=== PATIENT | male | born 1945 | race Caucasian/White ===

== ENCOUNTER → 2016-12-20 | Outpatient (CLI) | payer MEDICARE ==
--- NOTE | 2016-12-21 10:46 | MR ---
EXAMINATION TYPE: MR angio head wo con DATE OF EXAM: 12/20/2016 COMPARISON: Prior exam 07/03/2011 HISTORY: Cerebral aneurysm, nonrupture TECHNIQUE: Time of flight images focusing on the [place] were performed without contrast. FINDINGS: Anterior and posterior circulations are intact. Vertebral arteries are codominant. No evide nt vascular malformation or significant stenosis. At the origin of the ophthalmic artery on the left there is a focal area of dilation of the internal carotid artery as on prior exam and measures approx imately 4.4 mm. 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
== END | disposition home or self-care (01) ==
LOC: RADMRIMAIN 19:31
PROVIDERS: ATTEND Family Medicine
DX: I70.8 Atherosclerosis of other arteries (principal)
CPT/HCPCS: 70544

== ENCOUNTER 2017-09-02 09:36 | Day surgery (SDC) | payer MEDICARE ==
[2017-08-29 08:35] VITALS: BMI 26.7
[~2017-09-02 09:36] MED LIST: LACTATED RINGERS 1,000 ML IV SCH
[2017-09-02] MEDS: CYCLOPENTOLATE 1% OPHTH SOLN 2 ML BTL OP ONE ×3 (10:10→10:29)
[2017-09-02] MEDS: FLURBIPROFEN 0.03% OPHTH DROPS 2.5 ML BTL OP ONE ×3 (10:13→10:32)
[2017-09-02] MEDS: PHENYLEPHRINE 10% OPHTH DROPS 5 ML BTL OP ONE ×3 (10:17→10:36)
[2017-09-02 10:22] LABS: Glucose,Whole Blood 164 mg/dL (75-99)
[2017-09-02 10:26] VITALS: TEMP 97.9
[2017-09-02] MEDS ORDERED: PROPOFOL 10 MG/ML 20 ML VIAL IV ONE (10:47)
[2017-09-02] MEDS ORDERED: EPINEPHrine (PF) 0.5 ML in BALANCED SALT IRRIG SOLN COMB2 500 ML IRRIGATION ONE (10:54)
[2017-09-02] MEDS ORDERED: HYALURONATE SODIUM INTRAOCULAR 1 EACH SYRINGE (10MG/ML) INTRAOCULA ONE (10:56)
[2017-09-02] MEDS ORDERED: BALANCED SALT IRRIG SOLN COMB2 15 ML IRRIG.SOLN IRRIGATION ONE (10:56)
--- NOTE | 2017-09-02 11:11 | P.OP ---
Date of Procedure: 09/02/17 Procedure(s) Performed: ePREOPERATIVE DIAGNOSIS: Cataract, left eye. POSTOPERATIVE DIAGNOSIS: Cataract, left eye. OPERATION: Phacoemulsification cataract, left eye. DESCRIPTION OF PROCEDURE: The patient was taken to the preoperative holding area. Intravenous Propofol was given so as to bring about adequate sedation. The following mixture was given for local anesthesia: 5 mL of 2% lidocaine, 5 mL of 0.75% Marcaine, and 1 mL of Wydase. Approximately 4 mL was injected in the retrobulbar space of the surgical eye. Additional 1 mL was then directed to the temporal area of the surgical eye. This was performed to allow adequate neurological block of the facial muscles. The patient was revived and then taken into the operative room. The patient was prepped and draped in the usual sterile manner for the operative eye. A lid speculum was put into position. The conjunctiva was resected back from the limbus in the 12 o'clock position. Bleeding was controlled with electrocautery. A #69 blade was then used and a half-thickness scleral incision approximately 1-mm posterior to the limbus was made on bare sclera. This was shelved in the clear cornea using a crescent knife. Next a 15-degree blade was used to make a stab incision at the 3 o' clock position at the corneolimbal interface. Keratome blade was then used and the superior wound was extended into the anterior chamber. Viscoelastic was injected into the anterior chamber and to maintain its form. Next, a cystotome was used and a continuous anterior capsulotomy was made without difficulty. Hydrodissection using a blunt cannula and BSS was performed. Phaco probe was then employed and a groove extending from 12 to 6 o'clock in the lens was created. A Sander wand was used through the stab incision so as to perform a divide and conquer technique. Next an irrigation aspiration probe was utilized and any residual cortex was removed from the eye. Again, viscoelastic was injected into the anterior chamber. An Eric posterior chamber lens implant was placed in the cartridge and injected into the anterior chamber without difficulty. The [place] hook was utilized to spin the lens into position and this was again performed without any difficulty. The irrigation and aspiration probe was again employed and any residual viscoelastic was removed from the eye. Then BSS was injected into the limbal stab incision and the anterior chamber re-inflated. The conjunctiva was reapproximated using electrocautery. One drop of 0.25% Timoptic was placed over the corneal along with TobraDex ophthalmic ointment. Two sterile patches and a Ferguson eye shield were taped into position. The patient was transported to the recovery room in stable condition. l Pathology: none sent Condition: stable Disposition: same day
[2017-09-02 12:09] VITALS: BP 111/70; PULSE 65; RESP 18
[2017-09-02] MEDS ORDERED: GENTAMICIN/PREDNISOL AC OPHTH OINT 3.5GM OPHTHALMIC ONE (23:00)
[2017-09-02] MEDS ORDERED: BUPIVACAINE (PF) 0.75% 5 ML, HYALURONIDASE, HUMAN RECOMB 150 UNIT, LIDOCAINE 2% (PF) 10... MISCELLANE ONE ×3 (23:00)
[2017-09-02] MEDS ORDERED: TIMOLOL 0.5% OPHTH DROPS 5 ML BTL OP ONE (23:00)
== END 2017-09-02 12:18 | disposition home or self-care (01) ==
LOC: OR 09:36
PROVIDERS: ATTEND Ophthalmology
DX: E11.36 Type 2 diabetes mellitus with diabetic cataract (principal); E11.29 Type 2 diabetes mellitus with other diabetic kidney complication; Z79.4 Long term (current) use of insulin; H04.129 Dry eye syndrome of unspecified lacrimal gland; K21.9 Gastro-esophageal reflux disease without esophagitis; M19.90 Unspecified osteoarthritis, unspecified site; Z87.891 Personal history of nicotine dependence; E78.5 Hyperlipidemia, unspecified; I73.9 Peripheral vascular disease, unspecified; Z79.82 Long term (current) use of aspirin; Z79.899 Other long term (current) drug therapy
CPT/HCPCS: 66984; V2632; J3470; J2001; J0171; J2704

== ENCOUNTER 2017-10-14 10:27 | Day surgery (SDC) | payer MEDICARE ==
[2017-10-07 13:35] VITALS: BMI 28.6
[~2017-10-14 10:27] MED LIST changes: +LIDOCAINE 1% 20 ML VIAL (10MG/ML) FOR IV START INTRADERMA PRN; +MIDAZOLAM 2 MG/2 ML VIAL IV PRN
[2017-10-14 11:02] VITALS: TEMP 97.2
[2017-10-14] MEDS: PHENYLEPHRINE 10% OPHTH DROPS 5 ML BTL OP ONE ×3 (11:05→11:34)
[2017-10-14] MEDS: CYCLOPENTOLATE 1% OPHTH SOLN 2 ML BTL OP ONE ×3 (11:09→11:30)
[2017-10-14] MEDS: FLURBIPROFEN 0.03% OPHTH DROPS 2.5 ML BTL OP ONE ×3 (11:15→11:37)
[2017-10-14 11:17] LABS: Glucose,Whole Blood 273 mg/dL (75-99)
[2017-10-14] MEDS ORDERED: INSULIN ASPART 100 UNIT/ML 1 ML 10 ML VIAL SQ ONE (11:20)
[2017-10-14] MEDS ORDERED: PROPOFOL 10 MG/ML 20 ML VIAL IV ONE (11:48)
[2017-10-14] MEDS ORDERED: EPINEPHrine (PF) 0.5 ML in BALANCED SALT IRRIG SOLN COMB2 500 ML IRRIGATION ONE (11:53)
[2017-10-14] MEDS ORDERED: TIMOLOL 0.5% OPHTH SOLN (PF) 0.2 ML DROPERETTE RIGHT EYE ONE (11:56)
[2017-10-14] MEDS ORDERED: BALANCED SALT IRRIG SOLN COMB2 15 ML IRRIG.SOLN IRRIGATION ONE (11:56)
[2017-10-14] MEDS ORDERED: HYALURONATE SODIUM INTRAOCULAR 1 EACH SYRINGE (10MG/ML) INTRAOCULA ONE (11:56)
--- NOTE | 2017-10-14 12:09 | P.OP ---
Date of Procedure: 10/14/17 Procedure(s) Performed: PREOPERATIVE DIAGNOSIS: Cataract, right eye. POSTOPERATIVE DIAGNOSIS: Cataract, right eye. OPERATION: Phacoemulsification cataract, right eye. DESCRIPTION OF PROCEDURE: The patient was taken to the preoperative holding area. Intravenous Propofol was given so as to bring about adequate sedation. The following mixture was given for local anesthesia: 5 mL of 2% lidocaine, 5 mL of 0.75% Marcaine, and 1 mL of Wydase. Approximately 4 mL was injected in the retrobulbar space of the surgical eye. Additional 1 mL was then directed to the temporal area of the surgical eye. This was performed to allow adequate neurological block of the facial muscles. The patient was revived and then taken into the operative room. The patient was prepped and draped in the usual sterile manner for the operative eye. A lid speculum was put into position. The conjunctiva was resected back from the limbus in the 12 o'clock position. Bleeding was controlled with electrocautery. A #69 blade was then used and a half-thickness scleral incision approximately 1-mm posterior to the limbus was made on bare sclera. This was shelved in the clear cornea using a crescent knife. Next a 15-degree blade was used to make a stab incision at the 3 o' clock position at the corneolimbal interface. Keratome blade was then used and the superior wound was extended into the anterior chamber. Viscoelastic was injected into the anterior chamber and to maintain its form. Next, a cystotome was used and a continuous anterior capsulotomy was made without difficulty. Hydrodissection using a blunt cannula and BSS was performed. Phaco probe was then employed and a groove extending from 12 to 6 o'clock in the lens was created. A Sander wand was used through the stab incision so as to perform a divide and conquer technique. Next an irrigation aspiration probe was utilized and any residual cortex was removed from the eye. Again, viscoelastic was injected into the anterior chamber. An Eric posterior chamber lens implant was placed in the cartridge and injected into the anterior chamber without difficulty. The SinDragon [place]iley hook was utilized to spin the lens into position and this was again performed without any difficulty. The irrigation and aspiration probe was again employed and any residual viscoelastic was removed from the eye. Then BSS was injected into the limbal stab incision and the anterior chamber re-inflated. The conjunctiva was reapproximated using electrocautery. One drop of 0.25% Timoptic was placed over the corneal along with TobraDex ophthalmic ointment. Two sterile patches and a Ferguson eye shield were taped into position. The patient was transported to the recovery room in stable condition. Pathology: none sent Condition: stable Disposition: same day
[2017-10-14 12:17] VITALS: RESP 20
[2017-10-14 12:19] LABS: Glucose,Whole Blood 252 mg/dL (75-99)
[2017-10-14 12:34] VITALS: BP 115/76; PULSE 73
[2017-10-14] MEDS ORDERED: BUPIVACAINE (PF) 0.75% 5 ML, HYALURONIDASE, HUMAN RECOMB 150 UNIT, LIDOCAINE 2% (PF) 10... MISCELLANE ONE ×3 (23:00)
[2017-10-14] MEDS ORDERED: GENTAMICIN/PREDNISOL AC OPHTH OINT 3.5GM OPHTHALMIC ONE (23:00)
[2017-10-14] MEDS ORDERED: TIMOLOL 0.5% OPHTH DROPS 5 ML BTL OP ONE (23:00)
== END 2017-10-14 12:50 | disposition home or self-care (01) ==
LOC: OR 10:27
PROVIDERS: ATTEND Ophthalmology
DX: H25.11 Age-related nuclear cataract, right eye (principal); E11.9 Type 2 diabetes mellitus without complications; K21.9 Gastro-esophageal reflux disease without esophagitis; M19.90 Unspecified osteoarthritis, unspecified site; I10 Essential (primary) hypertension; E78.5 Hyperlipidemia, unspecified; H91.90 Unspecified hearing loss, unspecified ear; Z83.511 Family history of glaucoma; Z79.82 Long term (current) use of aspirin; Z79.4 Long term (current) use of insulin; Z79.899 Other long term (current) drug therapy; Z87.891 Personal history of nicotine dependence
CPT/HCPCS: 66984; V2632; J3470; J2001; J0171; J2704

== ENCOUNTER → 2018-01-27 | Outpatient (CLI) | payer MEDICARE ==
--- NOTE | 2018-01-27 14:36 | XR ---
EXAMINATION TYPE: XR foot complete RT DATE OF EXAM: 01/27/2018 COMPARISON: NONE HISTORY: 72-year-old male right foot pain, gout TECHNIQUE: 3 views FINDINGS: Prominent marginal spurring at both the talar head/neck and dorsal midfoot. Plantar calcaneal spurs i n posterior calcaneal spurs. Additional diffuse opacity change at the base of the fifth metatarsal. N o marginal erosions are seen. Mild degenerative change first MTP joint. Tiny loose bodies in the post erior tibiotalar joint. Mild degenerative spurring at the tibiotalar joint. No acute fracture, sublux ation, or dislocation seen. IMPRESSION: Prominent enthesopathic change and spurring at various insertional sites. Findings can be seen in the setting of DISH. No acute osseous abnormality seen.
== END | disposition home or self-care (01) ==
LOC: RADXRMAIN 10:18
PROVIDERS: ATTEND Physician Assistant
DX: M77.31 Calcaneal spur, right foot (principal)

== ENCOUNTER → 2020-02-23 | Outpatient (CLI) | payer MEDICARE ==
--- NOTE | 2020-02-23 23:10 | US ---
EXAMINATION TYPE: US kidneys/renal and bladder DATE OF EXAM: 02/23/2020 COMPARISON: NONE CLINICAL HISTORY: N18.3 chronic kidney disease. CKD EXAM MEASUREMENTS: Right Kidney: 11.5 x 5.5 x 6.1 cm Left Kidney: 11.4 x 5.0 x 5.7 cm Right Kidney: multiple cysts seen, largest = 3.3 x 3.6 x 3.0cm inferior pole Left Kidney: multiple cysts seen, largest = 2.6 x 2.9 x 2.6cm inferior pole Bladder: wall thickening = 0.7cm Bilateral Jets seen: no IMPRESSION: Multiple bilateral Renal cysts.
== END | disposition home or self-care (01) ==
LOC: RADUSWWP 13:22
PROVIDERS: ATTEND Internal Medicine Nephrology
DX: N28.1 Cyst of kidney, acquired (principal); N18.3 Chronic kidney disease, stage 3 (moderate)
CPT/HCPCS: 76770

== ENCOUNTER 2020-05-22 18:09 | Inpatient (IN) | payer MEDICARE ==
[2020-05-22] MEDS ORDERED: ALBUTEROL HFA INHALER INHALATION PRN (18:37)
[2020-05-22] MEDS ORDERED: ACETAMINOPHEN TAB 500 MG TAB PO STA (18:37)
[2020-05-22] MEDS ORDERED: ACETAMINOPHEN TAB 500 MG TAB PO PRN (18:37)
[2020-05-22] MEDS ORDERED: ALBUTEROL HFA INHALER INHALATION STA (18:37)
--- NOTE | 2020-05-22 18:39 | ED ---
General Adult HPI - General Chief complaint: Upper Respiratory Infection Stated complaint: cough/sinus problems Time Seen by Provider: 05/22/20 18:26 Source: patient, RN notes reviewed Mode of arrival: ambulatory Limitations: no limitations - History of Present Illness Initial comments: Patient is a pleasant 74-year-old male presenting to the emergency Department with complaints of sinus congestion. Onset of symptoms was over a week ago. Patient did see his doctor and was given medication. Patient states he usually has similar symptoms nearly. A benitez has some fever chills and myalgias. Patient does have a little bit of cough and little bit of difficulty in breathing. No history of chronic lung problems. Patient did have one episode of diarrhea. - Related Data Home Medications Medication Instructions Recorded Confirmed Aspirin 325 mg PO DAILY 05/13/15 05/22/20 Fish Oil/Dha/Epa [Fish Oil 1,200 1,000 mg PO BID 05/13/15 05/22/20 mg Fish Oil] Lisinopril-Hctz 20-12.5 mg 1 tab PO DAILY 05/13/15 05/22/20 [Zestoretic 20-12.5] Omeprazole [PriLOSEC] 20 mg PO AC-BID 05/13/15 05/22/20 Cholecalciferol [Vitamin D3] 1,000 unit PO DAILY 08/29/17 05/22/20 Insulin Lispro Protamin/Lispro 40 unit SQ BID 08/29/17 05/22/20 [humaLOG Mix 75-25 Kwikpen] Ubidecarenone [Co Q-10] 100 mg PO DAILY 08/29/17 05/22/20 Lifitegrast [Xiidra] 1 dropper BOTH EYES BID 05/22/20 05/22/20 Simvastatin [Zocor] 20 mg PO HS 05/22/20 05/22/20 Tamsulosin HCl [Flomax] 0.4 mg PO HS 05/22/20 05/22/20 Allergies Allergy/AdvReac Type Severity Reaction Status Date / Time clindamycin [From Cleocin] Allergy Rash/Hives Verified 05/22/20 19:29 Review of Systems ROS Statement: Those systems with pertinent positive or pertinent negative responses have been documented in the HPI. ROS Other: All systems not noted in ROS Statement are negative. Constitutional: Reports: as per HPI, fever, chills Eyes: Denies: eye pain ENT: Reports: congestion. Denies: ear pain, throat pain Respiratory: Reports: as per HPI, cough Cardiovascular: Denies: chest pain Endocrine: Reports: fatigue Gastrointestinal: Denies: abdominal pain Genitourinary: Denies: dysuria Musculoskeletal: Denies: back pain Skin: Denies: rash Neurological: Denies: weakness Past Medical History Past Medical History: Diabetes Mellitus, GERD/Reflux, Hyperlipidemia, Hypertension, Osteoarthritis (OA) Additional Past Medical History / Comment(s): 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" History of Any Multi-Drug Resistant Organisms: None Reported Past Surgical History: Cholecystectomy Additional Past Surgical History / Comment(s): spinal cord infection I&D, left cataract surgery, colonoscopy, left cataract Past Anesthesia/Blood Transfusion Reactions: Motion Sickness Past Psychological History: No Psychological Hx Reported Smoking Status: Never smoker Past Alcohol Use History: None Reported Past Drug Use History: None Reported - Past Family History Mother Family Medical History: No Reported History General Exam Limitations: no limitations General appearance: alert, in no apparent distress Head exam: Present: normocephalic Eye exam: Present: normal appearance ENT exam: Present: normal oropharynx Neck exam: Present: normal inspection Respiratory exam: Present: normal lung sounds bilaterally Cardiovascular Exam: Present: tachycardia GI/Abdominal exam: Present: soft. Absent: tenderness Extremities exam: Present: normal inspection. Absent: pedal edema, calf tenderness Neurological exam: Present: alert Psychiatric exam: Present: normal affect, normal mood Skin exam: Present: normal color Course Vital Signs 05/22/20 05/22/20 05/22/20 18:20 18:32 19:14 Temperature 99.3 F 98.1 F Pulse Rate 106 H 88 Respiratory 18 20 20 Rate Blood Pressure 121/67 106/63 O2 Sat by Pulse 90 L 93 L Oximetry EKG Findings - EKG Comments: EKG Findings:: Normal sinus rhythm 94. CA 166. QRS 74. QT 332. QTC 402. Normal axis. Normal QRS. No acute ST change. Medical Decision Making - Medical Decision Making Patient reevaluated and updated. Dr. Salmeron has been paged for admission, covering for Dr. Plascencia. - Lab Data Result diagrams: 05/22/20 18:53 05/22/20 18:53 Lab Results 05/22/20 05/22/20 05/22/20 Range/Units 18:53 18:53 18:53 WBC 6.3 (3.8-10.6) k/uL RBC 5.09 (4.30-5.90) m/uL Hgb 16.2 (13.0-17.5) gm/dL Hct 46.2 (39.0-53.0) % MCV 90.9 (80.0-100.0) fL MCH 31.8 (25.0-35.0) pg MCHC 35.0 (31.0-37.0) g/dL RDW 12.5 (11.5-15.5) % Plt Count 152 (150-450) k/uL MPV 7.8 Neutrophils % 84 % Lymphocytes % 11 % Monocytes % 4 % Eosinophils % 0 % Basophils % 1 % Neutrophils # 5.2 (1.3-7.7) k/uL Lymphocytes # 0.7 L (1.0-4.8) k/uL Monocytes # 0.2 (0-1.0) k/uL Eosinophils # 0.0 (0-0.7) k/uL Basophils # 0.0 (0-0.2) k/uL PT 10.0 (9.0-12.0) sec INR 1.0 (<1.2) APTT 26.1 (22.0-30.0) sec Sodium 131 L (137-145) mmol/L Potassium 4.7 (3.5-5.1) mmol/L Chloride 96 L (98-107) mmol/L Carbon Dioxide 25 (22-30) mmol/L Anion Gap 10 mmol/L BUN 49 H (9-20) mg/dL Creatinine 1.95 H (0.66-1.25) mg/dL Est GFR (CKD-EPI)AfAm 38 (>60 ml/min/1.73 sqM) Est GFR (CKD-EPI)NonAf 33 (>60 ml/min/1.73 sqM) Glucose 229 H (74-99) mg/dL Plasma Lactic Acid Stephen (0.7-2.0) mmol/L Calcium 8.7 (8.4-10.2) mg/dL Magnesium 2.1 (1.6-2.3) mg/dL Total Bilirubin 0.8 (0.2-1.3) mg/dL AST 43 (17-59) U/L ALT 21 (4-49) U/L Alkaline Phosphatase 68 (38-126) U/L Lactate Dehydrogenase 946 H (313-618) U/L C-Reactive Protein 53.1 H (<10.0) mg/L Total Protein 7.1 (6.3-8.2) g/dL Albumin 3.7 (3.5-5.0) g/dL Coronavirus (PCR) (Not Detectd) Influenza Type A RNA (Not Detectd) Influenza Type B (PCR) (Not Detectd) 05/22/20 05/22/20 05/22/20 Range/Units 18:53 18:58 18:58 WBC (3.8-10.6) k/uL RBC (4.30-5.90) m/uL Hgb (13.0-17.5) gm/dL Hct (39.0-53.0) % MCV (80.0-100.0) fL MCH (25.0-35.0) pg MCHC (31.0-37.0) g/dL RDW (11.5-15.5) % Plt Count (150-450) k/uL MPV Neutrophils % % Lymphocytes % % Monocytes % % Eosinophils % % Basophils % % Neutrophils # (1.3-7.7) k/uL Lymphocytes # (1.0-4.8) k/uL Monocytes # (0-1.0) k/uL Eosinophils # (0-0.7) k/uL Basophils # (0-0.2) k/uL PT (9.0-12.0) sec INR (<1.2) APTT (22.0-30.0) sec Sodium (137-145) mmol/L Potassium (3.5-5.1) mmol/L Chloride (98-107) mmol/L Carbon Dioxide (22-30) mmol/L Anion Gap mmol/L BUN (9-20) mg/dL Creatinine (0.66-1.25) mg/dL Est GFR (CKD-EPI)AfAm (>60 ml/min/1.73 sqM) Est GFR (CKD-EPI)NonAf (>60 ml/min/1.73 sqM) Glucose (74-99) mg/dL Plasma Lactic Acid Stephen 2.3 H* (0.7-2.0) mmol/L Calcium (8.4-10.2) mg/dL Magnesium (1.6-2.3) mg/dL Total Bilirubin (0.2-1.3) mg/dL AST (17-59) U/L ALT (4-49) U/L Alkaline Phosphatase (38-126) U/L Lactate Dehydrogenase (313-618) U/L C-Reactive Protein (<10.0) mg/L Total Protein (6.3-8.2) g/dL Albumin (3.5-5.0) g/dL Coronavirus (PCR) Detected A (Not Detectd) Influenza Type A RNA Not Detected (Not Detectd) Influenza Type B (PCR) Not Detected (Not Detectd) - Radiology Data Radiology results: image reviewed (Chest x-ray shows coarse interstitial density increased compared to prior consistent with pulmonary fibrosis. Interstitial pneumonia is possible.) Disposition Clinical Impression: COVID-19 Disposition: ADMITTED IP TO THIS HOSP Is patient prescribed a controlled substance at d/c from ED?: No Referrals: Anastacio Plascencia MD [Primary Care Provider] - 1-2 days Decision Time: 20:15
[2020-05-22 19:06] LABS: Basophils % (A) 1 %; Eosinophils % (A) 0 %; HCT 46.2 % (39.0-53.0); HGB 16.2 gm/dL (13.0-17.5); Lymphocytes # (A) 0.7 k/uL (1.0-4.8); Lymphocytes % (A) 11 %; MCH 31.8 pg (25.0-35.0); MCV 90.9 fL (80.0-100.0); Mean Platelet Volume 7.8; Monocytes # (A) 0.2 k/uL (0-1.0); Monocytes % (A) 4 %; Neutrophils # (A) 5.2 k/uL (1.3-7.7); Neutrophils % (A) 84 %; Platelet Count 152 k/uL (150-450); RBC 5.09 m/uL (4.30-5.90); RDW 12.5 % (11.5-15.5); WBC 6.3 k/uL (3.8-10.6)
[2020-05-22 19:21] LABS: Potassium 4.7 mmol/L (3.5-5.1)
[2020-05-22 19:23] LABS: Partial Thromboplastin Time 26.1 sec (22.0-30.0)
[2020-05-22 19:24] LABS: Albumin 3.7 g/dL (3.5-5.0); C Reactive Protein 53.1 mg/L (<10.0); Calcium 8.7 mg/dL (8.4-10.2); Magnesium 2.1 mg/dL (1.6-2.3); Total Bilirubin 0.8 mg/dL (0.2-1.3); Total Protein 7.1 g/dL (6.3-8.2)
[2020-05-22] MEDS ORDERED: SODIUM CHLORIDE 0.9% 1,000 ML IV STA (19:36)
--- NOTE | 2020-05-22 19:42 | XR ---
EXAMINATION TYPE: XR chest 1V portable DATE OF EXAM: 05/22/2020 COMPARISON: 10/14/2012 HISTORY: Bronchitis TECHNIQUE: FINDINGS: There is coarse interstitial density in both lungs. Heart size is normal. There is no heart failure. Costophrenic angles are clear. IMPRESSION: Coarse interstitial pulmonary density increased compared to old exam and consistent with pulmonary fibrosis. Acute interstitial pneumonia is possible. No heart failure seen.
[2020-05-22] MEDS ORDERED: NALOXONE 0.4 MG/ML 1 ML VIAL IV PRN (20:16)
[2020-05-22] MEDS: ALBUTEROL HFA INHALER INHALATION SCH (20:43)
[2020-05-22] MEDS: CHOLECALCIFEROL 1,000 UNIT TAB PO SCH (21:21)
[2020-05-22] MEDS: ZINC SULFATE 220 MG CAP PO SCH (21:21)
[2020-05-22] MEDS: dexAMETHasone 2 MG TAB PO SCH (21:21)
[2020-05-22] MEDS: SODIUM CHLORIDE 0.9% 1,000 ML IV SCH (21:22)
[2020-05-22] MEDS: ENOXAPARIN 40 MG/0.4 ML SYRINGE SQ SCH (21:22)
[2020-05-22] MEDS: ASCORBIC ACID 500 MG TAB PO SCH (21:22)
[2020-05-23] MEDS: ALBUTEROL HFA INHALER INHALATION SCH ×4 (00:29→21:15)
[2020-05-23 03:31] LABS: Ferritin 1841.4 ng/mL (22.0-322.0)
[2020-05-23 07:53] LABS: Glucose,Whole Blood 127 mg/dL (75-99)
[2020-05-23] MEDS: INSULIN ASPART (NovoLOG) 100 UNIT/ML VIAL SQ SCH ×4 (08:32→20:42)
[2020-05-23] MEDS: ASCORBIC ACID 500 MG TAB PO SCH ×2 (08:42→20:42)
[2020-05-23] MEDS: CHOLECALCIFEROL 1,000 UNIT TAB PO SCH (08:42)
[2020-05-23] MEDS: dexAMETHasone 2 MG TAB PO SCH (08:42)
[2020-05-23] MEDS: ZINC SULFATE 220 MG CAP PO SCH (08:42)
[2020-05-23] MEDS: PANTOPRAZOLE 40 MG TABLET PO SCH ×2 (08:42→17:55)
[2020-05-23] MEDS: ENOXAPARIN 40 MG/0.4 ML SYRINGE SQ SCH (08:42)
[2020-05-23] MEDS: NON FORMULARY DRUG (Lifitegrast [Xiidra] 1 EACH Droperette) BOTH EYES SCH ×2 (08:43→20:44)
[2020-05-23] MEDS: ASPIRIN 325 MG TAB PO SCH (08:43)
[2020-05-23] MEDS ORDERED: NON FORMULARY DRUG (Ubidecarenone [Co Q-10] 100 MG Capsule) PO SCH (09:00)
[2020-05-23] MEDS ORDERED: INSULN ASP PRT/INSULIN ASPART 100 UNIT/ML 10 ML VIAL SQ SCH (09:00)
[2020-05-23] MEDS ORDERED: NON FORMULARY DRUG (Fish Oil/Dha/Epa [Fish Oil 1,200 Mg Fish Oil] 1 EACH Capsule) PO SCH (09:00)
[2020-05-23] MEDS ORDERED: PANTOPRAZOLE 40 MG/10 ML VIAL IV SCH (09:00)
[2020-05-23] MEDS ORDERED: LISINOPRIL-HCTZ 20-12.5 MG 1 EACH TAB PO SCH (09:00)
[2020-05-23] MEDS: SODIUM CHLORIDE 0.9% 1,000 ML IV SCH ×2 (11:16→23:19)
[2020-05-23 11:24] LABS: Glucose,Whole Blood 147 mg/dL (75-99)
--- NOTE | 2020-05-23 13:02 | P.HPIM ---
History of Present Illness 74-year-old pleasant male came to the emergency department with complaints of for sinus congestion and body aches fevers chills. Found to have Covid 19. Patient the is still feeling weak and tired. Patient had 1 episode of diarrhea. She is mildly hyponatremic patient is found to have a Covid 19 infection. Patient baseline creatinine is around 1.8 appears to mild worsening of his creatinine to 1.95. Patient will be continued on IV fluids today patient is presently on 2 L of oxygen we'll try to wean it off if patient is doing well will be discharged tomorrow. She was on 4 L of oxygen yesterday patient believes he is exposed to coronavirus on ninth of this month his symptoms started about a week ago. Patient is presently on Decadron. Review of Systems REVIEW OF SYSTEMS: CONSTITUTIONAL: As mentioned in HPI HEENT: No recent visual problems or hearing problems. Denied any sore throat. CARDIOVASCULAR: No chest pain, orthopnea, PND, no palpitations, no syncope. PULMONARY: No shortness of breath, no cough, no hemoptysis. GASTROINTESTINAL: No diarrhea, no nausea, no vomiting, no abdominal pain. NEUROLOGICAL: No headaches, no weakness, no numbness. HEMATOLOGICAL: Denies any bleeding or petechiae. GENITOURINARY: Denies any burning micturition, frequency, or urgency. MUSCULOSKELETAL/RHEUMATOLOGICAL: Denies any joint pain, swelling, or any muscle pain. ENDOCRINE: Denies any polyuria or polydipsia. The rest of the 14-point review of systems is negative. Past Medical History Past Medical History: Diabetes Mellitus, GERD/Reflux, Hyperlipidemia, Hypertension, Osteoarthritis (OA) Additional Past Medical History / Comment(s): 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" History of Any Multi-Drug Resistant Organisms: None Reported Past Surgical History: Cholecystectomy Additional Past Surgical History / Comment(s): spinal cord infection I&D, left cataract surgery, colonoscopy, left cataract Past Anesthesia/Blood Transfusion Reactions: Motion Sickness Past Psychological History: No Psychological Hx Reported Smoking Status: Former smoker Past Alcohol Use History: None Reported Additional Past Alcohol Use History / Comment(s): STARTED SMOKING AT AGE 20 QUIT SMOKING 1973 SMOKED 1PPD Past Drug Use History: None Reported - Past Family History Mother Family Medical History: No Reported History Medications and Allergies Home Medications Medication Instructions Recorded Confirmed Type Aspirin 325 mg PO DAILY 05/13/15 05/22/20 History Fish Oil/Dha/Epa [Fish Oil 1,200 1,000 mg PO BID 05/13/15 05/22/20 History mg Fish Oil] Lisinopril-Hctz 20-12.5 mg 1 tab PO DAILY 05/13/15 05/22/20 History [Zestoretic 20-12.5] Omeprazole [PriLOSEC] 20 mg PO AC-BID 05/13/15 05/22/20 History Cholecalciferol [Vitamin D3] 1,000 unit PO DAILY 08/29/17 05/22/20 History Insulin Lispro Protamin/Lispro 40 unit SQ BID 08/29/17 05/22/20 History [humaLOG Mix 75-25 Kwikpen] Ubidecarenone [Co Q-10] 100 mg PO DAILY 08/29/17 05/22/20 History Lifitegrast [Xiidra] 1 dropper BOTH EYES BID 05/22/20 05/22/20 History Simvastatin [Zocor] 20 mg PO HS 05/22/20 05/22/20 History Tamsulosin HCl [Flomax] 0.4 mg PO HS 05/22/20 05/22/20 History Allergies Allergy/AdvReac Type Severity Reaction Status Date / Time clindamycin [From Cleocin] Allergy Rash/Hives Verified 05/22/20 19:29 Physical Exam Vitals: Vital Signs Temp Pulse Pulse Resp BP BP Pulse Ox 05/23/20 11:20 98.0 F 83 18 108/63 94 L 05/23/20 05:35 97.6 F 70 18 95/59 94 L 05/22/20 23:00 97.7 F 82 16 97/55 94 L 05/22/20 21:41 98.6 F 81 20 106/84 93 L 05/22/20 21:00 98.6 F 81 20 94/55 93 L 05/22/20 20:22 98.6 F 88 20 99/62 93 L 05/22/20 19:14 98.1 F 88 20 106/63 93 L 05/22/20 18:32 20 05/22/20 18:20 99.3 F 106 H 18 121/67 90 L Intake and Output 05/22/20 05/23/20 05/23/20 22:59 06:59 14:59 Intake Total 400 850 Balance 400 850 Intake: Intake, IV Titration 150 600 Amount Sodium Chloride 0.9% 1, 150 600 000 ml @ 75 mls/hr IV . [id number] [facility] Rx#:[id number] Oral 250 250 Other: Voiding Method Toilet Toilet # Voids 2 2 Weight 90.718 kg PHYSICAL EXAMINATION: GENERAL: The patient is alert and oriented x3, not in any acute distress. Well developed, well nourished. HEENT: Pupils are round and equally reacting to light. EOMI. No scleral icterus. No conjunctival pallor. Normocephalic, atraumatic. No pharyngeal erythema. No thyromegaly. CARDIOVASCULAR: S1 and S2 present. No murmurs, rubs, or gallops. PULMONARY: Chest is clear to auscultation, no wheezing or crackles. ABDOMEN: Soft, nontender, nondistended, normoactive bowel sounds. No palpable organomegaly. MUSCULOSKELETAL: No joint swelling or deformity. EXTREMITIES: No cyanosis, clubbing, or pedal edema. NEUROLOGICAL: Gross neurological examination did not reveal any focal deficits. SKIN: No rashes. Results CBC & Chem 7: 05/22/20 18:53 05/22/20 18:53 Labs: Abnormal Lab Results - Last 24 Hours (Table) 05/22/20 05/22/20 05/22/20 Range/Units 18:53 18:53 18:53 Lymphocytes # 0.7 L (1.0-4.8) k/uL Sodium 131 L (137-145) mmol/L Chloride 96 L (98-107) mmol/L BUN 49 H (9-20) mg/dL Creatinine 1.95 H (0.66-1.25) mg/dL Glucose 229 H (74-99) mg/dL POC Glucose (mg/dL) (75-99) mg/dL Plasma Lactic Acid Stephen 2.3 H* (0.7-2.0) mmol/L Ferritin 1841.4 H (22.0-322.0) ng/mL Lactate Dehydrogenase 946 H (313-618) U/L C-Reactive Protein 53.1 H (<10.0) mg/L Procalcitonin (0.02-0.09) ng/mL Coronavirus (PCR) (Not Detectd) 05/22/20 05/22/20 05/23/20 Range/Units 18:53 18:58 07:50 Lymphocytes # (1.0-4.8) k/uL Sodium (137-145) mmol/L Chloride (98-107) mmol/L BUN (9-20) mg/dL Creatinine (0.66-1.25) mg/dL Glucose (74-99) mg/dL POC Glucose (mg/dL) 127 H (75-99) mg/dL Plasma Lactic Acid Stephen (0.7-2.0) mmol/L Ferritin (22.0-322.0) ng/mL Lactate Dehydrogenase (313-618) U/L C-Reactive Protein (<10.0) mg/L Procalcitonin 0.13 H (0.02-0.09) ng/mL Coronavirus (PCR) Detected A (Not Detectd) 05/23/20 Range/Units 11:23 Lymphocytes # (1.0-4.8) k/uL Sodium (137-145) mmol/L Chloride (98-107) mmol/L BUN (9-20) mg/dL Creatinine (0.66-1.25) mg/dL Glucose (74-99) mg/dL POC Glucose (mg/dL) 147 H (75-99) mg/dL Plasma Lactic Acid Stephen (0.7-2.0) mmol/L Ferritin (22.0-322.0) ng/mL Lactate Dehydrogenase (313-618) U/L C-Reactive Protein (<10.0) mg/L Procalcitonin (0.02-0.09) ng/mL Coronavirus (PCR) (Not Detectd) Thrombosis Risk Factor Assmnt - Choose All That Apply Any of the Below Risk Factors Present?: Yes Each Factor Represents 1 point: Obesity (BMI >25) Each Risk Factor Represents 3 Points: Age 75 years or older Thrombosis Risk Factor Assessment Total Risk Factor Score: 4 Thrombosis Risk Factor Assessment Level: Moderate Risk Assessment and Plan Plan: -Covid 19 pneumonitis and acute hypoxic respiratory failure secondary to Covid 1 9. Patient will continue on Decadron, zinc, vitamin C and vitamin D supplementation. Patient is presently on 2 L of oxygen will be monitored. -Hypovolemic hyponatremia secondary to diarrhea as well as his antihypertensive medications medications that includes hydrochlorothiazide which will be held and patient is hypotensive at this time and patient will continue on IV fluids repeat basic metabolic profile tomorrow -Acute renal failure.: Prerenal azotemia secondary to assessment #2, patient do es have chronic kidney disease stage III from a possible diabetic nephropathy -Type 2 diabetes mellitus: His blood sugars are fine now expected to go because of Decadron -Hyperlipidemia -Hypertension -DVT prophylaxis with the heparin Lovenox will be discontinued
[2020-05-23 17:00] LABS: Glucose,Whole Blood 252 mg/dL (75-99)
[2020-05-23] MEDS: INSULN ASP PRT/INSULIN ASPART 100 UNIT/ML 10 ML VIAL SQ SCH (18:07)
[2020-05-23 19:48] LABS: Glucose,Whole Blood 207 mg/dL (75-99)
[2020-05-23] MEDS: ATORVASTATIN 20 MG TAB PO SCH (20:42)
[2020-05-23] MEDS: TAMSULOSIN 0.4 MG CAP.ER.24H PO SCH (20:42)
[2020-05-23] MEDS: HEPARIN SODIUM,PORCINE 5,000 UNIT/ML 1 ML VIAL SQ SCH (20:42)
[2020-05-24] MEDS: ALBUTEROL HFA INHALER INHALATION SCH ×5 (02:44→21:34)
[2020-05-24 06:45] LABS: HCT 40.8 % (39.0-53.0); MCH 31.4 pg (25.0-35.0); MCHC 34.3 g/dL (31.0-37.0); MCV 91.5 fL (80.0-100.0); Mean Platelet Volume 7.6; Platelet Count 164 k/uL (150-450); RBC 4.46 m/uL (4.30-5.90); RDW 12.8 % (11.5-15.5); WBC 12.4 k/uL (3.8-10.6)
[2020-05-24 07:07] LABS: Glucose,Whole Blood 96 mg/dL (75-99)
[2020-05-24] MEDS: INSULIN ASPART (NovoLOG) 100 UNIT/ML VIAL SQ SCH ×4 (07:38→21:58)
[2020-05-24 09:54] LABS: Albumin 3.1 g/dL (3.80-4.90); Albumin/Globulin Ratio 1.35 (1.60-3.17); Anion Gap 8.4 mmol/L (4.00-12.00); BUN/Creat Ratio 26.67 Ratio (12.00-20.00); Calcium 8.4 mg/dL (8.7-10.3); Carbon Dioxide 24.6 mmol/L (21.6-31.8); Globulin 2.3 g/dL (1.6-3.3); Non-African American GFR(CKD) 36.3 (60.0-200.0); Potassium 4.6 mmol/L (3.5-5.5); Total Bilirubin 0.6 mg/dL (0.2-1.2); Total Protein 5.4 g/dL (6.2-8.2)
[2020-05-24] MEDS: ZINC SULFATE 220 MG CAP PO SCH (10:31)
[2020-05-24] MEDS: INSULN ASP PRT/INSULIN ASPART 100 UNIT/ML 10 ML VIAL SQ SCH ×2 (10:31→18:24)
[2020-05-24] MEDS: CHOLECALCIFEROL 1,000 UNIT TAB PO SCH (10:31)
[2020-05-24] MEDS: HEPARIN SODIUM,PORCINE 5,000 UNIT/ML 1 ML VIAL SQ SCH ×2 (10:31→21:59)
[2020-05-24] MEDS: PANTOPRAZOLE 40 MG TABLET PO SCH ×2 (10:31→18:24)
[2020-05-24] MEDS: dexAMETHasone 2 MG TAB PO SCH (10:31)
[2020-05-24] MEDS: ASCORBIC ACID 500 MG TAB PO SCH ×2 (10:31→21:58)
[2020-05-24] MEDS: ASPIRIN 325 MG TAB PO SCH (10:32)
[2020-05-24] MEDS: NON FORMULARY DRUG (Lifitegrast [Xiidra] 1 EACH Droperette) BOTH EYES SCH (10:32)
[2020-05-24 11:42] LABS: Glucose,Whole Blood 124 mg/dL (75-99)
[2020-05-24 12:01] LABS: Hemoglobin A1C 8.5 % (4.0-6.0)
[2020-05-24 17:10] LABS: Glucose,Whole Blood 180 mg/dL (75-99)
[2020-05-24 20:09] LABS: Glucose,Whole Blood 166 mg/dL (75-99)
[2020-05-24] MEDS: ATORVASTATIN 20 MG TAB PO SCH (21:58)
[2020-05-24] MEDS: TAMSULOSIN 0.4 MG CAP.ER.24H PO SCH (21:58)
[2020-05-24] MEDS ORDERED: REMDESIVIR 200 MG in SODIUM CHLORIDE 0.9% 250 ML IVPB ONE (22:00)
--- NOTE | 2020-05-25 01:52 | P.PN ---
Subjective Progress Note Date: 05/24/20 74-year-old pleasant male came to the emergency department with complaints of for sinus congestion and body aches fevers chills. Found to have Covid 19. Patient the is still feeling weak and tired. Patient had 1 episode of diarrhea. She is mildly hyponatremic patient is found to have a Covid 19 infection. Patient baseline creatinine is around 1.8 appears to mild worsening of his creatinine to 1.95. Patient will be continued on IV fluids today patient is presently on 2 L of oxygen we'll try to wean it off if patient is doing well will be discharged tomorrow. She was on 4 L of oxygen yesterday patient believes he is exposed to coronavirus on ninth of this month his symptoms started about a week ago. Patient is presently on Decadron. 05/25/20 Patient seen in follow up with no acute issues. Patient remains on 8 L via NC high flow and is currently weaning per nursing staff. Patient states he has increased shortness of breath with exertion when attempting to wean. Infectious disease consulted and currently on dexamethasone. Remdesivir being initiated. creatinine 1.8 today and will continue with gentle IV hydration. Will repeat am labs. Review of systems: Constitutional: Reports weakness and fatigue Cardio: No reports of chest pain or palpitations Respiratory: Reports shortness of breath and persistent cough GI: no reports of nausea, vomiting, or diarrhea : no reports of dysuria or retention Neurovascular: No reports of numbness All medications have been reviewed. Objective - Vital Signs Vital signs: Vital Signs Temp 98.3 F 05/24/20 12:26 Pulse 87 05/24/20 12:26 Resp 17 05/24/20 12:26 BP 104/59 05/24/20 12:26 Pulse Ox 90 L 05/24/20 12:26 Intake & Output 05/23/20 05/24/20 05/24/20 18:59 06:59 18:59 Intake Total 1130 Output Total 800 Balance 1130 -800 Intake: Intake, IV Titration 300 Amount Sodium Chloride 0.9% 1, 300 000 ml @ 75 mls/hr IV . [id number] [facility] Rx#:[id number] Oral 830 Output: Urine 800 Other: Voiding Method Toilet Toilet Toilet # Voids 4 1 3 # Bowel Movements 1 1 - Exam GENERAL: The patient is alert and oriented x3, not in any acute distress. Well developed, well nourished. HEENT: Pupils are round and equally reacting to light. EOMI. No scleral icterus. No conjunctival pallor. Normocephalic, atraumatic. No pharyngeal erythema. No thyromegaly. CARDIOVASCULAR: S1 and S2 present. No murmurs, rubs, or gallops. PULMONARY: Chest is clear to auscultation, no wheezing or crackles. ABDOMEN: Soft, nontender, nondistended, normoactive bowel sounds. No palpable organomegaly. MUSCULOSKELETAL: No joint swelling or deformity. EXTREMITIES: No cyanosis, clubbing, or pedal edema. NEUROLOGICAL: Gross neurological examination did not reveal any focal deficits. SKIN: No rashes. - Labs CBC & Chem 7: 05/24/20 06:24 05/24/20 06:24 Labs: Abnormal Lab Results - Last 24 Hours (Table) 05/23/20 05/23/20 05/24/20 Range/Units 16:58 19:47 06:24 WBC (3.8-10.6) k/uL BUN (9.0-27.0) mg/dL Creatinine (0.6-1.5) mg/dL Est GFR (CKD-EPI)AfAm (60.0-200.0) Est GFR (CKD-EPI)NonAf (60.0-200.0) BUN/Creatinine Ratio (12.00-20.00) Ratio POC Glucose (mg/dL) 252 H 207 H (75-99) mg/dL Hemoglobin A1c 8.5 H (4.0-6.0) % Calcium (8.7-10.3) mg/dL AST (14-35) U/L Total Protein (6.2-8.2) g/dL Albumin (3.80-4.90) g/dL Albumin/Globulin Ratio (1.60-3.17) g/dL 05/24/20 05/24/20 05/24/20 Range/Units 06:24 06:24 11:41 WBC 12.4 H (3.8-10.6) k/uL BUN 48.0 H (9.0-27.0) mg/dL Creatinine 1.8 H (0.6-1.5) mg/dL Est GFR (CKD-EPI)AfAm 42.0 L (60.0-200.0) Est GFR (CKD-EPI)NonAf 36.3 L (60.0-200.0) BUN/Creatinine Ratio 26.67 H (12.00-20.00) Ratio POC Glucose (mg/dL) 124 H (75-99) mg/dL Hemoglobin A1c (4.0-6.0) % Calcium 8.4 L (8.7-10.3) mg/dL AST 41 H (14-35) U/L Total Protein 5.4 L (6.2-8.2) g/dL Albumin 3.10 L (3.80-4.90) g/dL Albumin/Globulin Ratio 1.35 L (1.60-3.17) g/dL Microbiology - Last 24 Hours (Table) 05/22/20 18:53 Blood Culture - Preliminary Blood No Growth after 24 hours Assessment and Plan Assessment: -Covid 19 pneumonitis and acute hypoxic respiratory failure secondary to Covid 19. Patient will continue on Decadron, zinc, vitamin C and vitamin D supplementation. Patient having worsening shortness of breath and now on 8L high flow. Infectious disease consulted. Remdesivir initiated. -Hypovolemic hyponatremia secondary to diarrhea as well as his antihypertensive medications medications that includes hydrochlorothiazide which will be held and patient is hypotensive at this time and patient will continue on IV fluids repeat basic metabolic profile tomorrow, creatinine slowly trending down. -Acute renal failure.: Prerenal azotemia secondary to assessment #2, patient does have chronic kidney disease stage III from a possible diabetic nephropathy -Type 2 diabetes mellitus: possibly elevated due to decadron. Continue with sliding scale and long acting at this time. -Hyperlipidemia -Hypertension -DVT prophylaxis with the heparin @75ml/hour. Will repeat am labs. Infectious disease consulted. Remdesivir initiated. Plan: Continue with current medications. gentle IV hydration @75ml/hour. Will repeat am labs. Infectious disease consulted. Remdesivir initiated. Instructed patient to increase activity as tolerated. Discussed with RN about weaning FI02 as tolerated as patient is currently now on 8L HF via NC. Monitor blood sugars closely and continue current regimen. Further recommendations to follow.
[2020-05-25 03:42] LABS: Glucose,Whole Blood 72 mg/dL (75-99)
[2020-05-25 04:07] LABS: Glucose,Whole Blood 89 mg/dL (75-99)
[2020-05-25] MEDS: ALBUTEROL HFA INHALER INHALATION SCH ×4 (04:14→19:49)
[2020-05-25] MEDS: SODIUM CHLORIDE 0.9% 1,000 ML IV SCH ×3 (04:22→16:28)
[2020-05-25] MEDS: NON FORMULARY DRUG (Lifitegrast [Xiidra] 1 EACH Droperette) BOTH EYES SCH ×3 (04:22→22:01)
--- NOTE | 2020-05-25 06:13 | CONS ---
CONSULTATION DATE OF SERVICE: 05/24/2020 REASON FOR CONSULTATION: COVID-19 pneumonia. HISTORY OF PRESENT ILLNESS: The patient is a 74-year-old male who presented to the ER at [facility] predominantly with sinus congestion to be his predominant symptom with some postnasal drip. The patient did mention afterwards he started having shortness of breath on minimal exertion and even at times he also had a cough which is moderate in intensity but not bringing up any sputum. Denies any pleuritic chest pain. The patient has been treated with some sinus congestion medication without any improvement and his symptoms have been going on for about a week with persistent symptoms. The patient did present to the hospital. On arrival to the ER 2 days ago, the patient did have a low-grade fever of 99.3. The patient was hypoxic on admission with O2 sat of 90% on 2 L nasal cannula. The patient did have a normal white count with lymphopenia. D-dimer was not checked. BUN of 48, creatinine 1.8, and a CRP of 53.1. Patient's COVID test came back positive. Influenza PCR was negative. The patient did have a chest x-ray which shows coarsened interstitial pulmonary density increased compared to old exam. The patient was admitted to the hospital. Infectious Disease was consulted for further management of his COVID-19. REVIEW OF SYSTEMS: Positive points have been mentioned in HPI. Rest of systems are negative. PAST MEDICAL HISTORY: Diabetes mellitus, hypertension, hyperlipidemia, osteoarthritis, gastroesophageal reflux disease. PAST SURGICAL HISTORY: Cholecystectomy, spinal cord infection I and D, left cataract surgery, colonoscopy. SOCIAL HISTORY: No history of smoking, drinking or drug use. FAMILY HISTORY: No pertinent findings noticed. ALLERGIES: CLINDAMYCIN. MEDICATIONS: Include the patient is currently on Tylenol, Ventolin, aspirin, Lipitor,dexamethasone, Heparin, NovoLog, Narcan, Protonix and zinc. PHYSICAL EXAMINATION: Blood pressure 120/60 with a pulse of 77, temperature of 97.5. He is 95% on 2 liters nasal cannula. General description is an elderly male up in the chair in no distress. No tachypnea or accessory muscles of respiration use. HEENT: Examination shows no pallor or scleral icterus. Oral mucous membranes are dry. Neck, trachea central, no thyromegaly. Lungs unlabored breathing, coarse breath sounds bilaterally, no wheeze. Heart S1, S2, regular rate and rhythm. Abdomen is soft. No tenderness. Extremities no edema of the feet. LABS: Hemoglobin is 16.8, white count 6.3, BUN of 48, creatinine 1.8, AST 41. CRP was 53.1. IMAGING: Chest x-ray report mentioned above. DIAGNOSTIC IMPRESSION: Patient admitted to the hospital with increased shortness of breath, cough and congestion. This patient has been diagnosed with acute COVID-19 pneumonia with evidence of lymphopenia, elevated liver enzymes, and CRP and bilateral chest x- ray. The patient seemed to have not responded with additional symptomatic treatment of Lovenox, dexamethasone and zinc. Has had worsening hypoxemia. With history of symptoms, he will quality for the Remdesivir. PLAN: 1. Had a detailed discussion with the pharmacist over the phone and the patient was started on Remdesivir per protocol. 2. We will keep the patient on dexamethasone, zinc, Lovenox, respiratory support. 3. . 4. We will follow on his clinical condition and further adjust medication if needed. Thank you for this consultation. Will follow this patient along with you. MMODL / IJN: [id number] /
[2020-05-25 06:46] LABS: Basophils % (A) 0 %; Eosinophils % (A) 0 %; HCT 40.9 % (39.0-53.0); HGB 13.8 gm/dL (13.0-17.5); Lymphocytes # (A) 0.4 k/uL (1.0-4.8); Lymphocytes % (A) 4 %; MCHC 33.7 g/dL (31.0-37.0); MCV 91.9 fL (80.0-100.0); Mean Platelet Volume 7.6; Monocytes # (A) 0.4 k/uL (0-1.0); Monocytes % (A) 4 %; Neutrophils # (A) 9.2 k/uL (1.3-7.7); Neutrophils % (A) 91 %; Platelet Count 198 k/uL (150-450); RBC 4.45 m/uL (4.30-5.90); RDW 12.8 % (11.5-15.5); WBC 10.1 k/uL (3.8-10.6)
[2020-05-25 07:53] LABS: Glucose,Whole Blood 166 mg/dL (75-99)
[2020-05-25 09:40] LABS: African American GFR (CKD) 52.4 (60.0-200.0); Anion Gap 7.6 mmol/L (4.00-12.00); BUN/Creat Ratio 30.67 Ratio (12.00-20.00); Calcium 8.6 mg/dL (8.7-10.3); Carbon Dioxide 24.4 mmol/L (21.6-31.8); Non-African American GFR(CKD) 45.2 (60.0-200.0)
[2020-05-25] MEDS: INSULN ASP PRT/INSULIN ASPART 100 UNIT/ML 10 ML VIAL SQ SCH ×2 (10:43→17:30)
[2020-05-25] MEDS: INSULIN ASPART (NovoLOG) 100 UNIT/ML VIAL SQ SCH ×4 (10:43→22:37)
[2020-05-25] MEDS: ASPIRIN 325 MG TAB PO SCH (10:43)
[2020-05-25] MEDS: HEPARIN SODIUM,PORCINE 5,000 UNIT/ML 1 ML VIAL SQ SCH ×2 (10:44→22:15)
[2020-05-25] MEDS: PANTOPRAZOLE 40 MG TABLET PO SCH ×2 (10:44→17:30)
[2020-05-25] MEDS: ASCORBIC ACID 500 MG TAB PO SCH ×2 (10:44→22:15)
[2020-05-25] MEDS: ZINC SULFATE 220 MG CAP PO SCH (10:44)
[2020-05-25] MEDS: dexAMETHasone 2 MG TAB PO SCH (10:44)
[2020-05-25] MEDS: CHOLECALCIFEROL 1,000 UNIT TAB PO SCH (10:44)
[2020-05-25 12:19] LABS: Glucose,Whole Blood 164 mg/dL (75-99)
[2020-05-25 17:21] LABS: Glucose,Whole Blood 286 mg/dL (75-99)
[2020-05-25] MEDS: ATORVASTATIN 20 MG TAB PO SCH (22:15)
[2020-05-25] MEDS: REMDESIVIR 100 MG in SODIUM CHLORIDE 0.9% 250 ML IVPB SCH (22:15)
[2020-05-25] MEDS: TAMSULOSIN 0.4 MG CAP.ER.24H PO SCH (22:16)
[2020-05-25 22:24] LABS: Glucose,Whole Blood 210 mg/dL (75-99)
--- NOTE | 2020-05-25 23:57 | P.PN ---
Subjective Progress Note Date: 05/25/20 Principal diagnosis: acute hypoxic respiratory failure secondary to Covid 19 74-year-old pleasant male came to the emergency department with complaints of for sinus congestion and body aches fevers chills. Found to have Covid 19. Patient the is still feeling weak and tired. Patient had 1 episode of diarrhea. She is mildly hyponatremic patient is found to have a Covid 19 infection. Patient baseline creatinine is around 1.8 appears to mild worsening of his creatinine to 1.95. Patient will be continued on IV fluids today patient is presently on 2 L of oxygen we'll try to wean it off if patient is doing well will be discharged tomorrow. She was on 4 L of oxygen yesterday patient believes he is exposed to coronavirus on ninth of this month his symptoms started about a week ago. Patient is presently on Decadron. 05/24/20 Patient seen in follow up with no acute issues. Patient remains on 8 L via NC high flow and is currently weaning per nursing staff. Patient states he has increased shortness of breath with exertion when attempting to wean. Infectious disease consulted and currently on dexamethasone. Remdesivir being initiated. creatinine 1.8 today and will continue with gentle IV hydration. Will repeat am labs. 05/25/2019 Patient is currently lying in the bed and complains of shortness of breath and exertional dyspnea. Currently on high flow oxygen at 15 L. Patient is afebrile now. Laboratory data showed WBC 10.1, hemoglobin 13.8 and platelets 198 Lymphocytes 0.4 BUN 46 and creatinine 1.5 Patient is being continued on remdesivir and anticoagulation will be changed to Lovenox subcu. ID is on board. Patient denied any chest pain. No nausea vomiting abdominal pain or diarrhea. Tolerating oral diet slowly. Current medications reviewed. Review of systems: Constitutional: Reports weakness and fatigue Cardio: No reports of chest pain or palpitations Respiratory: Reports shortness of breath and persistent cough GI: no reports of nausea, vomiting, or diarrhea : no reports of dysuria or retention Neurovascular: No reports of numbness All medications have been reviewed. Objective - Vital Signs Vital signs: Vital Signs Temp 98.0 F 05/25/20 04:00 Pulse 86 05/25/20 08:00 Resp 20 05/25/20 08:00 BP 107/64 05/25/20 04:00 Pulse Ox 93 L 05/25/20 04:00 Intake & Output 05/24/20 05/25/20 05/25/20 18:59 06:59 18:59 Intake Total 600 Output Total 1300 1300 500 Balance -1300 -700 -500 Intake: Oral 600 Output: Urine 1300 1300 500 Other: Voiding Method Toilet Toilet Toilet # Voids 2 2 - Exam GENERAL: The patient is alert and oriented x3, not in any acute distress. Well developed, well nourished. HEENT: Pupils are round and equally reacting to light. EOMI. No scleral icterus. No conjunctival pallor. Normocephalic, atraumatic. No pharyngeal erythema. No thyromegaly. CARDIOVASCULAR: S1 and S2 present. No murmurs, rubs, or gallops. PULMONARY: Chest is clear to auscultation, no wheezing or crackles. ABDOMEN: Soft, nontender, nondistended, normoactive bowel sounds. No palpable organomegaly. MUSCULOSKELETAL: No joint swelling or deformity. EXTREMITIES: No cyanosis, clubbing, or pedal edema. NEUROLOGICAL: Gross neurological examination did not reveal any focal deficits. SKIN: No rashes. - Labs CBC & Chem 7: 05/25/20 06:14 05/25/20 06:14 Labs: Abnormal Lab Results - Last 24 Hours (Table) 05/24/20 05/24/20 05/25/20 Range/Units 17:09 20:06 03:39 Neutrophils # (1.3-7.7) k/uL Lymphocytes # (1.0-4.8) k/uL BUN (9.0-27.0) mg/dL Est GFR (CKD-EPI)AfAm (60.0-200.0) Est GFR (CKD-EPI)NonAf (60.0-200.0) BUN/Creatinine Ratio (12.00-20.00) Ratio Glucose (70-110) mg/dL POC Glucose (mg/dL) 180 H 166 H 72 L (75-99) mg/dL Calcium (8.7-10.3) mg/dL 05/25/20 05/25/20 05/25/20 Range/Units 06:14 06:14 07:49 Neutrophils # 9.2 H (1.3-7.7) k/uL Lymphocytes # 0.4 L (1.0-4.8) k/uL BUN 46.0 H (9.0-27.0) mg/dL Est GFR (CKD-EPI)AfAm 52.4 L (60.0-200.0) Est GFR (CKD-EPI)NonAf 45.2 L (60.0-200.0) BUN/Creatinine Ratio 30.67 H (12.00-20.00) Ratio Glucose 198 H (70-110) mg/dL POC Glucose (mg/dL) 166 H (75-99) mg/dL Calcium 8.6 L (8.7-10.3) mg/dL 05/25/20 Range/Units 12:17 Neutrophils # (1.3-7.7) k/uL Lymphocytes # (1.0-4.8) k/uL BUN (9.0-27.0) mg/dL Est GFR (CKD-EPI)AfAm (60.0-200.0) Est GFR (CKD-EPI)NonAf (60.0-200.0) BUN/Creatinine Ratio (12.00-20.00) Ratio Glucose (70-110) mg/dL POC Glucose (mg/dL) 164 H (75-99) mg/dL Calcium (8.7-10.3) mg/dL Microbiology - Last 24 Hours (Table) 05/22/20 18:53 Blood Culture - Preliminary Blood No Growth after 48 hours Assessment and Plan Assessment: -Covid 19 pneumonitis and acute hypoxic respiratory failure secondary to Covid 19. Patient will continue on Decadron, zinc, vitamin C and vitamin D supplementation. Patient having worsening shortness of breath and now on 8L--15L high flow. Infectious disease consulted. Remdesivir initiated. -Hypovolemic hyponatremia secondary to diarrhea as well as his antihypertensive medications medications that includes hydrochlorothiazide which will be held and patient is hypotensive at this time and patient will continue on IV fluids repeat basic metabolic profile tomorrow, creatinine slowly trending down. -Acute renal failure.: Prerenal azotemia secondary to assessment #2, patient does have chronic kidney disease stage III from a possible diabetic nephropathy -Type 2 diabetes mellitus: possibly elevated due to decadron. Continue with sliding scale and long acting at this time. -Hyperlipidemia -Hypertension -DVT prophylaxis with Lovenox SC . Will repeat am labs. Infectious disease consulted. Remdesivir initiated. Plan: Continue with current medications. gentle IV hydration @75ml/hour. Will repeat am labs. Infectious disease consulted. Remdesivir initiated. Instructed patient to increase activity as tolerated. Discussed with RN about weaning FI02 as tolerated as patient is currently now on 8L HF via NC. Monitor blood sugars closely and continue current regimen. Further recommendations to follow. Time with Patient: Greater than 30
[2020-05-26 01:57] LABS: Glucose,Whole Blood 155 mg/dL (75-99)
[2020-05-26] MEDS: ALBUTEROL HFA INHALER INHALATION SCH ×4 (03:34→20:03)
[2020-05-26] MEDS: methylPREDNISolone SOD SUCCI 125 MG/2 ML VIAL IV SCH ×3 (05:29→18:04)
--- NOTE | 2020-05-26 07:25 | PN ---
PROGRESS NOTE DATE OF SERVICE: 05/26/2020 REASON FOR FOLLOWUP: Acute COVID-19 pneumonia. INTERVAL HISTORY: The patient is currently afebrile. The patient is breathing slightly comfortably. The patient denies having any chest pain. Minimal cough. No nausea, no vomiting. No abdominal pain or diarrhea. PHYSICAL EXAMINATION: Blood pressure 121/73 with a pulse of 91, temperature 98.2. He is 94% on 10 L high- flow oxygen. General description is an elderly male up in the chair in no distress. RESPIRATORY SYSTEM: Unlabored breathing, decreased intensity of breath sounds. No wheeze. HEART: S1, S2. Regular rate and rhythm. ABDOMEN: Soft, no tenderness. EXTREMITIES: No edema of the feet. LABS: Hemoglobin 13.8, white count 10.1. DIAGNOSTIC IMPRESSION AND PLAN: Patient with acute COVID-19 pneumonia in this patient still requiring high-flow nasal cannula oxygen, is currently on Lovenox, dexamethasone, remdesivir. May switch over his dexamethasone to Solu-Medrol secondary to response and monitor his clinical course closely. MMODL / IJN: [id number] /
--- NOTE | 2020-05-26 07:47 | XR ---
EXAMINATION TYPE: XR chest 1V DATE OF EXAM: 05/26/2020 COMPARISON: 05/22/2020 INDICATION: Pneumonia short of breath TECHNIQUE: Single frontal view of the chest is obtained. FINDINGS: The heart size is normal. The pulmonary vasculature is normal. There are scattered increased infiltrate within the left lung. This is worsening over the interval. T he right lung infiltrate may have. IMPRESSION: 1. Worsening left lung infiltrate. Continued follow-up is recommended.
[2020-05-26 08:13] LABS: Glucose,Whole Blood 155 mg/dL (75-99)
[2020-05-26] MEDS ORDERED: ENOXAPARIN 40 MG/0.4 ML SYRINGE SQ SCH (09:00)
[2020-05-26] MEDS: INSULIN ASPART (NovoLOG) 100 UNIT/ML VIAL SQ SCH ×4 (09:20→21:27)
[2020-05-26] MEDS: INSULN ASP PRT/INSULIN ASPART 100 UNIT/ML 10 ML VIAL SQ SCH ×2 (09:21→18:04)
[2020-05-26] MEDS: PANTOPRAZOLE 40 MG TABLET PO SCH ×2 (09:22→18:04)
[2020-05-26] MEDS: ASPIRIN 325 MG TAB PO SCH (09:22)
[2020-05-26] MEDS: ZINC SULFATE 220 MG CAP PO SCH (09:22)
[2020-05-26] MEDS: CHOLECALCIFEROL 1,000 UNIT TAB PO SCH (09:22)
[2020-05-26] MEDS: ASCORBIC ACID 500 MG TAB PO SCH ×2 (09:23→21:27)
[2020-05-26] MEDS: NON FORMULARY DRUG (Lifitegrast [Xiidra] 1 EACH Droperette) BOTH EYES SCH ×2 (09:46→21:16)
[2020-05-26] MEDS: SODIUM CHLORIDE 0.9% 1,000 ML IV SCH ×2 (11:22→18:02)
[2020-05-26 12:21] LABS: Glucose,Whole Blood 237 mg/dL (75-99)
[2020-05-26 17:17] LABS: Glucose,Whole Blood 231 mg/dL (75-99)
[2020-05-26 19:13] LABS: BUN/Creat Ratio 30.71 Ratio (12.00-20.00); C Reactive Protein 6.5 mg/dL (0.0-0.8); Calcium 8.8 mg/dL (8.7-10.3); Non-African American GFR(CKD) 49.1 (60.0-200.0); Potassium 4.5 mmol/L (3.5-5.5)
[2020-05-26 21:07] LABS: Glucose,Whole Blood 194 mg/dL (75-99)
[2020-05-26] MEDS: ATORVASTATIN 20 MG TAB PO SCH (21:26)
[2020-05-26] MEDS: TAMSULOSIN 0.4 MG CAP.ER.24H PO SCH (21:27)
[2020-05-26] MEDS: REMDESIVIR 100 MG in SODIUM CHLORIDE 0.9% 250 ML IVPB SCH (21:42)
--- NOTE | 2020-05-26 23:25 | PN ---
PROGRESS NOTE DATE OF SERVICE: 05/26/2020 REASON FOR FOLLOWUP: COVID-19 pneumonia. INTERVAL HISTORY: The patient is currently afebrile. He is mentioning he is feeling slightly better. Breathing has improved; however, he is still requiring high-flow nasal cannula oxygen. Denies having any chest pain. Minimal cough. No abdominal pain or diarrhea. PHYSICAL EXAMINATION: Blood pressure 114/62 with a pulse of 90, temperature is 97.9. He is 97% on 15 L high- flow oxygen. General description is an elderly male up in the bed in no distress. RESPIRATORY SYSTEM: Unlabored breathing with decreased breath sounds at the base. No wheeze. HEART: S1, S2. Regular rate and rhythm. ABDOMEN: Soft. No tenderness. LABS: CRP is down to 6.5. Creatinine is 1.4. D-dimer is 11.2. DIAGNOSTIC IMPRESSION AND PLAN: Patient with acute COVID-19 pneumonia in this patient currently covered with Solu- Medrol, remdesivir, zinc sulfate and Lovenox. In view of the significantly elevated D- dimer, Lovenox will be switched to q.12, and we will monitor clinical course closely. MMODL / IJN: [id number] /
[2020-05-26] MEDS: ENOXAPARIN 40 MG/0.4 ML SYRINGE SQ SCH (23:58)
[2020-05-27 00:06] LABS: Glucose,Whole Blood 141 mg/dL (75-99)
[2020-05-27] MEDS: methylPREDNISolone SOD SUCCI 125 MG/2 ML VIAL IV SCH ×4 (00:36→18:05)
[2020-05-27] MEDS: SODIUM CHLORIDE 0.9% 1,000 ML IV SCH ×2 (04:12→20:51)
[2020-05-27 08:22] LABS: Glucose,Whole Blood 167 mg/dL (75-99)
[2020-05-27] MEDS: ALBUTEROL HFA INHALER INHALATION SCH ×4 (08:57→20:41)
[2020-05-27] MEDS: INSULIN ASPART (NovoLOG) 100 UNIT/ML VIAL SQ SCH ×4 (09:33→20:50)
[2020-05-27] MEDS: INSULN ASP PRT/INSULIN ASPART 100 UNIT/ML 10 ML VIAL SQ SCH ×2 (09:34→18:05)
[2020-05-27] MEDS: ASCORBIC ACID 500 MG TAB PO SCH ×2 (09:34→20:50)
[2020-05-27] MEDS: PANTOPRAZOLE 40 MG TABLET PO SCH ×2 (09:34→18:04)
[2020-05-27] MEDS: ASPIRIN 325 MG TAB PO SCH (09:34)
[2020-05-27] MEDS: ENOXAPARIN 40 MG/0.4 ML SYRINGE SQ SCH ×2 (09:35→20:50)
[2020-05-27] MEDS: ZINC SULFATE 220 MG CAP PO SCH (09:35)
[2020-05-27] MEDS: CHOLECALCIFEROL 1,000 UNIT TAB PO SCH (09:38)
[2020-05-27] MEDS: NON FORMULARY DRUG (Lifitegrast [Xiidra] 1 EACH Droperette) BOTH EYES SCH ×2 (09:44→20:49)
[2020-05-27 11:57] LABS: Glucose,Whole Blood 269 mg/dL (75-99)
[2020-05-27 17:52] LABS: Glucose,Whole Blood 236 mg/dL (75-99)
[2020-05-27 20:12] LABS: Glucose,Whole Blood 184 mg/dL (75-99)
[2020-05-27] MEDS: ATORVASTATIN 20 MG TAB PO SCH (20:50)
[2020-05-27] MEDS: TAMSULOSIN 0.4 MG CAP.ER.24H PO SCH (20:50)
--- NOTE | 2020-05-27 20:51 | P.PN ---
Subjective Progress Note Date: 05/26/20 Principal diagnosis: acute hypoxic respiratory failure secondary to Covid 19 74-year-old pleasant male came to the emergency department with complaints of for sinus congestion and body aches fevers chills. Found to have Covid 19. Patient the is still feeling weak and tired. Patient had 1 episode of diarrhea. She is mildly hyponatremic patient is found to have a Covid 19 infection. Patient baseline creatinine is around 1.8 appears to mild worsening of his creatinine to 1.95. Patient will be continued on IV fluids today patient is presently on 2 L of oxygen we'll try to wean it off if patient is doing well will be discharged tomorrow. She was on 4 L of oxygen yesterday patient believes he is exposed to coronavirus on of this month his symptoms started about a week ago. Patient is presently on Decadron. 05/26/2020 Patient is seen and evaluated in follow-up; remains afebrile; patient reports slight improvement in breathing and overall; remains on high flow nasal cannula oxygen; no complaint of chest pain, abdominal pain or diarrhea Lab review shows CRP of 6.5, creatinine of 1.4 and d-dimer of 11.2 Patient remains on treatment with Solu-Medrol, REM does severe, zinc sulfate and Lovenox; Lovenox has been/to twice a day dosing due to elevated d-dimer Objective - Vital Signs Vital signs: Vital Signs Temp 98.2 F 05/25/20 20:15 Pulse 91 05/25/20 20:15 Resp 16 05/25/20 20:15 BP 121/73 05/25/20 20:15 Pulse Ox 94 L 05/25/20 20:15 Intake & Output 05/25/20 05/25/20 05/26/20 06:59 18:59 06:59 Intake Total 600 360 Output Total 1300 1500 Balance -700 -1140 Intake: Oral 600 360 Output: Urine 1300 1500 Other: Voiding Method Toilet Toilet Toilet # Voids 2 2 # Bowel Movements 1 - Exam GENERAL: The patient is alert and oriented x3, not in any acute distress. Well developed, well nourished. HEENT: Pupils are round and equally reacting to light. EOMI. No scleral icterus. No conjunctival pallor. Normocephalic, atraumatic. No pharyngeal erythema. No thyromegaly. CARDIOVASCULAR: S1 and S2 present. No murmurs, rubs, or gallops. PULMONARY: Chest is clear to auscultation, no wheezing or crackles. ABDOMEN: Soft, nontender, nondistended, normoactive bowel sounds. No palpable organomegaly. MUSCULOSKELETAL: No joint swelling or deformity. EXTREMITIES: No cyanosis, clubbing, or pedal edema. NEUROLOGICAL: Gross neurological examination did not reveal any focal deficits. SKIN: No rashes. - Labs CBC & Chem 7: 05/25/20 06:14 05/26/20 11:18 Labs: Abnormal Lab Results - Last 24 Hours (Table) 05/25/20 05/25/20 05/25/20 Range/Units 03:39 06:14 06:14 Neutrophils # 9.2 H (1.3-7.7) k/uL Lymphocytes # 0.4 L (1.0-4.8) k/uL BUN 46.0 H (9.0-27.0) mg/dL Est GFR (CKD-EPI)AfAm 52.4 L (60.0-200.0) Est GFR (CKD-EPI)NonAf 45.2 L (60.0-200.0) BUN/Creatinine Ratio 30.67 H (12.00-20.00) Ratio Glucose 198 H (70-110) mg/dL POC Glucose (mg/dL) 72 L (75-99) mg/dL Calcium 8.6 L (8.7-10.3) mg/dL 05/25/20 05/25/20 05/25/20 Range/Units 07:49 12:17 17:18 Neutrophils # (1.3-7.7) k/uL Lymphocytes # (1.0-4.8) k/uL BUN (9.0-27.0) mg/dL Est GFR (CKD-EPI)AfAm (60.0-200.0) Est GFR (CKD-EPI)NonAf (60.0-200.0) BUN/Creatinine Ratio (12.00-20.00) Ratio Glucose (70-110) mg/dL POC Glucose (mg/dL) 166 H 164 H 286 H (75-99) mg/dL Calcium (8.7-10.3) mg/dL 05/25/20 05/26/20 Range/Units 22:23 01:55 Neutrophils # (1.3-7.7) k/uL Lymphocytes # (1.0-4.8) k/uL BUN (9.0-27.0) mg/dL Est GFR (CKD-EPI)AfAm (60.0-200.0) Est GFR (CKD-EPI)NonAf (60.0-200.0) BUN/Creatinine Ratio (12.00-20.00) Ratio Glucose (70-110) mg/dL POC Glucose (mg/dL) 210 H 155 H (75-99) mg/dL Calcium (8.7-10.3) mg/dL Microbiology - Last 24 Hours (Table) 05/22/20 18:53 Blood Culture - Preliminary Blood No Growth after 72 hours Assessment and Plan Assessment: -Covid 19 pneumonitis and acute hypoxic respiratory failure secondary to Covid 19. Patient will continue on Decadron, zinc, vitamin C and vitamin D supplementation. Patient having worsening shortness of breath and now on 8L--15L high flow. Infectious disease consulted. Remdesivir initiated. -Hypovolemic hyponatremia secondary to diarrhea as well as his antihypertensive medications medications that includes hydrochlorothiazide which will be held and patient is hypotensive at this time and patient will continue on IV fluids repeat basic metabolic profile tomorrow, creatinine slowly trending down. -Acute renal failure.: Prerenal azotemia secondary to assessment #2, patient does have chronic kidney disease stage III from a possible diabetic nephropathy -Type 2 diabetes mellitus: possibly elevated due to decadron. Continue with sliding scale and long acting at this time. -Hyperlipidemia -Hypertension -DVT prophylaxis with Lovenox SC . Will repeat am labs. Infectious disease consulted. Remdesivir initiated. Plan: Continue with current medications. gentle IV hydration @75ml/hour. Will repeat am labs. Infectious disease consulted. Remdesivir initiated. Instructed patient to increase activity as tolerated. Discussed with RN about weaning FI02 as tolerated as patient is currently now on 8L HF via NC. Monitor blood sugars closely and continue current regimen. Further recommendations to follow.
[2020-05-27] MEDS: REMDESIVIR 100 MG in SODIUM CHLORIDE 0.9% 250 ML IVPB SCH (22:04)
[2020-05-28] MEDS: methylPREDNISolone SOD SUCCI 125 MG/2 ML VIAL IV SCH ×5 (00:31→23:49)
--- NOTE | 2020-05-28 01:22 | PN ---
PROGRESS NOTE DATE OF SERVICE: 05/27/2020 REASON FOR FOLLOWUP: COVID-19 pneumonia. INTERVAL HISTORY: Patient is currently afebrile, has been breathing slightly comfortably continued-on oxygen. Denies any chest pain. Minimal cough. No nausea, vomiting, abdominal pain or diarrhea. EXAMINATION: Blood pressure 126/72 with a pulse of 86. Temp is 98% on 15 L high-flow oxygen. General description is elderly male lying in bed in no distress. Respiratory system: Unlabored breathing with decreased breath sounds, no wheeze. Heart S1, S2. Regular rate and rhythm. ABDOMEN: Soft no tenderness. LABS: No new labs have been obtained today. DIAGNOSTIC IMPRESSION AND PLAN: Patient has acute COVID-19 pneumonia and this patient currently on a dose of Solu- Medrol, Lovenox, and zinc, to continue. We will recheck his inflammatory markers and wound tomorrow. Continue current treatment now with this medications: Continue supportive care. MMODL / IJN: [id number] /
[2020-05-28] MEDS: ALBUTEROL HFA INHALER INHALATION SCH ×4 (01:25→19:34)
[2020-05-28 05:14] LABS: Basophils # (A) 0.1 k/uL (0-0.2); Basophils % (A) 1 %; Eosinophils % (A) 0 %; HCT 41.4 % (39.0-53.0); HGB 14.2 gm/dL (13.0-17.5); Lymphocytes # (A) 0.2 k/uL (1.0-4.8); Lymphocytes % (A) 2 %; MCH 31.5 pg (25.0-35.0); MCHC 34.3 g/dL (31.0-37.0); MCV 92.1 fL (80.0-100.0); Mean Platelet Volume 7.8; Monocytes # (A) 0.7 k/uL (0-1.0); Monocytes % (A) 7 %; Neutrophils # (A) 9.4 k/uL (1.3-7.7); Neutrophils % (A) 89 %; Platelet Count 192 k/uL (150-450); RDW 12.7 % (11.5-15.5); WBC 10.7 k/uL (3.8-10.6)
--- NOTE | 2020-05-28 06:43 | XR ---
EXAMINATION TYPE: XR chest 1V portable DATE OF EXAM: 05/28/2020 CLINICAL HISTORY: Difficulty breathing and pneumonia progress study. TECHNIQUE: 2 AP portable upright views of the chest are obtained. COMPARISON: Chest x-ray from 2 days earlier and older studies. FINDINGS: Persistent low lung volumes with worsening bilateral opacities. Cardiac silhouette size st able and within normal limits. Osseous structures are intact. IMPRESSION: Low lung volumes with worsening bilateral edema and/or infiltrates now fairly diffuse in appearance, possible developing ARDS. Correlate clinically. A Yellow level critical message alert has been initiated for Shantel Wiggins MD via the [employer] System on 05/28/2020 6:41 AM. This message alert has been sent to Shantel Wiggins MD via the preferences provided by the clinician for the receipt of Radiology Critical Findings. Mess age ID [id number].
[2020-05-28 07:19] LABS: Glucose,Whole Blood 75 mg/dL (75-99)
[2020-05-28] MEDS: INSULIN ASPART (NovoLOG) 100 UNIT/ML VIAL SQ SCH ×4 (07:43→20:03)
[2020-05-28] MEDS: ENOXAPARIN 40 MG/0.4 ML SYRINGE SQ SCH ×2 (08:49→20:03)
[2020-05-28] MEDS: ASPIRIN 325 MG TAB PO SCH (08:49)
[2020-05-28] MEDS: ASCORBIC ACID 500 MG TAB PO SCH ×2 (08:49→20:03)
[2020-05-28] MEDS: CHOLECALCIFEROL 1,000 UNIT TAB PO SCH (08:49)
[2020-05-28] MEDS: PANTOPRAZOLE 40 MG TABLET PO SCH ×2 (08:49→18:12)
[2020-05-28] MEDS: ZINC SULFATE 220 MG CAP PO SCH (08:49)
[2020-05-28] MEDS: NON FORMULARY DRUG (Lifitegrast [Xiidra] 1 EACH Droperette) BOTH EYES SCH ×2 (08:50→20:04)
[2020-05-28 09:55] LABS: African American GFR (CKD) 68.6 (60.0-200.0); Albumin/Globulin Ratio 1.25 (1.60-3.17); BUN/Creat Ratio 34.17 Ratio (12.00-20.00); Calcium 8.6 mg/dL (8.7-10.3); Globulin 2.4 g/dL (1.6-3.3); Non-African American GFR(CKD) 59.2 (60.0-200.0); Potassium 4.3 mmol/L (3.5-5.5); Total Bilirubin 0.7 mg/dL (0.3-1.2); Total Protein 5.4 g/dL (6.2-8.2)
--- NOTE | 2020-05-28 11:05 | P.CNPUL ---
History of Present Illness Consult date: 05/28/20 Reason for consult: dyspnea, cough, hypoxemia, pneumonia Chief complaint: Covid 19 pneumonia History of present illness: Patient came into the hospital with about one week history of increased symptoms of sinus congestion cough, also has a chills fever and mild PI aches and fatigue and pain, history of prior lung problems does have a history hypertension hypertensive cardiovascular disease dyslipidemia and diabetes mellitus, on arrival his oxygen saturation is 90%, low-grade temperature 99.3 was present his steiner virus PCR came back positive, his oxygen requirement continued to go up currently he is on 100% nonrebreather mask with 15 L high flow oxygen, chest x- ray admitted show coarse interstitial changes consistent with interstitial pneumonia repeat chest x-ray did now show worsening ARDS-like Petrin, saturation is 98%, he is afebrile hemodynamic status, he is on Lovenox 40 every 12, on Medrol 60 every 6, Remdesivir IV, inflammatory parameters are consistent with severe inflammatory response d-dimer is 16.4, pH is 574, a reactive protein is 3 Review of Systems All systems: negative Past Medical History Past Medical History: Diabetes Mellitus, GERD/Reflux, Hyperlipidemia, Hypertension, Osteoarthritis (OA) Additional Past Medical History / Comment(s): 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" History of Any Multi-Drug Resistant Organisms: None Reported Past Surgical History: Cholecystectomy Additional Past Surgical History / Comment(s): spinal cord infection I&D, left cataract surgery, colonoscopy, left cataract Past Anesthesia/Blood Transfusion Reactions: Motion Sickness Past Psychological History: No Psychological Hx Reported Smoking Status: Former smoker Past Alcohol Use History: None Reported Additional Past Alcohol Use History / Comment(s): STARTED SMOKING AT AGE 20 QUIT SMOKING 1973 SMOKED 1PPD Past Drug Use History: None Reported - Past Family History Mother Family Medical History: No Reported History Medications and Allergies Home Medications Medication Instructions Recorded Confirmed Type Aspirin 325 mg PO DAILY 05/13/15 05/22/20 History Fish Oil/Dha/Epa [Fish Oil 1,200 1,000 mg PO BID 05/13/15 05/22/20 History mg Fish Oil] Lisinopril-Hctz 20-12.5 mg 1 tab PO DAILY 05/13/15 05/22/20 History [Zestoretic 20-12.5] Omeprazole [PriLOSEC] 20 mg PO AC-BID 05/13/15 05/22/20 History Cholecalciferol [Vitamin D3] 1,000 unit PO DAILY 08/29/17 05/22/20 History Insulin Lispro Protamin/Lispro 40 unit SQ BID 08/29/17 05/22/20 History [humaLOG Mix 75-25 Kwikpen] Ubidecarenone [Co Q-10] 100 mg PO DAILY 08/29/17 05/22/20 History Lifitegrast [Xiidra] 1 dropper BOTH EYES BID 05/22/20 05/22/20 History Simvastatin [Zocor] 20 mg PO HS 05/22/20 05/22/20 History Tamsulosin HCl [Flomax] 0.4 mg PO HS 05/22/20 05/22/20 History Allergies Allergy/AdvReac Type Severity Reaction Status Date / Time clindamycin [From Cleocin] Allergy Rash/Hives Verified 05/22/20 19:29 Physical Exam Vitals: Vital Signs Temp Pulse Resp BP Pulse Ox 05/28/20 08:00 98.1 F 68 19 150/81 98 05/28/20 02:00 97.6 F 73 18 130/78 99 05/27/20 19:54 97.9 F 86 20 126/72 98 05/27/20 14:36 97.8 F 85 28 H 109/65 98 Intake and Output 05/27/20 05/28/20 05/28/20 22:59 06:59 14:59 Intake Total 1140 725 Balance 1140 725 Intake: Intake, IV Titration 850 725 Amount Remdesivir (Eua) 100 mg 250 In Sodium Chloride 0.9% 250 ml @ 250 mls/hr IVPB Q24H [facility] Rx#:[id number] Sodium Chloride 0.9% 1, 600 725 000 ml @ 75 mls/hr IV . [id number] [facility] Rx#:[id number] Oral 290 Other: Voiding Method Urinal # Voids 1 1 # Bowel Movements 1 - Constitutional General appearance: average body habitus, disheveled, mild distress - EENT Eyes: EOMI, PERRLA Ears: bilateral: normal - Neck Neck: normal ROM Carotids: bilateral: upstroke normal Thyroid: bilateral: normal size - Respiratory Respiratory: bilateral: diminished - Cardiovascular Rhythm: regular Heart sounds: normal: S1, S2 - Gastrointestinal General gastrointestinal: soft - Integumentary Integumentary: decreased turgor - Neurologic Neurologic: CNII-XII intact - Musculoskeletal Musculoskeletal: gait normal, generalized weakness, strength equal bilaterally - Psychiatric Psychiatric: A&O x's 3, appropriate affect, intact judgment & insight Results - Laboratory Findings CBC and BMP: 05/28/20 04:24 05/28/20 04:20 PT/INR, D-dimer PT 10.0 sec (9.0-12.0) 05/22/20 18:53 INR 1.0 (<1.2) 05/22/20 18:53 D-Dimer 16.49 mg/L FEU (<0.60) H 05/28/20 04:20 Abnormal lab findings: Abnormal Labs 05/22/20 05/22/20 05/22/20 18:53 18:53 18:53 WBC Neutrophils # Lymphocytes # 0.7 L D-Dimer Sodium 131 L Chloride 96 L BUN 49 H Creatinine 1.95 H Est GFR (CKD-EPI)AfAm Est GFR (CKD-EPI)NonAf BUN/Creatinine Ratio Glucose 229 H POC Glucose (mg/dL) Hemoglobin A1c Plasma Lactic Acid Stephen 2.3 H* Calcium Ferritin 1841.4 H AST Lactate Dehydrogenase 946 H C-Reactive Protein 53.1 H Total Protein Albumin Albumin/Globulin Ratio Procalcitonin Coronavirus (PCR) 05/22/20 05/22/20 05/23/20 18:53 18:58 07:50 WBC Neutrophils # Lymphocytes # D-Dimer Sodium Chloride BUN Creatinine Est GFR (CKD-EPI)AfAm Est GFR (CKD-EPI)NonAf BUN/Creatinine Ratio Glucose POC Glucose (mg/dL) 127 H Hemoglobin A1c Plasma Lactic Acid Stephen Calcium Ferritin AST Lactate Dehydrogenase C-Reactive Protein Total Protein Albumin Albumin/Globulin Ratio Procalcitonin 0.13 H Coronavirus (PCR) Detected A 05/23/20 05/23/20 05/23/20 11:23 16:58 19:47 WBC Neutrophils # Lymphocytes # D-Dimer Sodium Chloride BUN Creatinine Est GFR (CKD-EPI)AfAm Est GFR (CKD-EPI)NonAf BUN/Creatinine Ratio Glucose POC Glucose (mg/dL) 147 H 252 H 207 H Hemoglobin A1c Plasma Lactic Acid Stephen Calcium Ferritin AST Lactate Dehydrogenase C-Reactive Protein Total Protein Albumin Albumin/Globulin Ratio Procalcitonin Coronavirus (PCR) 05/24/20 05/24/20 05/24/20 06:24 06:24 06:24 WBC 12.4 H Neutrophils # Lymphocytes # D-Dimer Sodium Chloride BUN 48.0 H Creatinine 1.8 H Est GFR (CKD-EPI)AfAm 42.0 L Est GFR (CKD-EPI)NonAf 36.3 L BUN/Creatinine Ratio 26.67 H Glucose POC Glucose (mg/dL) Hemoglobin A1c 8.5 H Plasma Lactic Acid Stephen Calcium 8.4 L Ferritin AST 41 H Lactate Dehydrogenase C-Reactive Protein Total Protein 5.4 L Albumin 3.10 L Albumin/Globulin Ratio 1.35 L Procalcitonin Coronavirus (PCR) 05/24/20 05/24/20 05/24/20 11:41 17:09 20:06 WBC Neutrophils # Lymphocytes # D-Dimer Sodium Chloride BUN Creatinine Est GFR (CKD-EPI)AfAm Est GFR (CKD-EPI)NonAf BUN/Creatinine Ratio Glucose POC Glucose (mg/dL) 124 H 180 H 166 H Hemoglobin A1c Plasma Lactic Acid Stephen Calcium Ferritin AST Lactate Dehydrogenase C-Reactive Protein Total Protein Albumin Albumin/Globulin Ratio Procalcitonin Coronavirus (PCR) 05/25/20 05/25/20 05/25/20 03:39 06:14 06:14 WBC Neutrophils # 9.2 H Lymphocytes # 0.4 L D-Dimer Sodium Chloride BUN 46.0 H Creatinine Est GFR (CKD-EPI)AfAm 52.4 L Est GFR (CKD-EPI)NonAf 45.2 L BUN/Creatinine Ratio 30.67 H Glucose 198 H POC Glucose (mg/dL) 72 L Hemoglobin A1c Plasma Lactic Acid Stephen Calcium 8.6 L Ferritin AST Lactate Dehydrogenase C-Reactive Protein Total Protein Albumin Albumin/Globulin Ratio Procalcitonin Coronavirus (PCR) 05/25/20 05/25/20 05/25/20 07:49 12:17 17:18 WBC Neutrophils # Lymphocytes # D-Dimer Sodium Chloride BUN Creatinine Est GFR (CKD-EPI)AfAm Est GFR (CKD-EPI)NonAf BUN/Creatinine Ratio Glucose POC Glucose (mg/dL) 166 H 164 H 286 H Hemoglobin A1c Plasma Lactic Acid Stephen Calcium Ferritin AST Lactate Dehydrogenase C-Reactive Protein Total Protein Albumin Albumin/Globulin Ratio Procalcitonin Coronavirus (PCR) 05/25/20 05/26/20 05/26/20 22:23 01:55 08:02 WBC Neutrophils # Lymphocytes # D-Dimer Sodium Chloride BUN Creatinine Est GFR (CKD-EPI)AfAm Est GFR (CKD-EPI)NonAf BUN/Creatinine Ratio Glucose POC Glucose (mg/dL) 210 H 155 H 155 H Hemoglobin A1c Plasma Lactic Acid Stephen Calcium Ferritin AST Lactate Dehydrogenase C-Reactive Protein Total Protein Albumin Albumin/Globulin Ratio Procalcitonin Coronavirus (PCR) 05/26/20 05/26/20 05/26/20 11:18 11:18 12:11 WBC Neutrophils # Lymphocytes # D-Dimer 11.20 H Sodium Chloride BUN 43.0 H Creatinine Est GFR (CKD-EPI)AfAm 57.0 L Est GFR (CKD-EPI)NonAf 49.1 L BUN/Creatinine Ratio 30.71 H Glucose 227 H POC Glucose (mg/dL) 237 H Hemoglobin A1c Plasma Lactic Acid Stephen Calcium Ferritin AST Lactate Dehydrogenase 608 H C-Reactive Protein 6.5 H Total Protein Albumin Albumin/Globulin Ratio Procalcitonin Coronavirus (PCR) 05/26/20 05/26/20 05/27/20 17:14 21:05 00:05 WBC Neutrophils # Lymphocytes # D-Dimer Sodium Chloride BUN Creatinine Est GFR (CKD-EPI)AfAm Est GFR (CKD-EPI)NonAf BUN/Creatinine Ratio Glucose POC Glucose (mg/dL) 231 H 194 H 141 H Hemoglobin A1c Plasma Lactic Acid Stephen Calcium Ferritin AST Lactate Dehydrogenase C-Reactive Protein Total Protein Albumin Albumin/Globulin Ratio Procalcitonin Coronavirus (PCR) 05/27/20 05/27/20 05/27/20 08:20 11:56 17:50 WBC Neutrophils # Lymphocytes # D-Dimer Sodium Chloride BUN Creatinine Est GFR (CKD-EPI)AfAm Est GFR (CKD-EPI)NonAf BUN/Creatinine Ratio Glucose POC Glucose (mg/dL) 167 H 269 H 236 H Hemoglobin A1c Plasma Lactic Acid Stephen Calcium Ferritin AST Lactate Dehydrogenase C-Reactive Protein Total Protein Albumin Albumin/Globulin Ratio Procalcitonin Coronavirus (PCR) 05/27/20 05/28/20 05/28/20 20:10 04:20 04:20 WBC Neutrophils # Lymphocytes # D-Dimer 16.49 H Sodium Chloride BUN 41.0 H Creatinine Est GFR (CKD-EPI)AfAm Est GFR (CKD-EPI)NonAf 59.2 L BUN/Creatinine Ratio 34.17 H Glucose POC Glucose (mg/dL) 184 H Hemoglobin A1c Plasma Lactic Acid Stephen Calcium 8.6 L Ferritin AST 40 H Lactate Dehydrogenase 574 H C-Reactive Protein 3.0 H Total Protein 5.4 L Albumin 3.00 L Albumin/Globulin Ratio 1.25 L Procalcitonin Coronavirus (PCR) 05/28/20 04:24 WBC 10.7 H Neutrophils # 9.4 H Lymphocytes # 0.2 L D-Dimer Sodium Chloride BUN Creatinine Est GFR (CKD-EPI)AfAm Est GFR (CKD-EPI)NonAf BUN/Creatinine Ratio Glucose POC Glucose (mg/dL) Hemoglobin A1c Plasma Lactic Acid Stephen Calcium Ferritin AST Lactate Dehydrogenase C-Reactive Protein Total Protein Albumin Albumin/Globulin Ratio Procalcitonin Coronavirus (PCR) - Diagnostic Findings Chest x-ray: report reviewed, image reviewed (Finding as noted above) Assessment and Plan Assessment: Acute hypoxic respiratory failure Acute covid 19 pneumonia ARDS likely related covid 19 pneumonia Dyslipidemia Hypertension hypertensive cardiovascular disease Diabetes mellitus Plan: Deep breathing exercise incentive spirometry Prone positioning IV steroids however can be reduced IV Remdesivir for 5 days Anticoagulation with Lovenox Sliding scale insulin, with maintenance insulin Time with Patient: Greater than 30
[2020-05-28 11:29] LABS: Glucose,Whole Blood 177 mg/dL (75-99)
[2020-05-28] MEDS: INSULN ASP PRT/INSULIN ASPART 100 UNIT/ML 10 ML VIAL SQ SCH ×2 (11:47→18:07)
[2020-05-28 17:30] LABS: Glucose,Whole Blood 251 mg/dL (75-99)
--- NOTE | 2020-05-28 18:22 | P.PN ---
Subjective Progress Note Date: 05/27/20 Principal diagnosis: acute hypoxic respiratory failure secondary to Covid 19 74-year-old pleasant male came to the emergency department with complaints of for sinus congestion and body aches fevers chills. Found to have Covid 19. Patient the is still feeling weak and tired. Patient had 1 episode of diarrhea. She is mildly hyponatremic patient is found to have a Covid 19 infection. Patient baseline creatinine is around 1.8 appears to mild worsening of his creatinine to 1.95. Patient will be continued on IV fluids today patient is presently on 2 L of oxygen we'll try to wean it off if patient is doing well will be discharged tomorrow. She was on 4 L of oxygen yesterday patient believes he is exposed to coronavirus on of this month his symptoms started about a week ago. Patient is presently on Decadron. 05/26/2020 Patient is seen and evaluated in follow-up; remains afebrile; patient reports slight improvement in breathing and overall; remains on high flow nasal cannula oxygen; no complaint of chest pain, abdominal pain or diarrhea Lab review shows CRP of 6.5, creatinine of 1.4 and d-dimer of 11.2 Patient remains on treatment with Solu-Medrol, REM does severe, zinc sulfate and Lovenox; Lovenox has been/to twice a day dosing due to elevated d-dimer 05/27/2020 Patient is seen and evaluated in follow-up; patient remains afebrile; continue to require oxygen Remains on 15 L nonrebreather mask saturating 95%; inflammatory markers are being monitored and continued to show improvement; patient remains on steroids, bronchodilators and anticoagulation with Lovenox; pulmonary service is following and recommending to continue current management Objective - Vital Signs Vital signs: Vital Signs Temp 97.9 F 05/27/20 19:54 Pulse 86 05/27/20 19:54 Resp 20 05/27/20 19:54 BP 126/72 05/27/20 19:54 Pulse Ox 98 05/27/20 19:54 Intake & Output 05/27/20 05/27/20 05/28/20 06:59 18:59 06:59 Intake Total 1265 600 Output Total 1300 Balance -35 600 Intake: Intake, IV Titration 975 600 Amount Remdesivir (Eua) 100 mg 250 In Sodium Chloride 0.9% 250 ml @ 250 mls/hr IVPB Q24H [facility] Rx#:[id number] Sodium Chloride 0.9% 1, 725 600 000 ml @ 75 mls/hr IV . [id number] [facility] Rx#:[id number] Oral 290 Output: Urine 1300 Other: Voiding Method Urinal Urinal - Exam GENERAL: The patient is alert and oriented x3, not in any acute distress. Well developed, well nourished. HEENT: Pupils are round and equally reacting to light. EOMI. No scleral icterus. No conjunctival pallor. Normocephalic, atraumatic. No pharyngeal erythema. No thyromegaly. CARDIOVASCULAR: S1 and S2 present. No murmurs, rubs, or gallops. PULMONARY: Chest is clear to auscultation, no wheezing or crackles. ABDOMEN: Soft, nontender, nondistended, normoactive bowel sounds. No palpable organomegaly. MUSCULOSKELETAL: No joint swelling or deformity. EXTREMITIES: No cyanosis, clubbing, or pedal edema. NEUROLOGICAL: Gross neurological examination did not reveal any focal deficits. SKIN: No rashes. - Labs CBC & Chem 7: 05/28/20 04:24 05/28/20 04:20 Labs: Abnormal Lab Results - Last 24 Hours (Table) 05/26/20 05/27/20 05/27/20 Range/Units 21:05 00:05 08:20 POC Glucose (mg/dL) 194 H 141 H 167 H (75-99) mg/dL 05/27/20 05/27/20 05/27/20 Range/Units 11:56 17:50 20:10 POC Glucose (mg/dL) 269 H 236 H 184 H (75-99) mg/dL Microbiology - Last 24 Hours (Table) 05/22/20 18:53 Blood Culture - Preliminary Blood No Growth after 96 hours Assessment and Plan Assessment: -Covid 19 pneumonitis and acute hypoxic respiratory failure secondary to Covid 19. Patient will continue on Decadron, zinc, vitamin C and vitamin D supplementation. Patient having worsening shortness of breath and now on 8L--15L high flow. Infectious disease consulted. Remdesivir initiated. -Hypovolemic hyponatremia secondary to diarrhea as well as his antihypertensive medications medications that includes hydrochlorothiazide which will be held and patient is hypotensive at this time and patient will continue on IV fluids repeat basic metabolic profile tomorrow, creatinine slowly trending down. -Acute renal failure.: Prerenal azotemia secondary to assessment #2, patient does have chronic kidney disease stage III from a possible diabetic nephropathy -Type 2 diabetes mellitus: possibly elevated due to decadron. Continue with sliding scale and long acting at this time. -Hyperlipidemia -Hypertension -DVT prophylaxis with Lovenox SC . Will repeat am labs. Infectious disease consulted. Remdesivir initiated. Plan: Continue with current medications. gentle IV hydration @75ml/hour. Will repeat am labs. Infectious disease consulted. Remdesivir initiated. Instructed patient to increase activity as tolerated. Discussed with RN about weaning FI02 as to lerated as patient is currently now on 8L HF via NC. Monitor blood sugars closely and continue current regimen. Further recommendations to follow.
[2020-05-28 19:41] LABS: Glucose,Whole Blood 248 mg/dL (75-99)
[2020-05-28] MEDS: SODIUM CHLORIDE 0.9% 1,000 ML IV SCH ×2 (20:03→22:13)
[2020-05-28] MEDS: TAMSULOSIN 0.4 MG CAP.ER.24H PO SCH (20:03)
[2020-05-28] MEDS: ATORVASTATIN 20 MG TAB PO SCH (20:03)
[2020-05-28] MEDS: REMDESIVIR 100 MG in SODIUM CHLORIDE 0.9% 250 ML IVPB SCH (22:14)
[2020-05-29] MEDS: ALBUTEROL HFA INHALER INHALATION SCH ×5 (01:11→20:59)
[2020-05-29] MEDS: methylPREDNISolone SOD SUCCI 125 MG/2 ML VIAL IV SCH ×4 (05:41→23:25)
--- NOTE | 2020-05-29 06:12 | PN ---
PROGRESS NOTE DATE OF SERVICE: 05/28/2020 REASON FOR FOLLOWUP: COVID-19 pneumonia. INTERVAL HISTORY: The patient is currently afebrile. He is breathing slightly comfortably, however, still requiring high-flow nasal cannula oxygen. The patient denies having any chest pain. Minimal cough. No nausea, no vomiting. No abdominal pain or diarrhea. PHYSICAL EXAMINATION: Blood pressure 115/68 with pulse of 98, temperature 97.5. He is 95% on 40% FiO2. General description is an elderly male lying in bed in no distress. RESPIRATORY SYSTEM: Unlabored breathing with decreased intensity breath sounds. No wheeze. HEART: S1, S2. Regular rate and rhythm. ABDOMEN: Soft, no tenderness. LABS: Hemoglobin 14.2. D-dimer is up to 16.49. LDH down to 574. CRP is down to 3. DIAGNOSTIC IMPRESSION AND PLAN: Patient with acute COVID-19 infection in this patient who did have worsening of the x- ray finding with concern for possible ARDS. Pulmonary has been consulted. The patient is currently on remdesivir, Lovenox, and Solu-Medrol to continue and monitor clinical course closely. Continue supportive care. MMODL / IJN: [id number] /
[2020-05-29 06:23] LABS: Basophils % (A) 0 %; Eosinophils % (A) 0 %; HCT 39.5 % (39.0-53.0); HGB 13.5 gm/dL (13.0-17.5); Lymphocytes # (A) 0.2 k/uL (1.0-4.8); Lymphocytes % (A) 2 %; MCH 31.3 pg (25.0-35.0); MCHC 34.3 g/dL (31.0-37.0); MCV 91.3 fL (80.0-100.0); Monocytes # (A) 0.6 k/uL (0-1.0); Monocytes % (A) 6 %; Neutrophils # (A) 8.4 k/uL (1.3-7.7); Neutrophils % (A) 91 %; Platelet Count 158 k/uL (150-450); RBC 4.32 m/uL (4.30-5.90); RDW 12.7 % (11.5-15.5); WBC 9.2 k/uL (3.8-10.6)
[2020-05-29 07:18] LABS: Glucose,Whole Blood 99 mg/dL (75-99)
[2020-05-29] MEDS: INSULN ASP PRT/INSULIN ASPART 100 UNIT/ML 10 ML VIAL SQ SCH ×2 (07:38→17:58)
[2020-05-29] MEDS: INSULIN ASPART (NovoLOG) 100 UNIT/ML VIAL SQ SCH ×4 (07:38→20:13)
[2020-05-29] MEDS: PANTOPRAZOLE 40 MG TABLET PO SCH ×2 (08:31→17:48)
[2020-05-29] MEDS: CHOLECALCIFEROL 1,000 UNIT TAB PO SCH (08:31)
[2020-05-29] MEDS: ZINC SULFATE 220 MG CAP PO SCH (08:31)
[2020-05-29] MEDS: ASPIRIN 325 MG TAB PO SCH (08:31)
[2020-05-29] MEDS: ENOXAPARIN 40 MG/0.4 ML SYRINGE SQ SCH ×2 (08:31→20:12)
[2020-05-29] MEDS: NON FORMULARY DRUG (Lifitegrast [Xiidra] 1 EACH Droperette) BOTH EYES SCH ×2 (08:31→20:13)
[2020-05-29] MEDS: ASCORBIC ACID 500 MG TAB PO SCH ×2 (08:31→20:35)
[2020-05-29 09:47] LABS: African American GFR (CKD) 85.6 (60.0-200.0); Anion Gap 5.3 mmol/L (4.00-12.00); Calcium 8.5 mg/dL (8.7-10.3); Carbon Dioxide 26.7 mmol/L (21.6-31.8); Non-African American GFR(CKD) 73.8 (60.0-200.0); Potassium 4.3 mmol/L (3.5-5.5)
--- NOTE | 2020-05-29 11:39 | P.PN ---
Subjective Progress Note Date: 05/29/20 Principal diagnosis: Acute hypoxic respiratory failure Acute covid 19 pneumonia ARDS likely related covid 19 pneumonia Dyslipidemia Hypertension hypertensive cardiovascular disease Diabetes mellitus 05/29/2020, patient seen eval examined during the rounds labs reviewed medic ations reviewed care plan discussed, patient remained short of breath currently now is on airvo high flow oxygen, 90% to 91%, Patient came into the hospital with about one week history of increased symptoms of sinus congestion cough, also has a chills fever and mild PI aches and fatigue and pain, history of prior lung problems does have a history hypertension hypertensive cardiovascular disease dyslipidemia and diabetes mellitus, on arrival his oxygen saturation is 90%, low-grade temperature 99.3 was present his steiner virus PCR came back positive, his oxygen requirement continued to go up currently he is on 100% nonrebreather mask with 15 L high flow oxygen, chest x- ray admitted show coarse interstitial changes consistent with interstitial pneumonia repeat chest x-ray did now show worsening ARDS-like Petrin, saturation is 98%, he is afebrile hemodynamic status, he is on Lovenox 40 every 12, on Medrol 60 every 6, Remdesivir IV, inflammatory parameters are consistent with severe inflammatory response d-dimer is 16.4, pH is 574, a reactive protein is 3 Objective - Vital Signs Vital signs: Vital Signs Temp 98 F 05/29/20 08:00 Pulse 77 05/29/20 08:00 Resp 20 05/29/20 08:00 BP 149/79 05/29/20 08:00 Pulse Ox 90 L 05/29/20 08:50 Intake & Output 05/28/20 05/29/20 05/29/20 18:59 06:59 18:59 Intake Total 1989 Output Total 800 Balance 1190 Intake: Intake, IV Titration 1150 Amount Remdesivir (Eua) 100 mg 250 In Sodium Chloride 0.9% 250 ml @ 250 mls/hr IVPB Q24H [facility] Rx#:[id number] Sodium Chloride 0.9% 1, 900 000 ml @ 75 mls/hr IV . [id number] [facility] Rx#:[id number] Oral 840 Output: Urine 800 Other: Voiding Method Urinal Urinal # Voids 2 - Exam - Constitutional General appearance: average body habitus, disheveled, mild distress - EENT Eyes: EOMI, PERRLA Ears: bilateral: normal - Neck Neck: normal ROM Carotids: bilateral: upstroke normal Thyroid: bilateral: normal size - Respiratory Respiratory: bilateral: diminished - Cardiovascular Rhythm: regular Heart sounds: normal: S1, S2 - Gastrointestinal General gastrointestinal: soft - Integumentary Integumentary: decreased turgor - Neurologic Neurologic: CNII-XII intact - Musculoskeletal Musculoskeletal: gait normal, generalized weakness, strength equal bilaterally - Psychiatric Psychiatric: A&O x's 3, appropriate affect, intact judgment & insight - Labs CBC & Chem 7: 05/29/20 05:27 05/29/20 05:27 Labs: Abnormal Lab Results - Last 24 Hours (Table) 05/28/20 05/28/20 05/29/20 Range/Units 17:30 19:40 05:27 Neutrophils # 8.4 H (1.3-7.7) k/uL Lymphocytes # 0.2 L (1.0-4.8) k/uL BUN (9.0-27.0) mg/dL BUN/Creatinine Ratio (12.00-20.00) Ratio POC Glucose (mg/dL) 251 H 248 H (75-99) mg/dL Calcium (8.7-10.3) mg/dL 05/29/20 Range/Units 05:27 Neutrophils # (1.3-7.7) k/uL Lymphocytes # (1.0-4.8) k/uL BUN 38.0 H (9.0-27.0) mg/dL BUN/Creatinine Ratio 38.00 H (12.00-20.00) Ratio POC Glucose (mg/dL) (75-99) mg/dL Calcium 8.5 L (8.7-10.3) mg/dL Microbiology - Last 24 Hours (Table) 05/22/20 18:53 Blood Culture - Final Blood No Growth after 144 hours Assessment and Plan Assessment: Acute hypoxic respiratory failure Acute covid 19 pneumonia ARDS likely related covid 19 pneumonia Dyslipidemia Hypertension hypertensive cardiovascular disease Diabetes mellitus Plan: Deep breathing exercise incentive spirometry Prone positioning IV steroids however can be reduced IV Remdesivir for 5 days Anticoagulation with Lovenox Sliding scale insulin, with maintenance insulin Time with Patient: Greater than 30
[2020-05-29 11:42] LABS: Glucose,Whole Blood 276 mg/dL (75-99)
[2020-05-29] MEDS: SODIUM CHLORIDE 0.9% 1,000 ML IV SCH ×2 (15:42→19:14)
[2020-05-29 17:16] LABS: Glucose,Whole Blood 257 mg/dL (75-99)
[2020-05-29 19:33] LABS: Glucose,Whole Blood 328 mg/dL (75-99)
[2020-05-29] MEDS: ATORVASTATIN 20 MG TAB PO SCH (20:12)
[2020-05-29] MEDS: TAMSULOSIN 0.4 MG CAP.ER.24H PO SCH (20:12)
--- NOTE | 2020-05-30 00:40 | P.PN ---
Subjective Progress Note Date: 05/29/20 This is a 74 year old male who was recently admitted with generalized body aches, sinus congestion, and fevers and is being closely monitored. Patient was found to have Covid 19 and initially started on 2 liters of oxygen and respiratory status continued to decline. Patient currently remains on Airvo high flow oxygen at a flow rate of 50 with an FI02 of 88%. Patient continues to have shortness of breath. Patient currently denies chest pain or palpitations. Patient is afebrile. Instructed the patient to increase activity as tolerated. Discussed with nursing staff about weaning FI02. Review of systems: Constitutional: No reports of fatigue, fever, or chills Cardiovascular: No reports of chest pain or palpitations Respiratory: reports shortness of breath GI: No reports of nausea, vomiting, or diarrhea : No reports of dysuria or retention Neurovascular: No reports of weakness or numbness All medications have been reviewed Active Medications Acetaminophen (Acetaminophen Tab 500 Mg Tab) 1,000 mg PO Q6HR PRN PRN Reason: Fever>101 Albuterol Sulfate (Albuterol Hfa Inhaler) 2 puff INHALATION RT-Q6H [facility] Last Admin: 05/29/20 12:06 Dose: 2 puff Documented by: Albuterol Sulfate (Albuterol Hfa Inhaler) 2 puff INHALATION RT-Q6H PRN PRN Reason: Shortness Of Breath Or Wheezing Ascorbic Acid (Ascorbic Acid 500 Mg Tab) 500 mg PO BID [facility] Last Admin: 05/29/20 08:31 Dose: 500 mg Documented by: Aspirin (Aspirin 325 Mg Tab) 325 mg PO DAILY [facility] Last Admin: 05/29/20 08:31 Dose: 325 mg Documented by: Atorvastatin Calcium (Atorvastatin 20 Mg Tab) 20 mg PO HS [facility] Last Admin: 05/28/20 20:03 Dose: 20 mg Documented by: Cholecalciferol (Cholecalciferol 1,000 Unit Tab) 5,000 unit PO DAILY [facility] Last Admin: 05/29/20 08:31 Dose: 5,000 unit Documented by: Enoxaparin Sodium (Enoxaparin 40 Mg/0.4 Ml Syringe) 40 mg SQ Q12HR [facility] Last Admin: 05/29/20 08:31 Dose: 40 mg Documented by: Sodium Chloride (Saline 0.9%) 1,000 mls @ 75 mls/hr IV .[id number] [facility] Last Admin: 05/29/20 15:42 Dose: Not Given Documented by: Insulin Aspart (Insulin Aspart (Novolog) 100 Unit/Ml Vial) 0 unit SQ ACHS [facility]; Protocol Last Admin: 05/29/20 12:48 Dose: 4 unit Documented by: Insulin Aspart (Insuln Asp Prt/Insulin Aspart 100 Unit/Ml 10 Ml Vial) 40 unit SQ AC-BID [facility] Last Admin: 05/29/20 07:38 Dose: Not Given Documented by: Methylprednisolone Sodium Succinate (Methylprednisolone Sod Succi 125 Mg/2 Ml Vial) 60 mg IV Q6HR [facility] Last Admin: 05/29/20 12:48 Dose: 60 mg Documented by: Naloxone HCl (Naloxone 0.4 Mg/Ml 1 Ml Vial) 0.2 mg IV Q2M PRN PRN Reason: Opioid Reversal Non-Formulary Medication (Lifitegrast [Xiidra]) 1 dropper BOTH EYES BID [facility] Last Admin: 05/29/20 08:31 Dose: Not Given Documented by: Pantoprazole Sodium (Pantoprazole 40 Mg Tablet) 40 mg PO AC-BID [facility] Last Admin: 05/29/20 08:31 Dose: 40 mg Documented by: Tamsulosin HCl (Tamsulosin 0.4 Mg Cap.Er.24h) 0.4 mg PO HS [facility] Last Admin: 05/28/20 20:03 Dose: 0.4 mg Documented by: Zinc Sulfate (Zinc Sulfate 220 Mg Cap) 220 mg PO DAILY [facility] Last Admin: 05/29/20 08:31 Dose: 220 mg Documented by: Objective - Vital Signs Vital signs: Vital Signs Temp 97.9 F 05/29/20 11:57 Pulse 78 05/29/20 11:57 Resp 20 05/29/20 11:57 BP 152/83 05/29/20 11:57 Pulse Ox 87 L 05/29/20 12:07 Intake & Output 05/28/20 05/29/20 05/29/20 18:59 06:59 18:59 Intake Total 1989 Output Total 800 Balance 1190 Weight 90.718 kg Intake: Intake, IV Titration 1150 Amount Remdesivir (Eua) 100 mg 250 In Sodium Chloride 0.9% 250 ml @ 250 mls/hr IVPB Q24H [facility] Rx#:[id number] Sodium Chloride 0.9% 1, 900 000 ml @ 75 mls/hr IV . [id number] [facility] Rx#:[id number] Oral 840 Output: Urine 800 Other: Voiding Method Urinal Urinal # Voids 2 - Exam GENERAL: The patient is alert and oriented x3, not in any acute distress. Well developed, well nourished. Temp is 97.9F, pulse is 78, respirations are 20, blood pressure is 152/83, oxygen saturation is 94% on high flow airvo at 50 with an FiO2 of 88. HEENT: Pupils are round and equally reacting to light. EOMI. No scleral icterus. No conjunctival pallor. Normocephalic, atraumatic. No pharyngeal erythema. No thyromegaly. CARDIOVASCULAR: S1 and S2 present. No murmurs, rubs, or gallops. PULMONARY: Diminished breath sounds bilaterally with some scattered rhonchi noted ABDOMEN: Soft, nontender, nondistended, normoactive bowel sounds. No palpable organomegaly. MUSCULOSKELETAL: No joint swelling or deformity. EXTREMITIES: No cyanosis, clubbing, or pedal edema. NEUROLOGICAL: Gross neurological examination did not reveal any focal deficits. SKIN: No rashes. - Labs CBC & Chem 7: 05/29/20 05:27 05/29/20 05:27 Labs: Abnormal Lab Results - Last 24 Hours (Table) 05/28/20 05/28/20 05/29/20 Range/Units 17:30 19:40 05:27 Neutrophils # 8.4 H (1.3-7.7) k/uL Lymphocytes # 0.2 L (1.0-4.8) k/uL BUN (9.0-27.0) mg/dL BUN/Creatinine Ratio (12.00-20.00) Ratio POC Glucose (mg/dL) 251 H 248 H (75-99) mg/dL Calcium (8.7-10.3) mg/dL 05/29/20 05/29/20 Range/Units 05:27 11:38 Neutrophils # (1.3-7.7) k/uL Lymphocytes # (1.0-4.8) k/uL BUN 38.0 H (9.0-27.0) mg/dL BUN/Creatinine Ratio 38.00 H (12.00-20.00) Ratio POC Glucose (mg/dL) 276 H (75-99) mg/dL Calcium 8.5 L (8.7-10.3) mg/dL Microbiology - Last 24 Hours (Table) 05/22/20 18:53 Blood Culture - Final Blood No Growth after 144 hours Assessment and Plan Assessment: -Covid 19 pneumonitis and acute hypoxic respiratory failure secondary to Covid 19. -Hypovolemic hyponatremia secondary to diarrhea as well as his antihypertensive medications -Acute renal failure, Prerenal azotemia secondary to assessment #2, patient does have chronic kidney disease stage III from a possible diabetic nephropathy -Type 2 diabetes mellitus with hyperglycemia -Hyperlipidemia -Hypertension -DVT prophylaxis with the heparin Plan: Continue with current medications. Will repeat am labs. Infectious disease and pulmonary following. Instructed patient to increase activity as tolerated. Discussed with RN about weaning FI02 as tolerated as patient is currently now on airvo HF via NC. Monitor blood sugars closely and continue current regimen. Further recommendations to follow. Due to multiple complex medical issues, prognosis is guarded.
--- NOTE | 2020-05-30 01:42 | PN ---
PROGRESS NOTE DATE OF SERVICE: 05/29/2020 REASON FOR FOLLOWUP: COVID-19 infection. INTERVAL HISTORY: The patient is currently afebrile. He is breathing slightly comfortably compared to yesterday. Patient denies having any chest pain. Minimal cough. No nausea, no vomiting. No Abdominal pain or diarrhea. PHYSICAL EXAMINATION: Blood pressure 138/83 with a pulse of 103, temperature 98. He is 94% on high-flow oxygen. General description is a middle-aged male up in the bed in no distress. RESPIRATORY SYSTEM: Unlabored breathing, decreased intensity of breath sounds. No wheeze. HEART: S1, S2. Regular rate and rhythm. ABDOMEN: Soft, no tenderness. LABS: Hemoglobin 13.5, white count 9.2, BUN of 38, creatinine 1.0. DIAGNOSTIC IMPRESSION AND PLAN: Patient with acute COVID-19 infection in this patient currently being treated with remdesivir, Solu-Medrol, Lovenox and zinc sulfate to continue along with respiratory support and monitor his clinical course closely. MMODL / IJN: [id number] /
[2020-05-30] MEDS: ALBUTEROL HFA INHALER INHALATION SCH ×4 (02:06→19:26)
[2020-05-30] MEDS: methylPREDNISolone SOD SUCCI 125 MG/2 ML VIAL IV SCH ×3 (05:35→18:14)
[2020-05-30 07:06] LABS: Basophils % (A) 0 %; Eosinophils % (A) 0 %; HCT 41.2 % (39.0-53.0); HGB 14.1 gm/dL (13.0-17.5); Lymphocytes # (A) 0.1 k/uL (1.0-4.8); Lymphocytes % (A) 1 %; MCH 31.3 pg (25.0-35.0); MCHC 34.2 g/dL (31.0-37.0); MCV 91.5 fL (80.0-100.0); Mean Platelet Volume 7.2; Monocytes # (A) 0.7 k/uL (0-1.0); Monocytes % (A) 7 %; Neutrophils # (A) 8.9 k/uL (1.3-7.7); Neutrophils % (A) 91 %; Platelet Count 126 k/uL (150-450); RDW 12.8 % (11.5-15.5); WBC 9.8 k/uL (3.8-10.6)
[2020-05-30 07:24] LABS: Glucose,Whole Blood 145 mg/dL (75-99)
[2020-05-30] MEDS: ENOXAPARIN 40 MG/0.4 ML SYRINGE SQ SCH ×2 (08:21→20:43)
[2020-05-30] MEDS: INSULN ASP PRT/INSULIN ASPART 100 UNIT/ML 10 ML VIAL SQ SCH ×2 (08:21→18:01)
[2020-05-30] MEDS: CHOLECALCIFEROL 1,000 UNIT TAB PO SCH (08:22)
[2020-05-30] MEDS: ASCORBIC ACID 500 MG TAB PO SCH ×2 (08:22→20:42)
[2020-05-30] MEDS: INSULIN ASPART (NovoLOG) 100 UNIT/ML VIAL SQ SCH ×4 (08:22→20:46)
[2020-05-30] MEDS: PANTOPRAZOLE 40 MG TABLET PO SCH ×2 (08:22→18:15)
[2020-05-30] MEDS: ZINC SULFATE 220 MG CAP PO SCH (08:22)
[2020-05-30] MEDS: ASPIRIN 325 MG TAB PO SCH (08:23)
[2020-05-30] MEDS: NON FORMULARY DRUG (Lifitegrast [Xiidra] 1 EACH Droperette) BOTH EYES SCH ×2 (08:23→21:02)
[2020-05-30 10:15] LABS: African American GFR (CKD) 76.2 (60.0-200.0); Albumin 2.8 g/dL (3.80-4.90); Albumin/Globulin Ratio 1.08 (1.60-3.17); Anion Gap 8.4 mmol/L (4.00-12.00); BUN/Creat Ratio 35.45 Ratio (12.00-20.00); Calcium 8.4 mg/dL (8.7-10.3); Carbon Dioxide 27.6 mmol/L (21.6-31.8); Globulin 2.6 g/dL (1.6-3.3); Non-African American GFR(CKD) 65.8 (60.0-200.0); Potassium 4.3 mmol/L (3.5-5.5); Total Bilirubin 1.3 mg/dL (0.3-1.2); Total Protein 5.4 g/dL (6.2-8.2)
--- NOTE | 2020-05-30 10:18 | XR ---
EXAMINATION TYPE: XR chest 1V portable DATE OF EXAM: 05/30/2020 COMPARISON: 05/28/2020 HISTORY: 05/28/2020 TECHNIQUE: Single frontal view of the chest is obtained. FINDINGS: Bilateral perihilar consolidation. No pneumothorax. Heart size normal. Diffuse osteopenia and arthropathy of the shoulders. Underlying COPD suspected. IMPRESSION: Diffuse bilateral infiltrates could be associated with the pneumonia including viral or atypical pneumonia. Pulmonary edema not excluded correlate clinically.
[2020-05-30 11:36] LABS: ABG Base Excess 4.5 mmol/L; ABG HCO3 28 mmol/L (21-25); ABG PCO2 36 mmHg (35-45); ABG PO2 149 mmHg (83-108); ABG TCO2 29 mmol/L (19-24); Allen Test Performed? Yes
[2020-05-30 11:53] LABS: Glucose,Whole Blood 179 mg/dL (75-99)
--- NOTE | 2020-05-30 12:31 | ECHOF ---
Referral Reason:elevated BNP MEASUREMENTS -------- HEIGHT: 0.0 cm WEIGHT: 0.0 kg BP: IVSd: 1.5 cm (0.6 - 1.1) LVIDd: 3.3 cm (3.9 - 5.3) LVPWd: 1.3 cm (0.6 - 1.1) IVSs: 1.8 cm LVIDs: 2.4 cm LVPWs: 1.6 cm Ao Diam: 2.9 cm (2.0 - 3.7) AV Cusp: 1.6 cm (1.5 - 2.6) LA Diam: 3.5 cm (2.7 - 3.8) MV E Kenneth: 0.71 m/s MV DecT: 292 ms MV A Kenneth: 0.84 m/s MV E/A Ratio: 0.84 AV maxP.98 mmHg AV meanP.97 mmHg RAP: 5.00 mmHg RVSP: 12.46 mmHg FINDINGS -------- Sinus rhythm. This was a technically difficult study with suboptimal views. The left ventricular size is normal. There is mild concentric left ventricular hypertrophy. Overa ll left ventricular systolic function is normal with, an EF between 55 - 60 %. The RV was not well visualized. The left atrial size is normal. The right atrium was not well visualized. 5.0mg of Lumason was utilized for enhancement of images There is mild aortic valve sclerosis. There is mild aortic stenosis present. Peak/mean gradient a cross the Aortic Valve is 39.98mmHg / 21.97mmHg. The mitral valve was not well visualized. There is trace mitral regurgitation. The tricuspid valve was not well visualized. Trace tricuspid regurgitation present. Right ventric ular systolic pressure is normal at < 35 mmHg. The pulmonic valve was not well visualized. There is no pulmonic regurgitation present. The aortic root size is normal. IVC Not well visulized. There is no pericardial effusion. CONCLUSIONS -------- 1. This was a technically difficult study with suboptimal views. 2. There is mild concentric left ventricular hypertrophy. 3. Overall left ventricular systolic function is normal with, an EF between 55 - 60 %. 4. The left atrial size is normal. 5. There is mild aortic valve sclerosis. 6. There is mild aortic stenosis present. 7. Peak/mean gradient across the Aortic Valve is 39.98mmHg / 21.97mmHg. 8. There is trace mitral regurgitation. 9. Trace tricuspid regurgitation present. 10. There is no pericardial effusion. MATERIAL MIXER: Elayne Pa RDCS
--- NOTE | 2020-05-30 12:39 | P.PN ---
Subjective Progress Note Date: 05/30/20 Principal diagnosis: Covid-19 infection hypoxia 74-year-old male who is recently admitted with generalized body aches, sinus congestion, fevers, and mild shortness of breath with exertion.patient was found to have coven 19 infection started on 2 L of oxygen for respiratory status.respiratory status declined during hospital admission, patient was placed on high flow oxygen.patient has mild to moderate respiratory distress pulmonary critical care notified and placed on BiPAP and tolerating BiPAP decreased respiratory effort oxygen saturation saturations 99% Objective - Vital Signs Vital signs: Vital Signs Temp 98.0 F 05/30/20 11:35 Pulse 72 05/30/20 11:35 Resp 29 H 05/30/20 11:35 BP 132/77 05/30/20 11:35 Pulse Ox 95 05/30/20 11:35 Intake & Output 05/29/20 05/30/20 05/30/20 18:59 06:59 18:59 Intake Total 1140 Output Total 1300 400 Balance -1300 740 Weight 90.718 kg Intake: Intake, IV Titration 900 Amount Sodium Chloride 0.9% 1, 900 000 ml @ 75 mls/hr IV . [id number] [facility] Rx#:[id number] Oral 240 Output: Urine 1300 400 Other: Voiding Method Urinal Urinal # Voids 3 # Bowel Movements 0 - Constitutional Constitutional Comment(s): moderate distress - EENT Eyes: Present: EOMI, PERRLA ENT: Present: hard of hearing Ears: bilateral: normal - Neck Carotids: bilateral: upstroke normal Thyroid: bilateral: normal size - Respiratory Respiratory: bilateral: rhonchi (coarse rhonchi throughout lung dowd) - Cardiovascular Details: normal sinus Heart rate: 77 Rhythm: regular Heart sounds: normal: S1, S2 - Gastrointestinal General gastrointestinal: Present: normal bowel sounds - Integumentary Integumentary: Present: decreased turgor, pale - Neurologic Neurologic: Present: CNII-XII intact - Musculoskeletal Musculoskeletal: Present: generalized weakness - Psychiatric Psychiatric: Present: A&O x's 3, appropriate affect - Allied health notes Allied health notes reviewed: nursing - Labs CBC & Chem 7: 05/30/20 06:54 05/30/20 06:54 Labs: Abnormal Lab Results - Last 24 Hours (Table) 05/29/20 05/29/20 05/30/20 Range/Units 17:14 19:31 06:54 Plt Count 126 L (150-450) k/uL Neutrophils # 8.9 H (1.3-7.7) k/uL Lymphocytes # 0.1 L (1.0-4.8) k/uL ABG pH (7.35-7.45) ABG pO2 (83-108) mmHg ABG HCO3 (21-25) mmol/L ABG Total CO2 (19-24) mmol/L BUN (9.0-27.0) mg/dL BUN/Creatinine Ratio (12.00-20.00) Ratio Glucose (70-110) mg/dL POC Glucose (mg/dL) 257 H 328 H (75-99) mg/dL Calcium (8.7-10.3) mg/dL Total Bilirubin (0.3-1.2) mg/dL AST (14-35) U/L Total Protein (6.2-8.2) g/dL Albumin (3.80-4.90) g/dL Albumin/Globulin Ratio (1.60-3.17) g/dL 05/30/20 05/30/20 05/30/20 Range/Units 06:54 07:14 11:20 Plt Count (150-450) k/uL Neutrophils # (1.3-7.7) k/uL Lymphocytes # (1.0-4.8) k/uL ABG pH 7.50 H (7.35-7.45) ABG pO2 149 H (83-108) mmHg ABG HCO3 28 H (21-25) mmol/L ABG Total CO2 29 H (19-24) mmol/L BUN 39.0 H (9.0-27.0) mg/dL BUN/Creatinine Ratio 35.45 H (12.00-20.00) Ratio Glucose 151 H (70-110) mg/dL POC Glucose (mg/dL) 145 H (75-99) mg/dL Calcium 8.4 L (8.7-10.3) mg/dL Total Bilirubin 1.3 H (0.3-1.2) mg/dL AST 41 H (14-35) U/L Total Protein 5.4 L (6.2-8.2) g/dL Albumin 2.80 L (3.80-4.90) g/dL Albumin/Globulin Ratio 1.08 L (1.60-3.17) g/dL 05/30/20 Range/Units 11:42 Plt Count (150-450) k/uL Neutrophils # (1.3-7.7) k/uL Lymphocytes # (1.0-4.8) k/uL ABG pH (7.35-7.45) ABG pO2 (83-108) mmHg ABG HCO3 (21-25) mmol/L ABG Total CO2 (19-24) mmol/L BUN (9.0-27.0) mg/dL BUN/Creatinine Ratio (12.00-20.00) Ratio Glucose (70-110) mg/dL POC Glucose (mg/dL) 179 H (75-99) mg/dL Calcium (8.7-10.3) mg/dL Total Bilirubin (0.3-1.2) mg/dL AST (14-35) U/L Total Protein (6.2-8.2) g/dL Albumin (3.80-4.90) g/dL Albumin/Globulin Ratio (1.60-3.17) g/dL - Imaging and Cardiology Chest x-ray: report reviewed Assessment and Plan Assessment: covid- 19 pneumonitis acute hypoxic respiratory failure- type 2 diabetes with hyperglycemia hyperlipiedema Hypertension (1) COVID-19 Narrative/Plan: continue consultation with pulmonary critical care for recommendations and treatment plan BiPAP Current Visit: Yes Status: Acute Code(s): U07.1 - COVID-19 SNOMED Code(s): 765843122 Plan: continue consultation with pulmonary critical care for recommendations and treatment plan continue consultation with infectious disease for recommendations and treatment plan continue current medication therapy echocardiogram bIPAP with settings / with FiO2 of 100% continue medical management Time with Patient: Greater than 30
[2020-05-30 16:55] LABS: Glucose,Whole Blood 88 mg/dL (75-99)
[2020-05-30 19:58] LABS: Glucose,Whole Blood 206 mg/dL (75-99)
--- NOTE | 2020-05-30 20:07 | P.PN ---
Subjective Progress Note Date: 05/30/20 Principal diagnosis: Acute hypoxic respiratory failure Acute covid 19 pneumonia ARDS likely related covid 19 pneumonia Dyslipidemia Hypertension hypertensive cardiovascular disease Diabetes mellitus 05/30/2020, patient seen eval examined during the rounds labs reviewed irrig ations reviewed, patient is overall in good spirits, however continued to require high flow oxygen with aerosolized oxygen and nonrebreather mask during eating otherwise patient has been on BiPAP, currently saturation is about 88-90% on 06/06 on 80% oxygen, sats on BiPAP however improved to 95%, chest x-ray performed earlier today revealed bilateral infiltrates consistent with covid 19 pneumonia 05/29/2020, patient seen eval examined during the rounds labs reviewed medications reviewed care plan discussed, patient remained short of breath currently now is on airvo high flow oxygen, 90% to 91%, Patient came into the hospital with about one week history of increased symptoms of sinus congestion cough, also has a chills fever and mild PI aches and fatigue and pain, history of prior lung problems does have a history hypertension hypertensive cardiovascular disease dyslipidemia and diabetes mellitus, on arrival his oxygen saturation is 90%, low-grade temperature 99.3 was present his steiner virus PCR came back positive, his oxygen requirement continued to go up currently he is on 100% nonrebreather mask with 15 L high flow oxygen, chest x- ray admitted show coarse interstitial changes consistent with interstitial pneumonia repeat chest x-ray did now show worsening ARDS-like Petrin, saturation is 98%, he is afebrile hemodynamic status, he is on Lovenox 40 every 12, on Medrol 60 every 6, Remdesivir IV, inflammatory parameters are consistent with severe inflammatory response d-dimer is 16.4, pH is 574, a reactive protein is 3 Objective - Vital Signs Vital signs: Vital Signs Temp 98.0 F 05/30/20 11:35 Pulse 72 05/30/20 11:35 Resp 29 H 05/30/20 11:35 BP 132/77 05/30/20 11:35 Pulse Ox 95 05/30/20 11:35 Intake & Output 05/30/20 05/30/20 05/31/20 06:59 18:59 06:59 Intake Total 1140 300 Output Total 400 850 Balance 740 -550 Intake: Intake, IV Titration 900 Amount Sodium Chloride 0.9% 1, 900 000 ml @ 75 mls/hr IV . [id number] [facility] Rx#:[id number] Oral 240 300 Output: Urine 400 850 Other: Voiding Method Urinal Urinal # Voids 3 # Bowel Movements 0 - Exam - Constitutional General appearance: average body habitus, disheveled, mild distress - EENT Eyes: EOMI, PERRLA Ears: bilateral: normal - Neck Neck: normal ROM Carotids: bilateral: upstroke normal Thyroid: bilateral: normal size - Respiratory Respiratory: bilateral: diminished - Cardiovascular Rhythm: regular Heart sounds: normal: S1, S2 - Gastrointestinal General gastrointestinal: soft - Integumentary Integumentary: decreased turgor - Neurologic Neurologic: CNII-XII intact - Musculoskeletal Musculoskeletal: gait normal, generalized weakness, strength equal bilaterally - Psychiatric Psychiatric: A&O x's 3, appropriate affect, intact judgment & insight - Labs CBC & Chem 7: 05/30/20 06:54 05/30/20 06:54 Labs: Abnormal Lab Results - Last 24 Hours (Table) 05/30/20 05/30/20 05/30/20 Range/Units 06:54 06:54 07:14 Plt Count 126 L (150-450) k/uL Neutrophils # 8.9 H (1.3-7.7) k/uL Lymphocytes # 0.1 L (1.0-4.8) k/uL ABG pH (7.35-7.45) ABG pO2 (83-108) mmHg ABG HCO3 (21-25) mmol/L ABG Total CO2 (19-24) mmol/L BUN 39.0 H (9.0-27.0) mg/dL BUN/Creatinine Ratio 35.45 H (12.00-20.00) Ratio Glucose 151 H (70-110) mg/dL POC Glucose (mg/dL) 145 H (75-99) mg/dL Calcium 8.4 L (8.7-10.3) mg/dL Total Bilirubin 1.3 H (0.3-1.2) mg/dL AST 41 H (14-35) U/L Total Protein 5.4 L (6.2-8.2) g/dL Albumin 2.80 L (3.80-4.90) g/dL Albumin/Globulin Ratio 1.08 L (1.60-3.17) g/dL 05/30/20 05/30/20 05/30/20 Range/Units 11:20 11:42 19:54 Plt Count (150-450) k/uL Neutrophils # (1.3-7.7) k/uL Lymphocytes # (1.0-4.8) k/uL ABG pH 7.50 H (7.35-7.45) ABG pO2 149 H (83-108) mmHg ABG HCO3 28 H (21-25) mmol/L ABG Total CO2 29 H (19-24) mmol/L BUN (9.0-27.0) mg/dL BUN/Creatinine Ratio (12.00-20.00) Ratio Glucose (70-110) mg/dL POC Glucose (mg/dL) 179 H 206 H (75-99) mg/dL Calcium (8.7-10.3) mg/dL Total Bilirubin (0.3-1.2) mg/dL AST (14-35) U/L Total Protein (6.2-8.2) g/dL Albumin (3.80-4.90) g/dL Albumin/Globulin Ratio (1.60-3.17) g/dL Assessment and Plan Assessment: Acute hypoxic respiratory failure Acute covid 19 pneumonia ARDS likely related covid 19 pneumonia Dyslipidemia Hypertension hypertensive cardiovascular disease Diabetes mellitus Plan: Continue BiPAP 06/06 with oxygen to keep saturation of 90% or above, in between patient can be rested with aerosolized oxygen and facemask Deep breathing exercise incentive spirometry Prone positioning if not possible patient agree able for sleeping on the sides IV steroids however can be reduced IV Remdesivir for 5 days Anticoagulation with Lovenox Sliding scale insulin, with maintenance insulin Time with Patient: Greater than 30
[2020-05-30] MEDS: TAMSULOSIN 0.4 MG CAP.ER.24H PO SCH (20:43)
[2020-05-30] MEDS: ATORVASTATIN 20 MG TAB PO SCH (20:43)
[2020-05-31] MEDS: methylPREDNISolone SOD SUCCI 125 MG/2 ML VIAL IV SCH ×4 (00:17→18:14)
[2020-05-31] MEDS: ALBUTEROL HFA INHALER INHALATION SCH ×4 (01:46→20:42)
--- NOTE | 2020-05-31 02:30 | PN ---
PROGRESS NOTE DATE OF SERVICE: 05/30/2020 REASON FOR FOLLOWUP: COVID-19 pneumonia. INTERVAL HISTORY: The patient is currently afebrile. The patient is breathing comfortably, however, requiring BiPAP. The patient denies having any chest pain. Minimal cough. No nausea, no vomiting. No abdominal pain or diarrhea. PHYSICAL EXAMINATION: Blood pressure 104/57 with pulse of 88, temperature 97.4. He is currently 91% on BiPAP. General description is an elderly male up in the bed in no distress. RESPIRATORY SYSTEM: Unlabored breathing, decreased intensity of breath sounds. No wheeze. HEART: S1, S2. Regular rate and rhythm. ABDOMEN: Soft, no tenderness. LABS: Hemoglobin 14.1, white count 9.8. BUN of 39, creatinine 1.1. DIAGNOSTIC IMPRESSION AND PLAN: Patient with acute COVID-19 pneumonia in this patient with minimal clinical improvement. He is feeling slightly better, however, is still requiring high-flow nasal cannula oxygen. Patient at this time has completed his 5-day course of remdesivir. He is on Lovenox, Solu-Medrol and zinc sulfate to continue along with respiratory support and continue supportive care. MMODL / IJN: [id number] /
[2020-05-31 06:43] LABS: Basophils % (A) 0 %; Eosinophils % (A) 0 %; HCT 42.7 % (39.0-53.0); HGB 14.2 gm/dL (13.0-17.5); Lymphocytes # (A) 0.1 k/uL (1.0-4.8); Lymphocytes % (A) 1 %; MCH 31.3 pg (25.0-35.0); MCHC 33.3 g/dL (31.0-37.0); MCV 93.8 fL (80.0-100.0); Mean Platelet Volume 8.6; Monocytes # (A) 0.5 k/uL (0-1.0); Monocytes % (A) 4 %; Neutrophils # (A) 9.6 k/uL (1.3-7.7); Neutrophils % (A) 94 %; Platelet Count 100 k/uL (150-450); RBC 4.55 m/uL (4.30-5.90); RDW 12.9 % (11.5-15.5); WBC 10.2 k/uL (3.8-10.6)
[2020-05-31 07:12] LABS: Glucose,Whole Blood 235 mg/dL (75-99)
[2020-05-31] MEDS: INSULIN ASPART (NovoLOG) 100 UNIT/ML VIAL SQ SCH ×4 (08:42→23:13)
[2020-05-31] MEDS: INSULN ASP PRT/INSULIN ASPART 100 UNIT/ML 10 ML VIAL SQ SCH ×2 (08:42→18:13)
[2020-05-31] MEDS: ASCORBIC ACID 500 MG TAB PO SCH ×2 (08:43→21:29)
[2020-05-31] MEDS: ENOXAPARIN 40 MG/0.4 ML SYRINGE SQ SCH ×2 (08:43→21:29)
[2020-05-31] MEDS: ZINC SULFATE 220 MG CAP PO SCH (08:43)
[2020-05-31] MEDS: PANTOPRAZOLE 40 MG TABLET PO SCH ×2 (08:43→18:19)
[2020-05-31] MEDS: ASPIRIN 325 MG TAB PO SCH (08:43)
[2020-05-31] MEDS: NON FORMULARY DRUG (Lifitegrast [Xiidra] 1 EACH Droperette) BOTH EYES SCH ×2 (08:43→21:58)
[2020-05-31] MEDS: CHOLECALCIFEROL 1,000 UNIT TAB PO SCH (08:43)
[2020-05-31 10:56] LABS: African American GFR (CKD) 62.3 (60.0-200.0); Albumin 2.6 g/dL (3.80-4.90); Anion Gap 9.4 mmol/L (4.00-12.00); BUN/Creat Ratio 38.46 Ratio (12.00-20.00); Calcium 8.4 mg/dL (8.7-10.3); Carbon Dioxide 28.6 mmol/L (21.6-31.8); Globulin 2.6 g/dL (1.6-3.3); Non-African American GFR(CKD) 53.8 (60.0-200.0); Potassium 4.8 mmol/L (3.5-5.5); Total Protein 5.2 g/dL (6.2-8.2)
[2020-05-31 11:27] LABS: Glucose,Whole Blood 331 mg/dL (75-99)
--- NOTE | 2020-05-31 11:40 | P.PN ---
Subjective Progress Note Date: 05/31/20 Principal diagnosis: Acute hypoxic respiratory failure Acute covid 19 pneumonia ARDS likely related covid 19 pneumonia Dyslipidemia Hypertension hypertensive cardiovascular disease Diabetes mellitus 05/31/2020, patient seen, currently resting, remains on BiPAP in between for maintenance on address lysed high flow oxygen, sats on BiPAP last check was 90%, hemodynamic status stable, continued to be short of breath using necessary muscles cough is present intermittently dry and nonproductive, patient remains on therapy 05/30/2020, patient seen eval examined during the rounds labs reviewed irrigations reviewed, patient is overall in good spirits, however continued to require high flow oxygen with aerosolized oxygen and nonrebreather mask during eating otherwise patient has been on BiPAP, currently saturation is about 88-90% on 06/06 on 80% oxygen, sats on BiPAP however improved to 95%, chest x-ray performed earlier today revealed bilateral infiltrates consistent with covid 19 pneumonia 05/29/2020, patient seen eval examined during the rounds labs reviewed medica tions reviewed care plan discussed, patient remained short of breath currently now is on airvo high flow oxygen, 90% to 91%, Patient came into the hospital with about one week history of increased symptoms of sinus congestion cough, also has a chills fever and mild PI aches and fatigue and pain, history of prior lung problems does have a history hypertension hypertensive cardiovascular disease dyslipidemia and diabetes mellitus, on arrival his oxygen saturation is 90%, low-grade temperature 99.3 was present his steiner virus PCR came back positive, his oxygen requirement continued to go up currently he is on 100% nonrebreather mask with 15 L high flow oxygen, chest x- ray admitted show coarse interstitial changes consistent with interstitial pneumonia repeat chest x-ray did now show worsening ARDS-like Petrin, saturation is 98%, he is afebrile hemodynamic status, he is on Lovenox 40 every 12, on Medrol 60 every 6, Remdesivir IV, inflammatory parameters are consistent with severe inflammatory response d-dimer is 16.4, pH is 574, a reactive protein is 3 Objective - Vital Signs Vital signs: Vital Signs Temp 98.7 F 05/31/20 08:00 Pulse 78 05/31/20 08:00 Resp 18 05/31/20 08:00 BP 108/61 05/31/20 08:00 Pulse Ox 90 L 05/31/20 08:00 Intake & Output 05/30/20 05/31/20 05/31/20 18:59 06:59 18:59 Intake Total 300 Output Total 850 Balance -550 Intake: Oral 300 Output: Urine 850 Other: Voiding Method Urinal Urinal Urinal # Voids 3 # Bowel Movements 0 - Exam - Constitutional General appearance: average body habitus, disheveled, mild distress - EENT Eyes: EOMI, PERRLA Ears: bilateral: normal - Neck Neck: normal ROM Carotids: bilateral: upstroke normal Thyroid: bilateral: normal size - Respiratory Respiratory: bilateral: diminished - Cardiovascular Rhythm: regular Heart sounds: normal: S1, S2 - Gastrointestinal General gastrointestinal: soft - Integumentary Integumentary: decreased turgor - Neurologic Neurologic: CNII-XII intact - Musculoskeletal Musculoskeletal: gait normal, generalized weakness, strength equal bilaterally - Psychiatric Psychiatric: A&O x's 3, appropriate affect, intact judgment & insight - Labs CBC & Chem 7: 05/31/20 05:43 05/31/20 05:43 Labs: Abnormal Lab Results - Last 24 Hours (Table) 05/30/20 05/30/20 05/30/20 Range/Units 11:20 11:42 19:54 Plt Count (150-450) k/uL Neutrophils # (1.3-7.7) k/uL Lymphocytes # (1.0-4.8) k/uL ABG pH 7.50 H (7.35-7.45) ABG pO2 149 H (83-108) mmHg ABG HCO3 28 H (21-25) mmol/L ABG Total CO2 29 H (19-24) mmol/L BUN (9.0-27.0) mg/dL Est GFR (CKD-EPI)NonAf (60.0-200.0) BUN/Creatinine Ratio (12.00-20.00) Ratio Glucose (70-110) mg/dL POC Glucose (mg/dL) 179 H 206 H (75-99) mg/dL Calcium (8.7-10.3) mg/dL AST (14-35) U/L Total Protein (6.2-8.2) g/dL Albumin (3.80-4.90) g/dL Albumin/Globulin Ratio (1.60-3.17) g/dL 1205/31/20 05/31/20 Range/Units 05:43 05:43 07:11 Plt Count 100 L (150-450) k/uL Neutrophils # 9.6 H (1.3-7.7) k/uL Lymphocytes # 0.1 L (1.0-4.8) k/uL ABG pH (7.35-7.45) ABG pO2 (83-108) mmHg ABG HCO3 (21-25) mmol/L ABG Total CO2 (19-24) mmol/L BUN 50.0 H (9.0-27.0) mg/dL Est GFR (CKD-EPI)NonAf 53.8 L (60.0-200.0) BUN/Creatinine Ratio 38.46 H (12.00-20.00) Ratio Glucose 249 H (70-110) mg/dL POC Glucose (mg/dL) 235 H (75-99) mg/dL Calcium 8.4 L (8.7-10.3) mg/dL AST 36 H (14-35) U/L Total Protein 5.2 L (6.2-8.2) g/dL Albumin 2.60 L (3.80-4.90) g/dL Albumin/Globulin Ratio 1.00 L (1.60-3.17) g/dL 05/31/20 Range/Units 11:26 Plt Count (150-450) k/uL Neutrophils # (1.3-7.7) k/uL Lymphocytes # (1.0-4.8) k/uL ABG pH (7.35-7.45) ABG pO2 (83-108) mmHg ABG HCO3 (21-25) mmol/L ABG Total CO2 (19-24) mmol/L BUN (9.0-27.0) mg/dL Est GFR (CKD-EPI)NonAf (60.0-200.0) BUN/Creatinine Ratio (12.00-20.00) Ratio Glucose (70-110) mg/dL POC Glucose (mg/dL) 331 H (75-99) mg/dL Calcium (8.7-10.3) mg/dL AST (14-35) U/L Total Protein (6.2-8.2) g/dL Albumin (3.80-4.90) g/dL Albumin/Globulin Ratio (1.60-3.17) g/dL Assessment and Plan Assessment: Acute hypoxic respiratory failure Acute covid 19 pneumonia ARDS likely related covid 19 pneumonia Dyslipidemia Hypertension hypertensive cardiovascular disease Diabetes mellitus Plan: Continue BiPAP 06/06 with oxygen to keep saturation of 90% or above, in between patient can be rested with aerosolized oxygen and facemask Deep breathing exercise incentive spirometry Prone positioning if not possible patient agree able for sleeping on the sides IV steroids however can be reduced IV Remdesivir for 5 days Anticoagulation with Lovenox Sliding scale insulin, with maintenance insulin Time with Patient: Greater than 30
[2020-05-31 17:16] LABS: Glucose,Whole Blood 155 mg/dL (75-99)
--- NOTE | 2020-05-31 19:58 | P.PN ---
Subjective Progress Note Date: 05/31/20 Principal diagnosis: COVID-19 Infection Hypoxia This 74 year old male is well known to the practice, he is alert and oriented x 3 and is resting in bed with Bi-Pap, respirations have improved with decreased respiratory effort, he continues to have shortness of breath and cough, he remains able to answer questions when asked and he continues to be followed by infectious disease and pulmonary consults. Objective - Vital Signs Vital signs: Vital Signs Temp 98.5 F 05/31/20 11:58 Pulse 86 05/31/20 11:58 Resp 17 05/31/20 11:58 BP 128/75 05/31/20 11:58 Pulse Ox 96 05/31/20 11:58 Intake & Output 05/31/20 05/31/20 06/01/20 06:59 18:59 06:59 Intake Total 300 Output Total 350 Balance -50 Intake: Oral 300 Output: Urine 350 Other: Voiding Method Urinal Urinal # Voids 3 # Bowel Movements 0 1 - Constitutional General appearance: Present: average body habitus, mild distress - EENT Ears: bilateral: normal - Respiratory Respiratory: bilateral: rhonchi (diffuse coarse ) - Cardiovascular Rhythm: regular Heart sounds: normal: S1, S2 - Gastrointestinal General gastrointestinal: Present: normal bowel sounds - Neurologic Neurologic: Present: CNII-XII intact - Psychiatric Psychiatric: Present: A&O x's 3, appropriate affect, intact judgment & insight - Labs CBC & Chem 7: 05/31/20 05:43 05/31/20 05:43 Labs: Abnormal Lab Results - Last 24 Hours (Table) 05/30/20 05/31/20 05/31/20 Range/Units 19:54 05:43 05:43 Plt Count 100 L (150-450) k/uL Neutrophils # 9.6 H (1.3-7.7) k/uL Lymphocytes # 0.1 L (1.0-4.8) k/uL BUN 50.0 H (9.0-27.0) mg/dL Est GFR (CKD-EPI)NonAf 53.8 L (60.0-200.0) BUN/Creatinine Ratio 38.46 H (12.00-20.00) Ratio Glucose 249 H (70-110) mg/dL POC Glucose (mg/dL) 206 H (75-99) mg/dL Calcium 8.4 L (8.7-10.3) mg/dL AST 36 H (14-35) U/L Total Protein 5.2 L (6.2-8.2) g/dL Albumin 2.60 L (3.80-4.90) g/dL Albumin/Globulin Ratio 1.00 L (1.60-3.17) g/dL 05/31/20 05/31/20 05/31/20 Range/Units 07:11 11:26 17:15 Plt Count (150-450) k/uL Neutrophils # (1.3-7.7) k/uL Lymphocytes # (1.0-4.8) k/uL BUN (9.0-27.0) mg/dL Est GFR (CKD-EPI)NonAf (60.0-200.0) BUN/Creatinine Ratio (12.00-20.00) Ratio Glucose (70-110) mg/dL POC Glucose (mg/dL) 235 H 331 H 155 H (75-99) mg/dL Calcium (8.7-10.3) mg/dL AST (14-35) U/L Total Protein (6.2-8.2) g/dL Albumin (3.80-4.90) g/dL Albumin/Globulin Ratio (1.60-3.17) g/dL - Imaging and Cardiology echocardiogram: normal left ventricular systolic function with ejection fraction measured between 55-60% Assessment and Plan Assessment: COVID-19 Pneumonia Acute hypoxic respiratory failure requiring Bi-Pap Diabetes Mellitus Type II with hyperglycemia Hyperlipidemia Hypertension (1) COVID-19 Current Visit: Yes Status: Acute Code(s): U07.1 - COVID-19 SNOMED Code(s): 782271923 Plan: Continue medications as prescribed Continue Bi-pap to maintain optimal oxygen saturation Continue respiratory consultation for recommendations and treatment plan Continue infectious Disease consultation for recommendations and treatment plan
[2020-05-31 20:00] LABS: Glucose,Whole Blood 140 mg/dL (75-99)
[2020-05-31] MEDS: TAMSULOSIN 0.4 MG CAP.ER.24H PO SCH (21:29)
[2020-05-31] MEDS: ATORVASTATIN 20 MG TAB PO SCH (21:29)
[2020-06-01] MEDS: methylPREDNISolone SOD SUCCI 125 MG/2 ML VIAL IV SCH ×4 (00:50→17:53)
--- NOTE | 2020-06-01 01:31 | PN ---
PROGRESS NOTE DATE OF SERVICE: 05/31/2020 REASON FOR FOLLOWUP: COVID-19 pneumonia. INTERVAL HISTORY: The patient is currently afebrile. The patient is breathing slightly comfortably; however, still requiring high-flow oxygen as well as BiPAP. The patient denies having any chest pain. No nausea, no vomiting. No abdominal pain, no diarrhea. PHYSICAL EXAMINATION: Blood pressure 109/65, pulse of 95, temperature 97.5. He is 96% on BiPAP. General description is an elderly male up in the bed in no distress. RESPIRATORY SYSTEM: Unlabored breathing, decreased intensity of breath sounds. No wheeze. HEART: S1, S2. Regular rate and rhythm. ABDOMEN: Soft, no tenderness. LABS: Hemoglobin is 14.2, white count 10.2, creatinine is 1.3. DIAGNOSTIC IMPRESSION AND PLAN: Patient with acute COVID-19 pneumonia in this patient has completed his 5-day course of remdesivir, currently on Lovenox, Solu-Medrol, zinc sulfate to continue along with respiratory support and monitor clinical course closely. MMODL / IJN: [id number] /
[2020-06-01] MEDS: ALBUTEROL HFA INHALER INHALATION SCH ×5 (01:43→22:10)
[2020-06-01 07:11] LABS: Glucose,Whole Blood 147 mg/dL (75-99)
--- NOTE | 2020-06-01 07:44 | P.PN ---
Subjective Progress Note Date: 06/01/20 Principal diagnosis: Covid-19 infection hypoxia 74-year-old male who is recently admitted with generalized body aches, sinus congestion, fevers, and mild shortness of breath with exertion. patient was found to have covid- 19 infection started on 2 L of oxygen for respiratory status.respiratory status declined during hospital admission, patient was placed on high flow oxygen, patient continued to have respiratory difficultyplaced on BiPAP tolerating BiPAP well.patient denies fever, chills, nausea, or abdominal pain. patient complaint of dyspnea on exertion, painful inspiration,and intercostal discomfort. Objective - Vital Signs Vital signs: Vital Signs Temp 97.8 F 06/01/20 05:00 Pulse 78 06/01/20 05:00 Resp 24 06/01/20 05:00 BP 109/65 05/31/20 22:10 Pulse Ox 97 06/01/20 05:00 Intake & Output 05/31/20 06/01/20 06/01/20 18:59 06:59 18:59 Intake Total 300 590 Output Total 350 300 Balance -50 290 Intake: Oral 300 590 Output: Urine 350 300 Other: Voiding Method Urinal Urinal # Voids 0 # Bowel Movements 1 0 - Constitutional Constitutional Comment(s): moderate distress - EENT Eyes: Present: EOMI, PERRLA ENT: Present: hard of hearing Ears: bilateral: normal - Neck Neck: Present: normal ROM Carotids: bilateral: upstroke normal Thyroid: bilateral: normal size - Respiratory Respiratory: bilateral: diminished (anterior lung dowd), rhonchi (posterior lung dowd coarse rhonchi) - Cardiovascular Details: normal sinus Heart rate: 78 Rhythm: regular Heart sounds: normal: S1, S2 - Peripheral pulses radial pulse Peripheral Pulses: bilateral: Normal dorsalis pedis Peripheral Pulses: bilateral: Normal - Gastrointestinal General gastrointestinal: Present: normal bowel sounds - Integumentary Integumentary: Present: decreased turgor, pale - Neurologic Neurologic: Present: CNII-XII intact - Musculoskeletal Musculoskeletal: Present: generalized weakness - Psychiatric Psychiatric: Present: A&O x's 3, appropriate affect, intact judgment & insight - Allied health notes Allied health notes reviewed: nursing - Labs CBC & Chem 7: 05/31/20 05:43 05/31/20 05:43 Labs: Abnormal Lab Results - Last 24 Hours (Table) 05/31/20 05/31/20 05/31/20 Range/Units 05:43 11:26 17:15 BUN 50.0 H (9.0-27.0) mg/dL Est GFR (CKD-EPI)NonAf 53.8 L (60.0-200.0) BUN/Creatinine Ratio 38.46 H (12.00-20.00) Ratio Glucose 249 H (70-110) mg/dL POC Glucose (mg/dL) 331 H 155 H (75-99) mg/dL Calcium 8.4 L (8.7-10.3) mg/dL AST 36 H (14-35) U/L Total Protein 5.2 L (6.2-8.2) g/dL Albumin 2.60 L (3.80-4.90) g/dL Albumin/Globulin Ratio 1.00 L (1.60-3.17) g/dL 05/31/20 06/01/20 Range/Units 19:58 07:08 BUN (9.0-27.0) mg/dL Est GFR (CKD-EPI)NonAf (60.0-200.0) BUN/Creatinine Ratio (12.00-20.00) Ratio Glucose (70-110) mg/dL POC Glucose (mg/dL) 140 H 147 H (75-99) mg/dL Calcium (8.7-10.3) mg/dL AST (14-35) U/L Total Protein (6.2-8.2) g/dL Albumin (3.80-4.90) g/dL Albumin/Globulin Ratio (1.60-3.17) g/dL - Imaging and Cardiology Chest x-ray: pending echocardiogram reviewed Assessment and Plan Assessment: covid- 19 pneumonitis acute hypoxic respiratory failure- type 2 diabetes with hyperglycemia hyperlipiedema Hypertension (1) COVID-19 Narrative/Plan: continue consultation with pulmonary critical care for recommendations and treatment plan BiPAP therapy Encourage patient to lay prone due to coven 19 pneumonitis, inform nursing staff to adjust patient to lay prone Current Visit: Yes Status: Acute Code(s): U07.1 - COVID-19 SNOMED Code(s): 373545939 Plan: continue consultation with pulmonary critical care for recommendations and treatment plan continue consultation with infectious disease for recommendations and treatment plan continue current medication therapy bIPAP with settings 06/03 with FiO2 of 80% continue medical management Time with Patient: Greater than 30
--- NOTE | 2020-06-01 08:08 | XR ---
EXAMINATION TYPE: XR chest 1V portable DATE OF EXAM: 06/01/2020 Comparison: 05/30/2020 Clinical History: 74-year-old male shortness of breath Findings: Heart normal size. Perihilar and diffuse interstitial and groundglass opacities persist bilaterally. There may be slight improvement in aeration at the left hilum. Impression: Perihilar and diffuse interstitial and groundglass infiltrates. Slight improvement in aeration at the left hilum.
[2020-06-01] MEDS: CHOLECALCIFEROL 1,000 UNIT TAB PO SCH (08:25)
[2020-06-01] MEDS: PANTOPRAZOLE 40 MG TABLET PO SCH ×2 (08:25→15:42)
[2020-06-01] MEDS: ASPIRIN 325 MG TAB PO SCH (08:25)
[2020-06-01] MEDS: ENOXAPARIN 40 MG/0.4 ML SYRINGE SQ SCH (08:25)
[2020-06-01] MEDS: ASCORBIC ACID 500 MG TAB PO SCH ×2 (08:25→20:49)
[2020-06-01] MEDS: ZINC SULFATE 220 MG CAP PO SCH (08:25)
[2020-06-01] MEDS: INSULIN ASPART (NovoLOG) 100 UNIT/ML VIAL SQ SCH ×4 (08:26→20:43)
[2020-06-01] MEDS: INSULN ASP PRT/INSULIN ASPART 100 UNIT/ML 10 ML VIAL SQ SCH ×2 (08:26→17:21)
[2020-06-01 10:17] LABS: D-Dimer >34.10 mg/L FEU (<0.60); Fibrinogen 290 mg/dL (200-500)
[2020-06-01 10:20] LABS: Basophils % (A) 0 %; Eosinophils % (A) 0 %; HCT 43.1 % (39.0-53.0); HGB 13.8 gm/dL (13.0-17.5); Lymphocytes # (A) 0.1 k/uL (1.0-4.8); Lymphocytes % (A) 1 %; MCH 29.9 pg (25.0-35.0); MCHC 32.1 g/dL (31.0-37.0); MCV 93.1 fL (80.0-100.0); Mean Platelet Volume 8.7; Monocytes # (A) 0.2 k/uL (0-1.0); Monocytes % (A) 2 %; Neutrophils # (A) 11.1 k/uL (1.3-7.7); Neutrophils % (A) 97 %; RBC 4.63 m/uL (4.30-5.90); RDW 13.3 % (11.5-15.5); WBC 11.5 k/uL (3.8-10.6)
--- NOTE | 2020-06-01 11:35 | P.PN ---
Subjective Progress Note Date: 06/01/20 Principal diagnosis: Acute hypoxic respiratory failure Acute covid 19 pneumonia ARDS likely related covid 19 pneumonia Dyslipidemia Hypertension hypertensive cardiovascular disease Diabetes mellitus 06/01/2020, patient seen eval examined during the rounds labs reviewed medic ations reviewed patient has been prone with BiPAP, oxygen saturation significantly improved to 96-98%, remains on 80% oxygen with BiPAP of 12 and 8, is still feel congested, short of breath, on supine posture however saturation to drop, remains on high flow oxygen with mask in between the BiPAP for meals and overall care, chest x-ray performed today shows diffuse bilateral interstitial and groundglass opacities predominantly in the perihilar area slightly improved on the left side though, noted mildly elevated troponin of 0.4 asymptomatic likely demand ischemia related 05/31/2020, patient seen, currently resting, remains on BiPAP in between for maintenance on address lysed high flow oxygen, sats on BiPAP last check was 90%, hemodynamic status stable, continued to be short of breath using necessary muscles cough is present intermittently dry and nonproductive, patient remains on therapy 05/30/2020, patient seen eval examined during the rounds labs reviewed irrigations reviewed, patient is overall in good spirits, however continued to require high flow oxygen with aerosolized oxygen and nonrebreather mask during eating otherwise patient has been on BiPAP, currently saturation is about 88-90% on 06/06 on 80% oxygen, sats on BiPAP however improved to 95%, chest x-ray performed earlier today revealed bilateral infiltrates consistent with covid 19 pneumonia 05/29/2020, patient seen eval examined during the rounds labs reviewed medications reviewed care plan discussed, patient remained short of breath currently now is on airvo high flow oxygen, 90% to 91%, Patient came into the hospital with about one week history of increased symptoms of sinus congestion cough, also has a chills fever and mild PI aches and fatigue and pain, history of prior lung problems does have a history hypertension hypertensive cardiovascular disease dyslipidemia and diabetes mellitus, on arrival his oxygen saturation is 90%, low-grade temperature 99.3 was present his steiner virus PCR came back positive, his oxygen requirement continued to go up currently he is on 100% nonrebreather mask with 15 L high flow oxygen, chest x- ray admitted show coarse interstitial changes consistent with interstitial pneumonia repeat chest x-ray did now show worsening ARDS-like Petrin, saturation is 98%, he is afebrile hemodynamic status, he is on Lovenox 40 every 12, on Medrol 60 every 6, Remdesivir IV, inflammatory parameters are consistent with severe inflammatory response d-dimer is 16.4, pH is 574, a reactive protein is 3 Objective - Vital Signs Vital signs: Vital Signs Temp 97.8 F 06/01/20 05:00 Pulse 78 06/01/20 05:00 Resp 24 06/01/20 05:00 BP 109/65 05/31/20 22:10 Pulse Ox 98 06/01/20 09:50 Intake & Output 05/31/20 06/01/20 06/01/20 18:59 06:59 18:59 Intake Total 300 590 Output Total 350 300 Balance -50 290 Intake: Oral 300 590 Output: Urine 350 300 Other: Voiding Method Urinal Urinal # Voids 0 # Bowel Movements 1 0 - Exam - Constitutional General appearance: average body habitus, disheveled, mild distress - EENT Eyes: EOMI, PERRLA Ears: bilateral: normal - Neck Neck: normal ROM Carotids: bilateral: upstroke normal Thyroid: bilateral: normal size - Respiratory Respiratory: bilateral: diminished - Cardiovascular Rhythm: regular Heart sounds: normal: S1, S2 - Gastrointestinal General gastrointestinal: soft - Integumentary Integumentary: decreased turgor - Neurologic Neurologic: CNII-XII intact - Musculoskeletal Musculoskeletal: gait normal, generalized weakness, strength equal bilaterally - Psychiatric Psychiatric: A&O x's 3, appropriate affect, intact judgment & insight - Labs CBC & Chem 7: 06/01/20 09:13 05/31/20 05:43 Labs: Abnormal Lab Results - Last 24 Hours (Table) 05/31/20 05/31/20 06/01/20 Range/Units 17:15 19:58 07:08 WBC (3.8-10.6) k/uL POC Glucose (mg/dL) 155 H 140 H 147 H (75-99) mg/dL Troponin I (0.000-0.034) ng/mL 06/01/20 06/01/20 Range/Units 09:13 09:13 WBC 11.5 H (3.8-10.6) k/uL POC Glucose (mg/dL) (75-99) mg/dL Troponin I 0.405 H* (0.000-0.034) ng/mL Assessment and Plan Assessment: Elevated troponin may be related to drawn and demand ischemia and perfusion mismatch will defer cardiovascular evaluation to the primary service Acute hypoxic respiratory failure Acute covid 19 pneumonia ARDS likely related covid 19 pneumonia Dyslipidemia Hypertension hypertensive cardiovascular disease Diabetes mellitus Plan: Continue BiPAP 06/06 with oxygen to keep saturation of 90% or above, in between patient can be rested with aerosolized oxygen and facemask Deep breathing exercise incentive spirometry Prone positioning as much as possible preferably 16 hours a day if not possible patient agree able for sleeping on the sides IV steroids IV Remdesivir for 5 days Anticoagulation with Lovenox Sliding scale insulin, with maintenance insulin Time with Patient: Greater than 30
[2020-06-01 12:07] LABS: Glucose,Whole Blood 96 mg/dL (75-99)
[2020-06-01 12:31] LABS: Platelet Count 94 k/uL (150-450)
[2020-06-01] MEDS: NON FORMULARY DRUG (Lifitegrast [Xiidra] 1 EACH Droperette) BOTH EYES SCH ×2 (12:32→20:42)
--- NOTE | 2020-06-01 13:03 | P.CRDCN ---
History of Present Illness Consult date: 06/01/20 History of present illness: CHIEF COMPLAINT: Abnormal troponin HISTORY OF PRESENT ILLNESS: This a 74-year-old male with a past medical history significant for diabetes mellitus, GERD, hyperlipidemia, and hypertension. It is unknown if the patient follows with a slot editor. We have asked to see the patient in consultation for abnormal troponin. The patient has been hospitalized since 05/22/2020. He was diagnosed with Coronavirus. The patient is currently on a bipap 80% Fio2. Apparently the patient has been complaining of chest discomfort with deep inspiration. A troponin level was ordered by internal medicine and found to be abnormal, hence cardiology consult was requested. Echocardiogram completed revealed ejection fraction 55-60%, mild aortic stenosis, trace mitral regurgitation, and trace tricuspid regurgitation. DIAGNOSTICS: EKG reveals sinus rhythm with no signs of acute ischemia Chest xray perihilar and diffuse interstitial and groundglass infiltrates. Laboratory data: WBC 11.5. Hemoglobin 13.8. Platelet count 94. Sodium 140. Potassium 4.8. BUN 50. Creatinine 1.3. Troponin 0.405. Current home cardiac medications include lisinopril/HCTZ 20-12.5 mg daily, aspirin 325 mg daily, and Zocor 20 mg daily REVIEW OF SYSTEMS: Thorough review of systems not completed secondary to limited evaluation/examination and due to Covid19 PHYSICAL EXAM: Thorough physical exam not completed secondary to limited evaluation/examination and due to Covid19 ASSESSMENT: Covid 19 Chest pain, atypical, secondary to Covid 19 Elevated troponin, secondary to Covid 19 Hyperlipidemia Hypertension Diabetes mellitus type 2 GERD PLAN: Abnormal troponin secondary to Covid 19 No need to obtain further troponin levels Echo obtained and reviewed with no evidence of cardiomyopathy No further intervention from a cardiac standpoint We will sign off. Please call with questions or concerns Nurse practitioner note has been reviewed by physician. Signing provider agrees with the documented findings, assessment, and plan of care. Past Medical History Past Medical History: Diabetes Mellitus, GERD/Reflux, Hyperlipidemia, Hypertension, Osteoarthritis (OA) Additional Past Medical History / Comment(s): 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" History of Any Multi-Drug Resistant Organisms: None Reported Past Surgical History: Cholecystectomy Additional Past Surgical History / Comment(s): spinal cord infection I&D, left cataract surgery, colonoscopy, left cataract Past Anesthesia/Blood Transfusion Reactions: Motion Sickness Past Psychological History: No Psychological Hx Reported Smoking Status: Former smoker Past Alcohol Use History: None Reported Additional Past Alcohol Use History / Comment(s): STARTED SMOKING AT AGE 20 QUIT SMOKING 1973 SMOKED 1PPD Past Drug Use History: None Reported - Past Family History Mother Family Medical History: No Reported History Medications and Allergies Home Medications Medication Instructions Recorded Confirmed Type Aspirin 325 mg PO DAILY 05/13/15 05/22/20 History Fish Oil/Dha/Epa [Fish Oil 1,200 1,000 mg PO BID 05/13/15 05/22/20 History mg Fish Oil] Lisinopril-Hctz 20-12.5 mg 1 tab PO DAILY 05/13/15 05/22/20 History [Zestoretic 20-12.5] Omeprazole [PriLOSEC] 20 mg PO AC-BID 05/13/15 05/22/20 History Cholecalciferol [Vitamin D3] 1,000 unit PO DAILY 08/29/17 05/22/20 History Insulin Lispro Protamin/Lispro 40 unit SQ BID 08/29/17 05/22/20 History [humaLOG Mix 75-25 Kwikpen] Ubidecarenone [Co Q-10] 100 mg PO DAILY 08/29/17 05/22/20 History Lifitegrast [Xiidra] 1 dropper BOTH EYES BID 05/22/20 05/22/20 History Simvastatin [Zocor] 20 mg PO HS 05/22/20 05/22/20 History Tamsulosin HCl [Flomax] 0.4 mg PO HS 05/22/20 05/22/20 History Allergies Allergy/AdvReac Type Severity Reaction Status Date / Time clindamycin [From Cleocin] Allergy Rash/Hives Verified 05/22/20 19:29 Physical Exam Vitals: Vital Signs Temp Pulse Resp BP Pulse Ox 06/01/20 09:50 98 06/01/20 08:00 78 24 06/01/20 05:00 97.8 F 78 24 97 05/31/20 22:10 97.5 F L 95 30 H 109/65 96 Intake and Output 05/31/20 06/01/20 06/01/20 22:59 06:59 14:59 Intake Total 300 590 Output Total 350 300 Balance -50 290 Intake: Oral 300 590 Output: Urine 350 300 Other: Voiding Method Urinal Urinal # Voids 0 # Bowel Movements 0 Results 06/01/20 09:13 05/31/20 05:43 Cardiac Enzymes 06/01/20 Range/Units 09:13 Troponin I 0.405 H* (0.000-0.034) ng/mL CBC 06/01/20 Range/Units 09:13 WBC 11.5 H (3.8-10.6) k/uL RBC 4.63 (4.30-5.90) m/uL Hgb 13.8 (13.0-17.5) gm/dL Hct 43.1 (39.0-53.0) % Plt Count 94 L (150-450) k/uL Current Medications Generic Name Dose Route Start Last Admin Trade Name Freq PRN Reason Stop Dose Admin Acetaminophen 1,000 mg 05/22/20 18:37 Acetaminophen Tab 500 Mg Tab PO Q6HR PRN Fever>101 Albuterol Sulfate 2 puff 05/22/20 20:00 06/01/20 09:05 Albuterol Hfa Inhaler INHALATION 2 puff RT-Q6H NOHEMI Administration Albuterol Sulfate 2 puff 05/22/20 18:37 Albuterol Hfa Inhaler INHALATION RT-Q6H PRN Shortness Of Breath Or Wheezing Ascorbic Acid 500 mg 05/22/20 21:00 06/01/20 08:25 Ascorbic Acid 500 Mg Tab PO 500 mg BID NOHEMI Administration Aspirin 325 mg 05/23/20 09:00 06/01/20 08:25 Aspirin 325 Mg Tab PO 325 mg DAILY NOHEMI Administration Atorvastatin Calcium 20 mg 05/23/20 21:00 05/31/20 21:29 Atorvastatin 20 Mg Tab PO 20 mg HS NOHEMI Administration Cholecalciferol 5,000 unit 05/22/20 20:30 06/01/20 08:25 Cholecalciferol 1,000 Unit Tab PO 5,000 unit DAILY NOHEMI Administration Enoxaparin Sodium 40 mg 05/26/20 22:45 06/01/20 08:25 Enoxaparin 40 Mg/0.4 Ml Syringe SQ 40 mg Q12HR NOHEMI Administration Insulin Aspart 0 unit 05/23/20 07:30 06/01/20 12:32 Insulin Aspart (Novolog) 100 Unit/Ml Vial SQ Not Given ACHS NOHEMI Protocol Insulin Aspart 40 unit 05/23/20 18:00 06/01/20 08:26 Insuln Asp Prt/Insulin Aspart 100 Unit/Ml 10 Ml Vial SQ 40 unit AC-BID NOHEMI Administration Methylprednisolone Sodium Succinate 60 mg 05/26/20 06:00 06/01/20 05:35 Methylprednisolone Sod Succi 125 Mg/2 Ml Vial IV 60 mg Q6HR NOHEMI Administration Morphine Sulfate 2 mg 06/01/20 07:02 Morphine Sulfate 2 Mg/Ml Syringe IVP Q4H PRN Pain/Discomfort Naloxone HCl 0.2 mg 05/22/20 20:16 Naloxone 0.4 Mg/Ml 1 Ml Vial IV Q2M PRN Opioid Reversal Non-Formulary Medication 1 dropper 05/23/20 09:00 06/01/20 12:32 Lifitegrast [Xiidra] BOTH EYES Not Given BID NOHEMI Pantoprazole Sodium 40 mg 05/23/20 07:30 06/01/20 08:25 Pantoprazole 40 Mg Tablet PO 40 mg AC-BID NOHEMI Administration Tamsulosin HCl 0.4 mg 05/23/20 21:00 05/31/20 21:29 Tamsulosin 0.4 Mg Cap.Er.24h PO 0.4 mg HS NOHEMI Administration Zinc Sulfate 220 mg 05/22/20 20:30 06/01/20 08:25 Zinc Sulfate 220 Mg Cap PO 220 mg DAILY NOHEMI Administration Intake and Output 05/31/20 06/01/20 06/01/20 22:59 06:59 14:59 Intake Total 300 590 Output Total 350 300 Balance -50 290 Intake: Oral 300 590 Output: Urine 350 300 Other: Voiding Method Urinal Urinal # Voids 0 # Bowel Movements 0 06/01/20 09:13 05/31/20 05:43
[2020-06-01 15:40] LABS: INR 1.2 (<1.2); Prothrombin Time 11.9 sec (9.0-12.0)
[2020-06-01 16:04] LABS: African American GFR (CKD) 68.6 (60.0-200.0); Albumin 2.9 g/dL (3.80-4.90); Albumin/Globulin Ratio 1.04 (1.60-3.17); Anion Gap 7.8 mmol/L (4.00-12.00); BUN/Creat Ratio 40.83 Ratio (12.00-20.00); C Reactive Protein 5.6 mg/dL (0.0-0.8); Calcium 8.5 mg/dL (8.7-10.3); Carbon Dioxide 32.2 mmol/L (21.6-31.8); Ferritin 3030.3 ng/mL (22.0-322.0); Globulin 2.8 g/dL (1.6-3.3); Magnesium 2.4 mg/dL (1.5-2.4); Non-African American GFR(CKD) 59.2 (60.0-200.0); Potassium 4.1 mmol/L (3.5-5.5); Total Bilirubin 1.1 mg/dL (0.2-1.2); Total Protein 5.7 g/dL (6.2-8.2)
--- NOTE | 2020-06-01 16:40 | P.PN ---
Subjective Progress Note Date: 06/01/20 HISTORY OF PRESENT ILLNESS This is a 74-year-old male patient, admitted to the hospital for coal 19 pneumonia, completed course of Remdesivir. Patient is currently maintained on Lovenox, Solu-Medrol, supplements. The patient continues to have hypoxia requiring BiPAP with pulse ox is 98% on 80% oxygen. Patient has been afebrile. PHYSICAL EXAMINATION Gen: This is a 74-year-old male. He is resting in bed and appears to be comfortable. He is currently on BiPAP VS: Afebrile, heart rate 71, respiratory rate 32, blood pressure 122/62, pulse ox 97% on BiPAP. HEENT: Head is atraumatic, normocephalic. Pupils equal, round. Sclerae is anicteric. LUNGS: Clear to auscultation. No wheezes or rhonchi. No intercostal retractions. HEART: Regular rate and rhythm. No murmur. ABDOMEN: Soft. Bowel sounds are present. No masses. No tenderness. EXTREMITIES: No pedal edema. No calf tenderness. NEUROLOGICAL: Patient is awake, alert and oriented x3. ASSESSMENT Acute COVID-19 pneumonia, completed course of Remdesivir Acute hypoxic respiratory failure PLAN Continue Lovenox, Solu-Medrol, zinc, vitamin C and vitamin D Continue oxygen therapy and attempt to wean as tolerated The above dictated assessment and findings were discussed with Dr. Wiggins. The impression and plan of care have been directed as dictated. Susan Gordon nurse practitioner acting as scribe for Dr. Wiggins. Objective - Vital Signs Vital signs: Vital Signs Temp 97.8 F 06/01/20 05:00 Pulse 78 06/01/20 05:00 Resp 24 06/01/20 05:00 BP 109/65 05/31/20 22:10 Pulse Ox 98 06/01/20 09:50 Intake & Output 05/31/20 06/01/20 06/01/20 18:59 06:59 18:59 Intake Total 300 590 Output Total 350 300 Balance -50 290 Intake: Oral 300 590 Output: Urine 350 300 Other: Voiding Method Urinal Urinal # Voids 0 # Bowel Movements 1 0 - Labs CBC & Chem 7: 06/01/20 09:13 06/01/20 09:13 Labs: Abnormal Lab Results - Last 24 Hours (Table) 05/31/20 05/31/20 05/31/20 Range/Units 05:43 11:26 17:15 WBC (3.8-10.6) k/uL BUN 50.0 H (9.0-27.0) mg/dL Est GFR (CKD-EPI)NonAf 53.8 L (60.0-200.0) BUN/Creatinine Ratio 38.46 H (12.00-20.00) Ratio Glucose 249 H (70-110) mg/dL POC Glucose (mg/dL) 331 H 155 H (75-99) mg/dL Calcium 8.4 L (8.7-10.3) mg/dL AST 36 H (14-35) U/L Total Protein 5.2 L (6.2-8.2) g/dL Albumin 2.60 L (3.80-4.90) g/dL Albumin/Globulin Ratio 1.00 L (1.60-3.17) g/dL 05/31/20 06/01/20 06/01/20 Range/Units 19:58 07:08 09:13 WBC 11.5 H (3.8-10.6) k/uL BUN (9.0-27.0) mg/dL Est GFR (CKD-EPI)NonAf (60.0-200.0) BUN/Creatinine Ratio (12.00-20.00) Ratio Glucose (70-110) mg/dL POC Glucose (mg/dL) 140 H 147 H (75-99) mg/dL Calcium (8.7-10.3) mg/dL AST (14-35) U/L Total Protein (6.2-8.2) g/dL Albumin (3.80-4.90) g/dL Albumin/Globulin Ratio (1.60-3.17) g/dL
[2020-06-01 17:12] LABS: Glucose,Whole Blood 62 mg/dL (75-99)
[2020-06-01 17:36] LABS: Glucose,Whole Blood 87 mg/dL (75-99)
[2020-06-01 20:01] LABS: Glucose,Whole Blood 287 mg/dL (75-99)
[2020-06-01] MEDS: TAMSULOSIN 0.4 MG CAP.ER.24H PO SCH (20:41)
[2020-06-01] MEDS: ATORVASTATIN 20 MG TAB PO SCH (20:41)
[2020-06-01] MEDS: ENOXAPARIN 60 MG/0.6 ML SYRINGE SQ SCH (20:41)
[2020-06-01 21:24] LABS: Glucose,Whole Blood 282 mg/dL (75-99)
--- NOTE | 2020-06-01 21:32 | P.EN ---
Code Blue Team Note Code blue activated at 2100. Arrived on the scene shortly after. Discussed the case with the RN. He noted that patient was doing fine on the AirVo when his SpO2 suddenly began to fall. The patient subsequently became unresponsive and rodriguez and CPR was initiated for rougly 30-60 seconds. It is unclear if the patient had lost his pulse prior to CPR initiation. The patient began moving and CPR was halted with a palpable pulse noted. The patient's SpO2 gradually improved with BiPAP and his mentation also improved. The patient was AAOx3 at the bedside at my evaluation and denied having pain. He noted feeling tired. No medications were given during the code activation. The RN contacted the primary team. The patient's vital signs were BP 137/77, pulse 80, and SpO2 97-99% on BiPAP 14/6/100% FiO2. Blood glucose was 288. Patient was placed on Tele-monitor and EKG was ordered.
[2020-06-02] MEDS: methylPREDNISolone SOD SUCCI 125 MG/2 ML VIAL IV SCH ×4 (00:11→18:19)
[2020-06-02] MEDS: ALBUTEROL HFA INHALER INHALATION SCH ×4 (01:49→19:51)
[2020-06-02 05:40] LABS: D-Dimer 25.13 mg/L FEU (<0.60); Partial Thromboplastin Time 24.9 sec (22.0-30.0)
[2020-06-02 06:01] LABS: Magnesium 2.6 mg/dL (1.6-2.3)
[2020-06-02 06:02] LABS: C Reactive Protein 73.3 mg/L (<10.0)
[2020-06-02 06:52] LABS: INR 1.2 (<1.2); Prothrombin Time 12.2 sec (9.0-12.0)
[2020-06-02 07:20] LABS: Glucose,Whole Blood 255 mg/dL (75-99)
--- NOTE | 2020-06-02 07:43 | P.PN ---
Subjective Progress Note Date: 06/02/20 Principal diagnosis: Covid-19 infection hypoxia 74-year-old male who is recently admitted with generalized body aches, sinus congestion, fevers, and mild shortness of breath with exertion. patient was found to have covid- 19 infection started on 2 L of oxygen for respiratory status.respiratory status declined during hospital admission, patient was placed on high flow oxygen, patient continued to have respiratory difficultyplaced on BiPAP tolerating BiPAP well.patient denies fever, chills, nausea, or abdominal pain. patient complaint of dyspnea on exertion, painful inspiration,and intercostal discomfort. An episode of respiratory distress occurred during the night, with unclear losses of pulsesCPR initiated for 20 second, patient was not given any medications for CODE BLUE. Patient was arousable, no evidence airway needed. Patient was transferred to ICUon BiPAP tolerating well. Patient currently tolerating BiPAP, answering questions appropriately Objective - Vital Signs Vital signs: Vital Signs Temp 97.8 F 06/02/20 04:00 Pulse 53 L 06/02/20 07:00 Resp 19 06/02/20 07:00 BP 130/77 06/02/20 07:00 Pulse Ox 96 06/02/20 07:00 Intake & Output 06/01/20 06/02/20 06/02/20 18:59 06:59 18:59 Intake Total 160 100 Output Total 600 1225 Balance -440 -1125 Weight 72.5 kg Intake: Oral 160 100 Output: Urine 600 1225 Other: Voiding Method Urinal Urinal # Voids 0 0 - Constitutional Constitutional Comment(s): Mild to moderate distress General appearance: Present: cooperative - EENT Eyes: Present: EOMI, PERRLA ENT: Present: hard of hearing Ears: bilateral: normal - Neck Neck: Present: normal ROM Carotids: bilateral: upstroke normal Thyroid: bilateral: normal size - Respiratory Respiratory: bilateral: diminished (Anterior lung dowd), rhonchi (Posterior bilateral bases) - Cardiovascular Details: Normal sinus rhythm Heart rate: 62 Rhythm: regular Heart sounds: normal: S1, S2 - Peripheral pulses dorsalis pedis Peripheral Pulses: bilateral: Normal radial pulse Peripheral Pulses: bilateral: Normal - Gastrointestinal General gastrointestinal: Present: normal bowel sounds - Integumentary Integumentary: Present: decreased turgor, pale - Neurologic Neurologic: Present: CNII-XII intact - Musculoskeletal Musculoskeletal: Present: generalized weakness - Psychiatric Psychiatric: Present: A&O x's 3, appropriate affect, intact judgment & insight - Allied health notes Allied health notes reviewed: nursing - Labs CBC & Chem 7: 06/01/20 09:13 06/01/20 09:13 Labs: Abnormal Lab Results - Last 24 Hours (Table) 06/01/20 06/01/20 06/01/20 Range/Units 09:13 09:13 09:13 WBC 11.5 H (3.8-10.6) k/uL Plt Count 94 L (150-450) k/uL Neutrophils # 11.1 H (1.3-7.7) k/uL Lymphocytes # 0.1 L (1.0-4.8) k/uL PT (9.0-12.0) sec INR 1.2 H (<1.2) D-Dimer >34.10 H (<0.60) mg/L FEU Carbon Dioxide 32.2 H (21.6-31.8) mmol/L BUN 49.0 H (9.0-27.0) mg/dL Est GFR (CKD-EPI)NonAf 59.2 L (60.0-200.0) BUN/Creatinine Ratio 40.83 H (12.00-20.00) Ratio Glucose 141 H (70-110) mg/dL POC Glucose (mg/dL) (75-99) mg/dL Calcium 8.5 L (8.7-10.3) mg/dL Magnesium (1.6-2.3) mg/dL Ferritin 3030.3 H (22.0-322.0) ng/mL Lactate Dehydrogenase 806 H (120-246) U/L Creatine Kinase (55-170) U/L Troponin I (0.000-0.034) ng/mL C-Reactive Protein 5.6 H (0.0-0.8) mg/dL Total Protein 5.7 L (6.2-8.2) g/dL Albumin 2.90 L (3.80-4.90) g/dL Albumin/Globulin Ratio 1.04 L (1.60-3.17) g/dL 06/01/20 06/01/20 06/01/20 Range/Units 09:13 17:10 19:59 WBC (3.8-10.6) k/uL Plt Count (150-450) k/uL Neutrophils # (1.3-7.7) k/uL Lymphocytes # (1.0-4.8) k/uL PT (9.0-12.0) sec INR (<1.2) D-Dimer (<0.60) mg/L FEU Carbon Dioxide (21.6-31.8) mmol/L BUN (9.0-27.0) mg/dL Est GFR (CKD-EPI)NonAf (60.0-200.0) BUN/Creatinine Ratio (12.00-20.00) Ratio Glucose (70-110) mg/dL POC Glucose (mg/dL) 62 L 287 H (75-99) mg/dL Calcium (8.7-10.3) mg/dL Magnesium (1.6-2.3) mg/dL Ferritin (22.0-322.0) ng/mL Lactate Dehydrogenase (120-246) U/L Creatine Kinase (55-170) U/L Troponin I 0.405 H* (0.000-0.034) ng/mL C-Reactive Protein (0.0-0.8) mg/dL Total Protein (6.2-8.2) g/dL Albumin (3.80-4.90) g/dL Albumin/Globulin Ratio (1.60-3.17) g/dL 06/01/20 06/02/20 06/02/20 Range/Units 21:13 04:54 04:54 WBC (3.8-10.6) k/uL Plt Count (150-450) k/uL Neutrophils # (1.3-7.7) k/uL Lymphocytes # (1.0-4.8) k/uL PT 12.2 H (9.0-12.0) sec INR 1.2 H (<1.2) D-Dimer 25.13 H (<0.60) mg/L FEU Carbon Dioxide (21.6-31.8) mmol/L BUN (9.0-27.0) mg/dL Est GFR (CKD-EPI)NonAf (60.0-200.0) BUN/Creatinine Ratio (12.00-20.00) Ratio Glucose (70-110) mg/dL POC Glucose (mg/dL) 282 H (75-99) mg/dL Calcium (8.7-10.3) mg/dL Magnesium 2.6 H (1.6-2.3) mg/dL Ferritin (22.0-322.0) ng/mL Lactate Dehydrogenase 1850 H (120-246) U/L Creatine Kinase (55-170) U/L Troponin I (0.000-0.034) ng/mL C-Reactive Protein 73.3 H (0.0-0.8) mg/dL Total Protein (6.2-8.2) g/dL Albumin (3.80-4.90) g/dL Albumin/Globulin Ratio (1.60-3.17) g/dL 06/02/20 06/02/20 Range/Units 04:54 07:18 WBC (3.8-10.6) k/uL Plt Count (150-450) k/uL Neutrophils # (1.3-7.7) k/uL Lymphocytes # (1.0-4.8) k/uL PT (9.0-12.0) sec INR (<1.2) D-Dimer (<0.60) mg/L FEU Carbon Dioxide (21.6-31.8) mmol/L BUN (9.0-27.0) mg/dL Est GFR (CKD-EPI)NonAf (60.0-200.0) BUN/Creatinine Ratio (12.00-20.00) Ratio Glucose (70-110) mg/dL POC Glucose (mg/dL) 255 H (75-99) mg/dL Calcium (8.7-10.3) mg/dL Magnesium (1.6-2.3) mg/dL Ferritin (22.0-322.0) ng/mL Lactate Dehydrogenase (120-246) U/L Creatine Kinase 49 L (55-170) U/L Troponin I (0.000-0.034) ng/mL C-Reactive Protein (0.0-0.8) mg/dL Total Protein (6.2-8.2) g/dL Albumin (3.80-4.90) g/dL Albumin/Globulin Ratio (1.60-3.17) g/dL - Imaging and Cardiology Chest x-ray: report reviewed Assessment and Plan Assessment: covid- 19 pneumonitis acute hypoxic respiratory failure- type 2 diabetes with hyperglycemia hyperlipiedema Hypertension (1) COVID-19 Narrative/Plan: continue consultation with pulmonary critical care for recommendations and treatment plan BiPAP therapy Encourage patient to lay prone due to coven 19 pneumonitis, inform nursing staff to adjust patient to lay prone Awaiting approval for second course of Remdesivir Awaiting approval for Tocilizumab-due to clinical and diagnostic impression of cytokine storm Current Visit: Yes Status: Acute Code(s): U07.1 - COVID-19 SNOMED Code(s): 631332343 Plan: continue consultation with pulmonary critical care for recommendations and treatment plan continue consultation with infectious disease for recommendations and treatment plan Awaiting approval for second course of Remdesivir Awaiting approval for Tocilizumab-due to clinical and diagnostic impression of cytokine storm continue current medication therapy bIPAP with settings 12/5 with FiO2 of 80% continue medical management Time with Patient: Greater than 30
[2020-06-02] MEDS: INSULN ASP PRT/INSULIN ASPART 100 UNIT/ML 10 ML VIAL SQ SCH ×2 (08:08→17:25)
[2020-06-02] MEDS: PANTOPRAZOLE 40 MG TABLET PO SCH ×2 (08:08→17:26)
[2020-06-02] MEDS: INSULIN ASPART (NovoLOG) 100 UNIT/ML VIAL SQ SCH ×4 (08:09→20:51)
[2020-06-02] MEDS: ASCORBIC ACID 500 MG TAB PO SCH ×2 (08:50→20:18)
[2020-06-02] MEDS: ZINC SULFATE 220 MG CAP PO SCH (08:50)
[2020-06-02] MEDS: ENOXAPARIN 60 MG/0.6 ML SYRINGE SQ SCH ×2 (08:50→20:19)
[2020-06-02] MEDS: ASPIRIN 325 MG TAB PO SCH (08:51)
[2020-06-02] MEDS: CHOLECALCIFEROL 1,000 UNIT TAB PO SCH (08:51)
[2020-06-02] MEDS: NON FORMULARY DRUG (Lifitegrast [Xiidra] 1 EACH Droperette) BOTH EYES SCH ×2 (08:51→20:51)
--- NOTE | 2020-06-02 08:56 | XR ---
EXAMINATION TYPE: XR chest 1V DATE OF EXAM: 06/02/2020 CLINICAL HISTORY: Difficulty breathing progress study. TECHNIQUE: Single AP portable upright view of the chest is obtained. COMPARISON: Chest x-ray from one day earlier and older studies. FINDINGS: Persistent low lung volumes with bilateral opacities. Cardiac silhouette size stable and w ithin normal limits. Osseous structures are intact. Overlying EKG leads currently. IMPRESSION: Low lung volumes with persistent bilateral edema and/or infiltrates. No significant hood e from most recent study.
[2020-06-02 10:39] LABS: Basophils % (A) 0 %; Eosinophils % (A) 0 %; HCT 43.7 % (39.0-53.0); HGB 14.3 gm/dL (13.0-17.5); Lymphocytes # (A) 0.1 k/uL (1.0-4.8); Lymphocytes % (A) 1 %; MCHC 32.6 g/dL (31.0-37.0); MCV 95.1 fL (80.0-100.0); Mean Platelet Volume 8.8; Monocytes # (A) 0.4 k/uL (0-1.0); Monocytes % (A) 3 %; Neutrophils # (A) 12.4 k/uL (1.3-7.7); Neutrophils % (A) 96 %; RDW 12.9 % (11.5-15.5)
[2020-06-02 10:42] LABS: Platelet Count 64 k/uL (150-450)
[2020-06-02 10:47] LABS: Ferritin 2922.7 ng/mL (22.0-322.0)
[2020-06-02 10:51] LABS: Albumin 2.5 g/dL (3.5-5.0); Calcium 8.4 mg/dL (8.4-10.2); Potassium 4.1 mmol/L (3.5-5.1); Total Bilirubin 1.4 mg/dL (0.2-1.3); Total Protein 5.8 g/dL (6.3-8.2)
[2020-06-02 12:20] LABS: Glucose,Whole Blood 196 mg/dL (75-99)
--- NOTE | 2020-06-02 15:51 | P.PN ---
Subjective Progress Note Date: 06/02/20 (Critical care time spent 35 minutes) Principal diagnosis: Acute hypoxic respiratory failure Acute covid 19 pneumonia ARDS likely related covid 19 pneumonia Dyslipidemia Hypertension hypertensive cardiovascular disease Diabetes mellitus 06/02/2020, patient seen eval examined during the rounds labs reviewed medications reviewed, due to severe hypoxia and respiratory distress patient transferred from the medical floor to ICU, patient was off of BiPAP for extended period time, on high flow search dropped down to 60s and 70s, after bringing patient up in the ICU was continued on BiPAP, prone positioning have been encouraged, patient will be given convalescent plasma as well, and is status post therapy with IV REM doesn't wear remains on Decadron and Lovenox, she sent patient remains afebrile, tachypneic, hemodynamic status stable, on BiPAP 06/06, 80% oxygen saturation is 95-96%, 's x-ray continue show bilateral diffuse interstitial infiltrates, overall not much change compared to prior x-ray 06/01/2020, patient seen eval examined during the rounds labs reviewed m edications reviewed patient has been prone with BiPAP, oxygen saturation significantly improved to 96-98%, remains on 80% oxygen with BiPAP of 12 and 8, is still feel congested, short of breath, on supine posture however saturation to drop, remains on high flow oxygen with mask in between the BiPAP for meals and overall care, chest x-ray performed today shows diffuse bilateral interstitial and groundglass opacities predominantly in the perihilar area slightly improved on the left side though, noted mildly elevated troponin of 0.4 asymptomatic likely demand ischemia related 05/31/2020, patient seen, currently resting, remains on BiPAP in between for maintenance on address lysed high flow oxygen, sats on BiPAP last check was 90%, hemodynamic status stable, continued to be short of breath using necessary muscles cough is present intermittently dry and nonproductive, patient remains on therapy 05/30/2020, patient seen eval examined during the rounds labs reviewed irrigations reviewed, patient is overall in good spirits, however continued to require high flow oxygen with aerosolized oxygen and nonrebreather mask during eating otherwise patient has been on BiPAP, currently saturation is about 88-90% on 06/06 on 80% oxygen, sats on BiPAP however improved to 95%, chest x-ray performed earlier today revealed bilateral infiltrates consistent with covid 19 pneumonia 05/29/2020, patient seen eval examined during the rounds labs reviewed medications reviewed care plan discussed, patient remained short of breath currently now is on airvo high flow oxygen, 90% to 91%, Patient came into the hospital with about one week history of increased symptoms of sinus congestion cough, also has a chills fever and mild PI aches and fatigue and pain, history of prior lung problems does have a history hypertension hypertensive cardiovascular disease dyslipidemia and diabetes mellitus, on arrival his oxygen saturation is 90%, low-grade temperature 99.3 was present his steiner virus PCR came back positive, his oxygen requirement continued to go up currently he is on 100% nonrebreather mask with 15 L high flow oxygen, chest x- ray admitted show coarse interstitial changes consistent with interstitial pneumonia repeat chest x-ray did now show worsening ARDS-like Petrin, saturation is 98%, he is afebrile hemodynamic status, he is on Lovenox 40 every 12, on Medrol 60 every 6, Remdesivir IV, inflammatory parameters are consistent with severe inflammatory response d-dimer is 16.4, pH is 574, a reactive protein is 3 Objective - Vital Signs Vital signs: Vital Signs Temp 98.4 F 06/02/20 12:00 Pulse 76 06/02/20 14:00 Resp 30 H 06/02/20 14:00 BP 127/82 06/02/20 14:00 Pulse Ox 95 06/02/20 14:00 Intake & Output 06/01/20 06/02/20 06/02/20 18:59 06:59 18:59 Intake Total 160 100 480 Output Total 600 1225 525 Balance -440 -1125 -45 Weight 72.5 kg Intake: Oral 160 100 480 Output: Urine 600 1225 525 Other: Voiding Method Urinal Urinal Urinal # Voids 0 1 - Exam - Constitutional General appearance: average body habitus, disheveled, mild distress - EENT Eyes: EOMI, PERRLA Ears: bilateral: normal - Neck Neck: normal ROM Carotids: bilateral: upstroke normal Thyroid: bilateral: normal size - Respiratory Respiratory: bilateral: diminished - Cardiovascular Rhythm: regular Heart sounds: normal: S1, S2 - Gastrointestinal General gastrointestinal: soft - Integumentary Integumentary: decreased turgor - Neurologic Neurologic: CNII-XII intact - Musculoskeletal Musculoskeletal: gait normal, generalized weakness, strength equal bilaterally - Psychiatric Psychiatric: A&O x's 3, appropriate affect, intact judgment & insight - Labs CBC & Chem 7: 06/02/20 09:43 06/02/20 09:43 Labs: Abnormal Lab Results - Last 24 Hours (Table) 06/01/20 06/01/20 06/01/20 Range/Units 09:13 17:10 19:59 WBC (3.8-10.6) k/uL Plt Count (150-450) k/uL Neutrophils # (1.3-7.7) k/uL Lymphocytes # (1.0-4.8) k/uL PT (9.0-12.0) sec INR (<1.2) D-Dimer (<0.60) mg/L FEU Carbon Dioxide 32.2 H (21.6-31.8) mmol/L BUN 49.0 H (9.0-27.0) mg/dL Est GFR (CKD-EPI)NonAf 59.2 L (60.0-200.0) BUN/Creatinine Ratio 40.83 H (12.00-20.00) Ratio Glucose 141 H (70-110) mg/dL POC Glucose (mg/dL) 62 L 287 H (75-99) mg/dL Calcium 8.5 L (8.7-10.3) mg/dL Magnesium (1.6-2.3) mg/dL Ferritin 3030.3 H (22.0-322.0) ng/mL Total Bilirubin (0.2-1.3) mg/dL Lactate Dehydrogenase 806 H (120-246) U/L Creatine Kinase (55-170) U/L C-Reactive Protein 5.6 H (0.0-0.8) mg/dL Total Protein 5.7 L (6.2-8.2) g/dL Albumin 2.90 L (3.80-4.90) g/dL Albumin/Globulin Ratio 1.04 L (1.60-3.17) g/dL 06/01/20 06/02/20 06/02/20 Range/Units 21:13 04:54 04:54 WBC (3.8-10.6) k/uL Plt Count (150-450) k/uL Neutrophils # (1.3-7.7) k/uL Lymphocytes # (1.0-4.8) k/uL PT 12.2 H (9.0-12.0) sec INR 1.2 H (<1.2) D-Dimer 25.13 H (<0.60) mg/L FEU Carbon Dioxide (21.6-31.8) mmol/L BUN (9.0-27.0) mg/dL Est GFR (CKD-EPI)NonAf (60.0-200.0) BUN/Creatinine Ratio (12.00-20.00) Ratio Glucose (70-110) mg/dL POC Glucose (mg/dL) 282 H (75-99) mg/dL Calcium (8.7-10.3) mg/dL Magnesium 2.6 H (1.6-2.3) mg/dL Ferritin 2922.7 H (22.0-322.0) ng/mL Total Bilirubin (0.2-1.3) mg/dL Lactate Dehydrogenase 1850 H (120-246) U/L Creatine Kinase (55-170) U/L C-Reactive Protein 73.3 H (0.0-0.8) mg/dL Total Protein (6.2-8.2) g/dL Albumin (3.80-4.90) g/dL Albumin/Globulin Ratio (1.60-3.17) g/dL 06/02/20 06/02/20 06/02/20 Range/Units 04:54 07:18 09:43 WBC 13.0 H (3.8-10.6) k/uL Plt Count 64 L (150-450) k/uL Neutrophils # 12.4 H (1.3-7.7) k/uL Lymphocytes # 0.1 L (1.0-4.8) k/uL PT (9.0-12.0) sec INR (<1.2) D-Dimer (<0.60) mg/L FEU Carbon Dioxide (21.6-31.8) mmol/L BUN (9.0-27.0) mg/dL Est GFR (CKD-EPI)NonAf (60.0-200.0) BUN/Creatinine Ratio (12.00-20.00) Ratio Glucose (70-110) mg/dL POC Glucose (mg/dL) 255 H (75-99) mg/dL Calcium (8.7-10.3) mg/dL Magnesium (1.6-2.3) mg/dL Ferritin (22.0-322.0) ng/mL Total Bilirubin (0.2-1.3) mg/dL Lactate Dehydrogenase (120-246) U/L Creatine Kinase 49 L (55-170) U/L C-Reactive Protein (0.0-0.8) mg/dL Total Protein (6.2-8.2) g/dL Albumin (3.80-4.90) g/dL Albumin/Globulin Ratio (1.60-3.17) g/dL 06/02/20 06/02/20 Range/Units 09:43 12:18 WBC (3.8-10.6) k/uL Plt Count (150-450) k/uL Neutrophils # (1.3-7.7) k/uL Lymphocytes # (1.0-4.8) k/uL PT (9.0-12.0) sec INR (<1.2) D-Dimer (<0.60) mg/L FEU Carbon Dioxide 37 H (21.6-31.8) mmol/L BUN 56 H (9.0-27.0) mg/dL Est GFR (CKD-EPI)NonAf (60.0-200.0) BUN/Creatinine Ratio (12.00-20.00) Ratio Glucose 279 H (70-110) mg/dL POC Glucose (mg/dL) 196 H (75-99) mg/dL Calcium (8.7-10.3) mg/dL Magnesium (1.6-2.3) mg/dL Ferritin (22.0-322.0) ng/mL Total Bilirubin 1.4 H (0.2-1.3) mg/dL Lactate Dehydrogenase (120-246) U/L Creatine Kinase (55-170) U/L C-Reactive Protein (0.0-0.8) mg/dL Total Protein 5.8 L (6.2-8.2) g/dL Albumin 2.5 L (3.80-4.90) g/dL Albumin/Globulin Ratio (1.60-3.17) g/dL Assessment and Plan Assessment: Acute hypoxic respiratory failure Acute covid 19 pneumonia cytokine is strong ARDS likely related covid 19 pneumonia Dyslipidemia Hypertension hypertensive cardiovascular disease Diabetes mellitus Plan: Continue BiPAP 06/06 with oxygen to keep saturation of 90% or above, in between patient can be rested with aerosolized oxygen and facemask Deep breathing exercise incentive spirometry Prone positioning as much as possible preferably 16 hours a day if not possible patient agree able for sleeping on the sides IV steroids IV Remdesivir for 5 days Anticoagulation with Lovenox Sliding scale insulin, with maintenance insulin Observe closely in ICU Convalescent plasma Time with Patient: Greater than 30
[2020-06-02 17:06] LABS: Glucose,Whole Blood 185 mg/dL (75-99)
[2020-06-02] MEDS: TAMSULOSIN 0.4 MG CAP.ER.24H PO SCH (20:18)
[2020-06-02] MEDS: ATORVASTATIN 20 MG TAB PO SCH (20:18)
[2020-06-02 20:44] LABS: Glucose,Whole Blood 207 mg/dL (75-99)
--- NOTE | 2020-06-02 23:03 | PN ---
PROGRESS NOTE DATE OF SERVICE: 06/02/2020 REASON FOR FOLLOWUP: COVID-19 pneumonia. INTERVAL HISTORY: The patient is currently afebrile. The patient has been transferred down to the ICU because of worsening respiratory status and need for BiPAP. The patient denies having any chest pain improved. Minimal cough. No nausea, no vomiting. No abdominal pain or diarrhea. PHYSICAL EXAMINATION: Blood pressure 142/80 with a pulse of 75, temperature 98.6. He is 95% on BiPAP. General description is an elderly male lying in bed in no distress. RESPIRATORY SYSTEM: Unlabored breathing with decreased intensity of breath sounds. No wheeze. HEART: S1, S2. Regular rate and rhythm. ABDOMEN: Soft. No tenderness. LABS: Hemoglobin is 14.3, white count 13,000. BUN of 56, creatinine 1.24. The patient did have elevated inflammatory markers with a ferritin of 2922 and LDH of 1850. DIAGNOSTIC IMPRESSION AND PLAN: Patient with acute COVID-19 pneumonia, now with significant worsening of his clinical condition and respiratory failure with elevated inflammatory markers; high clinical suspicion for a cytokine storm. The patient would benefit from will discuss again with the steaming machine operator as well as for approval. Continue Solu-Medrol and respiratory support and monitor his clinical course closely. MMJANETL / JULIN: [id number] /
[2020-06-03] MEDS: methylPREDNISolone SOD SUCCI 125 MG/2 ML VIAL IV SCH ×2 (00:13→07:03)
[2020-06-03 02:05] LABS: Glucose,Whole Blood 73 mg/dL (75-99)
[2020-06-03 02:33] LABS: Glucose,Whole Blood 75 mg/dL (75-99)
[2020-06-03 05:52] LABS: C Reactive Protein 52.9 mg/L (<10.0); Magnesium 2.5 mg/dL (1.6-2.3)
[2020-06-03 06:15] LABS: D-Dimer 9.2 mg/L FEU (<0.60); INR 1.1 (<1.2); Partial Thromboplastin Time 23.7 sec (22.0-30.0); Prothrombin Time 11.4 sec (9.0-12.0)
[2020-06-03 06:44] LABS: Glucose,Whole Blood 119 mg/dL (75-99)
[2020-06-03] MEDS: PANTOPRAZOLE 40 MG TABLET PO SCH ×2 (07:03→17:08)
[2020-06-03] MEDS: INSULIN ASPART (NovoLOG) 100 UNIT/ML VIAL SQ SCH ×4 (07:16→20:13)
[2020-06-03] MEDS: INSULN ASP PRT/INSULIN ASPART 100 UNIT/ML 10 ML VIAL SQ SCH ×2 (07:22→17:06)
--- NOTE | 2020-06-03 07:30 | XR ---
EXAMINATION TYPE: XR chest 1V portable DATE OF EXAM: 06/03/2020 Comparison: 06/02/2020 Clinical History: 74-year-old male assess lungs Findings: Heart normal size. Diffuse patchy and confluent airspace disease persists bilaterally. No significant change. No sizable effusion. Impression: Diffuse patchy and confluent airspace disease bilaterally without significant change.
[2020-06-03] MEDS: ALBUTEROL HFA INHALER INHALATION SCH ×4 (07:44→19:34)
[2020-06-03] MEDS: ENOXAPARIN 60 MG/0.6 ML SYRINGE SQ SCH ×2 (09:07→20:12)
[2020-06-03] MEDS: DEXAMETHASONE SOD PHOSPHATE 10 MG/ML 1 ML VIAL IV SCH ×2 (09:07→20:12)
[2020-06-03] MEDS: ASCORBIC ACID 500 MG TAB PO SCH ×2 (09:08→20:12)
[2020-06-03] MEDS: CHOLECALCIFEROL 1,000 UNIT TAB PO SCH (09:08)
[2020-06-03] MEDS: ZINC SULFATE 220 MG CAP PO SCH (09:08)
[2020-06-03] MEDS: ASPIRIN 325 MG TAB PO SCH (09:08)
--- NOTE | 2020-06-03 09:41 | P.PN ---
Subjective Progress Note Date: 06/03/20 Principal diagnosis: Acute hypoxic respiratory failure Acute covid 19 pneumonia ARDS likely related covid 19 pneumonia Dyslipidemia Hypertension hypertensive cardiovascular disease Diabetes mellitus 06/03/2020, patient seen eval reexamined during the rounds labs reviewed med ications reviewed, patient was desaturating or with aerosolized oxygen just has been placed on BiPAP 06/03 with 80% oxygen saturation improved to 100%, , patient is status post IV in remdesivir therapy, he has received convalescent plasma as well yesterday, chest x-ray reviewed diffuse patchy infiltrates bilaterally remains stable 06/02/2020, patient seen eval examined during the rounds labs reviewed medications reviewed, due to severe hypoxia and respiratory distress patient transferred from the medical floor to ICU, patient was off of BiPAP for extended period time, on high flow search dropped down to 60s and 70s, after bringing patient up in the ICU was continued on BiPAP, prone positioning have been encouraged, patient will be given convalescent plasma as well, and is status post therapy with IV REM doesn't wear remains on Decadron and Lovenox, she sent patient remains afebrile, tachypneic, hemodynamic status stable, on BiPAP /, 80% oxygen saturation is 95-96%, 's x-ray continue show bilateral diffuse interstitial infiltrates, overall not much change compared to prior x-ray 06/01/2020, patient seen eval examined during the rounds labs reviewed medications reviewed patient has been prone with BiPAP, oxygen saturation significantly improved to 96-98%, remains on 80% oxygen with BiPAP of 12 and 8, is still feel congested, short of breath, on supine posture however saturation to drop, remains on high flow oxygen with mask in between the BiPAP for meals and overall care, chest x-ray performed today shows diffuse bilateral interstitial and groundglass opacities predominantly in the perihilar area slightly improved on the left side though, noted mildly elevated troponin of 0.4 asymptomatic likely demand ischemia related 05/31/2020, patient seen, currently resting, remains on BiPAP in between for maintenance on address lysed high flow oxygen, sats on BiPAP last check was 90%, hemodynamic status stable, continued to be short of breath using necessary muscles cough is present intermittently dry and nonproductive, patient remains on therapy 05/30/2020, patient seen eval examined during the rounds labs reviewed irrigations reviewed, patient is overall in good spirits, however continued to require high flow oxygen with aerosolized oxygen and nonrebreather mask during eating otherwise patient has been on BiPAP, currently saturation is about 88-90% on 06/06 on 80% oxygen, sats on BiPAP however improved to 95%, chest x-ray performed earlier today revealed bilateral infiltrates consistent with covid 19 pneumonia 05/29/2020, patient seen eval examined during the rounds labs reviewed medications reviewed care plan discussed, patient remained short of breath cur rently now is on airvo high flow oxygen, 90% to 91%, Patient came into the hospital with about one week history of increased symptoms of sinus congestion cough, also has a chills fever and mild PI aches and fatigue and pain, history of prior lung problems does have a history hypertension hypertensive cardiovascular disease dyslipidemia and diabetes mellitus, on arrival his oxygen saturation is 90%, low-grade temperature 99.3 was present his steiner virus PCR came back positive, his oxygen requirement continued to go up currently he is on 100% nonrebreather mask with 15 L high flow oxygen, chest x- ray admitted show coarse interstitial changes consistent with interstitial pneumonia repeat chest x-ray did now show worsening ARDS-like Petrin, saturation is 98%, he is afebrile hemodynamic status, he is on Lovenox 40 every 12, on Medrol 60 every 6, Remdesivir IV, inflammatory parameters are consistent with severe inflammatory response d-dimer is 16.4, pH is 574, a reactive protein is 3 Objective - Vital Signs Vital signs: Vital Signs Temp 98.4 F 06/03/20 08:00 Pulse 93 06/03/20 09:00 Resp 23 06/03/20 09:00 BP 105/64 06/03/20 09:00 Pulse Ox 95 06/03/20 09:00 Intake & Output 06/02/20 06/03/20 06/03/20 18:59 06:59 18:59 Intake Total 967 480 240 Output Total 850 750 450 Balance 117 -270 -210 Weight 74 kg Intake: Oral 720 480 240 Blood Product 197 Ffp Pher Conval Covid19 197 Acda 2 Unit [id number] Other 50 Ffp Pher Conval Covid19 50 Acda 2 Unit [id number] Output: Urine 850 750 450 Other: Voiding Method Urinal Urinal # Voids 1 - Exam - Constitutional General appearance: average body habitus, disheveled, mild distress - EENT Eyes: EOMI, PERRLA Ears: bilateral: normal - Neck Neck: normal ROM Carotids: bilateral: upstroke normal Thyroid: bilateral: normal size - Respiratory Respiratory: bilateral: diminished - Cardiovascular Rhythm: regular Heart sounds: normal: S1, S2 - Gastrointestinal General gastrointestinal: soft - Integumentary Integumentary: decreased turgor - Neurologic Neurologic: CNII-XII intact - Musculoskeletal Musculoskeletal: gait normal, generalized weakness, strength equal bilaterally - Psychiatric Psychiatric: A&O x's 3, appropriate affect, intact judgment & insight - Labs CBC & Chem 7: 06/02/20 09:43 06/02/20 09:43 Labs: Abnormal Lab Results - Last 24 Hours (Table) 06/02/20 06/02/20 06/02/20 Range/Units 04:54 09:43 09:43 WBC 13.0 H (3.8-10.6) k/uL Plt Count 64 L (150-450) k/uL Neutrophils # 12.4 H (1.3-7.7) k/uL Lymphocytes # 0.1 L (1.0-4.8) k/uL D-Dimer (<0.60) mg/L FEU Carbon Dioxide 37 H (22-30) mmol/L BUN 56 H (9-20) mg/dL Glucose 279 H (74-99) mg/dL POC Glucose (mg/dL) (75-99) mg/dL Magnesium (1.6-2.3) mg/dL Ferritin 2922.7 H (22.0-322.0) ng/mL Total Bilirubin 1.4 H (0.2-1.3) mg/dL Lactate Dehydrogenase (313-618) U/L Creatine Kinase (55-170) U/L C-Reactive Protein (<10.0) mg/L Total Protein 5.8 L (6.3-8.2) g/dL Albumin 2.5 L (3.5-5.0) g/dL 06/02/20 06/02/20 06/02/20 Range/Units 12:18 17:04 20:42 WBC (3.8-10.6) k/uL Plt Count (150-450) k/uL Neutrophils # (1.3-7.7) k/uL Lymphocytes # (1.0-4.8) k/uL D-Dimer (<0.60) mg/L FEU Carbon Dioxide (22-30) mmol/L BUN (9-20) mg/dL Glucose (74-99) mg/dL POC Glucose (mg/dL) 196 H 185 H 207 H (75-99) mg/dL Magnesium (1.6-2.3) mg/dL Ferritin (22.0-322.0) ng/mL Total Bilirubin (0.2-1.3) mg/dL Lactate Dehydrogenase (313-618) U/L Creatine Kinase (55-170) U/L C-Reactive Protein (<10.0) mg/L Total Protein (6.3-8.2) g/dL Albumin (3.5-5.0) g/dL 06/03/20 06/03/20 06/03/20 Range/Units 02:04 05:22 05:22 WBC (3.8-10.6) k/uL Plt Count (150-450) k/uL Neutrophils # (1.3-7.7) k/uL Lymphocytes # (1.0-4.8) k/uL D-Dimer 9.20 H (<0.60) mg/L FEU Carbon Dioxide (22-30) mmol/L BUN (9-20) mg/dL Glucose (74-99) mg/dL POC Glucose (mg/dL) 73 L (75-99) mg/dL Magnesium 2.5 H (1.6-2.3) mg/dL Ferritin (22.0-322.0) ng/mL Total Bilirubin (0.2-1.3) mg/dL Lactate Dehydrogenase 1447 H (313-618) U/L Creatine Kinase 36 L (55-170) U/L C-Reactive Protein 52.9 H (<10.0) mg/L Total Protein (6.3-8.2) g/dL Albumin (3.5-5.0) g/dL 06/03/20 Range/Units 06:41 WBC (3.8-10.6) k/uL Plt Count (150-450) k/uL Neutrophils # (1.3-7.7) k/uL Lymphocytes # (1.0-4.8) k/uL D-Dimer (<0.60) mg/L FEU Carbon Dioxide (22-30) mmol/L BUN (9-20) mg/dL Glucose (74-99) mg/dL POC Glucose (mg/dL) 119 H (75-99) mg/dL Magnesium (1.6-2.3) mg/dL Ferritin (22.0-322.0) ng/mL Total Bilirubin (0.2-1.3) mg/dL Lactate Dehydrogenase (313-618) U/L Creatine Kinase (55-170) U/L C-Reactive Protein (<10.0) mg/L Total Protein (6.3-8.2) g/dL Albumin (3.5-5.0) g/dL Assessment and Plan Assessment: Acute hypoxic respiratory failure Acute covid 19 pneumonia cytokine is strong ARDS likely related covid 19 pneumonia Dyslipidemia Hypertension hypertensive cardiovascular disease Diabetes mellitus Plan: Continue BiPAP 12/8 with oxygen to keep saturation of 90% or above, in between patient can be rested with aerosolized oxygen and facemask Deep breathing exercise incentive spirometry Prone positioning as much as possible preferably 16 hours a day if not possible patient agree able for sleeping on the sides IV steroids IV Remdesivir for 5 days Anticoagulation with Lovenox Sliding scale insulin, with maintenance insulin Observe closely in ICU Convalescent plasma Time with Patient: Greater than 30
[2020-06-03] MEDS: NON FORMULARY DRUG (Lifitegrast [Xiidra] 1 EACH Droperette) BOTH EYES SCH ×2 (10:00→20:13)
[2020-06-03 10:11] LABS: Ferritin 2644.9 ng/mL (22.0-322.0)
[2020-06-03 12:48] LABS: Glucose,Whole Blood 194 mg/dL (75-99)
[2020-06-03 16:55] LABS: Glucose,Whole Blood 250 mg/dL (75-99)
[2020-06-03] MEDS ORDERED: DOCUSATE 100 MG CAP PO PRN (17:08)
[2020-06-03 20:04] LABS: Glucose,Whole Blood 205 mg/dL (75-99)
[2020-06-03] MEDS: ATORVASTATIN 20 MG TAB PO SCH (20:12)
[2020-06-03] MEDS: TAMSULOSIN 0.4 MG CAP.ER.24H PO SCH (20:12)
--- NOTE | 2020-06-03 20:53 | P.PN ---
Subjective Progress Note Date: 06/03/20 Principal diagnosis: COVID Pneumonia This patient was cared for during of federal and state declared state of emergency secondary to COVID 19 Mr. Blanc 74-year-old male with a past medical history of type 2 diabetes mellitus, hypertension, hyperlipidemia, GERD, arthritis coming to the hospital with a chief complaint of cough fever chills and fatigue. Patient has been tested positive for Covid. Patient is seen and examined in the ICU today. He is currently on BiPAP 06/03 saturating at 96% on 80%FiO2. Patient completed IV remdesivir therapy and he received convalescent plasma yesterday. Patient states that his breathing is difficult at times. He complains of dry cough. Denies having any fevers chills or rigors. No chest pain or palpitations. No abdo kinjal pain nausea vomiting or diarrhea. On reviewing his labs patient's D-dimer is slowly trending down. The rest of the inflammatory markers are still high. Active Medications Acetaminophen (Acetaminophen Tab 500 Mg Tab) 1,000 mg PO Q6HR PRN PRN Reason: Fever>101 Albuterol Sulfate (Albuterol Hfa Inhaler) 2 puff INHALATION RT-Q6H PRN PRN Reason: Shortness Of Breath Or Wheezing Albuterol Sulfate (Albuterol Hfa Inhaler) 2 puff INHALATION RT-QID [facility] Last Admin: 06/03/20 19:34 Dose: 2 puff Documented by: Ascorbic Acid (Ascorbic Acid 500 Mg Tab) 500 mg PO BID [facility] Last Admin: 06/03/20 20:12 Dose: 500 mg Documented by: Aspirin (Aspirin 325 Mg Tab) 325 mg PO DAILY [facility] Last Admin: 06/03/20 09:08 Dose: 325 mg Documented by: Atorvastatin Calcium (Atorvastatin 20 Mg Tab) 20 mg PO HS [facility] Last Admin: 06/03/20 20:12 Dose: 20 mg Documented by: Cholecalciferol (Cholecalciferol 1,000 Unit Tab) 5,000 unit PO DAILY [facility] Last Admin: 06/03/20 09:08 Dose: 5,000 unit Documented by: Dexamethasone Sodium Phosphate (Dexamethasone Sod Phosphate 10 Mg/Ml 1 Ml Vial) 6 mg IV Q12HR [facility] Last Admin: 06/03/20 20:12 Dose: 6 mg Documented by: Docusate Sodium (Docusate 100 Mg Cap) 100 mg PO DAILY PRN PRN Reason: Constipation Enoxaparin Sodium (Enoxaparin 60 Mg/0.6 Ml Syringe) 50 mg SQ Q12HR [facility] Last Admin: 06/03/20 20:12 Dose: 50 mg Documented by: Insulin Aspart (Insuln Asp Prt/Insulin Aspart 100 Unit/Ml 10 Ml Vial) 40 unit SQ AC-BID [facility] Last Admin: 06/03/20 17:06 Dose: 40 unit Documented by: Insulin Aspart (Insulin Aspart (Novolog) 100 Unit/Ml Vial) 0 unit SQ [facility]; Protocol Last Admin: 06/03/20 20:13 Dose: 6 unit Documented by: Morphine Sulfate (Morphine Sulfate 2 Mg/Ml Syringe) 2 mg IVP Q4H PRN PRN Reason: Pain/Discomfort Naloxone HCl (Naloxone 0.4 Mg/Ml 1 Ml Vial) 0.2 mg IV Q2M PRN PRN Reason: Opioid Reversal Non-Formulary Medication (Lifitegrast [Xiidra]) 1 dropper BOTH EYES BID [facility] Last Admin: 06/03/20 20:13 Dose: Not Given Documented by: Pantoprazole Sodium (Pantoprazole 40 Mg Tablet) 40 mg PO AC-BID [facility] Last Admin: 06/03/20 17:08 Dose: 40 mg Documented by: Tamsulosin HCl (Tamsulosin 0.4 Mg Cap.Er.24h) 0.4 mg PO [facility] Last Admin: 06/03/20 20:12 Dose: 0.4 mg Documented by: Zinc Sulfate (Zinc Sulfate 220 Mg Cap) 220 mg PO DAILY [facility] Last Admin: 06/03/20 09:08 Dose: 220 mg Documented by: Objective - Vital Signs Vital signs: Vital Signs Temp 98.2 F 06/03/20 16:00 Pulse 90 06/03/20 17:00 Resp 22 06/03/20 17:00 BP 129/72 06/03/20 17:00 Pulse Ox 99 06/03/20 17:00 Intake & Output 06/02/20 06/03/20 06/03/20 18:59 06:59 18:59 Intake Total 967 480 880 Output Total 958 750 975 Balance 117 -270 -95 Weight 74 kg Intake: Oral 720 480 880 Blood Product 197 Ffp Pher Conval Covid19 197 Acda 2 Unit [id number] Other 50 Ffp Pher Conval Covid19 50 Acda 2 Unit [id number] Output: Urine 850 750 975 Other: Voiding Method Urinal Urinal Urinal # Voids 1 - Exam Exam GENERAL: The patient is alert and oriented x3, currently on BiPAP HEENT: No pallor, No icterus CARDIOVASCULAR: S1 and S2 present. No murmurs, rubs, or gallops. PULMONARY: Coarse breath sounds in all lung dowd ABDOMEN: Soft, nontender, nondistended, normoactive bowel sounds. No palpable organomegaly. EXTREMITIES: No cyanosis, clubbing, or pedal edema. NEUROLOGICAL: Gross neurological examination did not reveal any focal deficits. SKIN: No rashes. - Labs CBC & Chem 7: 06/02/20 09:43 06/02/20 09:43 Labs: Abnormal Lab Results - Last 24 Hours (Table) 06/02/20 06/03/20 06/03/20 Range/Units 20:42 02:04 05:22 D-Dimer 9.20 H (<0.60) mg/L FEU POC Glucose (mg/dL) 207 H 73 L (75-99) mg/dL Magnesium (1.6-2.3) mg/dL Ferritin (22.0-322.0) ng/mL Lactate Dehydrogenase (313-618) U/L Creatine Kinase (55-170) U/L C-Reactive Protein (<10.0) mg/L 06/03/20 06/03/20 06/03/20 Range/Units 05:22 06:41 12:47 D-Dimer (<0.60) mg/L FEU POC Glucose (mg/dL) 119 H 194 H (75-99) mg/dL Magnesium 2.5 H (1.6-2.3) mg/dL Ferritin 2644.9 H (22.0-322.0) ng/mL Lactate Dehydrogenase 1447 H (313-618) U/L Creatine Kinase 36 L (55-170) U/L C-Reactive Protein 52.9 H (<10.0) mg/L 06/03/20 Range/Units 16:54 D-Dimer (<0.60) mg/L FEU POC Glucose (mg/dL) 250 H (75-99) mg/dL Magnesium (1.6-2.3) mg/dL Ferritin (22.0-322.0) ng/mL Lactate Dehydrogenase (313-618) U/L Creatine Kinase (55-170) U/L C-Reactive Protein (<10.0) mg/L Assessment and Plan Assessment: ASSESSMENT Acute hypoxic respiratory failure secondary to Covid pneumonia Increased inflammatory markers Dyslipidemia Hypertension Type 2 diabetes mellitus Multiple joint osteoarthritis PLAN: Patient completed her IV remdesivir. He received a dose of convalescent plasma yesterday. He continues to be on BiPAP. Continue with IV steroids and breathing treatments. Patient's inflammatory markers continue to be higher side. Will adjust the dose of insulin depending upon his blood sugars. Lovenox and Protonix for DVT and GI prophylaxis. Continue with the rest of his current medication regimen. Further recommendations to follow depending on the progress of the patient. Overall prognosis is guarded.
--- NOTE | 2020-06-03 22:05 | PN ---
PROGRESS NOTE DATE OF SERVICE: 06/03/2020 REASON FOR FOLLOWUP: COVID-19 pneumonia. INTERVAL HISTORY: The patient is currently afebrile. He is breathing slightly comfortably today. The patient denies having any chest pain. Minimal cough. No nausea, no vomiting. No abdominal pain. No diarrhea. PHYSICAL EXAMINATION: Blood pressure 120/60 with a pulse of 56. Temperature 98.7. He is 96% on 60% FiO2. General description is an elderly male lying in bed in no distress. Respiratory system: Unlabored breathing with decreased breath sounds in the base. Heart S1, S2. Regular rate and rhythm. LAB DATA: D. dimer is down to 9.20 and inflammatory markers slightly improved. DIAGNOSTIC IMPRESSION AND PLAN: Patient acute COVID-19 pneumonia with respiratory failure. Minimal improvement in overall clinical condition. To continue with current treatment protocol and monitor clinical course closely. Maybe a good candidate for . Will discuss with the Pulmonary. Continue supportive care. MMJANETL / IJN: [id number] /
[2020-06-03 23:33] LABS: Glucose,Whole Blood 64 mg/dL (75-99)
[2020-06-03 23:33] LABS: Glucose,Whole Blood 62 mg/dL (75-99)
[2020-06-03 23:49] LABS: Glucose,Whole Blood 72 mg/dL (75-99)
[2020-06-04 00:02] LABS: Glucose,Whole Blood 110 mg/dL (75-99)
[2020-06-04 04:04] LABS: Basophils % (A) 0 %; Eosinophils % (A) 0 %; HCT 40.3 % (39.0-53.0); HGB 13.5 gm/dL (13.0-17.5); Lymphocytes # (A) 0.1 k/uL (1.0-4.8); Lymphocytes % (A) 1 %; MCH 31.8 pg (25.0-35.0); MCHC 33.6 g/dL (31.0-37.0); MCV 94.6 fL (80.0-100.0); Mean Platelet Volume 9.2; Monocytes # (A) 0.3 k/uL (0-1.0); Monocytes % (A) 3 %; Neutrophils # (A) 10.2 k/uL (1.3-7.7); Neutrophils % (A) 96 %; RBC 4.26 m/uL (4.30-5.90); WBC 10.6 k/uL (3.8-10.6)
[2020-06-04 04:07] LABS: Platelet Count 58 k/uL (150-450)
[2020-06-04 04:19] LABS: ALT 32 U/L (4-49); AST 33 U/L (17-59); African American GFR (CKD) >90 (>60 ml/min/1.73 sqM); Albumin 2.3 g/dL (3.5-5.0); Alkaline Phosphatase 75 U/L (38-126); Anion Gap 2 mmol/L; Blood Urea Nitrogen 50 mg/dL (9-20); C Reactive Protein 34.3 mg/L (<10.0); Calcium 8.3 mg/dL (8.4-10.2); Carbon Dioxide 33 mmol/L (22-30); Chloride 101 mmol/L (98-107); Creatine Kinase 34 U/L (55-170); Glucose 288 mg/dL (74-99); LDH 1873 U/L (313-618); Non-African American GFR(CKD) 83 (>60 ml/min/1.73 sqM); Potassium 4.6 mmol/L (3.5-5.1); Sodium 136 mmol/L (137-145); Total Bilirubin 0.9 mg/dL (0.2-1.3); Total Protein 5.3 g/dL (6.3-8.2)
[2020-06-04 04:21] LABS: D-Dimer 9.23 mg/L FEU (<0.60)
[2020-06-04 06:41] LABS: Glucose,Whole Blood 161 mg/dL (75-99)
[2020-06-04] MEDS: INSULN ASP PRT/INSULIN ASPART 100 UNIT/ML 10 ML VIAL SQ SCH (06:52)
[2020-06-04] MEDS: PANTOPRAZOLE 40 MG TABLET PO SCH ×2 (06:53→18:16)
[2020-06-04] MEDS: INSULIN ASPART (NovoLOG) 100 UNIT/ML VIAL SQ SCH ×4 (06:53→20:04)
[2020-06-04] MEDS: DEXAMETHASONE SOD PHOSPHATE 10 MG/ML 1 ML VIAL IV SCH ×2 (08:53→20:19)
[2020-06-04] MEDS: ASPIRIN 325 MG TAB PO SCH (08:53)
[2020-06-04] MEDS: CHOLECALCIFEROL 1,000 UNIT TAB PO SCH (08:53)
[2020-06-04] MEDS: ZINC SULFATE 220 MG CAP PO SCH (08:53)
[2020-06-04] MEDS: ASCORBIC ACID 500 MG TAB PO SCH ×2 (08:54→20:03)
--- NOTE | 2020-06-04 08:54 | XR ---
EXAMINATION TYPE: XR chest 1V portable DATE OF EXAM: 06/04/2020 Comparison: 06/03/2020 Clinical History: 74-year-old male assess lungs Findings: Heart normal size. Mild elongation of the thoracic aorta. Diffuse interstitial groundglass and patchy midlung densities similar to minimally worsened. Impression: Bilateral groundglass infiltrates similar to minimally worsened.
[2020-06-04] MEDS: NON FORMULARY DRUG (Lifitegrast [Xiidra] 1 EACH Droperette) BOTH EYES SCH ×2 (08:55→20:05)
[2020-06-04] MEDS: ALBUTEROL HFA INHALER INHALATION SCH ×4 (09:27→19:06)
[2020-06-04] MEDS ORDERED: DEXTROSE 50% SYRINGE 50 ML IVP ONE (09:42)
[2020-06-04 09:44] LABS: Glucose,Whole Blood 65 mg/dL (75-99)
[2020-06-04 09:55] LABS: Glucose,Whole Blood 121 mg/dL (75-99)
[2020-06-04 10:57] LABS: Glucose,Whole Blood 84 mg/dL (75-99)
[2020-06-04] MEDS: ENOXAPARIN 60 MG/0.6 ML SYRINGE SQ SCH ×2 (11:17→20:04)
[2020-06-04 12:38] LABS: Glucose,Whole Blood 65 mg/dL (75-99)
[2020-06-04] MEDS: DEXTROSE 50% SYRINGE 50 ML IVP ONE ×2 (12:38→12:55)
[2020-06-04 12:39] LABS: Ferritin 2651.3 ng/mL (22.0-322.0)
[2020-06-04 12:50] LABS: Glucose,Whole Blood 146 mg/dL (75-99)
[2020-06-04 16:49] LABS: Glucose,Whole Blood 135 mg/dL (75-99)
[2020-06-04 19:37] LABS: Glucose,Whole Blood 175 mg/dL (75-99)
[2020-06-04] MEDS: ATORVASTATIN 20 MG TAB PO SCH (20:03)
[2020-06-04] MEDS: TAMSULOSIN 0.4 MG CAP.ER.24H PO SCH (20:05)
--- NOTE | 2020-06-04 20:45 | PN ---
PROGRESS NOTE DATE OF SERVICE: 06/04/2020 REASON FOR FOLLOWUP: COVID-19 pneumonia. INTERVAL HISTORY: Patient is currently afebrile. He seemed to have a rough morning, however, was done better in the evening. The patient denies having any chest pain. Minimal cough. No nausea, no vomiting. No abdominal pain or diarrhea. PHYSICAL EXAMINATION: Blood pressure 132/84, pulse 89, temperature 98.9, he is 97% on 50% FiO2. General description is an elderly male lying in bed in no distress. Respiratory system: Unlabored breathing, decreased breath sounds at the base. No wheeze. HEART: S1, S2. Regular rate and rhythm. ABDOMEN: Soft, no tenderness. LABS: Hemoglobin is 13.5, white count 10.6, BUN of 15, creatinine 0.91, and ( ) again. DIAGNOSTIC IMPRESSION AND PLAN: Patient with acute COVID-19 pneumonia in this patient who has completed Remdesivir therapy, now with worsening of his respiratory symptoms and inflammatory markers with concern for ( ) and may benefit from ( ). Will discuss with co founder and president as well as pharmacy tomorrow. ( ) and continue with supportive care. MMODL / IJN: [id number] /
--- NOTE | 2020-06-04 22:45 | P.PN ---
Subjective Progress Note Date: 06/04/20 Principal diagnosis: COVID Pneumonia This patient was cared for during of federal and state declared state of emergency secondary to COVID 19 Mr. Blanc 74-year-old male with a past medical history of type 2 diabetes mellitus, hypertension, hyperlipidemia, GERD, arthritis coming to the hospital with a chief complaint of cough fever chills and fatigue. Patient has been tested positive for Covid. Patient is seen and examined in the ICU today. He is currently on BiPAP 06/03 saturating at 96% on 80%FiO2. Patient completed IV remdesivir therapy and he received convalescent plasma yesterday. Patient states that his breathing is difficult at times. He complains of dry cough. Denies having any fevers chills or rigors. No chest pain or palpitations. No abdom inal pain nausea vomiting or diarrhea. On reviewing his labs patient's D-dimer is slowly trending down. The rest of the inflammatory markers are still high. On 06/04/2020 patient was seen and examined in the ICU. As per discussion with nursing staff patient was having difficulty in breathing and so placed Air Vo with 100% FiO2, and he is maintaining his sats around 90 to 94%. Patient states that his breathing is better. He denies having any fevers chills or rigors. Plaints. On reviewing his vitals his heart rate is in 80s to 90s, blood pressure 131 x 70 and afebrile. On reviewing his labs white count of 10.6, hemoglobin 13.5, platelets 58. Sodium 136, potassium 4.6, chloride 101, bicarb 33, BUN 50, creatinine 0.91. Active Medications Acetaminophen (Acetaminophen Tab 500 Mg Tab) 1,000 mg PO Q6HR PRN PRN Reason: Fever>101 Albuterol Sulfate (Albuterol Hfa Inhaler) 2 puff INHALATION RT-Q6H PRN PRN Reason: Shortness Of Breath Or Wheezing Albuterol Sulfate (Albuterol Hfa Inhaler) 2 puff INHALATION RT-QID [facility] Last Admin: 06/04/20 19:06 Dose: 2 puff Documented by: Ascorbic Acid (Ascorbic Acid 500 Mg Tab) 500 mg PO BID [facility] Last Admin: 06/04/20 20:03 Dose: Not Given Documented by: Aspirin (Aspirin 325 Mg Tab) 325 mg PO DAILY [facility] Last Admin: 06/04/20 08:53 Dose: 325 mg Documented by: Atorvastatin Calcium (Atorvastatin 20 Mg Tab) 20 mg PO [facility] Last Admin: 06/04/20 20:03 Dose: Not Given Documented by: Cholecalciferol (Cholecalciferol 1,000 Unit Tab) 5,000 unit PO DAILY [facility] Last Admin: 06/04/20 08:53 Dose: 5,000 unit Documented by: Dexamethasone Sodium Phosphate (Dexamethasone Sod Phosphate 10 Mg/Ml 1 Ml Vial) 6 mg IV Q12HR [facility] Last Admin: 06/04/20 20:19 Dose: 6 mg Documented by: Docusate Sodium (Docusate 100 Mg Cap) 100 mg PO DAILY PRN PRN Reason: Constipation Last Admin: 06/04/20 09:14 Dose: 100 mg Documented by: Enoxaparin Sodium (Enoxaparin 60 Mg/0.6 Ml Syringe) 50 mg SQ Q12HR [facility] Last Admin: 06/04/20 20:04 Dose: Not Given Documented by: Insulin Aspart (Insulin Aspart (Novolog) 100 Unit/Ml Vial) 0 unit SQ [facility]; Protocol Last Admin: 06/04/20 20:04 Dose: Not Given Documented by: Morphine Sulfate (Morphine Sulfate 2 Mg/Ml Syringe) 2 mg IVP Q4H PRN PRN Reason: Pain/Discomfort Naloxone HCl (Naloxone 0.4 Mg/Ml 1 Ml Vial) 0.2 mg IV Q2M PRN PRN Reason: Opioid Reversal Non-Formulary Medication (Lifitegrast [Xiidra]) 1 dropper BOTH EYES BID [facility] Last Admin: 06/04/20 20:05 Dose: Not Given Documented by: Pantoprazole Sodium (Pantoprazole 40 Mg Tablet) 40 mg PO AC-BID [facility] Last Admin: 06/04/20 18:16 Dose: Not Given Documented by: Tamsulosin HCl (Tamsulosin 0.4 Mg Cap.Er.24h) 0.4 mg PO [facility] Last Admin: 06/04/20 20:05 Dose: Not Given Documented by: Zinc Sulfate (Zinc Sulfate 220 Mg Cap) 220 mg PO DAILY [facility] Last Admin: 06/04/20 08:53 Dose: 220 mg Documented by: Objective - Vital Signs Vital signs: Vital Signs Temp 98.8 F 06/04/20 12:00 Pulse 84 06/04/20 14:00 Resp 25 H 06/04/20 14:00 BP 131/70 06/04/20 14:00 Pulse Ox 97 06/04/20 14:00 Intake & Output 06/03/20 06/04/20 06/04/20 18:59 06:59 18:59 Intake Total 880 720 360 Output Total 1375 800 400 Balance -495 -80 -40 Weight 74.9 kg Intake: Oral 880 720 360 Output: Urine 1375 800 400 Other: Voiding Method Urinal Urinal Urinal - Exam Exam GENERAL: The patient is alert and oriented x3, currently on Air Vo HEENT: No pallor, No icterus CARDIOVASCULAR: S1 and S2 present. No murmurs, rubs, or gallops. PULMONARY: Coarse breath sounds in all lung dowd ABDOMEN: Soft, nontender, nondistended, normoactive bowel sounds. No palpable organomegaly. EXTREMITIES: No cyanosis, clubbing, or pedal edema. NEUROLOGICAL: Gross neurological examination did not reveal any focal deficits. SKIN: No rashes. - Labs CBC & Chem 7: 06/04/20 03:42 06/04/20 03:42 Labs: Abnormal Lab Results - Last 24 Hours (Table) 06/03/20 06/03/20 06/03/20 Range/Units 16:54 20:01 23:12 RBC (4.30-5.90) m/uL Plt Count (150-450) k/uL Neutrophils # (1.3-7.7) k/uL Lymphocytes # (1.0-4.8) k/uL D-Dimer (<0.60) mg/L FEU Sodium (137-145) mmol/L Carbon Dioxide (22-30) mmol/L BUN (9-20) mg/dL Glucose (74-99) mg/dL POC Glucose (mg/dL) 250 H 205 H 64 L (75-99) mg/dL Calcium (8.4-10.2) mg/dL Ferritin (22.0-322.0) ng/mL Lactate Dehydrogenase (313-618) U/L Creatine Kinase (55-170) U/L C-Reactive Protein (<10.0) mg/L Total Protein (6.3-8.2) g/dL Albumin (3.5-5.0) g/dL 06/03/20 06/03/20 06/04/20 Range/Units 23:31 23:47 00:01 RBC (4.30-5.90) m/uL Plt Count (150-450) k/uL Neutrophils # (1.3-7.7) k/uL Lymphocytes # (1.0-4.8) k/uL D-Dimer (<0.60) mg/L FEU Sodium (137-145) mmol/L Carbon Dioxide (22-30) mmol/L BUN (9-20) mg/dL Glucose (74-99) mg/dL POC Glucose (mg/dL) 62 L 72 L 110 H (75-99) mg/dL Calcium (8.4-10.2) mg/dL Ferritin (22.0-322.0) ng/mL Lactate Dehydrogenase (313-618) U/L Creatine Kinase (55-170) U/L C-Reactive Protein (<10.0) mg/L Total Protein (6.3-8.2) g/dL Albumin (3.5-5.0) g/dL 06/04/20 06/04/20 06/04/20 Range/Units 03:42 03:42 03:42 RBC 4.26 L (4.30-5.90) m/uL Plt Count 58 L (150-450) k/uL Neutrophils # 10.2 H (1.3-7.7) k/uL Lymphocytes # 0.1 L (1.0-4.8) k/uL D-Dimer 9.23 H (<0.60) mg/L FEU Sodium 136 L (137-145) mmol/L Carbon Dioxide 33 H (22-30) mmol/L BUN 50 H (9-20) mg/dL Glucose 288 H (74-99) mg/dL POC Glucose (mg/dL) (75-99) mg/dL Calcium 8.3 L (8.4-10.2) mg/dL Ferritin 2651.3 H (22.0-322.0) ng/mL Lactate Dehydrogenase 1873 H (313-618) U/L Creatine Kinase 34 L (55-170) U/L C-Reactive Protein 34.3 H (<10.0) mg/L Total Protein 5.3 L (6.3-8.2) g/dL Albumin 2.3 L (3.5-5.0) g/dL 06/04/20 06/04/20 06/04/20 Range/Units 06:40 09:42 09:53 RBC (4.30-5.90) m/uL Plt Count (150-450) k/uL Neutrophils # (1.3-7.7) k/uL Lymphocytes # (1.0-4.8) k/uL D-Dimer (<0.60) mg/L FEU Sodium (137-145) mmol/L Carbon Dioxide (22-30) mmol/L BUN (9-20) mg/dL Glucose (74-99) mg/dL POC Glucose (mg/dL) 161 H 65 L 121 H (75-99) mg/dL Calcium (8.4-10.2) mg/dL Ferritin (22.0-322.0) ng/mL Lactate Dehydrogenase (313-618) U/L Creatine Kinase (55-170) U/L C-Reactive Protein (<10.0) mg/L Total Protein (6.3-8.2) g/dL Albumin (3.5-5.0) g/dL 06/04/20 06/04/20 Range/Units 12:37 12:48 RBC (4.30-5.90) m/uL Plt Count (150-450) k/uL Neutrophils # (1.3-7.7) k/uL Lymphocytes # (1.0-4.8) k/uL D-Dimer (<0.60) mg/L FEU Sodium (137-145) mmol/L Carbon Dioxide (22-30) mmol/L BUN (9-20) mg/dL Glucose (74-99) mg/dL POC Glucose (mg/dL) 65 L 146 H (75-99) mg/dL Calcium (8.4-10.2) mg/dL Ferritin (22.0-322.0) ng/mL Lactate Dehydrogenase (313-618) U/L Creatine Kinase (55-170) U/L C-Reactive Protein (<10.0) mg/L Total Protein (6.3-8.2) g/dL Albumin (3.5-5.0) g/dL Assessment and Plan Assessment: ASSESSMENT Acute hypoxic respiratory failure secondary to Covid pneumonia Increased inflammatory markers Dyslipidemia Hypertension Type 2 diabetes mellitus Multiple joint osteoarthritis PLAN: Patient completed her IV remdesivir. He received a dose of convalescent plasma. He continues to be on BiPAP. Continue with IV steroids and breathing treatments. Patient's inflammatory markers continue to be higher side. Will adjust the dose of insulin depending upon his blood sugars. Protonix for GI prophylaxis. Lovenox on hold due to thrombocytopenia. Continue with the rest of his current medication regimen. Spoke with his Mrs. Rodriguez and updated her about the patient's condition today over the phone. Further recommendations to follow depending on the progress of the patient. Overall prognosis is guarded.
--- NOTE | 2020-06-04 23:51 | P.PN ---
Subjective Progress Note Date: 06/04/20 Principal diagnosis: Acute hypoxic respiratory failure Acute covid 19 pneumonia ARDS likely related covid 19 pneumonia Dyslipidemia Hypertension hypertensive cardiovascular disease Diabetes mellitus 06/04/2020, patient seen eval examined during the rounds labs reviewed medic ations reviewed, care plan discussed, remains on BiPAP 12/8 with 60% oxygen saturation is 98%, patient did desaturate on high flow address lysed oxygen, he has finished IV REMdesivir convalescent plasma remains on Decadron 06/03/2020, patient seen eval reexamined during the rounds labs reviewed med ications reviewed, patient was desaturating or with aerosolized oxygen just has been placed on BiPAP 06/03 with 80% oxygen saturation improved to 100%, , patient is status post IV in remdesivir therapy, he has received convalescent plasma as well yesterday, chest x-ray reviewed diffuse patchy infiltrates bilaterally remains stable 06/02/2020, patient seen eval examined during the rounds labs reviewed medications reviewed, due to severe hypoxia and respiratory distress patient transferred from the medical floor to ICU, patient was off of BiPAP for extended period time, on high flow search dropped down to 60s and 70s, after bringing patient up in the ICU was continued on BiPAP, prone positioning have been encouraged, patient will be given convalescent plasma as well, and is status post therapy with IV REM doesn't wear remains on Decadron and Lovenox, she sent patient remains afebrile, tachypneic, hemodynamic status stable, on BiPAP 12/8, 80% oxygen saturation is 95-96%, 's x-ray continue show bilateral diffuse interstitial infiltrates, overall not much change compared to prior x-ray 06/01/2020, patient seen eval examined during the rounds labs reviewed medications reviewed patient has been prone with BiPAP, oxygen saturation significantly improved to 96-98%, remains on 80% oxygen with BiPAP of 12 and 8, is still feel congested, short of breath, on supine posture however saturation to drop, remains on high flow oxygen with mask in between the BiPAP for meals and overall care, chest x-ray performed today shows diffuse bilateral interstitial and groundglass opacities predominantly in the perihilar area slightly improved on the left side though, noted mildly elevated troponin of 0.4 asymptomatic likely demand ischemia related 05/31/2020, patient seen, currently resting, remains on BiPAP in between for maintenance on address lysed high flow oxygen, sats on BiPAP last check was 90%, hemodynamic status stable, continued to be short of breath using necessary muscles cough is present intermittently dry and nonproductive, patient remains on therapy 05/30/2020, patient seen eval examined during the rounds labs reviewed irrigations reviewed, patient is overall in good spirits, however continued to require high flow oxygen with aerosolized oxygen and nonrebreather mask during eating otherwise patient has been on BiPAP, currently saturation is about 88-90% on 06/06 on 80% oxygen, sats on BiPAP however improved to 95%, chest x-ray performed earlier today revealed bilateral infiltrates consistent with covid 19 pneumonia 05/29/2020, patient seen eval examined during the rounds labs reviewed medications reviewed care plan discussed, patient remained short of breath cur rently now is on airvo high flow oxygen, 90% to 91%, Patient came into the hospital with about one week history of increased symptoms of sinus congestion cough, also has a chills fever and mild PI aches and fatigue and pain, history of prior lung problems does have a history hypertension hypertensive cardiovascular disease dyslipidemia and diabetes mellitus, on arrival his oxygen saturation is 90%, low-grade temperature 99.3 was present his steiner virus PCR came back positive, his oxygen requirement continued to go up currently he is on 100% nonrebreather mask with 15 L high flow oxygen, chest x- ray admitted show coarse interstitial changes consistent with interstitial pneumonia repeat chest x-ray did now show worsening ARDS-like Petrin, saturation is 98%, he is afebrile hemodynamic status, he is on Lovenox 40 every 12, on Medrol 60 every 6, Remdesivir IV, inflammatory parameters are consistent with severe inflammatory response d-dimer is 16.4, pH is 574, a reactive protein is 3 Objective - Vital Signs Vital signs: Vital Signs Temp 99.1 F 06/04/20 20:00 Pulse 86 06/04/20 23:00 Resp 24 06/04/20 23:00 BP 113/87 06/04/20 23:00 Pulse Ox 97 06/04/20 23:00 Intake & Output 06/04/20 06/04/20 06/05/20 06:59 18:59 06:59 Intake Total 720 560 0 Output Total 800 1100 250 Balance -80 -540 -250 Weight 74.9 kg Intake: Oral 720 560 0 Output: Urine 800 1100 250 Other: Voiding Method Urinal Urinal Urinal - Exam - Constitutional General appearance: average body habitus, disheveled, mild distress - EENT Eyes: EOMI, PERRLA Ears: bilateral: normal - Neck Neck: normal ROM Carotids: bilateral: upstroke normal Thyroid: bilateral: normal size - Respiratory Respiratory: bilateral: diminished - Cardiovascular Rhythm: regular Heart sounds: normal: S1, S2 - Gastrointestinal General gastrointestinal: soft - Integumentary Integumentary: decreased turgor - Neurologic Neurologic: CNII-XII intact - Musculoskeletal Musculoskeletal: gait normal, generalized weakness, strength equal bilaterally - Psychiatric Psychiatric: A&O x's 3, appropriate affect, intact judgment & insight - Labs CBC & Chem 7: 06/04/20 03:42 06/04/20 03:42 Labs: Abnormal Lab Results - Last 24 Hours (Table) 06/03/20 06/04/20 06/04/20 Range/Units 23:47 00:01 03:42 RBC 4.26 L (4.30-5.90) m/uL Plt Count 58 L (150-450) k/uL Neutrophils # 10.2 H (1.3-7.7) k/uL Lymphocytes # 0.1 L (1.0-4.8) k/uL D-Dimer (<0.60) mg/L FEU Sodium (137-145) mmol/L Carbon Dioxide (22-30) mmol/L BUN (9-20) mg/dL Glucose (74-99) mg/dL POC Glucose (mg/dL) 72 L 110 H (75-99) mg/dL Calcium (8.4-10.2) mg/dL Ferritin (22.0-322.0) ng/mL Lactate Dehydrogenase (313-618) U/L Creatine Kinase (55-170) U/L C-Reactive Protein (<10.0) mg/L Total Protein (6.3-8.2) g/dL Albumin (3.5-5.0) g/dL 06/04/20 06/04/20 06/04/20 Range/Units 03:42 03:42 06:40 RBC (4.30-5.90) m/uL Plt Count (150-450) k/uL Neutrophils # (1.3-7.7) k/uL Lymphocytes # (1.0-4.8) k/uL D-Dimer 9.23 H (<0.60) mg/L FEU Sodium 136 L (137-145) mmol/L Carbon Dioxide 33 H (22-30) mmol/L BUN 50 H (9-20) mg/dL Glucose 288 H (74-99) mg/dL POC Glucose (mg/dL) 161 H (75-99) mg/dL Calcium 8.3 L (8.4-10.2) mg/dL Ferritin 2651.3 H (22.0-322.0) ng/mL Lactate Dehydrogenase 1873 H (313-618) U/L Creatine Kinase 34 L (55-170) U/L C-Reactive Protein 34.3 H (<10.0) mg/L Total Protein 5.3 L (6.3-8.2) g/dL Albumin 2.3 L (3.5-5.0) g/dL 06/04/20 06/04/20 06/04/20 Range/Units 09:42 09:53 12:37 RBC (4.30-5.90) m/uL Plt Count (150-450) k/uL Neutrophils # (1.3-7.7) k/uL Lymphocytes # (1.0-4.8) k/uL D-Dimer (<0.60) mg/L FEU Sodium (137-145) mmol/L Carbon Dioxide (22-30) mmol/L BUN (9-20) mg/dL Glucose (74-99) mg/dL POC Glucose (mg/dL) 65 L 121 H 65 L (75-99) mg/dL Calcium (8.4-10.2) mg/dL Ferritin (22.0-322.0) ng/mL Lactate Dehydrogenase (313-618) U/L Creatine Kinase (55-170) U/L C-Reactive Protein (<10.0) mg/L Total Protein (6.3-8.2) g/dL Albumin (3.5-5.0) g/dL 06/04/20 06/04/20 06/04/20 Range/Units 12:48 16:47 19:34 RBC (4.30-5.90) m/uL Plt Count (150-450) k/uL Neutrophils # (1.3-7.7) k/uL Lymphocytes # (1.0-4.8) k/uL D-Dimer (<0.60) mg/L FEU Sodium (137-145) mmol/L Carbon Dioxide (22-30) mmol/L BUN (9-20) mg/dL Glucose (74-99) mg/dL POC Glucose (mg/dL) 146 H 135 H 175 H (75-99) mg/dL Calcium (8.4-10.2) mg/dL Ferritin (22.0-322.0) ng/mL Lactate Dehydrogenase (313-618) U/L Creatine Kinase (55-170) U/L C-Reactive Protein (<10.0) mg/L Total Protein (6.3-8.2) g/dL Albumin (3.5-5.0) g/dL Assessment and Plan Assessment: Acute hypoxic respiratory failure Acute covid 19 pneumonia cytokine is rayray ARDS likely related covid 19 pneumonia Dyslipidemia Hypertension hypertensive cardiovascular disease Diabetes mellitus Plan: Continue BiPAP /8 with oxygen to keep saturation of 90% or above, in between patient can be rested with aerosolized oxygen and facemask Deep breathing exercise incentive spirometry Prone positioning as much as possible preferably 16 hours a day if not possible patient agree able for sleeping on the sides IV steroids Status post IV Remdesivir for 5 days Continue Anticoagulation with Lovenox Sliding scale insulin, with maintenance insulin Observe closely in ICU Status post Convalescent plasma Time with Patient: Greater than 30
[2020-06-05 02:09] LABS: Glucose,Whole Blood 199 mg/dL (75-99)
[2020-06-05 04:21] LABS: Basophils % (A) 0 %; Eosinophils % (A) 0 %; HCT 43.2 % (39.0-53.0); HGB 14.2 gm/dL (13.0-17.5); Lymphocytes # (A) 0.1 k/uL (1.0-4.8); Lymphocytes % (A) 1 %; MCH 31.3 pg (25.0-35.0); MCHC 32.9 g/dL (31.0-37.0); MCV 95.1 fL (80.0-100.0); Mean Platelet Volume 8.5; Monocytes # (A) 0.3 k/uL (0-1.0); Monocytes % (A) 3 %; Neutrophils # (A) 9.1 k/uL (1.3-7.7); Neutrophils % (A) 96 %; RBC 4.54 m/uL (4.30-5.90); RDW 12.9 % (11.5-15.5); WBC 9.6 k/uL (3.8-10.6)
[2020-06-05 04:34] LABS: ALT 34 U/L (4-49); AST 29 U/L (17-59); African American GFR (CKD) >90 (>60 ml/min/1.73 sqM); Albumin 2.3 g/dL (3.5-5.0); Alkaline Phosphatase 72 U/L (38-126); Anion Gap 1 mmol/L; Blood Urea Nitrogen 47 mg/dL (9-20); C Reactive Protein 61.7 mg/L (<10.0); Calcium 8.1 mg/dL (8.4-10.2); Carbon Dioxide 34 mmol/L (22-30); Chloride 101 mmol/L (98-107); Creatine Kinase 26 U/L (55-170); Glucose 232 mg/dL (74-99); LDH 1504 U/L (313-618); Non-African American GFR(CKD) 86 (>60 ml/min/1.73 sqM); Potassium 4.7 mmol/L (3.5-5.1); Sodium 136 mmol/L (137-145); Total Bilirubin 1.2 mg/dL (0.2-1.3); Total Protein 5.3 g/dL (6.3-8.2)
[2020-06-05 05:01] LABS: Platelet Count 46 k/uL (150-450)
[2020-06-05 06:46] LABS: Glucose,Whole Blood 227 mg/dL (75-99)
--- NOTE | 2020-06-05 06:46 | XR ---
EXAMINATION TYPE: XR chest 1V portable DATE OF EXAM: 06/05/2020 CLINICAL HISTORY: Difficulty breathing progress study. Suspected covid pneumonia. TECHNIQUE: Single AP portable semiupright view of the chest is obtained. COMPARISON: Chest x-ray from one day earlier and older studies. FINDINGS: Persistent low lung volumes with bilateral opacities greatest in the mid to lower lungs. C ardiac silhouette size stable and within normal limits. Osseous structures are intact. Overlying EKG leads redemonstrated. IMPRESSION: Low lung volumes with persistent bilateral mid to lower lung multifocal edema and/or infi ltrates. No significant change from most recent study.
[2020-06-05] MEDS: PANTOPRAZOLE 40 MG TABLET PO SCH ×2 (06:49→17:55)
[2020-06-05] MEDS: INSULIN ASPART (NovoLOG) 100 UNIT/ML VIAL SQ SCH ×4 (06:49→20:32)
[2020-06-05] MEDS: ALBUTEROL HFA INHALER INHALATION SCH ×4 (07:56→20:19)
[2020-06-05] MEDS: NON FORMULARY DRUG (Lifitegrast [Xiidra] 1 EACH Droperette) BOTH EYES SCH ×2 (08:42→20:19)
[2020-06-05] MEDS: ENOXAPARIN 60 MG/0.6 ML SYRINGE SQ SCH ×2 (08:42→20:19)
[2020-06-05] MEDS: ZINC SULFATE 220 MG CAP PO SCH (08:50)
[2020-06-05] MEDS: DEXAMETHASONE SOD PHOSPHATE 10 MG/ML 1 ML VIAL IV SCH ×2 (08:50→20:31)
[2020-06-05] MEDS: ASPIRIN 325 MG TAB PO SCH (08:50)
[2020-06-05] MEDS: ASCORBIC ACID 500 MG TAB PO SCH ×2 (08:50→20:19)
[2020-06-05] MEDS: CHOLECALCIFEROL 1,000 UNIT TAB PO SCH (08:50)
[2020-06-05 09:50] LABS: Glucose,Whole Blood 342 mg/dL (75-99)
[2020-06-05 10:53] LABS: Ferritin 4251.3 ng/mL (22.0-322.0)
[2020-06-05 12:28] LABS: Glucose,Whole Blood 381 mg/dL (75-99)
--- NOTE | 2020-06-05 15:37 | P.PN ---
Subjective Progress Note Date: 06/05/20 Principal diagnosis: Acute hypoxic respiratory failure Acute covid 19 pneumonia ARDS likely related covid 19 pneumonia Dyslipidemia Hypertension hypertensive cardiovascular disease Diabetes mellitus 06/05/2020, patient seen eval examined during the rounds labs reviewed medic ations reviewed care plan discussed, patient has intermittent episodes of desaturation throughout the day, however he remains stable on BiPAP currently on 1208 and 60% oxygen, improved 100%, labs from today reviewed inflammatory parameters remains high suggestive of ongoing cytokine strong, sugar also noted on the higher side, we will start sliding scale insulin if it remains elevated 06/04/2020, patient seen eval examined during the rounds labs reviewed medications reviewed, care plan discussed, remains on BiPAP 06/06 with 60% oxygen saturation is 98%, patient did desaturate on high flow address lysed oxygen, he has finished IV REMdesivir convalescent plasma remains on Decadron 06/03/2020, patient seen eval reexamined during the rounds labs reviewed medications reviewed, patient was desaturating or with aerosolized oxygen just has been placed on BiPAP 06/03 with 80% oxygen saturation improved to 100%, , patient is status post IV in remdesivir therapy, he has received convalescent plasma as well yesterday, chest x-ray reviewed diffuse patchy infiltrates bilaterally remains stable 06/02/2020, patient seen eval examined during the rounds labs reviewed medications reviewed, due to severe hypoxia and respiratory distress patient transferred from the medical floor to ICU, patient was off of BiPAP for extended period time, on high flow search dropped down to 60s and 70s, after bringing patient up in the ICU was continued on BiPAP, prone positioning have been encouraged, patient will be given convalescent plasma as well, and is status post therapy with IV REM doesn't wear remains on Decadron and Lovenox, she sent patient remains afebrile, tachypneic, hemodynamic status stable, on BiPAP 06/06, 80% oxygen saturation is 95-96%, 's x-ray continue show bilateral diffuse interstitial infiltrates, overall not much change compared to prior x-ray 06/01/2020, patient seen eval examined during the rounds labs reviewed medications reviewed patient has been prone with BiPAP, oxygen saturation significantly improved to 96-98%, remains on 80% oxygen with BiPAP of 12 and 8, is still feel congested, short of breath, on supine posture however saturation to drop, remains on high flow oxygen with mask in between the BiPAP for meals and overall care, chest x-ray performed today shows diffuse bilateral interstitial and groundglass opacities predominantly in the perihilar area slightly improved on the left side though, noted mildly elevated troponin of 0.4 asymptomatic likely demand ischemia related 05/31/2020, patient seen, currently resting, remains on BiPAP in between for maintenance on address lysed high flow oxygen, sats on BiPAP last check was 90%, hemodynamic status stable, continued to be short of breath using necessary muscles cough is present intermittently dry and nonproductive, patient remains on therapy 05/30/2020, patient seen eval examined during the rounds labs reviewed irrigations reviewed, patient is overall in good spirits, however continued to require high flow oxygen with aerosolized oxygen and nonrebreather mask during eating otherwise patient has been on BiPAP, currently saturation is about 88-90% on 06/06 on 80% oxygen, sats on BiPAP however improved to 95%, chest x-ray performed earlier today revealed bilateral infiltrates consistent with covid 19 pneumonia 05/29/2020, patient seen eval examined during the rounds labs reviewed medications reviewed care plan discussed, patient remained short of breath currently now is on airvo high flow oxygen, 90% to 91%, Patient came into the hospital with about one week history of increased symptoms of sinus congestion cough, also has a chills fever and mild PI aches and fatigue and pain, history of prior lung problems does have a history hypertension hypertensive cardiovascular disease dyslipidemia and diabetes mellitus, on arrival his oxygen saturation is 90%, low-grade temperature 99.3 was present his steiner virus PCR came back positive, his oxygen requirement continued to go up currently he is on 100% nonrebreather mask with 15 L high flow oxygen, chest x- ray admitted show coarse interstitial changes consistent with interstitial pneumonia repeat chest x-ray did now show worsening ARDS-like Petrin, saturation is 98%, he is afebrile hemodynamic status, he is on Lovenox 40 every 12, on Medrol 60 every 6, Remdesivir IV, inflammatory parameters are consistent with severe inflammatory response d-dimer is 16.4, pH is 574, a reactive protein is 3 Objective - Vital Signs Vital signs: Vital Signs Temp 98.7 F 06/05/20 12:00 Pulse 86 06/05/20 15:00 Resp 27 H 06/05/20 15:00 BP 119/74 06/05/20 15:00 Pulse Ox 100 06/05/20 15:00 Intake & Output 06/04/20 06/05/20 06/05/20 18:59 06:59 18:59 Intake Total 560 0 200 Output Total 1100 500 351 Balance -540 -500 -151 Weight 79.5 kg Intake: Oral 560 0 200 Output: Urine 1100 500 351 Other: Voiding Method Urinal Urinal Urinal # Voids 0 - Exam - Constitutional General appearance: average body habitus, disheveled, mild distress - EENT Eyes: EOMI, PERRLA Ears: bilateral: normal - Neck Neck: normal ROM Carotids: bilateral: upstroke normal Thyroid: bilateral: normal size - Respiratory Respiratory: bilateral: diminished - Cardiovascular Rhythm: regular Heart sounds: normal: S1, S2 - Gastrointestinal General gastrointestinal: soft - Integumentary Integumentary: decreased turgor - Neurologic Neurologic: CNII-XII intact - Musculoskeletal Musculoskeletal: gait normal, generalized weakness, strength equal bilaterally - Psychiatric Psychiatric: A&O x's 3, appropriate affect, intact judgment & insight - Labs CBC & Chem 7: 06/05/20 03:55 06/05/20 03:55 Labs: Abnormal Lab Results - Last 24 Hours (Table) 06/04/20 06/04/20 06/05/20 Range/Units 16:47 19:34 02:08 Plt Count (150-450) k/uL Neutrophils # (1.3-7.7) k/uL Lymphocytes # (1.0-4.8) k/uL Sodium (137-145) mmol/L Carbon Dioxide (22-30) mmol/L BUN (9-20) mg/dL Glucose (74-99) mg/dL POC Glucose (mg/dL) 135 H 175 H 199 H (75-99) mg/dL Calcium (8.4-10.2) mg/dL Ferritin (22.0-322.0) ng/mL Lactate Dehydrogenase (313-618) U/L Creatine Kinase (55-170) U/L C-Reactive Protein (<10.0) mg/L Total Protein (6.3-8.2) g/dL Albumin (3.5-5.0) g/dL 1206/05/20 06/05/20 Range/Units 03:55 03:55 06:43 Plt Count 46 L (150-450) k/uL Neutrophils # 9.1 H (1.3-7.7) k/uL Lymphocytes # 0.1 L (1.0-4.8) k/uL Sodium 136 L (137-145) mmol/L Carbon Dioxide 34 H (22-30) mmol/L BUN 47 H (9-20) mg/dL Glucose 232 H (74-99) mg/dL POC Glucose (mg/dL) 227 H (75-99) mg/dL Calcium 8.1 L (8.4-10.2) mg/dL Ferritin 4251.3 H (22.0-322.0) ng/mL Lactate Dehydrogenase 1504 H (313-618) U/L Creatine Kinase 26 L (55-170) U/L C-Reactive Protein 61.7 H (<10.0) mg/L Total Protein 5.3 L (6.3-8.2) g/dL Albumin 2.3 L (3.5-5.0) g/dL 06/05/20 06/05/20 Range/Units 09:48 12:27 Plt Count (150-450) k/uL Neutrophils # (1.3-7.7) k/uL Lymphocytes # (1.0-4.8) k/uL Sodium (137-145) mmol/L Carbon Dioxide (22-30) mmol/L BUN (9-20) mg/dL Glucose (74-99) mg/dL POC Glucose (mg/dL) 342 H 381 H (75-99) mg/dL Calcium (8.4-10.2) mg/dL Ferritin (22.0-322.0) ng/mL Lactate Dehydrogenase (313-618) U/L Creatine Kinase (55-170) U/L C-Reactive Protein (<10.0) mg/L Total Protein (6.3-8.2) g/dL Albumin (3.5-5.0) g/dL Assessment and Plan Assessment: Acute hypoxic respiratory failure Acute covid 19 pneumonia cytokine is rayray ARDS likely related covid 19 pneumonia Dyslipidemia Hypertension hypertensive cardiovascular disease Diabetes mellitus Plan: Continue BiPAP 06/06 with oxygen to keep saturation of 90% or above, in between patient can be rested with aerosolized oxygen and facemask Deep breathing exercise incentive spirometry Prone positioning as much as possible preferably 16 hours a day if not possible patient agree able for sleeping on the sides IV steroids Status post IV Remdesivir for 5 days Continue Anticoagulation with Lovenox Sliding scale insulin, with maintenance insulin Observe closely in ICU Status post Convalescent plasma Time with Patient: Greater than 30
[2020-06-05 17:59] LABS: Glucose,Whole Blood 238 mg/dL (75-99)
[2020-06-05] MEDS: ATORVASTATIN 20 MG TAB PO SCH (20:19)
[2020-06-05] MEDS: TAMSULOSIN 0.4 MG CAP.ER.24H PO SCH (20:19)
[2020-06-05 20:28] LABS: Glucose,Whole Blood 199 mg/dL (75-99)
--- NOTE | 2020-06-05 22:03 | P.PN ---
Subjective Progress Note Date: 06/05/20 Principal diagnosis: COVID Pneumonia This patient was cared for during of federal and state declared state of emergency secondary to COVID 19 Mr. Blanc 74-year-old male with a past medical history of type 2 diabetes mellitus, hypertension, hyperlipidemia, GERD, arthritis coming to the hospital with a chief complaint of cough fever chills and fatigue. Patient has been tested positive for Covid. Patient is seen and examined in the ICU today. He is currently on BiPAP 12/5 saturating at 96% on 80%FiO2. Patient completed IV remdesivir therapy and he received convalescent plasma yesterday. Patient states that his breathing is difficult at times. He complains of dry cough. Denies having any fevers chills or rigors. No chest pain or palpitations. No abdo kinjal pain nausea vomiting or diarrhea. On reviewing his labs patient's D-dimer is slowly trending down. The rest of the inflammatory markers are still high. On 06/04/2020 patient was seen and examined in the ICU. As per discussion with nursing staff patient was having difficulty in breathing and so placed Air Vo with 100% FiO2, and he is maintaining his sats around 90 to 94%. Patient states that his breathing is better. He denies having any fevers chills or rigors. Pl aints. On reviewing his vitals his heart rate is in 80s to 90s, blood pressure 131 x 70 and afebrile. On reviewing his labs white count of 10.6, hemoglobin 13.5, platelets 58. Sodium 136, potassium 4.6, chloride 101, bicarb 33, BUN 50, creatinine 0.91. On 06/05/2020- Patient was seen and examined in the ICU. Early this morning patient took off his Air Vo , then desaturated so eventually patient was put on BiPAP 12 /5 that he is on currently. He is saturating in the low 90s. Patient states that he still has difficulty in breathing. No cough. Denies having any other complaints. Vitals temperature 97.8, heart rate 86, respiratory rate 27 and blood pressure 128/71. Patient labs reviewed from this morning showing white count of 9.6, hemoglobin 14.2, platelets 46. Sodium 136, potassium 4.7, chloride 101, bicarb 34. Blood sugars running on the higher side. Inflammatory markers are still on the higher side. Active Medications Acetaminophen (Acetaminophen Tab 500 Mg Tab) 1,000 mg PO Q6HR PRN PRN Reason: Fever>101 Albuterol Sulfate (Albuterol Hfa Inhaler) 2 puff INHALATION RT-Q6H PRN PRN Reason: Shortness Of Breath Or Wheezing Albuterol Sulfate (Albuterol Hfa Inhaler) 2 puff INHALATION RT-QID [facility] Last Admin: 06/05/20 20:19 Dose: 2 puff Documented by: Ascorbic Acid (Ascorbic Acid 500 Mg Tab) 500 mg PO BID [facility] Last Admin: 06/05/20 20:19 Dose: Not Given Documented by: Aspirin (Aspirin 325 Mg Tab) 325 mg PO DAILY [facility] Last Admin: 06/05/20 08:50 Dose: 325 mg Documented by: Atorvastatin Calcium (Atorvastatin 20 Mg Tab) 20 mg PO HS [facility] Last Admin: 06/05/20 20:19 Dose: Not Given Documented by: Cholecalciferol (Cholecalciferol 1,000 Unit Tab) 5,000 unit PO DAILY [facility] Last Admin: 06/05/20 08:50 Dose: 5,000 unit Documented by: Dexamethasone Sodium Phosphate (Dexamethasone Sod Phosphate 10 Mg/Ml 1 Ml Vial) 6 mg IV Q12HR [facility] Last Admin: 06/05/20 20:31 Dose: 6 mg Documented by: Docusate Sodium (Docusate 100 Mg Cap) 100 mg PO DAILY PRN PRN Reason: Constipation Last Admin: 06/04/20 09:14 Dose: 100 mg Documented by: Enoxaparin Sodium (Enoxaparin 60 Mg/0.6 Ml Syringe) 50 mg SQ Q12HR [facility] Last Admin: 06/05/20 20:19 Dose: Not Given Documented by: Insulin Aspart (Insulin Aspart (Novolog) 100 Unit/Ml Vial) 0 unit SQ [facility]; Protocol Last Admin: 06/05/20 20:32 Dose: 5 unit Documented by: Morphine Sulfate (Morphine Sulfate 2 Mg/Ml Syringe) 2 mg IVP Q4H PRN PRN Reason: Pain/Discomfort Naloxone HCl (Naloxone 0.4 Mg/Ml 1 Ml Vial) 0.2 mg IV Q2M PRN PRN Reason: Opioid Reversal Non-Formulary Medication (Lifitegrast [Xiidra]) 1 dropper BOTH EYES BID [facility] Last Admin: 06/05/20 20:19 Dose: Not Given Documented by: Pantoprazole Sodium (Pantoprazole 40 Mg Tablet) 40 mg PO AC-BID [facility] Last Admin: 06/05/20 17:55 Dose: 40 mg Documented by: Tamsulosin HCl (Tamsulosin 0.4 Mg Cap.Er.24h) 0.4 mg PO HS [facility] Last Admin: 06/05/20 20:19 Dose: Not Given Documented by: Zinc Sulfate (Zinc Sulfate 220 Mg Cap) 220 mg PO DAILY [facility] Last Admin: 06/05/20 08:50 Dose: 220 mg Documented by: Objective - Vital Signs Vital signs: Vital Signs Temp 98.7 F 06/05/20 08:00 Pulse 97 06/05/20 10:00 Resp 30 H 06/05/20 10:00 BP 131/83 06/05/20 10:00 Pulse Ox 98 06/05/20 10:00 Intake & Output 06/04/20 06/05/20 06/05/20 18:59 06:59 18:59 Intake Total 560 0 200 Output Total 1100 500 350 Balance -540 -500 -150 Weight 79.5 kg Intake: Oral 560 0 200 Output: Urine 1100 500 350 Other: Voiding Method Urinal Urinal # Voids 0 - Exam Exam GENERAL: The patient is alert and oriented x3, currently on BiPAP 06/03 HEENT: No pallor, No icterus CARDIOVASCULAR: S1 and S2 present. No murmurs, rubs, or gallops. PULMONARY: Coarse breath sounds in all lung dowd ABDOMEN: Soft, nontender, nondistended, normoactive bowel sounds. No palpable organomegaly. EXTREMITIES: No cyanosis, clubbing, or pedal edema. NEUROLOGICAL: Gross neurological examination did not reveal any focal deficits. SKIN: No rashes. - Labs CBC & Chem 7: 06/05/20 03:55 06/05/20 03:55 Labs: Abnormal Lab Results - Last 24 Hours (Table) 06/04/20 06/04/20 06/04/20 Range/Units 03:42 12:37 12:48 Plt Count (150-450) k/uL Neutrophils # (1.3-7.7) k/uL Lymphocytes # (1.0-4.8) k/uL Sodium (137-145) mmol/L Carbon Dioxide (22-30) mmol/L BUN (9-20) mg/dL Glucose (74-99) mg/dL POC Glucose (mg/dL) 65 L 146 H (75-99) mg/dL Calcium (8.4-10.2) mg/dL Ferritin 2651.3 H (22.0-322.0) ng/mL Lactate Dehydrogenase (313-618) U/L Creatine Kinase (55-170) U/L C-Reactive Protein (<10.0) mg/L Total Protein (6.3-8.2) g/dL Albumin (3.5-5.0) g/dL 06/04/20 06/04/20 06/05/20 Range/Units 16:47 19:34 02:08 Plt Count (150-450) k/uL Neutrophils # (1.3-7.7) k/uL Lymphocytes # (1.0-4.8) k/uL Sodium (137-145) mmol/L Carbon Dioxide (22-30) mmol/L BUN (9-20) mg/dL Glucose (74-99) mg/dL POC Glucose (mg/dL) 135 H 175 H 199 H (75-99) mg/dL Calcium (8.4-10.2) mg/dL Ferritin (22.0-322.0) ng/mL Lactate Dehydrogenase (313-618) U/L Creatine Kinase (55-170) U/L C-Reactive Protein (<10.0) mg/L Total Protein (6.3-8.2) g/dL Albumin (3.5-5.0) g/dL 06/05/20 06/05/20 06/05/20 Range/Units 03:55 03:55 06:43 Plt Count 46 L (150-450) k/uL Neutrophils # 9.1 H (1.3-7.7) k/uL Lymphocytes # 0.1 L (1.0-4.8) k/uL Sodium 136 L (137-145) mmol/L Carbon Dioxide 34 H (22-30) mmol/L BUN 47 H (9-20) mg/dL Glucose 232 H (74-99) mg/dL POC Glucose (mg/dL) 227 H (75-99) mg/dL Calcium 8.1 L (8.4-10.2) mg/dL Ferritin 4251.3 H (22.0-322.0) ng/mL Lactate Dehydrogenase 1504 H (313-618) U/L Creatine Kinase 26 L (55-170) U/L C-Reactive Protein 61.7 H (<10.0) mg/L Total Protein 5.3 L (6.3-8.2) g/dL Albumin 2.3 L (3.5-5.0) g/dL 06/05/20 Range/Units 09:48 Plt Count (150-450) k/uL Neutrophils # (1.3-7.7) k/uL Lymphocytes # (1.0-4.8) k/uL Sodium (137-145) mmol/L Carbon Dioxide (22-30) mmol/L BUN (9-20) mg/dL Glucose (74-99) mg/dL POC Glucose (mg/dL) 342 H (75-99) mg/dL Calcium (8.4-10.2) mg/dL Ferritin (22.0-322.0) ng/mL Lactate Dehydrogenase (313-618) U/L Creatine Kinase (55-170) U/L C-Reactive Protein (<10.0) mg/L Total Protein (6.3-8.2) g/dL Albumin (3.5-5.0) g/dL Assessment and Plan Assessment: ASSESSMENT Acute hypoxic respiratory failure secondary to Covid pneumonia Increased inflammatory markers Dyslipidemia Hypertension Type 2 diabetes mellitus Multiple joint osteoarthritis PLAN: Patient completed her IV remdesivir. He received a dose of convalescent plasma. He continues to be on BiPAP 12/ saturating low 90 's. . Continue with IV steroids and breathing treatments. Patient's inflammatory markers continue to be higher side. Will adjust the dose of insulin depending upon his blood sugars. Protonix for GI prophylaxis. Lovenox on hold due to thrombocytopenia. Continue with the rest of his current medication regimen. Spoke with his Mrs. Rodriguez and updated her about the patient's condition today over the phone. Further recommendations to follow depending on the progress of the patient. Overall prognosis is guarded.
--- NOTE | 2020-06-05 23:00 | PN ---
PROGRESS NOTE DATE OF SERVICE: 06/05/2020 REASON FOR FOLLOWUP: Acute COVID-19 pneumonia. INTERVAL HISTORY: The patient is currently afebrile. He mentioned breathing slightly comfortably. Patient denies having chest pain; did have a cough. No sputum. No nausea, no vomiting. No abdominal pain or diarrhea. PHYSICAL EXAMINATION: Blood pressure 122/80 with a pulse of 83, temperature is 97.8. He is 97% on 60% FiO2. General description is an elderly male lying in bed in no distress. RESPIRATORY SYSTEM: Unlabored breathing with decreased intensity of breath sounds. No wheeze. HEART: S1, S2. Regular rate and rhythm. ABDOMEN: Soft. No tenderness. LABS/IMAGING: Chest x-ray did not show any difference. Inflammatory markers remain elevated. DIAGNOSTIC IMPRESSION AND PLAN: Patient with acute COVID-19 infection in this patient who did have persistent elevated inflammatory markers and concern for cytokine storm. Would benefit from Actemra in addition to the steroid and Lovenox the patient is on. Unfortunately it could not be added, as it is not on protocol here. Will discuss further with Pharmacy tomorrow. Continue with supportive care. MMODL / IJN: [id number] /
[2020-06-06 02:14] LABS: Glucose,Whole Blood 152 mg/dL (75-99)
[2020-06-06 04:50] LABS: Basophils % (A) 0 %; Eosinophils % (A) 0 %; HCT 45.7 % (39.0-53.0); HGB 14.6 gm/dL (13.0-17.5); Lymphocytes # (A) 0.1 k/uL (1.0-4.8); Lymphocytes % (A) 1 %; MCH 30.3 pg (25.0-35.0); MCHC 31.9 g/dL (31.0-37.0); MCV 94.8 fL (80.0-100.0); Mean Platelet Volume 9.1; Monocytes # (A) 0.3 k/uL (0-1.0); Monocytes % (A) 3 %; Neutrophils # (A) 10.2 k/uL (1.3-7.7); Neutrophils % (A) 96 %; RBC 4.82 m/uL (4.30-5.90); RDW 13.2 % (11.5-15.5); WBC 10.7 k/uL (3.8-10.6)
[2020-06-06 04:57] LABS: Platelet Count 51 k/uL (150-450)
[2020-06-06 05:08] LABS: D-Dimer 26.3 mg/L FEU (<0.60); INR 1.1 (<1.2); Partial Thromboplastin Time 22.7 sec (22.0-30.0); Prothrombin Time 11.3 sec (9.0-12.0)
[2020-06-06 05:10] LABS: Albumin 2.3 g/dL (3.5-5.0); C Reactive Protein 70.2 mg/L (<10.0); Calcium 8.3 mg/dL (8.4-10.2); Magnesium 2.4 mg/dL (1.6-2.3); Potassium 4.8 mmol/L (3.5-5.1); Total Bilirubin 1.2 mg/dL (0.2-1.3); Total Protein 5.6 g/dL (6.3-8.2)
[2020-06-06 05:25] LABS: ABG Base Excess 10.1 mmol/L; ABG HCO3 33 mmol/L (21-25); ABG Oxygen Saturation 94.3 % (94-97); ABG PCO2 44 mmHg (35-45); ABG PH 7.49 (7.35-7.45); ABG PO2 78 mmHg (83-108); ABG TCO2 35 mmol/L (19-24); Allen Test Performed? Yes
[2020-06-06 06:45] LABS: Glucose,Whole Blood 195 mg/dL (75-99)
[2020-06-06] MEDS: INSULIN ASPART (NovoLOG) 100 UNIT/ML VIAL SQ SCH ×4 (06:49→21:47)
[2020-06-06] MEDS: PANTOPRAZOLE 40 MG TABLET PO SCH ×3 (06:51→18:39)
[2020-06-06] MEDS: ALBUTEROL HFA INHALER INHALATION SCH ×5 (07:31→19:09)
[2020-06-06] MEDS: CHOLECALCIFEROL 1,000 UNIT TAB PO SCH (08:19)
[2020-06-06] MEDS: ASPIRIN 325 MG TAB PO SCH (08:19)
[2020-06-06] MEDS: ZINC SULFATE 220 MG CAP PO SCH (08:19)
[2020-06-06] MEDS: DEXAMETHASONE SOD PHOSPHATE 10 MG/ML 1 ML VIAL IV SCH ×2 (08:19→20:37)
[2020-06-06] MEDS: ASCORBIC ACID 500 MG TAB PO SCH ×2 (08:19→20:37)
[2020-06-06] MEDS: NON FORMULARY DRUG (Lifitegrast [Xiidra] 1 EACH Droperette) BOTH EYES SCH ×2 (08:20→21:51)
--- NOTE | 2020-06-06 08:33 | XR ---
EXAMINATION TYPE: XR chest 1V portable DATE OF EXAM: 06/06/2020 COMPARISON: Prior chest x-ray 06/05/2020 HISTORY: Dyspnea TECHNIQUE: Single frontal view of the chest is obtained. FINDINGS: Bilateral airspace disease persists. No evident pneumothorax or pleural effusion. Cardiac mediastinal silhouette is stable. IMPRESSION: Correlate for pneumonia, edema, follow-up recommended.
--- NOTE | 2020-06-06 09:53 | P.PN ---
Subjective Progress Note Date: 06/06/20 Principal diagnosis: Covid-19 infection Acute hypoxia 74-year-old male who is recently admitted with generalized body aches, sinus congestion, fevers, and mild shortness of breath with exertion. patient was found to have covid- 19 infection started on 2 L of oxygen for respiratory status.respiratory status declined during hospital admission, patient was placed on high flow oxygen, patient continued to have respiratory difficultyplaced on BiPAP tolerating BiPAP well.patient denies fever, chills, nausea, or abdominal pain. patient complaint of dyspnea on exertion, painful inspiration,and intercostal discomfort. Patient continues to be dependent on BiPAPplaced on high flow nasal cannula patient's oxygen saturation decreases to 80%. Objective - Vital Signs Vital signs: Vital Signs Temp 97.8 F 06/06/20 08:00 Pulse 96 06/06/20 09:00 Resp 32 H 06/06/20 09:00 BP 107/77 06/06/20 09:00 Pulse Ox 93 L 06/06/20 09:00 Intake & Output 06/05/20 06/06/20 06/06/20 18:59 06:59 18:59 Intake Total 200 0 Output Total 701 250 300 Balance -501 -250 -300 Weight 72.5 kg Intake: Oral 200 0 Output: Urine 701 250 300 Other: Voiding Method Urinal Urinal # Voids 0 0 - Constitutional Constitutional Comment(s): Moderate distress General appearance: Present: cooperative, thin - EENT Eyes: Present: abnormal pupil, EOMI Ears: bilateral: normal - Neck Neck: Present: normal ROM - Respiratory Respiratory: bilateral: diminished (Anterior lung dowd), negative: rales (Posterior lung dowd), rhonchi (Posterior lung dowd) - Cardiovascular Details: Normal sinus rhythm Heart rate: 74 Rhythm: regular Heart sounds: normal: S1, S2 - Peripheral pulses dorsalis pedis Peripheral Pulses: bilateral: Normal radial pulse Peripheral Pulses: bilateral: Normal - Gastrointestinal General gastrointestinal: Present: decreased bowel sounds - Integumentary Integumentary: Present: decreased turgor, pale - Neurologic Neurologic: Present: CNII-XII intact - Musculoskeletal Musculoskeletal: Present: generalized weakness - Psychiatric Psychiatric: Present: A&O x's 3 - Allied health notes Allied health notes reviewed: nursing - Labs CBC & Chem 7: 06/06/20 03:46 06/06/20 03:46 Labs: Abnormal Lab Results - Last 24 Hours (Table) 06/05/20 06/05/20 06/05/20 Range/Units 03:55 09:48 12:27 WBC (3.8-10.6) k/uL Plt Count (150-450) k/uL Neutrophils # (1.3-7.7) k/uL Lymphocytes # (1.0-4.8) k/uL D-Dimer (<0.60) mg/L FEU ABG pH (7.35-7.45) ABG pO2 (83-108) mmHg ABG HCO3 (21-25) mmol/L ABG Total CO2 (19-24) mmol/L Carbon Dioxide (22-30) mmol/L BUN (9-20) mg/dL Glucose (74-99) mg/dL POC Glucose (mg/dL) 342 H 381 H (75-99) mg/dL Calcium (8.4-10.2) mg/dL Magnesium (1.6-2.3) mg/dL Ferritin 4251.3 H (22.0-322.0) ng/mL Lactate Dehydrogenase (313-618) U/L Creatine Kinase (55-170) U/L C-Reactive Protein (<10.0) mg/L Total Protein (6.3-8.2) g/dL Albumin (3.5-5.0) g/dL 06/05/20 06/05/20 06/06/20 Range/Units 17:58 20:27 02:12 WBC (3.8-10.6) k/uL Plt Count (150-450) k/uL Neutrophils # (1.3-7.7) k/uL Lymphocytes # (1.0-4.8) k/uL D-Dimer (<0.60) mg/L FEU ABG pH (7.35-7.45) ABG pO2 (83-108) mmHg ABG HCO3 (21-25) mmol/L ABG Total CO2 (19-24) mmol/L Carbon Dioxide (22-30) mmol/L BUN (9-20) mg/dL Glucose (74-99) mg/dL POC Glucose (mg/dL) 238 H 199 H 152 H (75-99) mg/dL Calcium (8.4-10.2) mg/dL Magnesium (1.6-2.3) mg/dL Ferritin (22.0-322.0) ng/mL Lactate Dehydrogenase (313-618) U/L Creatine Kinase (55-170) U/L C-Reactive Protein (<10.0) mg/L Total Protein (6.3-8.2) g/dL Albumin (3.5-5.0) g/dL 06/06/20 06/06/20 06/06/20 Range/Units 03:46 03:46 03:46 WBC 10.7 H (3.8-10.6) k/uL Plt Count 51 L (150-450) k/uL Neutrophils # 10.2 H (1.3-7.7) k/uL Lymphocytes # 0.1 L (1.0-4.8) k/uL D-Dimer 26.30 H (<0.60) mg/L FEU ABG pH (7.35-7.45) ABG pO2 (83-108) mmHg ABG HCO3 (21-25) mmol/L ABG Total CO2 (19-24) mmol/L Carbon Dioxide 37 H (22-30) mmol/L BUN 54 H (9-20) mg/dL Glucose 178 H (74-99) mg/dL POC Glucose (mg/dL) (75-99) mg/dL Calcium 8.3 L (8.4-10.2) mg/dL Magnesium 2.4 H (1.6-2.3) mg/dL Ferritin (22.0-322.0) ng/mL Lactate Dehydrogenase 1651 H (313-618) U/L Creatine Kinase 27 L (55-170) U/L C-Reactive Protein 70.2 H (<10.0) mg/L Total Protein 5.6 L (6.3-8.2) g/dL Albumin 2.3 L (3.5-5.0) g/dL 06/06/20 06/06/20 Range/Units 05:23 06:44 WBC (3.8-10.6) k/uL Plt Count (150-450) k/uL Neutrophils # (1.3-7.7) k/uL Lymphocytes # (1.0-4.8) k/uL D-Dimer (<0.60) mg/L FEU ABG pH 7.49 H (7.35-7.45) ABG pO2 78 L (83-108) mmHg ABG HCO3 33 H (21-25) mmol/L ABG Total CO2 35 H (19-24) mmol/L Carbon Dioxide (22-30) mmol/L BUN (9-20) mg/dL Glucose (74-99) mg/dL POC Glucose (mg/dL) 195 H (75-99) mg/dL Calcium (8.4-10.2) mg/dL Magnesium (1.6-2.3) mg/dL Ferritin (22.0-322.0) ng/mL Lactate Dehydrogenase (313-618) U/L Creatine Kinase (55-170) U/L C-Reactive Protein (<10.0) mg/L Total Protein (6.3-8.2) g/dL Albumin (3.5-5.0) g/dL - Imaging and Cardiology Chest x-ray: report reviewed Assessment and Plan Assessment: covid- 19 pneumonitis acute hypoxic respiratory failure- type 2 diabetes with hyperglycemia hyperlipiedema Hypertension (1) COVID-19 Narrative/Plan: continue consultation with pulmonary critical care for recommendations and treatment plan BiPAP therapy Encourage patient to lay prone due to coven 19 pneumonitis, inform nursing staff to adjust patient to lay prone Awaiting approval for second course of Remdesivir Awaiting approval for Tocilizumab-due to clinical and diagnostic impression of cytokine storm Current Visit: Yes Status: Acute Code(s): U07.1 - COVID-19 SNOMED Code(s): 916917089 Plan: continue consultation with pulmonary critical care for recommendations and treatment plan continue consultation with infectious disease for recommendations and treatment plan Awaiting approval for second course of Remdesivir Awaiting approval for Tocilizumab-due to clinical and diagnostic impression of cytokine storm continue current medication therapy bIPAP with settings 12/5 with FiO2 of 80% continue medical management Time with Patient: Greater than 30
[2020-06-06 10:38] LABS: Ferritin 5045.1 ng/mL (22.0-322.0)
[2020-06-06] MEDS: SODIUM CHLORIDE 0.9% 1,000 ML IV SCH (10:51)
--- NOTE | 2020-06-06 11:15 | P.PN ---
Subjective Progress Note Date: 06/06/20 Principal diagnosis: Acute hypoxic respiratory failure Acute covid 19 pneumonia ARDS likely related covid 19 pneumonia Dyslipidemia Hypertension hypertensive cardiovascular disease Diabetes mellitus 06/06/2020, patient seen eval examined during the rounds labs reviewed medic ations reviewed patient does have problem with swallowing very dry mouth, however can take honey thick, suspect may be dryness or oral thrush present, we'll start treating with nystatin swish and swallow, hemodynamic status remained stable however oxygenation remains marginal but doing better on aer osolized oxygen saturation is mid 90s, with activity does desaturate, intermittently have been doing BiPAP as well with 90% oxygen, x-ray performed earlier today reviewed overall remains stable pneumonia not much change finding consistent with Covid pneumonia and early ARDS 06/05/2020, patient seen eval examined during the rounds labs reviewed medications reviewed care plan discussed, patient has intermittent episodes of desaturation throughout the day, however he remains stable on BiPAP currently on 1208 and 60% oxygen, improved 100%, labs from today reviewed inflammatory parameters remains high suggestive of ongoing cytokine strong, sugar also noted on the higher side, we will start sliding scale insulin if it remains elevated 06/04/2020, patient seen eval examined during the rounds labs reviewed medications reviewed, care plan discussed, remains on BiPAP 06/06 with 60% oxygen saturation is 98%, patient did desaturate on high flow address lysed oxygen, he has finished IV REMdesivir convalescent plasma remains on Decadron 06/03/2020, patient seen eval reexamined during the rounds labs reviewed medications reviewed, patient was desaturating or with aerosolized oxygen just has been placed on BiPAP 06/03 with 80% oxygen saturation improved to 100%, , patient is status post IV in remdesivir therapy, he has received convalescent plasma as well yesterday, chest x-ray reviewed diffuse patchy infiltrates bilaterally remains stable 06/02/2020, patient seen eval examined during the rounds labs reviewed medications reviewed, due to severe hypoxia and respiratory distress patient t ransferred from the medical floor to ICU, patient was off of BiPAP for extended period time, on high flow search dropped down to 60s and 70s, after bringing patient up in the ICU was continued on BiPAP, prone positioning have been encouraged, patient will be given convalescent plasma as well, and is status post therapy with IV REM doesn't wear remains on Decadron and Lovenox, she sent patient remains afebrile, tachypneic, hemodynamic status stable, on BiPAP 06/06, 80% oxygen saturation is 95-96%, 's x-ray continue show bilateral diffuse interstitial infiltrates, overall not much change compared to prior x-ray 06/01/2020, patient seen eval examined during the rounds labs reviewed medications reviewed patient has been prone with BiPAP, oxygen saturation significantly improved to 96-98%, remains on 80% oxygen with BiPAP of 12 and 8, is still feel congested, short of breath, on supine posture however saturation to drop, remains on high flow oxygen with mask in between the BiPAP for meals a nd overall care, chest x-ray performed today shows diffuse bilateral interstitial and groundglass opacities predominantly in the perihilar area slightly improved on the left side though, noted mildly elevated troponin of 0.4 asymptomatic likely demand ischemia related 05/31/2020, patient seen, currently resting, remains on BiPAP in between for maintenance on address lysed high flow oxygen, sats on BiPAP last check was 90%, hemodynamic status stable, continued to be short of breath using necessary muscles cough is present intermittently dry and nonproductive, patient remains on therapy 05/30/2020, patient seen eval examined during the rounds labs reviewed irrigations reviewed, patient is overall in good spirits, however continued to require high flow oxygen with aerosolized oxygen and nonrebreather mask during eating otherwise patient has been on BiPAP, currently saturation is about 88-90% on 06/06 on 80% oxygen, sats on BiPAP however improved to 95%, chest x-ray performed earlier today revealed bilateral infiltrates consistent with covid 19 pneumonia 05/29/2020, patient seen eval examined during the rounds labs reviewed medications reviewed care plan discussed, patient remained short of breath currently now is on airvo high flow oxygen, 90% to 91%, Patient came into the hospital with about one week history of increased symptoms of sinus congestion cough, also has a chills fever and mild PI aches and fatigue and pain, history of prior lung problems does have a history hypertension hypertensive cardiovascular disease dyslipidemia and diabetes mellitus, on arrival his oxygen saturation is 90%, low-grade temperature 99.3 was present his steiner virus PCR came back positive, his oxygen requirement continued to go up currently he is on 100% nonrebreather mask with 15 L high flow oxygen, chest x- ray admitted show coarse interstitial changes consistent with interstitial pne umonia repeat chest x-ray did now show worsening ARDS-like Petrin, saturation is 98%, he is afebrile hemodynamic status, he is on Lovenox 40 every 12, on Medrol 60 every 6, Remdesivir IV, inflammatory parameters are consistent with severe inflammatory response d-dimer is 16.4, pH is 574, a reactive protein is 3 Objective - Vital Signs Vital signs: Vital Signs Temp 97.8 F 06/06/20 08:00 Pulse 96 06/06/20 09:00 Resp 32 H 06/06/20 09:00 BP 107/77 06/06/20 09:00 Pulse Ox 93 L 06/06/20 09:00 Intake & Output 06/05/20 06/06/20 06/06/20 18:59 06:59 18:59 Intake Total 200 0 Output Total 701 250 300 Balance -501 -250 -300 Weight 72.5 kg Intake: Oral 200 0 Output: Urine 701 250 300 Other: Voiding Method Urinal Urinal # Voids 0 0 - Exam - Constitutional General appearance: average body habitus, disheveled, mild distress - EENT Eyes: EOMI, PERRLA Ears: bilateral: normal - Neck Neck: normal ROM Carotids: bilateral: upstroke normal Thyroid: bilateral: normal size - Respiratory Respiratory: bilateral: diminished - Cardiovascular Rhythm: regular Heart sounds: normal: S1, S2 - Gastrointestinal General gastrointestinal: soft - Integumentary Integumentary: decreased turgor - Neurologic Neurologic: CNII-XII intact - Musculoskeletal Musculoskeletal: gait normal, generalized weakness, strength equal bilaterally - Psychiatric Psychiatric: A&O x's 3, appropriate affect, intact judgment & insight - Labs CBC & Chem 7: 06/06/20 03:46 06/06/20 03:46 Labs: Abnormal Lab Results - Last 24 Hours (Table) 06/05/20 06/05/20 06/05/20 Range/Units 12:27 17:58 20:27 WBC (3.8-10.6) k/uL Plt Count (150-450) k/uL Neutrophils # (1.3-7.7) k/uL Lymphocytes # (1.0-4.8) k/uL D-Dimer (<0.60) mg/L FEU ABG pH (7.35-7.45) ABG pO2 (83-108) mmHg ABG HCO3 (21-25) mmol/L ABG Total CO2 (19-24) mmol/L Carbon Dioxide (22-30) mmol/L BUN (9-20) mg/dL Glucose (74-99) mg/dL POC Glucose (mg/dL) 381 H 238 H 199 H (75-99) mg/dL Calcium (8.4-10.2) mg/dL Magnesium (1.6-2.3) mg/dL Ferritin (22.0-322.0) ng/mL Lactate Dehydrogenase (313-618) U/L Creatine Kinase (55-170) U/L C-Reactive Protein (<10.0) mg/L Total Protein (6.3-8.2) g/dL Albumin (3.5-5.0) g/dL Procalcitonin (0.02-0.09) ng/mL 06/06/20 06/06/20 06/06/20 Range/Units 02:12 03:46 03:46 WBC 10.7 H (3.8-10.6) k/uL Plt Count 51 L (150-450) k/uL Neutrophils # 10.2 H (1.3-7.7) k/uL Lymphocytes # 0.1 L (1.0-4.8) k/uL D-Dimer (<0.60) mg/L FEU ABG pH (7.35-7.45) ABG pO2 (83-108) mmHg ABG HCO3 (21-25) mmol/L ABG Total CO2 (19-24) mmol/L Carbon Dioxide (22-30) mmol/L BUN (9-20) mg/dL Glucose (74-99) mg/dL POC Glucose (mg/dL) 152 H (75-99) mg/dL Calcium (8.4-10.2) mg/dL Magnesium (1.6-2.3) mg/dL Ferritin (22.0-322.0) ng/mL Lactate Dehydrogenase (313-618) U/L Creatine Kinase (55-170) U/L C-Reactive Protein (<10.0) mg/L Total Protein (6.3-8.2) g/dL Albumin (3.5-5.0) g/dL Procalcitonin 0.17 H (0.02-0.09) ng/mL 06/06/20 06/06/20 06/06/20 Range/Units 03:46 03:46 05:23 WBC (3.8-10.6) k/uL Plt Count (150-450) k/uL Neutrophils # (1.3-7.7) k/uL Lymphocytes # (1.0-4.8) k/uL D-Dimer 26.30 H (<0.60) mg/L FEU ABG pH 7.49 H (7.35-7.45) ABG pO2 78 L (83-108) mmHg ABG HCO3 33 H (21-25) mmol/L ABG Total CO2 35 H (19-24) mmol/L Carbon Dioxide 37 H (22-30) mmol/L BUN 54 H (9-20) mg/dL Glucose 178 H (74-99) mg/dL POC Glucose (mg/dL) (75-99) mg/dL Calcium 8.3 L (8.4-10.2) mg/dL Magnesium 2.4 H (1.6-2.3) mg/dL Ferritin 5045.1 H (22.0-322.0) ng/mL Lactate Dehydrogenase 1651 H (313-618) U/L Creatine Kinase 27 L (55-170) U/L C-Reactive Protein 70.2 H (<10.0) mg/L Total Protein 5.6 L (6.3-8.2) g/dL Albumin 2.3 L (3.5-5.0) g/dL Procalcitonin (0.02-0.09) ng/mL 06/06/20 Range/Units 06:44 WBC (3.8-10.6) k/uL Plt Count (150-450) k/uL Neutrophils # (1.3-7.7) k/uL Lymphocytes # (1.0-4.8) k/uL D-Dimer (<0.60) mg/L FEU ABG pH (7.35-7.45) ABG pO2 (83-108) mmHg ABG HCO3 (21-25) mmol/L ABG Total CO2 (19-24) mmol/L Carbon Dioxide (22-30) mmol/L BUN (9-20) mg/dL Glucose (74-99) mg/dL POC Glucose (mg/dL) 195 H (75-99) mg/dL Calcium (8.4-10.2) mg/dL Magnesium (1.6-2.3) mg/dL Ferritin (22.0-322.0) ng/mL Lactate Dehydrogenase (313-618) U/L Creatine Kinase (55-170) U/L C-Reactive Protein (<10.0) mg/L Total Protein (6.3-8.2) g/dL Albumin (3.5-5.0) g/dL Procalcitonin (0.02-0.09) ng/mL Assessment and Plan Assessment: Difficulty in swallowing likely due to dryness/oral thrush Acute hypoxic respiratory failure Acute covid 19 pneumonia cytokine is rayray ARDS likely related covid 19 pneumonia Dyslipidemia Hypertension hypertensive cardiovascular disease Diabetes mellitus Plan: Continue BiPAP /8 with oxygen to keep saturation of 90% or above, in between patient can be rested with aerosolized oxygen and facemask Deep breathing exercise incentive spirometry Prone positioning as much as possible preferably 16 hours a day if not possible patient agree able for sleeping on the sides IV steroids Nystatin swish and swallow Status post IV Remdesivir for 5 days Continue Anticoagulation with Lovenox Sliding scale insulin, with maintenance insulin Observe closely in ICU Status post Convalescent plasma Time with Patient: Greater than 30
[2020-06-06 12:02] LABS: Glucose,Whole Blood 244 mg/dL (75-99)
[2020-06-06] MEDS: NYSTATIN 100,000 UNIT/ML SUSP 500,000 UNIT/5 ML CUP PO SCH ×3 (12:10→21:51)
[2020-06-06] MEDS: TOCILIZUMAB 400 MG in SODIUM CHLORIDE 0.9% 80 ML IV SCH (16:49)
[2020-06-06 17:43] LABS: Glucose,Whole Blood 221 mg/dL (75-99)
[2020-06-06] MEDS: ATORVASTATIN 20 MG TAB PO SCH (20:36)
[2020-06-06] MEDS: TAMSULOSIN 0.4 MG CAP.ER.24H PO SCH (20:36)
--- NOTE | 2020-06-06 21:18 | P.CONS ---
History of Present Illness - Reason for Consult Consult date: 06/06/20 Thrombocytopenia Requesting physician: Steven Garsia - Chief Complaint COVID - History of Present Illness Patient on bipap, alert mild increased respiratory effort. We have been consulted regarding thrombocytopenia. 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" History of Any Multi-Drug Resistant Organisms: None Reported Past Surgical History: Cholecystectomy Additional Past Surgical History / Comment(s): spinal cord infection I&D, left cataract surgery, colonoscopy, left cataract Past Anesthesia/Blood Transfusion Reactions: Motion Sickness Past Psychological History: No Psychological Hx Reported Smoking Status: Former smoker Past Alcohol Use History: None Reported Additional Past Alcohol Use History / Comment(s): STARTED SMOKING AT AGE 20 QUIT SMOKING 1973 SMOKED 1PPD Past Drug Use History: None Reported - Past Family History Mother Family Medical History: No Reported History Medications and Allergies Home Medications Medication Instructions Recorded Confirmed Type Aspirin 325 mg PO DAILY 05/13/15 05/22/20 History Fish Oil/Dha/Epa [Fish Oil 1,200 1,000 mg PO BID 05/13/15 05/22/20 History mg Fish Oil] Lisinopril-Hctz 20-12.5 mg 1 tab PO DAILY 05/13/15 05/22/20 History [Zestoretic 20-12.5] Omeprazole [PriLOSEC] 20 mg PO AC-BID 05/13/15 05/22/20 History Cholecalciferol [Vitamin D3] 1,000 unit PO DAILY 08/29/17 05/22/20 History Insulin Lispro Protamin/Lispro 40 unit SQ BID 08/29/17 05/22/20 History [humaLOG Mix 75-25 Kwikpen] Ubidecarenone [Co Q-10] 100 mg PO DAILY 08/29/17 05/22/20 History Lifitegrast [Xiidra] 1 dropper BOTH EYES BID 05/22/20 05/22/20 History Simvastatin [Zocor] 20 mg PO HS 05/22/20 05/22/20 History Tamsulosin HCl [Flomax] 0.4 mg PO HS 05/22/20 05/22/20 History Allergies Allergy/AdvReac Type Severity Reaction Status Date / Time clindamycin [From Cleocin] Allergy Rash/Hives Verified 05/22/20 19:29 Physical Exam Vitals: Vital Signs Temp Pulse Resp BP Pulse Ox 06/06/20 17:00 93 34 H 118/82 95 06/06/20 16:00 97.7 F 103 H 34 H 126/72 95 06/06/20 15:00 98 32 H 106/65 90 L 06/06/20 14:00 94 31 H 134/80 88 L 06/06/20 13:00 97 26 H 112/85 91 L 06/06/20 12:00 97.8 F 92 29 H 114/75 90 L 06/06/20 11:00 93 27 H 107/71 87 L 06/06/20 10:00 89 22 110/66 92 L 06/06/20 09:00 96 32 H 107/77 93 L 06/06/20 08:00 97.8 F 84 34 H 108/72 94 L 06/06/20 07:00 78 26 H 105/75 91 L 06/06/20 06:00 67 17 105/72 93 L 06/06/20 05:00 68 21 113/77 94 L 06/06/20 04:00 98.2 F 78 26 H 106/65 95 06/06/20 03:00 62 18 102/68 94 L 06/06/20 02:00 67 18 95/52 95 06/06/20 01:00 67 17 88/55 96 06/06/20 00:01 70 19 96 06/06/20 00:00 98.0 F 71 20 121/79 96 06/05/20 23:00 76 31 H 120/74 98 06/05/20 22:00 92 31 H 112/76 96 06/05/20 21:00 83 26 H 132/80 97 06/05/20 20:00 97.8 F 86 27 H 128/71 97 06/05/20 19:00 82 30 H 117/79 97 06/05/20 18:00 86 27 H 130/78 97 Intake and Output 06/06/20 06/06/20 06/06/20 06:59 14:59 22:59 Intake Total 300 250 Output Total 600 300 Balance -300 -50 Intake: Intake, IV Titration 300 250 Amount Sodium Chloride 0.9% 1, 300 150 000 ml @ 75 mls/hr IV . [id number] [facility] Rx#:[id number] Tocilizumab 400 mg In 100 Sodium Chloride 0.9% 80 ml @ 100 mls/hr IV Q12H [facility] Rx#:[id number] Oral 0 Output: Urine 600 300 Other: Voiding Method Urinal # Voids 0 Weight 72.5 kg Bipap - Constitutional General appearance: cooperative, mild distress - EENT Eyes: dentition normal ENT: hard of hearing, NA/AT - Respiratory Respiratory: bilateral: diminished, rhonchi - Cardiovascular Rhythm: irregularly irregular - Gastrointestinal General gastrointestinal: soft - Integumentary Integumentary: pale - Neurologic non focal - Musculoskeletal Musculoskeletal: generalized weakness Results CBC & Chem 7: 06/06/20 03:46 06/06/20 03:46 Labs: Abnormal Lab Results - Last 24 Hours (Table) 06/05/20 06/05/20 06/06/20 Range/Units 17:58 20:27 02:12 WBC (3.8-10.6) k/uL Plt Count (150-450) k/uL Neutrophils # (1.3-7.7) k/uL Lymphocytes # (1.0-4.8) k/uL D-Dimer (<0.60) mg/L FEU ABG pH (7.35-7.45) ABG pO2 (83-108) mmHg ABG HCO3 (21-25) mmol/L ABG Total CO2 (19-24) mmol/L Carbon Dioxide (22-30) mmol/L BUN (9-20) mg/dL Glucose (74-99) mg/dL POC Glucose (mg/dL) 238 H 199 H 152 H (75-99) mg/dL Calcium (8.4-10.2) mg/dL Magnesium (1.6-2.3) mg/dL Ferritin (22.0-322.0) ng/mL Lactate Dehydrogenase (313-618) U/L Creatine Kinase (55-170) U/L C-Reactive Protein (<10.0) mg/L Total Protein (6.3-8.2) g/dL Albumin (3.5-5.0) g/dL Procalcitonin (0.02-0.09) ng/mL 06/06/20 06/06/2006/06/20 Range/Units 03:46 03:46 03:46 WBC 10.7 H (3.8-10.6) k/uL Plt Count 51 L (150-450) k/uL Neutrophils # 10.2 H (1.3-7.7) k/uL Lymphocytes # 0.1 L (1.0-4.8) k/uL D-Dimer 26.30 H (<0.60) mg/L FEU ABG pH (7.35-7.45) ABG pO2 (83-108) mmHg ABG HCO3 (21-25) mmol/L ABG Total CO2 (19-24) mmol/L Carbon Dioxide (22-30) mmol/L BUN (9-20) mg/dL Glucose (74-99) mg/dL POC Glucose (mg/dL) (75-99) mg/dL Calcium (8.4-10.2) mg/dL Magnesium (1.6-2.3) mg/dL Ferritin (22.0-322.0) ng/mL Lactate Dehydrogenase (313-618) U/L Creatine Kinase (55-170) U/L C-Reactive Protein (<10.0) mg/L Total Protein (6.3-8.2) g/dL Albumin (3.5-5.0) g/dL Procalcitonin 0.17 H (0.02-0.09) ng/mL 06/06/20 06/06/20 06/06/20 Range/Units 03:46 05:23 06:44 WBC (3.8-10.6) k/uL Plt Count (150-450) k/uL Neutrophils # (1.3-7.7) k/uL Lymphocytes # (1.0-4.8) k/uL D-Dimer (<0.60) mg/L FEU ABG pH 7.49 H (7.35-7.45) ABG pO2 78 L (83-108) mmHg ABG HCO3 33 H (21-25) mmol/L ABG Total CO2 35 H (19-24) mmol/L Carbon Dioxide 37 H (22-30) mmol/L BUN 54 H (9-20) mg/dL Glucose 178 H (74-99) mg/dL POC Glucose (mg/dL) 195 H (75-99) mg/dL Calcium 8.3 L (8.4-10.2) mg/dL Magnesium 2.4 H (1.6-2.3) mg/dL Ferritin 5045.1 H (22.0-322.0) ng/mL Lactate Dehydrogenase 1651 H (313-618) U/L Creatine Kinase 27 L (55-170) U/L C-Reactive Protein 70.2 H (<10.0) mg/L Total Protein 5.6 L (6.3-8.2) g/dL Albumin 2.3 L (3.5-5.0) g/dL Procalcitonin (0.02-0.09) ng/mL 06/06/20 Range/Units 12:01 WBC (3.8-10.6) k/uL Plt Count (150-450) k/uL Neutrophils # (1.3-7.7) k/uL Lymphocytes # (1.0-4.8) k/uL D-Dimer (<0.60) mg/L FEU ABG pH (7.35-7.45) ABG pO2 (83-108) mmHg ABG HCO3 (21-25) mmol/L ABG Total CO2 (19-24) mmol/L Carbon Dioxide (22-30) mmol/L BUN (9-20) mg/dL Glucose (74-99) mg/dL POC Glucose (mg/dL) 244 H (75-99) mg/dL Calcium (8.4-10.2) mg/dL Magnesium (1.6-2.3) mg/dL Ferritin (22.0-322.0) ng/mL Lactate Dehydrogenase (313-618) U/L Creatine Kinase (55-170) U/L C-Reactive Protein (<10.0) mg/L Total Protein (6.3-8.2) g/dL Albumin (3.5-5.0) g/dL Procalcitonin (0.02-0.09) ng/mL Chest x-ray: report reviewed Assessment and Plan (1) Thrombocytopenia associated with COVID-19 Current Visit: Yes Status: Acute Code(s): U07.1 - COVID-19; D69.59 - OTHER SECONDARY THROMBOCYTOPENIA SNOMED Code(s): 746201596 (2) COVID-19 Current Visit: Yes Status: Acute Code(s): U07.1 - COVID-19 SNOMED Code(s): 329458387 Plan: - patient has been worked up for DIC, His platlet count above 50K is technically still in safe range and with Covid should continue his VTE unless dsigns of bleeding. - Continue to monitor s/s bleeding and coags - Transfuse if less than 10K There is no signs of bleeding. His platelet count is over 50K, hemoglobin stable. Continue VTE as risk for thrombosis with covid is increased as long as no signs of bleeding and platelets remain near 50K
[2020-06-06 21:52] LABS: Glucose,Whole Blood 231 mg/dL (75-99)
--- NOTE | 2020-06-06 23:10 | PN ---
PROGRESS NOTE DATE OF SERVICE: 06/06/2020 REASON FOR FOLLOWUP: COVID-19 pneumonia with cytokine storm. INTERVAL HISTORY: The patient is currently afebrile. He the patient did require BiPAP and high- flow nasal cannula oxygen. The patient denies having any chest pain. Minimal cough. No nausea, no vomiting. No abdominal pain or diarrhea. PHYSICAL EXAMINATION: Blood pressure 111/75, pulse of 104, temperature 98. He is 95% on BiPAP. General description is an elderly male lying in bed in no distress. RESPIRATORY SYSTEM: Unlabored breathing with decreased intensity of breath sounds. No wheeze. HEART: S1, S2. Regular rate and rhythm. ABDOMEN: Soft. No tenderness. EXTREMITIES: No edema of the feet. LABS: Hemoglobin 14.7, white count 10.7. Ferritin is 5045. LDH 1651. DIAGNOSTIC IMPRESSION AND PLAN: Patient with acute COVID-19 infection in this patient with evidence of worsening respiratory status and elevated inflammatory marker, likely COVID, likely cytokine storm. Did discuss with the pharmacy the same, as the patient will benefit from Actemra, which has finally been approved. Will get a dose today and one tomorrow and will monitor his clinical course closely. Overall prognosis remains guarded. MMODL / IJN: [id number] /
[2020-06-07 03:25] LABS: Glucose,Whole Blood 209 mg/dL (75-99)
[2020-06-07 04:10] LABS: Basophils % (A) 0 %; Eosinophils % (A) 0 %; HCT 42.8 % (39.0-53.0); HGB 14.5 gm/dL (13.0-17.5); Lymphocytes # (A) 0.1 k/uL (1.0-4.8); Lymphocytes % (A) 1 %; MCH 31.8 pg (25.0-35.0); MCHC 33.9 g/dL (31.0-37.0); Mean Platelet Volume 10.3; Monocytes # (A) 0.5 k/uL (0-1.0); Monocytes % (A) 5 %; Neutrophils # (A) 8.8 k/uL (1.3-7.7); Neutrophils % (A) 93 %; RBC 4.55 m/uL (4.30-5.90); RDW 12.8 % (11.5-15.5); WBC 9.4 k/uL (3.8-10.6)
[2020-06-07 04:19] LABS: Platelet Count 53 k/uL (150-450)
[2020-06-07 04:35] LABS: ALT 27 U/L (4-49); AST 25 U/L (17-59); African American GFR (CKD) >90 (>60 ml/min/1.73 sqM); Albumin 2.2 g/dL (3.5-5.0); Alkaline Phosphatase 71 U/L (38-126); Anion Gap 1 mmol/L; Blood Urea Nitrogen 53 mg/dL (9-20); C Reactive Protein 72.4 mg/L (<10.0); Calcium 8.3 mg/dL (8.4-10.2); Carbon Dioxide 35 mmol/L (22-30); Chloride 102 mmol/L (98-107); Creatine Kinase 34 U/L (55-170); Glucose 203 mg/dL (74-99); LDH 1517 U/L (313-618); Magnesium 2.5 mg/dL (1.6-2.3); Non-African American GFR(CKD) 82 (>60 ml/min/1.73 sqM); Potassium 4.8 mmol/L (3.5-5.1); Sodium 138 mmol/L (137-145); Total Bilirubin 1.2 mg/dL (0.2-1.3); Total Protein 5.4 g/dL (6.3-8.2)
[2020-06-07 04:53] LABS: D-Dimer 21.81 mg/L FEU (<0.60); INR 1.1 (<1.2); Partial Thromboplastin Time 24.5 sec (22.0-30.0); Prothrombin Time 11.7 sec (9.0-12.0)
[2020-06-07] MEDS: SODIUM CHLORIDE 0.9% 1,000 ML IV SCH ×2 (05:19→13:26)
[2020-06-07] MEDS: TOCILIZUMAB 400 MG in SODIUM CHLORIDE 0.9% 80 ML IV SCH (05:51)
[2020-06-07] MEDS: ALBUTEROL HFA INHALER INHALATION SCH ×4 (08:06→20:14)
[2020-06-07] MEDS: PANTOPRAZOLE 40 MG TABLET PO SCH ×2 (08:48→16:40)
[2020-06-07] MEDS: CHOLECALCIFEROL 1,000 UNIT TAB PO SCH (08:48)
[2020-06-07] MEDS: ZINC SULFATE 220 MG CAP PO SCH (08:48)
[2020-06-07] MEDS: NON FORMULARY DRUG (Lifitegrast [Xiidra] 1 EACH Droperette) BOTH EYES SCH ×2 (08:48→20:32)
[2020-06-07] MEDS: ASCORBIC ACID 500 MG TAB PO SCH ×2 (08:48→20:31)
[2020-06-07] MEDS: ASPIRIN 325 MG TAB PO SCH (08:48)
[2020-06-07] MEDS: DEXAMETHASONE SOD PHOSPHATE 10 MG/ML 1 ML VIAL IV SCH ×2 (08:48→20:32)
[2020-06-07] MEDS: NYSTATIN 100,000 UNIT/ML SUSP 500,000 UNIT/5 ML CUP PO SCH ×4 (08:49→20:32)
[2020-06-07 08:55] LABS: Glucose,Whole Blood 220 mg/dL (75-99)
[2020-06-07] MEDS: INSULIN ASPART (NovoLOG) 100 UNIT/ML VIAL SQ SCH ×4 (08:56→21:05)
[2020-06-07] MEDS: ENOXAPARIN 40 MG/0.4 ML SYRINGE SQ SCH ×2 (09:35→20:31)
[2020-06-07 12:19] LABS: Glucose,Whole Blood 258 mg/dL (75-99)
[2020-06-07 12:22] LABS: Ferritin 3995.2 ng/mL (22.0-322.0)
[2020-06-07] MEDS: MORPHINE SULFATE 2 MG/ML SYRINGE IVP PRN ×3 (12:29→23:55)
--- NOTE | 2020-06-07 12:57 | P.PN ---
Subjective Progress Note Date: 06/07/20 Principal diagnosis: Acute hypoxic respiratory failure Acute covid 19 pneumonia ARDS likely related covid 19 pneumonia Dyslipidemia Hypertension hypertensive cardiovascular disease Diabetes mellitus 06/17/2020, patient seen eval examined during the rounds labs reviewed medic ations reviewed care plan discussed, remains on 85% oxygen 12 and 10 of BiPAP, cough shortness of breath stable saturation is stable now, oxygen saturation is 94%, and 90% 60 L high flow oxygen is being used as well labs reviewed 06/06/2020, patient seen eval examined during the rounds labs reviewed medications reviewed patient does have problem with swallowing very dry mouth, however can take honey thick, suspect may be dryness or oral thrush present, we'll start treating with nystatin swish and swallow, hemodynamic status remained stable however oxygenation remains marginal but doing better on aerosolized oxygen saturation is mid 90s, with activity does desaturate, intermittently have been doing BiPAP as well with 90% oxygen, x-ray performed earlier today reviewed overall remains stable pneumonia not much change finding consistent with Covid pneumonia and early ARDS 06/05/2020, patient seen eval examined during the rounds labs reviewed medications reviewed care plan discussed, patient has intermittent episodes of desaturation throughout the day, however he remains stable on BiPAP currently on 1208 and 60% oxygen, improved 100%, labs from today reviewed inflammatory parame ters remains high suggestive of ongoing cytokine strong, sugar also noted on the higher side, we will start sliding scale insulin if it remains elevated 06/04/2020, patient seen eval examined during the rounds labs reviewed medications reviewed, care plan discussed, remains on BiPAP 06/06 with 60% oxygen saturation is 98%, patient did desaturate on high flow address lysed oxygen, he has finished IV REMdesivir convalescent plasma remains on Decadron 06/03/2020, patient seen eval reexamined during the rounds labs reviewed medications reviewed, patient was desaturating or with aerosolized oxygen just has been placed on BiPAP 06/03 with 80% oxygen saturation improved to 100%, , patient is status post IV in remdesivir therapy, he has received convalescent plasma as well yesterday, chest x-ray reviewed diffuse patchy infiltrates bilaterally remains stable 06/02/2020, patient seen eval examined during the rounds labs reviewed medications reviewed, due to severe hypoxia and respiratory distress patient transferred from the medical floor to ICU, patient was off of BiPAP for extended period time, on high flow search dropped down to 60s and 70s, after bringing patient up in the ICU was continued on BiPAP, prone positioning have been encouraged, patient will be given convalescent plasma as well, and is status post therapy with IV REM doesn't wear remains on Decadron and Lovenox, she sent patient remains afebrile, tachypneic, hemodynamic status stable, on BiPAP 06/06, 80% oxygen saturation is 95-96%, 's x-ray continue show bilateral diffuse interstitial infiltrates, overall not much change compared to prior x-ray 06/01/2020, patient seen eval examined during the rounds labs reviewed medications reviewed patient has been prone with BiPAP, oxygen saturation significantly improved to 96-98%, remains on 80% oxygen with BiPAP of and , is still feel congested, short of breath, on supine posture however saturation to drop, remains on high flow oxygen with mask in between the BiPAP for meals and overall care, chest x-ray performed today shows diffuse bilateral interstitial and groundglass opacities predominantly in the perihilar area slightly improved on the left side though, noted mildly elevated troponin of 0.4 asymptomatic likely demand ischemia related 05/31/2020, patient seen, currently resting, remains on BiPAP in between for maintenance on address lysed high flow oxygen, sats on BiPAP last check was 90%, hemodynamic status stable, continued to be short of breath using necessary muscles cough is present intermittently dry and nonproductive, patient remains on therapy 05/30/2020, patient seen eval examined during the rounds labs reviewed irrigations reviewed, patient is overall in good spirits, however continued to require high flow oxygen with aerosolized oxygen and nonrebreather mask during eating otherwise patient has been on BiPAP, currently saturation is about 88-90% on 06/06 on 80% oxygen, sats on BiPAP however improved to 95%, chest x-ray performed earlier today revealed bilateral infiltrates consistent with covid 19 pneumonia 05/29/2020, patient seen eval examined during the rounds labs reviewed medications reviewed care plan discussed, patient remained short of breath currently now is on airvo high flow oxygen, 90% to 91%, Patient came into the hospital with about one week history of increased symptoms of sinus congestion cough, also has a chills fever and mild PI aches and fatigue and pain, history of prior lung problems does have a history hypertension hypertensive cardiovascular disease dyslipidemia and diabetes mellitus, on arri jacy his oxygen saturation is 90%, low-grade temperature 99.3 was present his steiner virus PCR came back positive, his oxygen requirement continued to go up currently he is on 100% nonrebreather mask with 15 L high flow oxygen, chest x- ray admitted show coarse interstitial changes consistent with interstitial pneumonia repeat chest x-ray did now show worsening ARDS-like Petrin, saturation is 98%, he is afebrile hemodynamic status, he is on Lovenox 40 every 12, on Medrol 60 every 6, Remdesivir IV, inflammatory parameters are consistent with severe inflammatory response d-dimer is 16.4, pH is 574, a reactive protein is 3 Objective - Vital Signs Vital signs: Vital Signs Temp 97.7 F 06/07/20 09:00 Pulse 98 06/07/20 11:00 Resp 21 06/07/20 11:00 BP 122/72 06/07/20 11:00 Pulse Ox 94 L 06/07/20 11:00 Intake & Output 06/06/20 06/07/20 06/07/20 18:59 06:59 18:59 Intake Total 625 1060 495 Output Total 900 750 Balance -275 1060 -255 Weight 71 kg Intake: Intake, IV Titration 625 900 375 Amount Sodium Chloride 0.9% 1, 525 900 375 000 ml @ 75 mls/hr IV . [id number] [facility] Rx#:[id number] Tocilizumab 400 mg In 100 Sodium Chloride 0.9% 80 ml @ 100 mls/hr IV Q12H [facility] Rx#:[id number] Oral 0 160 120 Output: Urine 900 750 Other: Voiding Method Urinal Urinal - Exam - Constitutional General appearance: average body habitus, disheveled, mild distress - EENT Eyes: EOMI, PERRLA Ears: bilateral: normal - Neck Neck: normal ROM Carotids: bilateral: upstroke normal Thyroid: bilateral: normal size - Respiratory Respiratory: bilateral: diminished - Cardiovascular Rhythm: regular Heart sounds: normal: S1, S2 - Gastrointestinal General gastrointestinal: soft - Integumentary Integumentary: decreased turgor - Neurologic Neurologic: CNII-XII intact - Musculoskeletal Musculoskeletal: gait normal, generalized weakness, strength equal bilaterally - Psychiatric Psychiatric: A&O x's 3, appropriate affect, intact judgment & insight - Labs CBC & Chem 7: 06/07/20 02:58 06/07/20 02:58 Labs: Abnormal Lab Results - Last 24 Hours (Table) 06/06/20 06/06/20 06/07/20 Range/Units 17:41 21:37 02:58 Plt Count 53 L (150-450) k/uL Neutrophils # 8.8 H (1.3-7.7) k/uL Lymphocytes # 0.1 L (1.0-4.8) k/uL D-Dimer (<0.60) mg/L FEU Carbon Dioxide (22-30) mmol/L BUN (9-20) mg/dL Glucose (74-99) mg/dL POC Glucose (mg/dL) 221 H 231 H (75-99) mg/dL Calcium (8.4-10.2) mg/dL Magnesium (1.6-2.3) mg/dL Ferritin (22.0-322.0) ng/mL Lactate Dehydrogenase (313-618) U/L Creatine Kinase (55-170) U/L C-Reactive Protein (<10.0) mg/L Total Protein (6.3-8.2) g/dL Albumin (3.5-5.0) g/dL Procalcitonin (0.02-0.09) ng/mL 06/07/20 06/07/20 06/07/20 Range/Units 02:58 02:58 02:58 Plt Count (150-450) k/uL Neutrophils # (1.3-7.7) k/uL Lymphocytes # (1.0-4.8) k/uL D-Dimer 21.81 H (<0.60) mg/L FEU Carbon Dioxide 35 H (22-30) mmol/L BUN 53 H (9-20) mg/dL Glucose 203 H (74-99) mg/dL POC Glucose (mg/dL) (75-99) mg/dL Calcium 8.3 L (8.4-10.2) mg/dL Magnesium 2.5 H (1.6-2.3) mg/dL Ferritin 3995.2 H (22.0-322.0) ng/mL Lactate Dehydrogenase 1517 H (313-618) U/L Creatine Kinase 34 L (55-170) U/L C-Reactive Protein 72.4 H (<10.0) mg/L Total Protein 5.4 L (6.3-8.2) g/dL Albumin 2.2 L (3.5-5.0) g/dL Procalcitonin 0.15 H (0.02-0.09) ng/mL 06/07/20 06/07/20 06/07/20 Range/Units 03:24 08:54 12:18 Plt Count (150-450) k/uL Neutrophils # (1.3-7.7) k/uL Lymphocytes # (1.0-4.8) k/uL D-Dimer (<0.60) mg/L FEU Carbon Dioxide (22-30) mmol/L BUN (9-20) mg/dL Glucose (74-99) mg/dL POC Glucose (mg/dL) 209 H 220 H 258 H (75-99) mg/dL Calcium (8.4-10.2) mg/dL Magnesium (1.6-2.3) mg/dL Ferritin (22.0-322.0) ng/mL Lactate Dehydrogenase (313-618) U/L Creatine Kinase (55-170) U/L C-Reactive Protein (<10.0) mg/L Total Protein (6.3-8.2) g/dL Albumin (3.5-5.0) g/dL Procalcitonin (0.02-0.09) ng/mL Assessment and Plan Assessment: Difficulty in swallowing likely due to dryness/oral thrush Acute hypoxic respiratory failure Acute covid 19 pneumonia cytokine is rayray ARDS likely related covid 19 pneumonia Dyslipidemia Hypertension hypertensive cardiovascular disease Diabetes mellitus Plan: Continue BiPAP 06/06 with oxygen to keep saturation of 90% or above, in between patient can be rested with aerosolized oxygen and facemask Deep breathing exercise incentive spirometry Prone positioning as much as possible preferably 16 hours a day if not possible patient agree able for sleeping on the sides IV steroids Nystatin swish and swallow Status post IV Remdesivir for 5 days Continue Anticoagulation with Lovenox Sliding scale insulin, with maintenance insulin Observe closely in ICU Status post Convalescent plasma Time with Patient: Greater than 30
[2020-06-07 16:54] LABS: Glucose,Whole Blood 237 mg/dL (75-99)
--- NOTE | 2020-06-07 20:15 | P.PN ---
Subjective Progress Note Date: 06/07/20 Principal diagnosis: acute hypoxic respiratory failure Acute covid 19 pneumonia 74-year-old male who is recently admitted with generalized body aches, sinus congestion, fevers, and mild shortness of breath with exertion. patient was found to have covid- 19 infection started on 2 L of oxygen for respiratory status.respiratory status declined during hospital admission, patient was placed on high flow oxygen, patient continued to have respiratory difficultyplaced on BiPAP tolerating BiPAP well.patient denies fever, chills, nausea, or abdominal pain. patient complaint of dyspnea on exertion, painful inspiration,and intercostal discomfort. Patient continues to be dependent on BiPAPwhen placed on high flow nasal cannula patient's oxygen saturation decreases to 80%. Objective - Vital Signs Vital signs: Vital Signs Temp 97.8 F 06/07/20 16:00 Pulse 98 06/07/20 19:00 Resp 31 H 06/07/20 19:00 BP 115/66 06/07/20 19:00 Pulse Ox 93 L 06/07/20 19:00 Intake & Output 06/07/20 06/07/20 06/08/20 06:59 18:59 06:59 Intake Total 1060 1140 75 Output Total 1225 Balance 1060 -85 75 Weight 71 kg Intake: Intake, IV Titration 900 900 75 Amount Sodium Chloride 0.9% 1, 900 900 75 000 ml @ 75 mls/hr IV . [id number] [facility] Rx#:[id number] Oral 160 240 Output: Urine 1225 Other: Voiding Method Urinal Urinal - Constitutional Constitutional Comment(s): moderate distress General appearance: Present: thin - EENT Eyes: Present: EOMI, PERRLA ENT: Present: pharyngeal erythema Ears: bilateral: normal - Neck Neck: Present: normal ROM Carotids: bilateral: upstroke normal Thyroid: bilateral: normal size - Respiratory Details: mild to moderate labored respirations and tachypnea Respiratory: bilateral: diminished (anterior lung dowd), rales (posterior lung dowd), rhonchi (posterior lung dowd) - Cardiovascular Details: normal sinus rhythm Heart rate: 98 Rhythm: regular Heart sounds: normal: S1, S2 - Peripheral pulses dorsalis pedis Peripheral Pulses: bilateral: Normal radial pulse Peripheral Pulses: bilateral: Normal - Gastrointestinal General gastrointestinal: Present: normal bowel sounds - Integumentary Integumentary Comment(s): dry mucous membranes Integumentary: Present: decreased turgor, pale - Neurologic Neurologic: Present: CNII-XII intact - Musculoskeletal Musculoskeletal: Present: generalized weakness - Psychiatric Psychiatric: Present: A&O x's 3, appropriate affect, intact judgment & insight - Allied health notes Allied health notes reviewed: nursing - Labs CBC & Chem 7: 06/07/20 02:58 06/07/20 02:58 Labs: Abnormal Lab Results - Last 24 Hours (Table) 06/06/20 06/07/20 06/07/20 Range/Units 21:37 02:58 02:58 Plt Count 53 L (150-450) k/uL Neutrophils # 8.8 H (1.3-7.7) k/uL Lymphocytes # 0.1 L (1.0-4.8) k/uL D-Dimer 21.81 H (<0.60) mg/L FEU Carbon Dioxide (22-30) mmol/L BUN (9-20) mg/dL Glucose (74-99) mg/dL POC Glucose (mg/dL) 231 H (75-99) mg/dL Calcium (8.4-10.2) mg/dL Magnesium (1.6-2.3) mg/dL Ferritin (22.0-322.0) ng/mL Lactate Dehydrogenase (313-618) U/L Creatine Kinase (55-170) U/L C-Reactive Protein (<10.0) mg/L Total Protein (6.3-8.2) g/dL Albumin (3.5-5.0) g/dL Procalcitonin (0.02-0.09) ng/mL 06/07/20 06/07/20 06/07/20 Range/Units 02:58 02:58 03:24 Plt Count (150-450) k/uL Neutrophils # (1.3-7.7) k/uL Lymphocytes # (1.0-4.8) k/uL D-Dimer (<0.60) mg/L FEU Carbon Dioxide 35 H (22-30) mmol/L BUN 53 H (9-20) mg/dL Glucose 203 H (74-99) mg/dL POC Glucose (mg/dL) 209 H (75-99) mg/dL Calcium 8.3 L (8.4-10.2) mg/dL Magnesium 2.5 H (1.6-2.3) mg/dL Ferritin 3995.2 H (22.0-322.0) ng/mL Lactate Dehydrogenase 1517 H (313-618) U/L Creatine Kinase 34 L (55-170) U/L C-Reactive Protein 72.4 H (<10.0) mg/L Total Protein 5.4 L (6.3-8.2) g/dL Albumin 2.2 L (3.5-5.0) g/dL Procalcitonin 0.15 H (0.02-0.09) ng/mL 06/07/20 06/07/20 06/07/20 Range/Units 08:54 12:18 16:53 Plt Count (150-450) k/uL Neutrophils # (1.3-7.7) k/uL Lymphocytes # (1.0-4.8) k/uL D-Dimer (<0.60) mg/L FEU Carbon Dioxide (22-30) mmol/L BUN (9-20) mg/dL Glucose (74-99) mg/dL POC Glucose (mg/dL) 220 H 258 H 237 H (75-99) mg/dL Calcium (8.4-10.2) mg/dL Magnesium (1.6-2.3) mg/dL Ferritin (22.0-322.0) ng/mL Lactate Dehydrogenase (313-618) U/L Creatine Kinase (55-170) U/L C-Reactive Protein (<10.0) mg/L Total Protein (6.3-8.2) g/dL Albumin (3.5-5.0) g/dL Procalcitonin (0.02-0.09) ng/mL - Imaging and Cardiology Chest x-ray: report reviewed Assessment and Plan Assessment: covid- 19 pneumonitis acute hypoxic respiratory failure- ARDS likely related to Covid 19 pneumonia type 2 diabetes with hyperglycemia hyperlipiedema Hypertension (1) COVID-19 Narrative/Plan: continue consultation with pulmonary critical care for recommendations and treatment plan BiPAP therapy Encourage patient to lay prone due to covID- 19 pneumonitis, inform nursing st aff to adjust patient to lay prone INFUSION OF Tocilizumab-due to clinical and diagnostic impression of cytokine storm-AWAITING RESPONSE Current Visit: Yes Status: Acute Code(s): U07.1 - COVID-19 SNOMED Code(s): 960735741 Plan: continue consultation with pulmonary critical care for recommendations and treatment plan continue consultation with infectious disease for recommendations and treatment plan INFUSION Tocilizumab-due to clinical and diagnostic impression of cytokine storm-AWAITING RESPONSE continue current medication therapy bIPAP with settings 12/5 with FiO2 of 80% continue medical management Time with Patient: Greater than 30
--- NOTE | 2020-06-07 20:16 | P.PN ---
Subjective Progress Note Date: 06/07/20 Principal diagnosis: covid Platelets remain stable 51K, continue anticoagulation without signs of bleeding Objective - Vital Signs Vital signs: Vital Signs Temp 97.8 F 06/07/20 16:00 Pulse 98 06/07/20 19:00 Resp 31 H 06/07/20 19:00 BP 115/66 06/07/20 19:00 Pulse Ox 93 L 06/07/20 19:00 Intake & Output 06/07/20 06/07/20 06/08/20 06:59 18:59 06:59 Intake Total 1060 1140 75 Output Total 1225 Balance 1060 -85 75 Weight 71 kg Intake: Intake, IV Titration 900 900 75 Amount Sodium Chloride 0.9% 1, 900 900 75 000 ml @ 75 mls/hr IV . [id number] [facility] Rx#:[id number] Oral 160 240 Output: Urine 1225 Other: Voiding Method Urinal Urinal - Exam Bipap - Constitutional General appearance: cooperative, mild distress - EENT Eyes: dentition normal ENT: hard of hearing, NA/AT - Respiratory Respiratory: bilateral: diminished, rhonchi - Cardiovascular Rhythm: irregularly irregular - Gastrointestinal General gastrointestinal: soft - Integumentary Integumentary: pale - Neurologic non focal - Musculoskeletal Musculoskeletal: generalized weakness - Labs CBC & Chem 7: 06/07/20 02:58 06/07/20 02:58 Labs: Abnormal Lab Results - Last 24 Hours (Table) 06/06/20 06/07/20 06/07/20 Range/Units 21:37 02:58 02:58 Plt Count 53 L (150-450) k/uL Neutrophils # 8.8 H (1.3-7.7) k/uL Lymphocytes # 0.1 L (1.0-4.8) k/uL D-Dimer 21.81 H (<0.60) mg/L FEU Carbon Dioxide (22-30) mmol/L BUN (9-20) mg/dL Glucose (74-99) mg/dL POC Glucose (mg/dL) 231 H (75-99) mg/dL Calcium (8.4-10.2) mg/dL Magnesium (1.6-2.3) mg/dL Ferritin (22.0-322.0) ng/mL Lactate Dehydrogenase (313-618) U/L Creatine Kinase (55-170) U/L C-Reactive Protein (<10.0) mg/L Total Protein (6.3-8.2) g/dL Albumin (3.5-5.0) g/dL Procalcitonin (0.02-0.09) ng/mL 06/07/20 06/07/20 06/07/20 Range/Units 02:58 02:58 03:24 Plt Count (150-450) k/uL Neutrophils # (1.3-7.7) k/uL Lymphocytes # (1.0-4.8) k/uL D-Dimer (<0.60) mg/L FEU Carbon Dioxide 35 H (22-30) mmol/L BUN 53 H (9-20) mg/dL Glucose 203 H (74-99) mg/dL POC Glucose (mg/dL) 209 H (75-99) mg/dL Calcium 8.3 L (8.4-10.2) mg/dL Magnesium 2.5 H (1.6-2.3) mg/dL Ferritin 3995.2 H (22.0-322.0) ng/mL Lactate Dehydrogenase 1517 H (313-618) U/L Creatine Kinase 34 L (55-170) U/L C-Reactive Protein 72.4 H (<10.0) mg/L Total Protein 5.4 L (6.3-8.2) g/dL Albumin 2.2 L (3.5-5.0) g/dL Procalcitonin 0.15 H (0.02-0.09) ng/mL 06/07/20 06/07/20 06/07/20 Range/Units 08:54 12:18 16:53 Plt Count (150-450) k/uL Neutrophils # (1.3-7.7) k/uL Lymphocytes # (1.0-4.8) k/uL D-Dimer (<0.60) mg/L FEU Carbon Dioxide (22-30) mmol/L BUN (9-20) mg/dL Glucose (74-99) mg/dL POC Glucose (mg/dL) 220 H 258 H 237 H (75-99) mg/dL Calcium (8.4-10.2) mg/dL Magnesium (1.6-2.3) mg/dL Ferritin (22.0-322.0) ng/mL Lactate Dehydrogenase (313-618) U/L Creatine Kinase (55-170) U/L C-Reactive Protein (<10.0) mg/L Total Protein (6.3-8.2) g/dL Albumin (3.5-5.0) g/dL Procalcitonin (0.02-0.09) ng/mL Assessment and Plan (1) Thrombocytopenia associated with COVID-19 Current Visit: Yes Status: Acute Code(s): U07.1 - COVID-19; D69.59 - OTHER SECONDARY THROMBOCYTOPENIA SNOMED Code(s): 335584945 (2) COVID-19 Current Visit: Yes Status: Acute Code(s): U07.1 - COVID-19 SNOMED Code(s): 576941219 Plan: - patient has been worked up for DIC, His platlet count above 50K is technically still in safe range and with Covid should continue his VTE unless dsigns of bleeding. - Continue to monitor s/s bleeding and coags - Transfuse if less than 10K There is no signs of bleeding. His platelet count is over 50K, hemoglobin stable. Continue VTE as risk for thrombosis with covid is increased as long as no signs of bleeding and platelets remain near 50K continue supportive care
[2020-06-07] MEDS: TAMSULOSIN 0.4 MG CAP.ER.24H PO SCH (20:32)
[2020-06-07] MEDS: ATORVASTATIN 20 MG TAB PO SCH (20:32)
[2020-06-07 21:01] LABS: Glucose,Whole Blood 251 mg/dL (75-99)
--- NOTE | 2020-06-07 23:17 | PN ---
PROGRESS NOTE DATE OF SERVICE: 06/07/2020 REASON FOR FOLLOWUP: COVID-19 infection. INTERVAL HISTORY: The patient is currently afebrile. The patient is feeling slightly better today. He is breathing more comfortably. He denies having any chest pain. Minimal cough. No nausea. No vomiting. No abdominal pain or diarrhea. PHYSICAL EXAMINATION: Blood pressure 115/66, pulse of 90, temperature 98. He is 93% on BiPAP. General description is an elderly male lying in bed in no distress. RESPIRATORY SYSTEM: Unlabored breathing with decreased intensity of breath sounds. No wheeze. HEART: S1, S2. Regular rate and rhythm. ABDOMEN: Soft. No tenderness. LABS: Hemoglobin is 14.5, white count 9.4, BUN of 53, creatinine 0.92. Ferritin is down to 3995. LDH was mildly decreased as well. DIAGNOSTIC IMPRESSION AND PLAN: Patient with acute COVID-19 infection in this patient now with evidence of cytokine storm. He did receive 2 doses of Actemra and is currently covered with dexamethasone, Lovenox, zinc sulfate; to continue, and we will monitor his clinical course closely. MMODL / IJN: [id number] /
[2020-06-08 00:58] LABS: Glucose,Whole Blood 279 mg/dL (75-99)
[2020-06-08] MEDS: INSULIN ASPART (NovoLOG) 100 UNIT/ML VIAL SQ SCH ×5 (01:22→21:50)
[2020-06-08 03:53] LABS: Glucose,Whole Blood 51 mg/dL (75-99)
[2020-06-08] MEDS ORDERED: DEXTROSE 50% SYRINGE 50 ML IVP ONE (03:53)
[2020-06-08 04:04] LABS: Glucose,Whole Blood 137 mg/dL (75-99)
[2020-06-08] MEDS: SODIUM CHLORIDE 0.9% 1,000 ML IV SCH ×2 (04:07→18:03)
[2020-06-08 04:25] LABS: Basophils % (A) 0 %; Eosinophils # (A) 0.1 k/uL (0-0.7); Eosinophils % (A) 0 %; HCT 48.7 % (39.0-53.0); HGB 15.5 gm/dL (13.0-17.5); Lymphocytes # (A) 0.3 k/uL (1.0-4.8); Lymphocytes % (A) 2 %; MCH 30.1 pg (25.0-35.0); MCHC 31.8 g/dL (31.0-37.0); MCV 94.6 fL (80.0-100.0); Mean Platelet Volume 8.9; Monocytes # (A) 0.4 k/uL (0-1.0); Monocytes % (A) 3 %; Neutrophils # (A) 11.3 k/uL (1.3-7.7); Neutrophils % (A) 93 %; RBC 5.15 m/uL (4.30-5.90); RDW 13.4 % (11.5-15.5); WBC 12.1 k/uL (3.8-10.6)
[2020-06-08 04:34] LABS: Platelet Count 83 k/uL (150-450)
[2020-06-08 04:40] LABS: Albumin 2.5 g/dL (3.5-5.0); C Reactive Protein 46.1 mg/L (<10.0); Calcium 8.8 mg/dL (8.4-10.2); Magnesium 2.6 mg/dL (1.6-2.3); Potassium 4.6 mmol/L (3.5-5.1); Total Bilirubin 1.3 mg/dL (0.2-1.3); Total Protein 6.1 g/dL (6.3-8.2)
[2020-06-08 04:50] LABS: D-Dimer 12.3 mg/L FEU (<0.60); INR 1.1 (<1.2); Partial Thromboplastin Time 23.6 sec (22.0-30.0); Prothrombin Time 11.7 sec (9.0-12.0)
[2020-06-08 05:06] LABS: Glucose,Whole Blood 87 mg/dL (75-99)
[2020-06-08 06:51] LABS: Glucose,Whole Blood 88 mg/dL (75-99)
[2020-06-08] MEDS: ALBUTEROL HFA INHALER INHALATION SCH ×4 (07:23→20:14)
--- NOTE | 2020-06-08 07:29 | XR ---
EXAMINATION TYPE: XR chest 1V portable DATE OF EXAM: 06/08/2020 COMPARISON: 06/06/2020 INDICATION: Shortness of breath TECHNIQUE: Single frontal view of the chest is obtained. FINDINGS: The heart size is normal. The pulmonary vasculature is prominent. Diffuse nonspecific infiltrate is present bilaterally. This is similar to comparison. IMPRESSION: 1. Nonspecific diffuse increased lung markings, stable from comparison
[2020-06-08] MEDS: ENOXAPARIN 40 MG/0.4 ML SYRINGE SQ SCH ×2 (09:21→20:55)
[2020-06-08] MEDS: ZINC SULFATE 220 MG CAP PO SCH (09:31)
[2020-06-08] MEDS: ASCORBIC ACID 500 MG TAB PO SCH ×2 (09:31→20:55)
[2020-06-08] MEDS: ASPIRIN 325 MG TAB PO SCH (09:31)
[2020-06-08] MEDS: PANTOPRAZOLE 40 MG TABLET PO SCH ×2 (09:31→18:03)
[2020-06-08] MEDS: CHOLECALCIFEROL 1,000 UNIT TAB PO SCH (09:31)
[2020-06-08] MEDS: DEXAMETHASONE SOD PHOSPHATE 10 MG/ML 1 ML VIAL IV SCH ×2 (09:32→20:55)
[2020-06-08] MEDS: NYSTATIN 100,000 UNIT/ML SUSP 500,000 UNIT/5 ML CUP PO SCH ×4 (09:32→21:46)
--- NOTE | 2020-06-08 11:00 | P.PN ---
Subjective Progress Note Date: 06/08/20 Principal diagnosis: Acute hypoxic respiratory failure Acute covid 19 pneumonia ARDS likely related covid 19 pneumonia Dyslipidemia Hypertension hypertensive cardiovascular disease Diabetes mellitus 06/08/2020, patient seen eval examined during the rounds labs reviewed medic ations reviewed care plan discussed, patient is on high flow aerosolized oxygen, saturation is 95-96%, appetite slightly better patient able to eat some forte, have encouraged patient to lay prone or at least on the sides, currently off of BiPAP, patient remains on Decadron, status post IV REMdesivir convalescent plasma also received 2 doses of Actemra 06/07/2020, patient seen eval examined during the rounds labs reviewed medications reviewed care plan discussed, remains on 85% oxygen 12 and 10 of BiPAP, cough shortness of breath stable saturation is stable now, oxygen saturation is 94%, and 90% 60 L high flow oxygen is being used as well labs reviewed 06/06/2020, patient seen eval examined during the rounds labs reviewed medications reviewed patient does have problem with swallowing very dry mouth, however can take honey thick, suspect may be dryness or oral thrush present, we'll start treating with nystatin swish and swallow, hemodynamic status remained stable however oxygenation remains marginal but doing better on aerosolized oxygen saturation is mid 90s, with activity does desaturate, intermittently have been doing BiPAP as well with 90% oxygen, x-ray performed earlier today reviewed overall remains stable pneumonia not much change finding consistent with Covid pneumonia and early ARDS 06/05/2020, patient seen eval examined during the rounds labs reviewed medicatio ns reviewed care plan discussed, patient has intermittent episodes of desaturation throughout the day, however he remains stable on BiPAP currently on 1208 and 60% oxygen, improved 100%, labs from today reviewed inflammatory parameters remains high suggestive of ongoing cytokine strong, sugar also noted on the higher side, we will start sliding scale insulin if it remains elevated 06/04/2020, patient seen eval examined during the rounds labs reviewed medications reviewed, care plan discussed, remains on BiPAP 06/06 with 60% oxygen saturation is 98%, patient did desaturate on high flow address lysed oxygen, he has finished IV REMdesivir convalescent plasma remains on Decadron 06/03/2020, patient seen eval reexamined during the rounds labs reviewed medications reviewed, patient was desaturating or with aerosolized oxygen just has been placed on BiPAP 06/03 with 80% oxygen saturation improved to 100%, , patient is status post IV in remdesivir therapy, he has received convalescent plasma as well yesterday, chest x-ray reviewed diffuse patchy infiltrates bilaterally remains stable 06/02/2020, patient seen eval examined during the rounds labs reviewed medications reviewed, due to severe hypoxia and respiratory distress patient transferred from the medical floor to ICU, patient was off of BiPAP for extended period time, on high flow search dropped down to 60s and 70s, after bringing patient up in the ICU was continued on BiPAP, prone positioning have been encouraged, patient will be given convalescent plasma as well, and is status post therapy with IV REM doesn't wear remains on Decadron and Lovenox, she sent patient remains afebrile, tachypneic, hemodynamic status stable, on BiPAP 06/06, 80% oxygen saturation is 95-96%, 's x-ray continue show bilateral diffuse interstitial infiltrates, overall not much change compared to prior x-ray 06/01/2020, patient seen eval examined during the rounds labs reviewed medications reviewed patient has been prone with BiPAP, oxygen saturation significantly improved to 96-98%, remains on 80% oxygen with BiPAP of and 8, is still feel congested, short of breath, on supine posture however saturation to drop, remains on high flow oxygen with mask in between the BiPAP for meals and overall care, chest x-ray performed today shows diffuse bilateral interstitial and groundglass opacities predominantly in the perihilar area slightly improved on the left side though, noted mildly elevated troponin of 0.4 asymptomatic likely demand ischemia related 05/31/2020, patient seen, currently resting, remains on BiPAP in between for maintenance on address lysed high flow oxygen, sats on BiPAP last check was 90%, hemodynamic status stable, continued to be short of breath using necessary muscles cough is present intermittently dry and nonproductive, patient remains on therapy 05/30/2020, patient seen eval examined during the rounds labs reviewed irrigations reviewed, patient is overall in good spirits, however continued to require high flow oxygen with aerosolized oxygen and nonrebreather mask during eating otherwise patient has been on BiPAP, currently saturation is about 88-90% on 06/06 on 80% oxygen, sats on BiPAP however improved to 95%, chest x-ray performed earlier today revealed bilateral infiltrates consistent with covid 19 pneumonia 05/29/2020, patient seen eval examined during the rounds labs reviewed medications reviewed care plan discussed, patient remained short of breath currently now is on airvo high flow oxygen, 90% to 91%, Patient came into the hospital with about one week history of increased symptoms of sinus congestion cough, also has a chills fever and mild PI aches and fatigue and pain, history of prior lung problems does have a history hypertension hypertensive cardiovascular disease dyslipidemia and diabetes mellitus, on arrival his oxygen saturation is 90%, low-grade temperature 99.3 was present his steiner virus PCR came back positive, his oxygen requirement continued to go up currently he is on 100% nonrebreather mask with 15 L high flow oxygen, chest x- ray admitted show coarse interstitial changes consistent with interstitial pneumonia repeat chest x-ray did now show worsening ARDS-like Petrin, saturation is 98%, he is afebrile hemodynamic status, he is on Lovenox 40 every 12, on Me drol 60 every 6, Remdesivir IV, inflammatory parameters are consistent with severe inflammatory response d-dimer is 16.4, pH is 574, a reactive protein is 3 Objective - Vital Signs Vital signs: Vital Signs Temp 96.2 F L 06/08/20 08:00 Pulse 101 H 06/08/20 10:00 Resp 21 06/08/20 10:00 BP 129/81 06/08/20 10:00 Pulse Ox 93 L 06/08/20 10:00 Intake & Output 06/07/20 06/08/20 06/08/20 18:59 06:59 18:59 Intake Total 1140 975 Output Total 1225 450 Balance -85 525 Weight 71 kg 71 kg Intake: Intake, IV Titration 900 975 Amount Sodium Chloride 0.9% 1, 900 975 000 ml @ 75 mls/hr IV . [id number] [facility] Rx#:[id number] Oral 240 Output: Urine 1225 450 Other: Voiding Method Urinal - Exam - Constitutional General appearance: average body habitus, disheveled, mild distress - EENT Eyes: EOMI, PERRLA Ears: bilateral: normal - Neck Neck: normal ROM Carotids: bilateral: upstroke normal Thyroid: bilateral: normal size - Respiratory Respiratory: bilateral: diminished - Cardiovascular Rhythm: regular Heart sounds: normal: S1, S2 - Gastrointestinal General gastrointestinal: soft - Integumentary Integumentary: decreased turgor - Neurologic Neurologic: CNII-XII intact - Musculoskeletal Musculoskeletal: gait normal, generalized weakness, strength equal bilaterally - Psychiatric Psychiatric: A&O x's 3, appropriate affect, intact judgment & insight - Labs CBC & Chem 7: 06/08/20 03:27 06/08/20 03:27 Labs: Abnormal Lab Results - Last 24 Hours (Table) 06/07/20 06/07/20 06/07/20 Range/Units 02:58 02:58 12:18 WBC (3.8-10.6) k/uL Plt Count (150-450) k/uL Neutrophils # (1.3-7.7) k/uL Lymphocytes # (1.0-4.8) k/uL D-Dimer (<0.60) mg/L FEU Carbon Dioxide (22-30) mmol/L BUN (9-20) mg/dL Glucose (74-99) mg/dL POC Glucose (mg/dL) 258 H (75-99) mg/dL Magnesium (1.6-2.3) mg/dL Ferritin 3995.2 H (22.0-322.0) ng/mL Alkaline Phosphatase (38-126) U/L Lactate Dehydrogenase (313-618) U/L Creatine Kinase (55-170) U/L C-Reactive Protein (<10.0) mg/L Total Protein (6.3-8.2) g/dL Albumin (3.5-5.0) g/dL Procalcitonin 0.15 H (0.02-0.09) ng/mL 06/07/20 06/07/20 06/08/20 Range/Units 16:53 21:00 00:57 WBC (3.8-10.6) k/uL Plt Count (150-450) k/uL Neutrophils # (1.3-7.7) k/uL Lymphocytes # (1.0-4.8) k/uL D-Dimer (<0.60) mg/L FEU Carbon Dioxide (22-30) mmol/L BUN (9-20) mg/dL Glucose (74-99) mg/dL POC Glucose (mg/dL) 237 H 251 H 279 H (75-99) mg/dL Magnesium (1.6-2.3) mg/dL Ferritin (22.0-322.0) ng/mL Alkaline Phosphatase (38-126) U/L Lactate Dehydrogenase (313-618) U/L Creatine Kinase (55-170) U/L C-Reactive Protein (<10.0) mg/L Total Protein (6.3-8.2) g/dL Albumin (3.5-5.0) g/dL Procalcitonin (0.02-0.09) ng/mL 06/08/20 06/08/20 06/08/20 Range/Units 03:27 03:27 03:27 WBC 12.1 H (3.8-10.6) k/uL Plt Count 83 L D (150-450) k/uL Neutrophils # 11.3 H (1.3-7.7) k/uL Lymphocytes # 0.3 L (1.0-4.8) k/uL D-Dimer 12.30 H (<0.60) mg/L FEU Carbon Dioxide 39 H (22-30) mmol/L BUN 52 H (9-20) mg/dL Glucose 39 L* (74-99) mg/dL POC Glucose (mg/dL) (75-99) mg/dL Magnesium 2.6 H (1.6-2.3) mg/dL Ferritin (22.0-322.0) ng/mL Alkaline Phosphatase 132 H (38-126) U/L Lactate Dehydrogenase 2133 H (313-618) U/L Creatine Kinase 41 L (55-170) U/L C-Reactive Protein 46.1 H (<10.0) mg/L Total Protein 6.1 L (6.3-8.2) g/dL Albumin 2.5 L (3.5-5.0) g/dL Procalcitonin (0.02-0.09) ng/mL 06/08/20 06/08/20 Range/Units 03:52 04:03 WBC (3.8-10.6) k/uL Plt Count (150-450) k/uL Neutrophils # (1.3-7.7) k/uL Lymphocytes # (1.0-4.8) k/uL D-Dimer (<0.60) mg/L FEU Carbon Dioxide (22-30) mmol/L BUN (9-20) mg/dL Glucose (74-99) mg/dL POC Glucose (mg/dL) 51 L 137 H (75-99) mg/dL Magnesium (1.6-2.3) mg/dL Ferritin (22.0-322.0) ng/mL Alkaline Phosphatase (38-126) U/L Lactate Dehydrogenase (313-618) U/L Creatine Kinase (55-170) U/L C-Reactive Protein (<10.0) mg/L Total Protein (6.3-8.2) g/dL Albumin (3.5-5.0) g/dL Procalcitonin (0.02-0.09) ng/mL Assessment and Plan Assessment: Difficulty in swallowing likely due to dryness/oral thrush improved now Acute hypoxic respiratory failure Acute covid 19 pneumonia cytokine is rayray ARDS likely related covid 19 pneumonia Dyslipidemia Hypertension hypertensive cardiovascular disease Diabetes mellitus Plan: Continue BiPAP 06/06 with oxygen to keep saturation of 90% or above each night and when necessary during the day, in between patient can be rested with aerosolized oxygen and facemask Deep breathing exercise incentive spirometry Prone positioning as much as possible preferably 16 hours a day if not possible patient agree able for sleeping on the sides IV steroids Nystatin swish and swallow Status post IV Remdesivir for 5 days Status post 2 doses of Actemra for cytokine is rayray Continue Anticoagulation with Lovenox Sliding scale insulin, with maintenance insulin Observe closely in ICU Status post Convalescent plasma Time with Patient: Greater than 30
[2020-06-08 11:02] LABS: Ferritin 3444.4 ng/mL (22.0-322.0)
[2020-06-08 11:18] LABS: Glucose,Whole Blood 159 mg/dL (75-99)
[2020-06-08 15:12] LABS: Glucose,Whole Blood 447 mg/dL (75-99)
[2020-06-08] MEDS: NON FORMULARY DRUG (Lifitegrast [Xiidra] 1 EACH Droperette) BOTH EYES SCH ×2 (15:12→20:55)
[2020-06-08] MEDS: MORPHINE SULFATE 2 MG/ML SYRINGE IVP PRN (15:26)
--- NOTE | 2020-06-08 17:02 | P.PN ---
Subjective Progress Note Date: 06/08/20 Principal diagnosis: acute hypoxic respiratory failure Acute covid 19 pneumonia 74-year-old male who is recently admitted with generalized body aches, sinus congestion, fevers, and mild shortness of breath with exertion. patient was found to have covid- 19 infection started on 2 L of oxygen for respiratory status.respiratory status declined during hospital admission, patient was placed on high flow oxygen, patient continued to have respiratory difficultyplaced on BiPAP tolerating BiPAP well.patient denies fever, chills, nausea, or abdominal pain. patient complaint of dyspnea on exertion, painful inspiration,and intercostal discomfort. Patient continues to be dependent on BiPAPwhen placed on high flow nasal cannula patient's oxygen saturation decreases to 80%. Objective - Vital Signs Vital signs: Vital Signs Temp 96.4 F L 06/08/20 12:00 Pulse 113 H 06/08/20 15:00 Resp 34 H 06/08/20 15:00 BP 109/59 06/08/20 15:00 Pulse Ox 92 L 06/08/20 15:00 Intake & Output 06/07/20 06/08/20 06/08/20 18:59 06:59 18:59 Intake Total 0895 006 8151 Output Total 1225 450 325 Balance -85 525 755 Weight 71 kg 71 kg Intake: Intake, IV Titration 900 975 600 Amount Sodium Chloride 0.9% 1, 900 975 600 000 ml @ 75 mls/hr IV . [id number] [facility] Rx#:[id number] Oral 240 480 Output: Urine 1225 450 325 Other: Voiding Method Urinal Urinal - Exam moderate distress - Constitutional General appearance: Present: thin - EENT Eyes: Present: EOMI, PERRLA Ears: bilateral: normal - Neck Carotids: bilateral: upstroke normal Thyroid: bilateral: normal size - Respiratory Respiratory: bilateral: diminished (anterior lung dowd), rales (posterior lung dowd) - Cardiovascular Details: normal sinus rhythm variant with sinus tachycardia Heart rate: 113 Rhythm: regular Heart sounds: normal: S1, S2 - Peripheral pulses dorsalis pedis Peripheral Pulses: bilateral: Normal radial pulse Peripheral Pulses: bilateral: Normal - Gastrointestinal General gastrointestinal: Present: normal bowel sounds - Integumentary Integumentary: Present: decreased turgor, pale - Neurologic Neurologic: Present: CNII-XII intact - Musculoskeletal Musculoskeletal: Present: generalized weakness - Psychiatric Psychiatric: Present: A&O x's 3, appropriate affect, intact judgment & insight - Allied health notes Allied health notes reviewed: nursing - Labs CBC & Chem 7: 06/08/20 03:27 06/08/20 03:27 Labs: Abnormal Lab Results - Last 24 Hours (Table) 06/07/20 06/08/20 06/08/20 Range/Units 21:00 00:57 03:27 WBC 12.1 H (3.8-10.6) k/uL Plt Count 83 L D (150-450) k/uL Neutrophils # 11.3 H (1.3-7.7) k/uL Lymphocytes # 0.3 L (1.0-4.8) k/uL D-Dimer (<0.60) mg/L FEU Carbon Dioxide (22-30) mmol/L BUN (9-20) mg/dL Glucose (74-99) mg/dL POC Glucose (mg/dL) 251 H 279 H (75-99) mg/dL Magnesium (1.6-2.3) mg/dL Ferritin (22.0-322.0) ng/mL Alkaline Phosphatase (38-126) U/L Lactate Dehydrogenase (313-618) U/L Creatine Kinase (55-170) U/L C-Reactive Protein (<10.0) mg/L Total Protein (6.3-8.2) g/dL Albumin (3.5-5.0) g/dL 06/08/20 06/08/20 06/08/20 Range/Units 03:27 03:27 03:52 WBC (3.8-10.6) k/uL Plt Count (150-450) k/uL Neutrophils # (1.3-7.7) k/uL Lymphocytes # (1.0-4.8) k/uL D-Dimer 12.30 H (<0.60) mg/L FEU Carbon Dioxide 39 H (22-30) mmol/L BUN 52 H (9-20) mg/dL Glucose 39 L* (74-99) mg/dL POC Glucose (mg/dL) 51 L (75-99) mg/dL Magnesium 2.6 H (1.6-2.3) mg/dL Ferritin 3444.4 H (22.0-322.0) ng/mL Alkaline Phosphatase 132 H (38-126) U/L Lactate Dehydrogenase 2133 H (313-618) U/L Creatine Kinase 41 L (55-170) U/L C-Reactive Protein 46.1 H (<10.0) mg/L Total Protein 6.1 L (6.3-8.2) g/dL Albumin 2.5 L (3.5-5.0) g/dL 06/08/20 06/08/20 06/08/20 Range/Units 04:03 11:17 15:07 WBC (3.8-10.6) k/uL Plt Count (150-450) k/uL Neutrophils # (1.3-7.7) k/uL Lymphocytes # (1.0-4.8) k/uL D-Dimer (<0.60) mg/L FEU Carbon Dioxide (22-30) mmol/L BUN (9-20) mg/dL Glucose (74-99) mg/dL POC Glucose (mg/dL) 137 H 159 H 447 H (75-99) mg/dL Magnesium (1.6-2.3) mg/dL Ferritin (22.0-322.0) ng/mL Alkaline Phosphatase (38-126) U/L Lactate Dehydrogenase (313-618) U/L Creatine Kinase (55-170) U/L C-Reactive Protein (<10.0) mg/L Total Protein (6.3-8.2) g/dL Albumin (3.5-5.0) g/dL - Imaging and Cardiology Chest x-ray: report reviewed Assessment and Plan Assessment: covid- 19 pneumonitis acute hypoxic respiratory failure- ARDS likely related to Covid 19 pneumonia type 2 diabetes with hyperglycemia hyperlipiedema Hypertension (1) COVID-19 Narrative/Plan: continue consultation with pulmonary critical care for recommendations and treatment plan BiPAP therapy Encourage patient to lay prone due to covID- 19 pneumonitis, inform nursing staff to adjust patient to lay prone INFUSION OF Tocilizumab-due to clinical and diagnostic impression of cytokine storm-AWAITING RESPONSE Current Visit: Yes Status: Acute Code(s): U07.1 - COVID-19 SNOMED Code(s): 635613978 Plan: continue consultation with pulmonary critical care for recommendations and treatment plan continue consultation with infectious disease for recommendations and treatment plan INFUSION Tocilizumab-due to clinical and diagnostic impression of cytokine storm-AWAITING RESPONSE continue current medication therapy bIPAP with settings 06/03 with FiO2 of 80% continue medical management Time with Patient: Greater than 30
[2020-06-08 18:02] LABS: Glucose,Whole Blood 549 mg/dL (75-99)
[2020-06-08] MEDS ORDERED: LEVOFLOXACIN 750MG-D5W PMX 750 MG in DEXTROSE/WATER 1 150ML.BAG IVPB STA (20:24)
[2020-06-08] MEDS: TAMSULOSIN 0.4 MG CAP.ER.24H PO SCH (20:55)
[2020-06-08] MEDS: ATORVASTATIN 20 MG TAB PO SCH (20:55)
[2020-06-08 21:42] LABS: Glucose,Whole Blood 381 mg/dL (75-99)
[2020-06-08] MEDS: ALPRAZolam 0.25 MG TAB PO PRN (21:50)
--- NOTE | 2020-06-08 22:08 | PN ---
PROGRESS NOTE DATE OF SERVICE: 06/08/2020 REASON FOR FOLLOWUP: Acute COVID-19 pneumonia. INTERVAL HISTORY: The patient is currently afebrile. The patient remains on BiPAP and is saturation 85%. Patient is hemodynamically stable, not on any pressor support. No vomiting or any diarrhea has been reported. PHYSICAL EXAMINATION: Blood pressure is 114/63 with a pulse of 121, temperature 96.4. He is 87% on BiPAP. General description is an elderly male lying in bed in no distress. RESPIRATORY SYSTEM: Unlabored breathing with decreased intensity of breath sounds. No wheeze. HEART: S1, S2. Regular rate and rhythm. ABDOMEN: Soft. No tenderness. LAB: Hemoglobin is 15.5, white count 12.1, BUN of 52, creatinine 1.19. DIAGNOSTIC IMPRESSION AND PLAN: Patient with acute respiratory failure which is multifactorial in this patient who did have COVID-19 pneumonia. Patient has completed his remdesivir therapy. He was also given Actemra. Still having significant respiratory distress and hypoxemia with slightly elevated white count. Will empirically add Levaquin. Repeat the procalcitonin and monitor his clinical course closely. MMODL / IJN: [id number] /
[2020-06-09 03:00] LABS: Glucose,Whole Blood 244 mg/dL (75-99)
[2020-06-09 04:16] LABS: Basophils % (A) 0 %; Eosinophils # (A) 0.1 k/uL (0-0.7); Eosinophils % (A) 1 %; HCT 43.6 % (39.0-53.0); HGB 14.6 gm/dL (13.0-17.5); Lymphocytes # (A) 0.1 k/uL (1.0-4.8); Lymphocytes % (A) 1 %; MCH 31.7 pg (25.0-35.0); MCHC 33.4 g/dL (31.0-37.0); MCV 94.9 fL (80.0-100.0); Mean Platelet Volume 8.9; Monocytes # (A) 0.4 k/uL (0-1.0); Monocytes % (A) 4 %; Neutrophils % (A) 94 %; RBC 4.59 m/uL (4.30-5.90); RDW 12.9 % (11.5-15.5); WBC 10.7 k/uL (3.8-10.6)
[2020-06-09 04:19] LABS: Platelet Count 45 k/uL (150-450)
[2020-06-09 04:35] LABS: D-Dimer 7.76 mg/L FEU (<0.60); INR 1.2 (<1.2); Partial Thromboplastin Time 23.2 sec (22.0-30.0); Prothrombin Time 12.4 sec (9.0-12.0)
[2020-06-09 04:46] LABS: ALT 36 U/L (4-49); AST 29 U/L (17-59); African American GFR (CKD) >90 (>60 ml/min/1.73 sqM); Albumin 2.3 g/dL (3.5-5.0); Alkaline Phosphatase 107 U/L (38-126); Anion Gap 3 mmol/L; Blood Urea Nitrogen 50 mg/dL (9-20); C Reactive Protein 22.4 mg/L (<10.0); Calcium 8.4 mg/dL (8.4-10.2); Carbon Dioxide 30 mmol/L (22-30); Chloride 105 mmol/L (98-107); Creatine Kinase 71 U/L (55-170); Glucose 254 mg/dL (74-99); LDH 1639 U/L (313-618); Magnesium 2.4 mg/dL (1.6-2.3); Non-African American GFR(CKD) 85 (>60 ml/min/1.73 sqM); Potassium 4.8 mmol/L (3.5-5.1); Sodium 138 mmol/L (137-145); Total Bilirubin 1.2 mg/dL (0.2-1.3); Total Protein 5.5 g/dL (6.3-8.2)
[2020-06-09 06:54] LABS: Glucose,Whole Blood 230 mg/dL (75-99)
[2020-06-09] MEDS: INSULIN ASPART (NovoLOG) 100 UNIT/ML VIAL SQ SCH ×4 (06:58→21:11)
--- NOTE | 2020-06-09 07:13 | XR ---
EXAMINATION TYPE: XR chest 1V portable DATE OF EXAM: 06/09/2020 COMPARISON: 06/08/2020 INDICATION: Shortness of breath TECHNIQUE: Single frontal view of the chest is obtained. FINDINGS: The heart size is normal. The pulmonary vasculature is prominent. Perihilar infiltrates are present with milder infiltrate extending towards the periphery. Findings ca n be compatible IMPRESSION: 1. Stable perihilar infiltrates. Correlate for atypical pneumonia
[2020-06-09] MEDS: ASPIRIN 325 MG TAB PO SCH (08:30)
[2020-06-09] MEDS: CHOLECALCIFEROL 1,000 UNIT TAB PO SCH (08:30)
[2020-06-09] MEDS: DEXAMETHASONE SOD PHOSPHATE 10 MG/ML 1 ML VIAL IV SCH ×2 (08:30→21:11)
[2020-06-09] MEDS: LEVOFLOXACIN 750 MG TAB PO SCH (08:30)
[2020-06-09] MEDS: ENOXAPARIN 40 MG/0.4 ML SYRINGE SQ SCH ×2 (08:30→21:11)
[2020-06-09] MEDS: ZINC SULFATE 220 MG CAP PO SCH (08:30)
[2020-06-09] MEDS: ASCORBIC ACID 500 MG TAB PO SCH ×2 (08:30→21:11)
[2020-06-09] MEDS: PANTOPRAZOLE 40 MG TABLET PO SCH ×2 (08:30→17:59)
[2020-06-09] MEDS: SODIUM CHLORIDE 0.9% 1,000 ML IV SCH ×2 (08:35→19:56)
[2020-06-09] MEDS: ALBUTEROL HFA INHALER INHALATION SCH ×4 (09:10→21:47)
[2020-06-09] MEDS: NON FORMULARY DRUG (Lifitegrast [Xiidra] 1 EACH Droperette) BOTH EYES SCH ×2 (09:37→21:12)
[2020-06-09] MEDS: NYSTATIN 100,000 UNIT/ML SUSP 500,000 UNIT/5 ML CUP PO SCH ×4 (09:37→21:11)
[2020-06-09] MEDS: MORPHINE SULFATE 2 MG/ML SYRINGE IVP PRN ×2 (10:31→15:12)
[2020-06-09] MEDS: ALPRAZolam 0.25 MG TAB PO PRN (10:32)
[2020-06-09 13:35] LABS: Glucose,Whole Blood 258 mg/dL (75-99)
[2020-06-09] MEDS ORDERED: LIDOCAINE 1% INJ 10MG/ML (20 ML MDV) SQ ONE (15:05)
--- NOTE | 2020-06-09 15:41 | P.PN ---
Subjective Progress Note Date: 06/09/20 Principal diagnosis: Acute hypoxic respiratory failure Acute covid 19 pneumonia ARDS likely related covid 19 pneumonia Dyslipidemia Hypertension hypertensive cardiovascular disease Diabetes mellitus 06/09/2020, patient seen eval examined during the rounds, patient remains on BiPAP alternating with high flow oxygen, saturations stable, patient is very weak but however start eating by mouth now as per discussion with RN, a PICC line is being placed for supplemental nutrition, would recommend to hold the tube for now labs reviewed medications reviewed radiographic studies reviewed as well 06/08/2020, patient seen eval examined during the rounds labs reviewed medications reviewed care plan discussed, patient is on high flow aerosolized oxygen, saturation is 95-96%, appetite slightly better patient able to eat some forte, have encouraged patient to lay prone or at least on the sides, currently off of BiPAP, patient remains on Decadron, status post IV REMdesivir con valescent plasma also received 2 doses of Actemra 06/07/2020, patient seen eval examined during the rounds labs reviewed medications reviewed care plan discussed, remains on 85% oxygen 12 and 10 of BiPAP, cough shortness of breath stable saturation is stable now, oxygen saturation is 94%, and 90% 60 L high flow oxygen is being used as well labs reviewed 06/06/2020, patient seen eval examined during the rounds labs reviewed medications reviewed patient does have problem with swallowing very dry mouth, however can take honey thick, suspect may be dryness or oral thrush present, we'll start treating with nystatin swish and swallow, hemodynamic status remained stable however oxygenation remains marginal but doing better on aerosolized oxygen saturation is mid 90s, with activity does desaturate, intermittently have been doing BiPAP as well with 90% oxygen, x-ray performed earlier today reviewed overall remains stable pneumonia not much change finding consistent with Covid pneumonia and early ARDS 06/05/2020, patient seen eval examined during the rounds labs reviewed medications reviewed care plan discussed, patient has intermittent episodes of desaturation throughout the day, however he remains stable on BiPAP currently on 1208 and 60% oxygen, improved 100%, labs from today reviewed inflammatory parameters remains high suggestive of ongoing cytokine strong, sugar also noted on the higher side, we will start sliding scale insulin if it remains elevated 06/04/2020, patient seen eval examined during the rounds labs reviewed medications reviewed, care plan discussed, remains on BiPAP 12/8 with 60% oxygen saturation is 98%, patient did desaturate on high flow address lysed oxygen, he has finished IV REMdesivir convalescent plasma remains on Decadron 06/03/2020, patient seen eval reexamined during the rounds labs reviewed medications reviewed, patient was desaturating or with aerosolized oxygen just has been placed on BiPAP / with 80% oxygen saturation improved to 100%, , patient is status post IV in remdesivir therapy, he has received convalescent plasma as well yesterday, chest x-ray reviewed diffuse patchy infiltrates bilaterally remains stable 06/02/2020, patient seen eval examined during the rounds labs reviewed medications reviewed, due to severe hypoxia and respiratory distress patient transferred from the medical floor to ICU, patient was off of BiPAP for extended period time, on high flow search dropped down to 60s and 70s, after bringing patient up in the ICU was continued on BiPAP, prone positioning have been encouraged, patient will be given convalescent plasma as well, and is status post therapy with IV REM doesn't wear remains on Decadron and Lovenox, she sent patient remains afebrile, tachypneic, hemodynamic status stable, on BiPAP 12/8, 80% oxygen saturation is 95-96%, 's x-ray continue show bilateral diffuse interstitial infiltrates, overall not much change compared to prior x-ray 06/01/2020, patient seen eval examined during the rounds labs reviewed medications reviewed patient has been prone with BiPAP, oxygen saturation significantly improved to 96-98%, remains on 80% oxygen with BiPAP of 12 and 8, is still feel congested, short of breath, on supine posture however saturation to drop, remains on high flow oxygen with mask in between the BiPAP for meals and overall care, chest x-ray performed today shows diffuse bilateral interstitial and groundglass opacities predominantly in the perihilar area slightly improved on the left side though, noted mildly elevated troponin of 0.4 asymptomatic likely demand ischemia related 05/31/2020, patient seen, currently resting, remains on BiPAP in between for maintenance on address lysed high flow oxygen, sats on BiPAP last check was 90%, hemodynamic status stable, continued to be short of breath using necessary muscles cough is present intermittently dry and nonproductive, patient remains on therapy 05/30/2020, patient seen eval examined during the rounds labs reviewed irrigations reviewed, patient is overall in good spirits, however continued to require high flow oxygen with aerosolized oxygen and nonrebreather mask during eating otherwise patient has been on BiPAP, currently saturation is about 88-90% on 06/06 on 80% oxygen, sats on BiPAP however improved to 95%, chest x-ray performed earlier today revealed bilateral infiltrates consistent with covid 19 pneumonia 05/29/2020, patient seen eval examined during the rounds labs reviewed medications reviewed care plan discussed, patient remained short of breath currently now is on airvo high flow oxygen, 90% to 91%, Patient came into the hospital with about one week history of increased symptoms of sinus congestion cough, also has a chills fever and mild PI aches and fatigue and pain, history of prior lung problems does have a history hypertension hypertensive cardiovascular disease dyslipidemia and diabetes mellitus, on arrival his oxygen saturation is 90%, low-grade temperature 99.3 was present his steiner virus PCR came back positive, his oxygen requirement continued to go up currently he is on 100% nonrebreather mask with 15 L high flow oxygen, chest x- ray admitted show coarse interstitial changes consistent with interstitial pneumonia repeat chest x-ray did now show worsening ARDS-like Petrin, saturation is 98%, he is afebrile hemodynamic status, he is on Lovenox 40 every 12, on Medrol 60 every 6, Remdesivir IV, inflammatory parameters are consistent with severe inflammatory response d-dimer is 16.4, pH is 574, a reactive protein is 3 Objective - Vital Signs Vital signs: Vital Signs Temp 98 F 06/09/20 12:00 Pulse 102 H 06/09/20 14:00 Resp 29 H 06/09/20 14:00 BP 106/63 06/09/20 14:00 Pulse Ox 90 L 06/09/20 14:00 Intake & Output 06/08/20 06/09/20 06/09/20 18:59 06:59 18:59 Intake Total 1305 1125 1125 Output Total 325 800 475 Balance 980 325 650 Weight 71 kg 71 kg Intake: Intake, IV Titration 825 1125 525 Amount Levofloxacin 750Mg-D5w 150 Pmx 750 mg In Dextrose/ Water 1 150ml.bag @ 100 mls/hr IVPB ONCE STA Rx#: [id number] Sodium Chloride 0.9% 1, 825 975 525 000 ml @ 75 mls/hr IV . [id number] [facility] Rx#:[id number] Oral 480 600 Output: Urine 325 800 475 Other: Voiding Method Urinal Urinal Urinal # Voids 0 - Exam - Constitutional General appearance: average body habitus, disheveled, mild distress - EENT Eyes: EOMI, PERRLA Ears: bilateral: normal - Neck Neck: normal ROM Carotids: bilateral: upstroke normal Thyroid: bilateral: normal size - Respiratory Respiratory: bilateral: diminished - Cardiovascular Rhythm: regular Heart sounds: normal: S1, S2 - Gastrointestinal General gastrointestinal: soft - Integumentary Integumentary: decreased turgor - Neurologic Neurologic: CNII-XII intact - Musculoskeletal Musculoskeletal: gait normal, generalized weakness, strength equal bilaterally - Psychiatric Psychiatric: A&O x's 3, appropriate affect, intact judgment & insight - Labs CBC & Chem 7: 06/09/20 04:02 06/09/20 04:02 Labs: Abnormal Lab Results - Last 24 Hours (Table) 06/08/20 06/08/20 06/09/20 Range/Units 18:01 21:40 02:58 WBC (3.8-10.6) k/uL Plt Count (150-450) k/uL Neutrophils # (1.3-7.7) k/uL Lymphocytes # (1.0-4.8) k/uL PT (9.0-12.0) sec INR (<1.2) D-Dimer (<0.60) mg/L FEU BUN (9-20) mg/dL Glucose (74-99) mg/dL POC Glucose (mg/dL) 549 H 381 H 244 H (75-99) mg/dL Magnesium (1.6-2.3) mg/dL Lactate Dehydrogenase (313-618) U/L C-Reactive Protein (<10.0) mg/L Total Protein (6.3-8.2) g/dL Albumin (3.5-5.0) g/dL Procalcitonin (0.02-0.09) ng/mL 06/09/20 06/09/20 06/09/20 Range/Units 04:02 04:02 04:02 WBC 10.7 H (3.8-10.6) k/uL Plt Count 45 L (150-450) k/uL Neutrophils # 10.0 H (1.3-7.7) k/uL Lymphocytes # 0.1 L (1.0-4.8) k/uL PT 12.4 H (9.0-12.0) sec INR 1.2 H (<1.2) D-Dimer 7.76 H (<0.60) mg/L FEU BUN (9-20) mg/dL Glucose (74-99) mg/dL POC Glucose (mg/dL) (75-99) mg/dL Magnesium (1.6-2.3) mg/dL Lactate Dehydrogenase (313-618) U/L C-Reactive Protein (<10.0) mg/L Total Protein (6.3-8.2) g/dL Albumin (3.5-5.0) g/dL Procalcitonin 0.23 H (0.02-0.09) ng/mL 06/09/20 06/09/20 06/09/20 Range/Units 04:02 06:53 13:34 WBC (3.8-10.6) k/uL Plt Count (150-450) k/uL Neutrophils # (1.3-7.7) k/uL Lymphocytes # (1.0-4.8) k/uL PT (9.0-12.0) sec INR (<1.2) D-Dimer (<0.60) mg/L FEU BUN 50 H (9-20) mg/dL Glucose 254 H (74-99) mg/dL POC Glucose (mg/dL) 230 H 258 H (75-99) mg/dL Magnesium 2.4 H (1.6-2.3) mg/dL Lactate Dehydrogenase 1639 H (313-618) U/L C-Reactive Protein 22.4 H (<10.0) mg/L Total Protein 5.5 L (6.3-8.2) g/dL Albumin 2.3 L (3.5-5.0) g/dL Procalcitonin (0.02-0.09) ng/mL Assessment and Plan Assessment: Difficulty in swallowing likely due to dryness/oral thrush improved now Acute hypoxic respiratory failure Acute covid 19 pneumonia cytokine is rayray ARDS likely related covid 19 pneumonia Dyslipidemia Hypertension hypertensive cardiovascular disease Diabetes mellitus Plan: Continue BiPAP 06/06 with oxygen to keep saturation of 90% or above each night and when necessary during the day, in between patient can be rested with aerosolized oxygen and facemask Deep breathing exercise incentive spirometry Prone positioning as much as possible preferably 16 hours a day if not possible patient agree able for sleeping on the sides IV steroids Nystatin swish and swallow Status post IV Remdesivir for 5 days Status post 2 doses of Actemra for cytokine is rayray Continue Anticoagulation with Lovenox Sliding scale insulin, with maintenance insulin Observe closely in ICU Status post Convalescent plasma Time with Patient: Greater than 30
--- NOTE | 2020-06-09 15:42 | XR ---
EXAMINATION TYPE: XR chest 1V confirm line [facility] DATE OF EXAM: 06/09/2020 COMPARISON: Prior chest x-ray 06/09/2020 at earlier time HISTORY: Status post PICC line placement TECHNIQUE: Single frontal view of the chest is obtained. FINDINGS: There is been interval placement of right-sided PICC line, distal tip is near the cavoatri al junction level. No other interval change. IMPRESSION: No evident complication status post PICC line placement.
--- NOTE | 2020-06-09 16:42 | IR ---
Fluoroscopy HISTORY: Pain EXAMINATION TYPE: IR cvc insert >=5 years DATE OF EXAM: 06/09/2020 COMPARISON: NONE HISTORY: Covid pneumonia, needs long-term intravenous access for therapy FINDINGS: Maximal barrier technique was utilized. Hand hygiene obtained with soap and water and alco hol-based hand rub. The skin overlying the right brachial vein was localized with ultrasound and note d to be compressible and patent by ultrasound. An ultrasound image was obtained and submitted on pat ient's chart. Sterile technique utilized with the ultrasound machine. The skin overlying was prepped and draped and Lidocaine used for local anesthesia. A skin sonido was made with a scalpel. Access was gained to the vein under direct ultrasound guidance with a 21-gauge needle and a 0.018 inch wire was advanced. Access site was dilated with a peel-away sheath and the catheter tailored to length. Cat heter advanced centrally and a post procedure chest x-ray verified placement with the tip at the supe rior vena cava. Catheter was fixed to the skin and a sterile dressing placed. Hemostasis achieved a nd the catheter was aspirated and flushed with sterile saline. The patient remained in stable condit ion. IMPRESSION: STATUS POST ULTRASOUND GUIDED PICC LINE PLACEMENT, READY FOR USE. THIS PROCEDURE WAS PER FORMED BY THE UNDERSIGNED.
[2020-06-09 17:03] LABS: Glucose,Whole Blood 420 mg/dL (75-99)
[2020-06-09] MEDS: LORazepam 2 MG/ML INJ IV PRN (18:34)
--- NOTE | 2020-06-09 19:26 | P.PN ---
Subjective Progress Note Date: 06/09/20 Principal diagnosis: acute hypoxic respiratory failure Acute covid 19 pneumonia 74-year-old male who is recently admitted with generalized body aches, sinus congestion, fevers, and mild shortness of breath with exertion. patient was found to have covid- 19 infection, throughout hospital stay patient's respiratory status declined, required BiPAP. Patient was transferred to ICU for more intense monitoring. patient currently on BiPAP with settings 12/8 with FiO2 100% patient able to do a few word sentencesdyspnea noted with communication. Patient states poor intake, do to low nutritional intake PICC line placed and ordered with TPN. Awaiting recommendations from dietitian for paternal TPN. Labs and medications reviewed. Objective - Vital Signs Vital signs: Vital Signs Temp 98 F 06/09/20 16:00 Pulse 114 H 06/09/20 18:00 Resp 29 H 06/09/20 18:00 BP 126/69 06/09/20 18:00 Pulse Ox 92 L 06/09/20 18:00 Intake & Output 06/09/20 06/09/20 06/10/20 06:59 18:59 06:59 Intake Total 1125 1425 Output Total 800 825 Balance 325 600 Weight 71 kg Intake: Intake, IV Titration 1125 825 Amount Levofloxacin 750Mg-D5w 150 Pmx 750 mg In Dextrose/ Water 1 150ml.bag @ 100 mls/hr IVPB ONCE STA Rx#: [id number] Sodium Chloride 0.9% 1, 975 825 000 ml @ 75 mls/hr IV . [id number] [facility] Rx#:[id number] Oral 600 Output: Urine 800 825 Other: Voiding Method Urinal Urinal # Voids 0 - Exam moderate distress - Constitutional General appearance: Present: thin - EENT Eyes: Present: EOMI, PERRLA ENT: Present: pharyngeal erythema Ears: bilateral: normal - Neck Carotids: bilateral: upstroke normal Thyroid: bilateral: normal size - Respiratory Respiratory: bilateral: rhonchi (Coarse rhonchi throughout lung dowd) - Cardiovascular Details: Sinus tachycardia Heart rate: 120 Rhythm: regular Heart sounds: normal: S1, S2 - Peripheral pulses dorsalis pedis Peripheral Pulses: bilateral: Normal radial pulse Peripheral Pulses: bilateral: Normal - Gastrointestinal General gastrointestinal: Present: absent bowel sounds - Integumentary Integumentary: Present: decreased turgor, pale - Neurologic Neurologic: Present: CNII-XII intact - Musculoskeletal Musculoskeletal: Present: generalized weakness - Psychiatric Psychiatric: Present: A&O x's 3, appropriate affect, intact judgment & insight - Allied health notes Allied health notes reviewed: nursing - Labs CBC & Chem 7: 06/09/20 04:02 06/09/20 04:02 Labs: Abnormal Lab Results - Last 24 Hours (Table) 06/08/20 06/09/20 06/09/20 Range/Units 21:40 02:58 04:02 WBC (3.8-10.6) k/uL Plt Count (150-450) k/uL Neutrophils # (1.3-7.7) k/uL Lymphocytes # (1.0-4.8) k/uL PT (9.0-12.0) sec INR (<1.2) D-Dimer (<0.60) mg/L FEU BUN (9-20) mg/dL Glucose (74-99) mg/dL POC Glucose (mg/dL) 381 H 244 H (75-99) mg/dL Magnesium (1.6-2.3) mg/dL Lactate Dehydrogenase (313-618) U/L C-Reactive Protein (<10.0) mg/L Total Protein (6.3-8.2) g/dL Albumin (3.5-5.0) g/dL Procalcitonin 0.23 H (0.02-0.09) ng/mL 06/09/20 06/09/20 06/09/20 Range/Units 04:02 04:02 04:02 WBC 10.7 H (3.8-10.6) k/uL Plt Count 45 L (150-450) k/uL Neutrophils # 10.0 H (1.3-7.7) k/uL Lymphocytes # 0.1 L (1.0-4.8) k/uL PT 12.4 H (9.0-12.0) sec INR 1.2 H (<1.2) D-Dimer 7.76 H (<0.60) mg/L FEU BUN 50 H (9-20) mg/dL Glucose 254 H (74-99) mg/dL POC Glucose (mg/dL) (75-99) mg/dL Magnesium 2.4 H (1.6-2.3) mg/dL Lactate Dehydrogenase 1639 H (313-618) U/L C-Reactive Protein 22.4 H (<10.0) mg/L Total Protein 5.5 L (6.3-8.2) g/dL Albumin 2.3 L (3.5-5.0) g/dL Procalcitonin (0.02-0.09) ng/mL 06/09/20 06/09/20 06/09/20 Range/Units 06:53 13:34 17:01 WBC (3.8-10.6) k/uL Plt Count (150-450) k/uL Neutrophils # (1.3-7.7) k/uL Lymphocytes # (1.0-4.8) k/uL PT (9.0-12.0) sec INR (<1.2) D-Dimer (<0.60) mg/L FEU BUN (9-20) mg/dL Glucose (74-99) mg/dL POC Glucose (mg/dL) 230 H 258 H 420 H (75-99) mg/dL Magnesium (1.6-2.3) mg/dL Lactate Dehydrogenase (313-618) U/L C-Reactive Protein (<10.0) mg/L Total Protein (6.3-8.2) g/dL Albumin (3.5-5.0) g/dL Procalcitonin (0.02-0.09) ng/mL - Imaging and Cardiology Chest x-ray: report reviewed Assessment and Plan Assessment: Acute hypoxic respiratory failure Acute covid- 19 pneumonia Cytokine storm ARDSlikely related to Covid 19 pneumonia Hyperlipidemia Hypertension Diabetes type 2 mellitus (1) COVID-19 Narrative/Plan: continue consultation with pulmonary critical care for recommendations and treatment plan BiPAP therapy-settings /8FiO2 100% Encourage patient to lay prone due to covID- 19 pneumonitis, inform nursing staff to adjust patient to lay prone Current Visit: Yes Status: Acute Code(s): U07.1 - COVID-19 SNOMED Code(s): 532933293 Plan: continue consultation with pulmonary critical care for recommendations and treatment plan continue consultation with infectious disease for recommendations and treatment plan Continue IV steroids Continue anticoagulation therapy continue current medication therapy Continue BiPAP with settings 06/06 with FiO2 100% continue medical management Time with Patient: Greater than 30
[2020-06-09 21:04] LABS: Glucose,Whole Blood 309 mg/dL (75-99)
[2020-06-09] MEDS: ATORVASTATIN 20 MG TAB PO SCH (21:11)
[2020-06-09] MEDS: TAMSULOSIN 0.4 MG CAP.ER.24H PO SCH (21:11)
--- NOTE | 2020-06-09 22:47 | PN ---
PROGRESS NOTE DATE OF SERVICE: 06/09/2020 REASON FOR FOLLOWUP: COVID-19 infection. INTERVAL HISTORY: The patient is currently afebrile. The patient remains BiPAP-dependent, unable to be taken off the BiPAP. The patient is hemodynamically stable, not on any pressor support. No vomiting or diarrhea has been reported. He was getting a PICC line at the time of my evaluation. Most of the information has been obtained from the nursing staff. PHYSICAL EXAMINATION: Blood pressure 136/78, pulse of 110, temperature 97.5. He is 90% on BiPAP. General description is an elderly male lying in bed in no distress. RESPIRATORY SYSTEM: Unlabored breathing with diminished breath sounds. EXTREMITIES: No edema of the feet. LABS: Hemoglobin is 14.3, white count 10.7. D-dimer is shrinking down, down to 7.76. BUN of 50, creatinine 0.88. LDH is down to 1639. DIAGNOSTIC IMPRESSION AND PLAN: Patient with acute respiratory failure which is multifactorial in this patient who did have acute COVID-19 infection. The patient completed Remdesivir therapy and he received of Actemra. The patient is currently covered with Lovenox, dexamethasone, zinc; to continue along with respiratory support. Will monitor his clinical course closely. MMODL / IJN: [id number] /
[2020-06-10] MEDS: LORazepam 2 MG/ML INJ IV PRN ×3 (01:49→22:29)
[2020-06-10 02:40] LABS: Glucose,Whole Blood 138 mg/dL (75-99)
[2020-06-10 06:26] LABS: Glucose,Whole Blood 194 mg/dL (75-99)
[2020-06-10] MEDS: INSULIN ASPART (NovoLOG) 100 UNIT/ML VIAL SQ SCH ×4 (06:32→21:18)
[2020-06-10] MEDS: PANTOPRAZOLE 40 MG TABLET PO SCH ×2 (06:32→18:11)
[2020-06-10 06:55] LABS: Basophils # (A) 0.1 k/uL (0-0.2); Basophils % (A) 0 %; Eosinophils # (A) 0.1 k/uL (0-0.7); Eosinophils % (A) 1 %; HCT 48.8 % (39.0-53.0); HGB 15.9 gm/dL (13.0-17.5); Lymphocytes # (A) 0.2 k/uL (1.0-4.8); Lymphocytes % (A) 1 %; MCH 31.4 pg (25.0-35.0); MCHC 32.6 g/dL (31.0-37.0); MCV 96.2 fL (80.0-100.0); Mean Platelet Volume 8.3; Monocytes # (A) 0.4 k/uL (0-1.0); Monocytes % (A) 3 %; Neutrophils # (A) 13.1 k/uL (1.3-7.7); Neutrophils % (A) 94 %; RBC 5.07 m/uL (4.30-5.90); WBC 13.9 k/uL (3.8-10.6)
[2020-06-10 06:59] LABS: Platelet Count 56 k/uL (150-450)
[2020-06-10 07:13] LABS: ALT 36 U/L (4-49); AST 39 U/L (17-59); African American GFR (CKD) >90 (>60 ml/min/1.73 sqM); Albumin 2.5 g/dL (3.5-5.0); Alkaline Phosphatase 130 U/L (38-126); Anion Gap 0 mmol/L; Blood Urea Nitrogen 49 mg/dL (9-20); Calcium 8.7 mg/dL (8.4-10.2); Carbon Dioxide 32 mmol/L (22-30); Chloride 109 mmol/L (98-107); Creatine Kinase 71 U/L (55-170); Glucose 182 mg/dL (74-99); Magnesium 2.2 mg/dL (1.6-2.3); Non-African American GFR(CKD) 86 (>60 ml/min/1.73 sqM); Sodium 141 mmol/L (137-145); Total Bilirubin 1.4 mg/dL (0.2-1.3); Total Protein 5.6 g/dL (6.3-8.2)
[2020-06-10 07:29] LABS: LDH 2185 U/L (313-618)
[2020-06-10] MEDS: ALBUTEROL HFA INHALER INHALATION SCH ×4 (08:01→19:25)
[2020-06-10 08:13] LABS: C Reactive Protein 11.1 mg/L (<10.0)
[2020-06-10 09:18] LABS: D-Dimer 7.53 mg/L FEU (<0.60); INR 1.1 (<1.2); Partial Thromboplastin Time 22.7 sec (22.0-30.0); Prothrombin Time 11.4 sec (9.0-12.0)
[2020-06-10 09:19] VITALS: BMI 22.3
[2020-06-10] MEDS: ASCORBIC ACID 500 MG TAB PO SCH ×2 (09:51→20:19)
[2020-06-10] MEDS: ALPRAZolam 0.25 MG TAB PO PRN (09:51)
[2020-06-10] MEDS: CHOLECALCIFEROL 1,000 UNIT TAB PO SCH (09:51)
[2020-06-10] MEDS: ENOXAPARIN 40 MG/0.4 ML SYRINGE SQ SCH ×2 (09:51→21:17)
[2020-06-10] MEDS: SODIUM CHLORIDE 0.9% 1,000 ML IV SCH ×2 (09:51→20:28)
[2020-06-10] MEDS: ASPIRIN 325 MG TAB PO SCH (09:51)
[2020-06-10] MEDS: DEXAMETHASONE SOD PHOSPHATE 10 MG/ML 1 ML VIAL IV SCH ×2 (09:52→21:17)
[2020-06-10] MEDS: LEVOFLOXACIN 750 MG TAB PO SCH (09:52)
[2020-06-10] MEDS: NYSTATIN 100,000 UNIT/ML SUSP 500,000 UNIT/5 ML CUP PO SCH ×4 (09:53→20:29)
[2020-06-10] MEDS: ZINC SULFATE 220 MG CAP PO SCH (09:53)
[2020-06-10] MEDS: NON FORMULARY DRUG (Lifitegrast [Xiidra] 1 EACH Droperette) BOTH EYES SCH ×2 (09:55→20:28)
--- NOTE | 2020-06-10 11:16 | P.PN ---
Subjective Progress Note Date: 06/10/20 (Critical care time 35 minutes) Principal diagnosis: Acute hypoxic respiratory failure Acute covid 19 pneumonia ARDS likely related covid 19 pneumonia Dyslipidemia Hypertension hypertensive cardiovascular disease Diabetes mellitus 06/10/2020, patient seen eval during the rounds labs reviewed medications reviewed care plan discussed, patient remains very weak, status post PICC line TPN is being started, currently patient is on BiPAP 06/06 oxygen saturation is 80%, earlier morning oxygen saturation were 91%, we will increase it to 14/10, remains on 100% oxygen, right cell count is up to 13,900 hemoglobin stable, inflammatory parameters continued to be on high and d-dimer is 7.53, LDH continue to go up late this was 2185, ferritin from today is pending, chest x- ray done today reviewed bilateral diffuse interstitial infiltrate are present more so on the left side compared to lites right side continued to progress stable PICC line 06/09/2020, patient seen eval examined during the rounds, patient remains on BiPAP alternating with high flow oxygen, saturations stable, patient is very weak but however start eating by mouth now as per discussion with RN, a PICC line is being placed for supplemental nutrition, would recommend to hold the tube for now labs reviewed medications reviewed radiographic studies reviewed as well 06/08/2020, patient seen eval examined during the rounds labs reviewed medications reviewed care plan discussed, patient is on high flow aerosolized oxygen, saturation is 95-96%, appetite slightly better patient able to eat some forte, have encouraged patient to lay prone or at least on the sides, currently off of BiPAP, patient remains on Decadron, status post IV REMdesivir convalescent plasma also received 2 doses of Actemra 06/07/2020, patient seen eval examined during the rounds labs reviewed medications reviewed care plan discussed, remains on 85% oxygen 12 and 10 of BiPAP, cough shortness of breath stable saturation is stable now, oxygen saturation is 94%, and 90% 60 L high flow oxygen is being used as well labs reviewed 06/06/2020, patient seen eval examined during the rounds labs reviewed medications reviewed patient does have problem with swallowing very dry mouth, however can take honey thick, suspect may be dryness or oral thrush present, we'll start treating with nystatin swish and swallow, hemodynamic status remained stable however oxygenation remains marginal but doing better on aerosolized oxygen saturation is mid 90s, with activity does desaturate, intermittently have been doing BiPAP as well with 90% oxygen, x-ray performed earlier today reviewed overall remains stable pneumonia not much change finding consistent with Covid pneumonia and early ARDS 06/05/2020, patient seen eval examined during the rounds labs reviewed medications reviewed care plan discussed, patient has intermittent episodes of desaturation throughout the day, however he remains stable on BiPAP currently on 1208 and 60% oxygen, improved 100%, labs from today reviewed inflammatory parameters remains high suggestive of ongoing cytokine strong, sugar also noted on the higher side, we will start sliding scale insulin if it remains elevated 06/04/2020, patient seen eval examined during the rounds labs reviewed medicat ions reviewed, care plan discussed, remains on BiPAP / with 60% oxygen saturation is 98%, patient did desaturate on high flow address lysed oxygen, he has finished IV REMdesivir convalescent plasma remains on Decadron 06/03/2020, patient seen eval reexamined during the rounds labs reviewed medic ations reviewed, patient was desaturating or with aerosolized oxygen just has been placed on BiPAP 06/03 with 80% oxygen saturation improved to 100%, , patient is status post IV in remdesivir therapy, he has received convalescent plasma as well yesterday, chest x-ray reviewed diffuse patchy infiltrates bilaterally remains stable 06/02/2020, patient seen eval examined during the rounds labs reviewed medications reviewed, due to severe hypoxia and respiratory distress patient transferred from the medical floor to ICU, patient was off of BiPAP for extended period time, on high flow search dropped down to 60s and 70s, after bringing patient up in the ICU was continued on BiPAP, prone positioning have been encouraged, patient will be given convalescent plasma as well, and is status post therapy with IV REM doesn't wear remains on Decadron and Lovenox, she sent patient remains afebrile, tachypneic, hemodynamic status stable, on BiPAP 12/, 80% oxygen saturation is 95-96%, 's x-ray continue show bilateral diffuse interstitial infiltrates, overall not much change compared to prior x-ray 06/01/2020, patient seen eval examined during the rounds labs reviewed medications reviewed patient has been prone with BiPAP, oxygen saturation significantly improved to 96-98%, remains on 80% oxygen with BiPAP of 12 and 8, is still feel congested, short of breath, on supine posture however saturation to drop, remains on high flow oxygen with mask in between the BiPAP for meals and overall care, chest x-ray performed today shows diffuse bilateral interstitial and groundglass opacities predominantly in the perihilar area slightly improved on the left side though, noted mildly elevated troponin of 0.4 asymptomatic likely demand ischemia related 05/31/2020, patient seen, currently resting, remains on BiPAP in between for maintenance on address lysed high flow oxygen, sats on BiPAP last check was 90%, hemodynamic status stable, continued to be short of breath using necessary muscles cough is present intermittently dry and nonproductive, patient remains on therapy 05/30/2020, patient seen eval examined during the rounds labs reviewed irrigations reviewed, patient is overall in good spirits, however continued to require high flow oxygen with aerosolized oxygen and nonrebreather mask during eating otherwise patient has been on BiPAP, currently saturation is about 88-90% on 06/06 on 80% oxygen, sats on BiPAP however improved to 95%, chest x-ray performed earlier today revealed bilateral infiltrates consistent with covid 19 pneumonia 05/29/2020, patient seen eval examined during the rounds labs reviewed medications reviewed care plan discussed, patient remained short of breath jesus ferrari now is on airvo high flow oxygen, 90% to 91%, Patient came into the hospital with about one week history of increased symptoms of sinus congestion cough, also has a chills fever and mild PI aches and fatigue and pain, history of prior lung problems does have a history hypertension hypertensive cardiovascular disease dyslipidemia and diabetes mellitus, on arrival his oxygen saturation is 90%, low-grade temperature 99.3 was present his steiner virus PCR came back positive, his oxygen requirement continued to go up currently he is on 100% nonrebreather mask with 15 L high flow oxygen, chest x- ray admitted show coarse interstitial changes consistent with interstitial pneumonia repeat chest x-ray did now show worsening ARDS-like Petrin, saturation is 98%, he is afebrile hemodynamic status, he is on Lovenox 40 every 12, on Medrol 60 every 6, Remdesivir IV, inflammatory parameters are consistent with severe inflammatory response d-dimer is 16.4, pH is 574, a reactive protein is 3 Objective - Vital Signs Vital signs: Vital Signs Temp 98.9 F 06/10/20 04:00 Pulse 111 H 06/10/20 07:00 Resp 22 06/10/20 07:00 BP 139/80 06/10/20 07:00 Pulse Ox 93 L 06/10/20 07:00 Intake & Output 06/09/20 06/10/20 06/10/20 18:59 06:59 18:59 Intake Total 1425 975 Output Total 825 950 Balance 600 25 Weight 71 kg 72.5 kg 72.5 kg Intake: Intake, IV Titration 825 975 Amount Sodium Chloride 0.9% 1, 825 975 000 ml @ 75 mls/hr IV . [id number] [facility] Rx#:[id number] Oral 600 Output: Urine 825 950 Other: Voiding Method Urinal Urinal - Exam - Constitutional General appearance: average body habitus, disheveled, mild distress - EENT Eyes: EOMI, PERRLA Ears: bilateral: normal - Neck Neck: normal ROM Carotids: bilateral: upstroke normal Thyroid: bilateral: normal size - Respiratory Respiratory: bilateral: diminished - Cardiovascular Rhythm: regular Heart sounds: normal: S1, S2 - Gastrointestinal General gastrointestinal: soft - Integumentary Integumentary: decreased turgor - Neurologic Neurologic: CNII-XII intact - Musculoskeletal Musculoskeletal: gait normal, generalized weakness, strength equal bilaterally - Psychiatric Psychiatric: A&O x's 3, appropriate affect, intact judgment & insight - Labs CBC & Chem 7: 06/10/20 06:37 06/10/20 06:37 Labs: Abnormal Lab Results - Last 24 Hours (Table) 06/09/20 06/09/20 06/09/20 Range/Units 04:02 04:02 13:34 WBC (3.8-10.6) k/uL Plt Count (150-450) k/uL Neutrophils # (1.3-7.7) k/uL Lymphocytes # (1.0-4.8) k/uL D-Dimer (<0.60) mg/L FEU Chloride (98-107) mmol/L Carbon Dioxide (22-30) mmol/L BUN (9-20) mg/dL Glucose (74-99) mg/dL POC Glucose (mg/dL) 258 H (75-99) mg/dL Ferritin 2756.2 H (22.0-322.0) ng/mL Total Bilirubin (0.2-1.3) mg/dL Alkaline Phosphatase (38-126) U/L Lactate Dehydrogenase (313-618) U/L C-Reactive Protein (<10.0) mg/L Total Protein (6.3-8.2) g/dL Albumin (3.5-5.0) g/dL Procalcitonin 0.23 H (0.02-0.09) ng/mL 06/09/20 06/09/20 06/10/20 Range/Units 17:01 21:01 02:40 WBC (3.8-10.6) k/uL Plt Count (150-450) k/uL Neutrophils # (1.3-7.7) k/uL Lymphocytes # (1.0-4.8) k/uL D-Dimer (<0.60) mg/L FEU Chloride (98-107) mmol/L Carbon Dioxide (22-30) mmol/L BUN (9-20) mg/dL Glucose (74-99) mg/dL POC Glucose (mg/dL) 420 H 309 H 138 H (75-99) mg/dL Ferritin (22.0-322.0) ng/mL Total Bilirubin (0.2-1.3) mg/dL Alkaline Phosphatase (38-126) U/L Lactate Dehydrogenase (313-618) U/L C-Reactive Protein (<10.0) mg/L Total Protein (6.3-8.2) g/dL Albumin (3.5-5.0) g/dL Procalcitonin (0.02-0.09) ng/mL 06/10/20 06/10/20 06/10/20 Range/Units 06:23 06:37 06:37 WBC 13.9 H (3.8-10.6) k/uL Plt Count 56 L (150-450) k/uL Neutrophils # 13.1 H (1.3-7.7) k/uL Lymphocytes # 0.2 L (1.0-4.8) k/uL D-Dimer (<0.60) mg/L FEU Chloride 109 H (98-107) mmol/L Carbon Dioxide 32 H (22-30) mmol/L BUN 49 H (9-20) mg/dL Glucose 182 H (74-99) mg/dL POC Glucose (mg/dL) 194 H (75-99) mg/dL Ferritin (22.0-322.0) ng/mL Total Bilirubin 1.4 H (0.2-1.3) mg/dL Alkaline Phosphatase 130 H (38-126) U/L Lactate Dehydrogenase 2185 H (313-618) U/L C-Reactive Protein 11.1 H (<10.0) mg/L Total Protein 5.6 L (6.3-8.2) g/dL Albumin 2.5 L (3.5-5.0) g/dL Procalcitonin (0.02-0.09) ng/mL 06/10/20 Range/Units 08:18 WBC (3.8-10.6) k/uL Plt Count (150-450) k/uL Neutrophils # (1.3-7.7) k/uL Lymphocytes # (1.0-4.8) k/uL D-Dimer 7.53 H (<0.60) mg/L FEU Chloride (98-107) mmol/L Carbon Dioxide (22-30) mmol/L BUN (9-20) mg/dL Glucose (74-99) mg/dL POC Glucose (mg/dL) (75-99) mg/dL Ferritin (22.0-322.0) ng/mL Total Bilirubin (0.2-1.3) mg/dL Alkaline Phosphatase (38-126) U/L Lactate Dehydrogenase (313-618) U/L C-Reactive Protein (<10.0) mg/L Total Protein (6.3-8.2) g/dL Albumin (3.5-5.0) g/dL Procalcitonin (0.02-0.09) ng/mL Assessment and Plan Assessment: Protein calorie malnourishment Acute hypoxic respiratory failure Acute covid 19 pneumonia cytokine is rayray ARDS likely related covid 19 pneumonia Dyslipidemia Hypertension hypertensive cardiovascular disease Diabetes mellitus Plan: Continue BiPAP increase setting 214/10 8 with oxygen to keep saturation of 90% or above each night and when necessary during the day, in between patient can be rested with aerosolized oxygen and facemask Deep breathing exercise incentive spirometry Prone positioning as much as possible preferably 16 hours a day if not possible patient agree able for sleeping on the sides IV steroids Nystatin swish and swallow Status post IV Remdesivir for 5 days Status post 2 doses of Actemra for cytokine is rayray Continue Anticoagulation with Lovenox Sliding scale insulin, with maintenance insulin Observe closely in ICU Status post Convalescent plasma
[2020-06-10 11:22] LABS: Phosphorus 3.8 mg/dL (2.5-4.5)
[2020-06-10] MEDS ORDERED: MVI, ADULT NO.4 WITH VIT K 10 ML, TRACE (CONC-1ML/DOSE) 1 ML in AMINO ACID 5%-D15W+LYTE... IV ONE ×3 (12:00)
[2020-06-10] MEDS: FAT EMULSION 20% 250 ML in EMPTY BAG 1 BAG IV SCH (12:07)
[2020-06-10 12:15] LABS: Glucose,Whole Blood 175 mg/dL (75-99)
[2020-06-10] MEDS: MORPHINE SULFATE 2 MG/ML SYRINGE IVP PRN (12:39)
--- NOTE | 2020-06-10 12:45 | XR ---
EXAMINATION TYPE: XR chest 1V portable DATE OF EXAM: 06/10/2020 COMPARISON: 06/09/2020 INDICATION: Covid pneumonia TECHNIQUE: Single frontal view of the chest is obtained. FINDINGS: The heart size is normal. The pulmonary vasculature is patchy periventricular infiltrates are present. Findings are worsening. The lungs are clear. PICC line enters on the right with the tip in this proximal right atrium IMPRESSION: 1. Worsening perihilar infiltrates.
--- NOTE | 2020-06-10 13:07 | P.PN ---
Subjective Progress Note Date: 06/10/20 This is a 74-year-old male who was recently admitted with generalized body aches, sinus congestion, fevers, shortness of breath with exertion and was also found to have Covid 19 pneumonia. Patient's respiratory status continues to deteriorate and was transferred to the ICU for close monitoring. Patient is currently on a BiPAP at 100% and saturating well although continues to be extremely short of breath and exhausted. Patient's blood sugars are being closely monitored as they have been variable with highs and lows and will continue a sliding scale at this time. Patient oral intake continues to be poor as he desats quickly off of the BiPAP. Discussion of a PICC line placement and enteral nutrition is being had. Dietitian has been consulted. White blood count continues to be elevated at 13.9 elbow possibly due to steroids. Hemoglobin is stable at 15.9. D-dimer slightly improved at 7.53 although continues to be elevated. Current sodium is 141, potassium is 5.0, BUN is 49, and creatinine is 0.84. Repeat chest x-ray today shows worsening perihilar infiltrates. Review of systems: Constitutional: reports of fatigue, no reports of fever, or chills Cardiovascular: No reports of chest pain or palpitations Respiratory: reports continued shortness of breath GI: No reports of nausea, vomiting, or diarrhea : No reports of dysuria or retention Neurovascular: rePorts generalized weakness All medications have been reviewed Objective - Vital Signs Vital signs: Vital Signs Temp 97.2 F L 06/10/20 08:00 Pulse 113 H 06/10/20 11:00 Resp 29 H 06/10/20 11:00 BP 131/83 06/10/20 11:00 Pulse Ox 96 06/10/20 11:00 Intake & Output 06/09/20 06/10/20 06/10/20 18:59 06:59 18:59 Intake Total 1425 975 300 Output Total 825 950 Balance 600 25 300 Weight 71 kg 72.5 kg 72.5 kg Intake: Intake, IV Titration 825 975 300 Amount Sodium Chloride 0.9% 1, 825 975 300 000 ml @ 75 mls/hr IV . [id number] [facility] Rx#:[id number] Oral 600 Output: Urine 825 950 Other: Voiding Method Urinal Urinal Urinal - Exam GENERAL: The patient is alert and oriented x3, currently on BiPAP 06/03, ill- appearing, anxious at times, well-developed, well-nourished HEENT: No pallor, No icterus CARDIOVASCULAR: S1 and S2 present. No murmurs, rubs, or gallops. PULMONARY: Coarse breath sounds in all lung dowd ABDOMEN: Soft, nontender, nondistended, normoactive bowel sounds. No palpable organomegaly. EXTREMITIES: No cyanosis, clubbing, or pedal edema. NEUROLOGICAL: Gross neurological examination did not reveal any focal deficits. Diffusely weak SKIN: Pale with decreased turgor - Labs CBC & Chem 7: 06/10/20 06:37 06/10/20 06:37 Labs: Abnormal Lab Results - Last 24 Hours (Table) 06/09/20 06/09/20 06/09/20 Range/Units 04:02 13:34 17:01 WBC (3.8-10.6) k/uL Plt Count (150-450) k/uL Neutrophils # (1.3-7.7) k/uL Lymphocytes # (1.0-4.8) k/uL D-Dimer (<0.60) mg/L FEU Chloride (98-107) mmol/L Carbon Dioxide (22-30) mmol/L BUN (9-20) mg/dL Glucose (74-99) mg/dL POC Glucose (mg/dL) 258 H 420 H (75-99) mg/dL Ferritin 2756.2 H (22.0-322.0) ng/mL Total Bilirubin (0.2-1.3) mg/dL Alkaline Phosphatase (38-126) U/L Lactate Dehydrogenase (313-618) U/L C-Reactive Protein (<10.0) mg/L Total Protein (6.3-8.2) g/dL Albumin (3.5-5.0) g/dL Triglycerides (<150) mg/dL 06/09/20 06/10/20 06/10/20 Range/Units 21:01 02:40 06:23 WBC (3.8-10.6) k/uL Plt Count (150-450) k/uL Neutrophils # (1.3-7.7) k/uL Lymphocytes # (1.0-4.8) k/uL D-Dimer (<0.60) mg/L FEU Chloride (98-107) mmol/L Carbon Dioxide (22-30) mmol/L BUN (9-20) mg/dL Glucose (74-99) mg/dL POC Glucose (mg/dL) 309 H 138 H 194 H (75-99) mg/dL Ferritin (22.0-322.0) ng/mL Total Bilirubin (0.2-1.3) mg/dL Alkaline Phosphatase (38-126) U/L Lactate Dehydrogenase (313-618) U/L C-Reactive Protein (<10.0) mg/L Total Protein (6.3-8.2) g/dL Albumin (3.5-5.0) g/dL Triglycerides (<150) mg/dL 06/10/20 06/10/20 06/10/20 Range/Units 06:37 06:37 08:18 WBC 13.9 H (3.8-10.6) k/uL Plt Count 56 L (150-450) k/uL Neutrophils # 13.1 H (1.3-7.7) k/uL Lymphocytes # 0.2 L (1.0-4.8) k/uL D-Dimer 7.53 H (<0.60) mg/L FEU Chloride 109 H (98-107) mmol/L Carbon Dioxide 32 H (22-30) mmol/L BUN 49 H (9-20) mg/dL Glucose 182 H (74-99) mg/dL POC Glucose (mg/dL) (75-99) mg/dL Ferritin (22.0-322.0) ng/mL Total Bilirubin 1.4 H (0.2-1.3) mg/dL Alkaline Phosphatase 130 H (38-126) U/L Lactate Dehydrogenase 2185 H (313-618) U/L C-Reactive Protein 11.1 H (<10.0) mg/L Total Protein 5.6 L (6.3-8.2) g/dL Albumin 2.5 L (3.5-5.0) g/dL Triglycerides (<150) mg/dL 06/10/20 Range/Units 10:40 WBC (3.8-10.6) k/uL Plt Count (150-450) k/uL Neutrophils # (1.3-7.7) k/uL Lymphocytes # (1.0-4.8) k/uL D-Dimer (<0.60) mg/L FEU Chloride (98-107) mmol/L Carbon Dioxide (22-30) mmol/L BUN (9-20) mg/dL Glucose (74-99) mg/dL POC Glucose (mg/dL) (75-99) mg/dL Ferritin (22.0-322.0) ng/mL Total Bilirubin (0.2-1.3) mg/dL Alkaline Phosphatase (38-126) U/L Lactate Dehydrogenase (313-618) U/L C-Reactive Protein (<10.0) mg/L Total Protein (6.3-8.2) g/dL Albumin (3.5-5.0) g/dL Triglycerides 251 H (<150) mg/dL Assessment and Plan Assessment: -Acute hypoxic respiratory failure, currently on BiPAP -Acute covid- 19 pneumonia -Cytokine storm -ARDSlikely related to Covid 19 pneumonia -Hyperlipidemia -Hypertension -Diabetes type 2 mellitus -DVT prophylaxis with the heparin -Full code Plan: Continue with current medications. Will repeat am labs. Infectious disease and pulmonary following. Discussed with RN about weaning FI02 as tolerated as patient is currently maintained on a BiPAP. Patient is not eating very well due to respiratory status and inability to come off of the BiPAP for very long as o xygen saturations dropped drastically. Patient is receiving a PICC line for possible nutrition as his intake has been extremely poor. Monitor blood sugars closely and continue current regimen. Further recommendations to follow. Due to multiple complex medical issues, prognosis is guarded.
[2020-06-10 17:58] LABS: Glucose,Whole Blood 235 mg/dL (75-99)
[2020-06-10] MEDS: ATORVASTATIN 20 MG TAB PO SCH (20:19)
[2020-06-10] MEDS: TAMSULOSIN 0.4 MG CAP.ER.24H PO SCH (20:28)
[2020-06-10 20:32] LABS: Glucose,Whole Blood 293 mg/dL (75-99)
--- NOTE | 2020-06-10 22:37 | P.PN ---
Subjective Progress Note Date: 06/10/20 Principal diagnosis: acute hypoxic respiratory failure secondary to Covid 19 74-year-old pleasant male came to the emergency department with complaints of for sinus congestion and body aches fevers chills. Found to have Covid 19. Patient the is still feeling weak and tired. Patient had 1 episode of diarrhea. She is mildly hyponatremic patient is found to have a Covid 19 infection. Patient baseline creatinine is around 1.8 appears to mild worsening of his creatinine to 1.95. Patient will be continued on IV fluids today patient is presently on 2 L of oxygen we'll try to wean it off if patient is doing well will be discharged tomorrow. She was on 4 L of oxygen yesterday patient believes he is exposed to coronavirus on of this month his symptoms started about a week ago. Patient is presently on Decadron. 05/26/2020 Patient is seen and evaluated in follow-up; remains afebrile; patient reports slight improvement in breathing and overall; remains on high flow nasal cannula oxygen; no complaint of chest pain, abdominal pain or diarrhea Lab review shows CRP of 6.5, creatinine of 1.4 and d-dimer of 11.2 Patient remains on treatment with Solu-Medrol, REM does severe, zinc sulfate and Lovenox; Lovenox has been/to twice a day dosing due to elevated d-dimer 05/27/2020 Patient is seen and evaluated in follow-up; patient remains afebrile; continue to require oxygen Remains on 15 L nonrebreather mask saturating 95%; inflammatory markers are being monitored and continued to show improvement; patient remains on steroids, bronchodilators and anticoagulation with Lovenox; pulmonary service is following and recommending to continue current management 06/10/2020, patient is seen and evaluated in room at bedside; transferred to ICU labs reviewed medications reviewed care plan discussed, patient remains very weak, status post PICC line TPN is being started, currently patient is on BiPAP 06/06 oxygen saturation is 80%, earlier morning oxygen saturation were 91%, we will increase it to 14/10, remains on 100% oxygen, right cell count is up to 13,900 hemoglobin stable, inflammatory parameters continued to be on high and d- dimer is 7.53, LDH continue to go up late this was 2185, ferritin from today is pending, chest x-ray done today reviewed bilateral diffuse interstitial i nfiltrate are present more so on the left side compared to lites right side continued to progress stable PICC line Objective - Vital Signs Vital signs: Vital Signs Temp 97.9 F 06/10/20 20:00 Pulse 111 H 06/10/20 22:00 Resp 24 06/10/20 22:00 BP 135/79 06/10/20 22:00 Pulse Ox 97 06/10/20 22:00 Intake & Output 06/10/20 06/10/20 06/11/20 06:59 18:59 06:59 Intake Total 975 900 378 Output Total 950 425 450 Balance 25 475 -72 Weight 72.5 kg 72.5 kg Intake: Intake, IV Titration 975 900 378 Amount Fat Emulsion 20% 250 ml 63 In Empty Bag 1 bag @ 21 mls/hr IV DAILY@1200 [facility] Rx#:[id number] Mvi, Adult No.4 with Vit 90 K 10 ml Trace (Conc-1Ml/ Dose) 1 ml In Amino Acid 5%-D15w+Lytes*E* 1,000 ml @ 30 mls/hr IV .Q24H [facility] Rx#:[id number] Sodium Chloride 0.9% 1, 975 900 225 000 ml @ 75 mls/hr IV . [id number] [facility] Rx#:[id number] Output: Urine 950 425 450 Other: Voiding Method Urinal Urinal - Exam GENERAL: The patient is alert and oriented x3, not in any acute distress. Well developed, well nourished. HEENT: Pupils are round and equally reacting to light. EOMI. No scleral icterus. No conjunctival pallor. Normocephalic, atraumatic. No pharyngeal erythema. No thyromegaly. CARDIOVASCULAR: S1 and S2 present. No murmurs, rubs, or gallops. PULMONARY: Chest is clear to auscultation, no wheezing or crackles. ABDOMEN: Soft, nontender, nondistended, normoactive bowel sounds. No palpable organomegaly. MUSCULOSKELETAL: No joint swelling or deformity. EXTREMITIES: No cyanosis, clubbing, or pedal edema. NEUROLOGICAL: Gross neurological examination did not reveal any focal deficits. SKIN: No rashes. - Labs CBC & Chem 7: 06/10/20 06:37 06/10/20 06:37 Labs: Abnormal Lab Results - Last 24 Hours (Table) 12/11/20 12/12/20 12/12/20 Range/Units 04:02 02:40 06:23 WBC (3.8-10.6) k/uL Plt Count (150-450) k/uL Neutrophils # (1.3-7.7) k/uL Lymphocytes # (1.0-4.8) k/uL D-Dimer (<0.60) mg/L FEU Chloride (98-107) mmol/L Carbon Dioxide (22-30) mmol/L BUN (9-20) mg/dL Glucose (74-99) mg/dL POC Glucose (mg/dL) 138 H 194 H (75-99) mg/dL Ferritin 2756.2 H (22.0-322.0) ng/mL Total Bilirubin (0.2-1.3) mg/dL Alkaline Phosphatase (38-126) U/L Lactate Dehydrogenase (313-618) U/L C-Reactive Protein (<10.0) mg/L Total Protein (6.3-8.2) g/dL Albumin (3.5-5.0) g/dL Triglycerides (<150) mg/dL 06/10/20 06/10/20 06/10/20 Range/Units 06:37 06:37 08:18 WBC 13.9 H (3.8-10.6) k/uL Plt Count 56 L (150-450) k/uL Neutrophils # 13.1 H (1.3-7.7) k/uL Lymphocytes # 0.2 L (1.0-4.8) k/uL D-Dimer 7.53 H (<0.60) mg/L FEU Chloride 109 H (98-107) mmol/L Carbon Dioxide 32 H (22-30) mmol/L BUN 49 H (9-20) mg/dL Glucose 182 H (74-99) mg/dL POC Glucose (mg/dL) (75-99) mg/dL Ferritin (22.0-322.0) ng/mL Total Bilirubin 1.4 H (0.2-1.3) mg/dL Alkaline Phosphatase 130 H (38-126) U/L Lactate Dehydrogenase 2185 H (313-618) U/L C-Reactive Protein 11.1 H (<10.0) mg/L Total Protein 5.6 L (6.3-8.2) g/dL Albumin 2.5 L (3.5-5.0) g/dL Triglycerides (<150) mg/dL 06/10/20 06/10/20 06/10/20 Range/Units 10:40 12:13 17:56 WBC (3.8-10.6) k/uL Plt Count (150-450) k/uL Neutrophils # (1.3-7.7) k/uL Lymphocytes # (1.0-4.8) k/uL D-Dimer (<0.60) mg/L FEU Chloride (98-107) mmol/L Carbon Dioxide (22-30) mmol/L BUN (9-20) mg/dL Glucose (74-99) mg/dL POC Glucose (mg/dL) 175 H 235 H (75-99) mg/dL Ferritin (22.0-322.0) ng/mL Total Bilirubin (0.2-1.3) mg/dL Alkaline Phosphatase (38-126) U/L Lactate Dehydrogenase (313-618) U/L C-Reactive Protein (<10.0) mg/L Total Protein (6.3-8.2) g/dL Albumin (3.5-5.0) g/dL Triglycerides 251 H (<150) mg/dL 06/10/20 Range/Units 20:31 WBC (3.8-10.6) k/uL Plt Count (150-450) k/uL Neutrophils # (1.3-7.7) k/uL Lymphocytes # (1.0-4.8) k/uL D-Dimer (<0.60) mg/L FEU Chloride (98-107) mmol/L Carbon Dioxide (22-30) mmol/L BUN (9-20) mg/dL Glucose (74-99) mg/dL POC Glucose (mg/dL) 293 H (75-99) mg/dL Ferritin (22.0-322.0) ng/mL Total Bilirubin (0.2-1.3) mg/dL Alkaline Phosphatase (38-126) U/L Lactate Dehydrogenase (313-618) U/L C-Reactive Protein (<10.0) mg/L Total Protein (6.3-8.2) g/dL Albumin (3.5-5.0) g/dL Triglycerides (<150) mg/dL Assessment and Plan Assessment: -Covid 19 pneumonitis and acute hypoxic respiratory failure secondary to Covid 19. Patient will continue on Decadron, zinc, vitamin C and vitamin D sup plementation. Patient having worsening shortness of breath and now on 8L--15L high flow. Infectious disease consulted. Remdesivir initiated. -Hypovolemic hyponatremia secondary to diarrhea as well as his antihypertensive medications medications that includes hydrochlorothiazide which will be held and patient is hypotensive at this time and patient will continue on IV fluids repeat basic metabolic profile tomorrow, creatinine slowly trending down. -Acute renal failure.: Prerenal azotemia secondary to assessment #2, patient does have chronic kidney disease stage III from a possible diabetic nephropathy -Type 2 diabetes mellitus: possibly elevated due to decadron. Continue with sliding scale and long acting at this time. -Hyperlipidemia -Hypertension -DVT prophylaxis with Lovenox SC . Will repeat am labs. Infectious disease consulted. Remdesivir initiated. Plan: Continue with current medications. gentle IV hydration @75ml/hour. Will repeat am labs. Infectious disease consulted. Remdesivir initiated. Instructed patient to increase activity as tolerated. Discussed with RN about weaning FI02 as tolerated as patient is currently now on 8L HF via NC. Monitor blood sugars closely and continue current regimen. Further recommendations to follow.
--- NOTE | 2020-06-10 22:39 | PN ---
PROGRESS NOTE DATE OF SERVICE: 06/10/2020 REASON FOR FOLLOWUP: Acute COVID-19 infection. INTERVAL COURSE: The patient is currently afebrile. The patient is hemodynamically stable, still requiring BiPAP dependent. Denies having any chest pain. Minimal cough. No vomiting or diarrhea. PHYSICAL EXAMINATION: Blood pressure 145/100 with a pulse of 96, temperature 98, he is 98% on BiPAP. General description is an elderly male lying in bed in no distress. Respiratory system: Unlabored breathing with decreased breath sounds in the base, no wheeze. Heart S1, S2. Regular rate and rhythm. Abdomen soft, no tenderness. Extremities: No edema of the feet. LABS: Hemoglobin is 15, white count 13.9, BUN of 49, creatinine 0.84. IMPRESSION/PLAN: Patient with acute COVID-19 pneumonia with concern for ( ), still have elevated inflammatory markers, covered with dexamethasone, Lovenox and Levaquin to continue and monitor clinical course closely. MMODL / IJN: [id number] /
[2020-06-11 00:32] LABS: Glucose,Whole Blood 177 mg/dL (75-99)
[2020-06-11] MEDS: MORPHINE SULFATE 2 MG/ML SYRINGE IVP PRN ×4 (01:01→20:32)
[2020-06-11] MEDS: PANTOPRAZOLE 40 MG TABLET PO SCH ×2 (04:22→19:30)
[2020-06-11 04:58] LABS: Basophils % (A) 0 %; Eosinophils # (A) 0.1 k/uL (0-0.7); Eosinophils % (A) 1 %; HCT 42.3 % (39.0-53.0); HGB 14.2 gm/dL (13.0-17.5); Lymphocytes # (A) 0.1 k/uL (1.0-4.8); Lymphocytes % (A) 1 %; MCH 31.8 pg (25.0-35.0); MCHC 33.5 g/dL (31.0-37.0); MCV 95.2 fL (80.0-100.0); Mean Platelet Volume 8.5; Monocytes # (A) 0.4 k/uL (0-1.0); Monocytes % (A) 4 %; Neutrophils # (A) 9.4 k/uL (1.3-7.7); Neutrophils % (A) 93 %; RBC 4.44 m/uL (4.30-5.90); RDW 12.9 % (11.5-15.5); WBC 10.1 k/uL (3.8-10.6)
[2020-06-11 05:03] LABS: Ionized Calcium 5.3 mg/dL (4.5-5.3)
[2020-06-11 05:09] LABS: ALT 31 U/L (4-49); AST 29 U/L (17-59); African American GFR (CKD) >90 (>60 ml/min/1.73 sqM); Albumin 2.2 g/dL (3.5-5.0); Alkaline Phosphatase 87 U/L (38-126); Anion Gap -3 mmol/L; Blood Urea Nitrogen 43 mg/dL (9-20); Calcium 8.3 mg/dL (8.4-10.2); Carbon Dioxide 33 mmol/L (22-30); Chloride 111 mmol/L (98-107); Creatine Kinase 62 U/L (55-170); Glucose 169 mg/dL (74-99); LDH 1486 U/L (313-618); Magnesium 2.1 mg/dL (1.6-2.3); Non-African American GFR(CKD) >90 (>60 ml/min/1.73 sqM); Phosphorus 3.9 mg/dL (2.5-4.5); Potassium 4.6 mmol/L (3.5-5.1); Sodium 141 mmol/L (137-145)
[2020-06-11 05:12] LABS: C Reactive Protein 8.9 mg/L (<10.0); Platelet Count 41 k/uL (150-450)
[2020-06-11 05:27] LABS: D-Dimer 4.5 mg/L FEU (<0.60); INR 1.1 (<1.2); Partial Thromboplastin Time 25.1 sec (22.0-30.0); Prothrombin Time 11.6 sec (9.0-12.0)
[2020-06-11] MEDS: INSULIN ASPART (NovoLOG) 100 UNIT/ML VIAL SQ SCH ×4 (06:03→20:33)
--- NOTE | 2020-06-11 08:09 | XR ---
EXAMINATION TYPE: XR chest 1V portable DATE OF EXAM: 06/11/2020 COMPARISON: 06/10/2020 INDICATION: Follow-up TECHNIQUE: Single frontal view of the chest is obtained. FINDINGS: The heart size is normal. The pulmonary vasculature is normal. Perihilar consolidations are present. Patchy diffuse increased lung markings are in the periphery. Right PICC line tip is in the distal superior vena cava region. IMPRESSION: 1. Stable appearance of lung opacifications and infiltrates
[2020-06-11] MEDS: ALBUTEROL HFA INHALER INHALATION SCH ×4 (09:07→20:54)
[2020-06-11] MEDS: LEVOFLOXACIN 750MG-D5W PMX 750 MG in DEXTROSE/WATER 1 150ML.BAG IVPB SCH (09:42)
[2020-06-11] MEDS: ENOXAPARIN 40 MG/0.4 ML SYRINGE SQ SCH ×2 (09:43→20:32)
[2020-06-11] MEDS: DEXAMETHASONE SOD PHOSPHATE 10 MG/ML 1 ML VIAL IV SCH ×2 (09:43→20:33)
[2020-06-11 10:21] LABS: Ferritin 2155.9 ng/mL (22.0-322.0)
--- NOTE | 2020-06-11 11:11 | P.PN ---
Subjective Progress Note Date: 06/11/20 (Critical care time 35 minutes) Principal diagnosis: Acute hypoxic respiratory failure Acute covid 19 pneumonia ARDS likely related covid 19 pneumonia Dyslipidemia Hypertension hypertensive cardiovascular disease Diabetes mellitus 06/11/2020, patient seen eval examined during the rounds labs reviewed medications reviewed, care plan discussed with the staff at length, patient remains on BiPAP BiPAP setting include % oxygen, saturation is 95-96% spontaneous tidal volume between 500-600 range, patient remains on TPN, poor appetite today, very weak, Levaquin has been started by infectious disease services, labs reviewed white cell count down to 10,000 with stable hemoglobin and hematocrit, however platelet count down to 41,000 which are stable for now, d-dimer slightly better today, prerenal azotemia is present, phlegm atrial marker remains very high but showing a slight downward trend indicative of ongoing cytokine rayray, chest x-ray overall not much changed, critical care time 35 minutes 06/10/2020, patient seen eval during the rounds labs reviewed medications reviewed care plan discussed, patient remains very weak, status post PICC line TPN is being started, currently patient is on BiPAP 06/06 oxygen saturation is 80%, earlier morning oxygen saturation were 91%, we will increase it to 14/10, remains on 100% oxygen, right cell count is up to 13,900 hemoglobin stable, inflammatory parameters continued to be on high and d-dimer is 7.53, LDH [place] to go up late this was 2185, ferritin from today is pending, chest x-ray done today reviewed bilateral diffuse interstitial infiltrate are present more so on the left side compared to lites right side continued to progress stable PICC line 06/09/2020, patient seen eval examined during the rounds, patient remains on BiPAP alternating with high flow oxygen, saturations stable, patient is very w [place] but however start eating by mouth now as per discussion with RN, a PICC line is being placed for supplemental nutrition, would recommend to hold the tube for now labs reviewed medications reviewed radiographic studies reviewed as well 06/08/2020, patient seen eval examined during the rounds labs reviewed medications reviewed care plan discussed, patient is on high flow aerosolized oxygen, saturation is 95-96%, appetite slightly better patient able to eat some forte, have encouraged patient to lay prone or at least on the sides, currently off of BiPAP, patient remains on Decadron, status post IV REMdesivir convalescent plasma also received 2 doses of Actemra 06/07/2020, patient seen eval examined during the rounds labs reviewed medications reviewed care plan discussed, remains on 85% oxygen 12 and 10 of BiPAP, cough shortness of breath stable saturation is stable now, oxygen sa turation is 94%, and 90% 60 L high flow oxygen is being used as well labs reviewed 06/06/2020, patient seen eval examined during the rounds labs reviewed medications reviewed patient does have problem with swallowing very dry mouth, however can take honey thick, suspect may be dryness or oral thrush present, we'll start treating with nystatin swish and swallow, hemodynamic status remained stable however oxygenation remains marginal but doing better on aerosolized oxygen saturation is mid 90s, with activity does desaturate, intermittently have been doing BiPAP as well with 90% oxygen, x-ray performed earlier today reviewed overall remains stable pneumonia not much change finding consistent with Covid pneumonia and early ARDS 06/05/2020, patient seen eval examined during the rounds labs reviewed medications reviewed care plan discussed, patient has intermittent episodes of desaturation throughout the day, however he remains stable on BiPAP currently on 1208 and 60% oxygen, improved 100%, labs from today reviewed inflammatory parameters remains high suggestive of ongoing cytokine strong, sugar also noted on the higher side, we will start sliding scale insulin if it remains elevated 06/04/2020, patient seen eval examined during the rounds labs reviewed medications reviewed, care plan discussed, remains on BiPAP 06/06 with 60% oxygen saturation is 98%, patient did desaturate on high flow address lysed oxygen, he has finished IV REMdesivir convalescent plasma remains on Decadron 06/03/2020, patient seen eval reexamined during the rounds labs reviewed medications reviewed, patient was desaturating or with aerosolized oxygen just has been placed on BiPAP 06/03 with 80% oxygen saturation improved to 100%, , patient is status post IV in remdesivir therapy, he has received convalescent plasma as well yesterday, chest x-ray reviewed diffuse patchy infiltrates bilaterally remains stable 06/02/2020, patient seen eval examined during the rounds labs reviewed medications reviewed, due to severe hypoxia and respiratory distress patient transferred from the medical floor to ICU, patient was off of BiPAP for extended period time, on high flow search dropped down to 60s and 70s, after bringing patient up in the ICU was continued on BiPAP, prone positioning have been encouraged, patient will be given convalescent plasma as well, and is status post therapy with IV REM doesn't wear remains on Decadron and Lovenox, she sent patient remains afebrile, tachypneic, hemodynamic status stable, on BiPAP 06/06, 80% oxygen saturation is 95-96%, 's x-ray continue show bilateral diffuse interstitial infiltrates, overall not much change compared to prior x-ray 06/01/2020, patient seen eval examined during the rounds labs reviewed medications reviewed patient has been prone with BiPAP, oxygen saturation significantly improved to 96-98%, remains on 80% oxygen with BiPAP of and 8, is still feel congested, short of breath, on supine posture however saturation to drop, remains on high flow oxygen with mask in between the BiPAP for meals and overall care, chest x-ray performed today shows diffuse bilateral interstitial and groundglass opacities predominantly in the perihilar area slightly improved on the left side though, noted mildly elevated troponin of 0.4 asymptomatic likely demand ischemia related 05/31/2020, patient seen, currently resting, remains on BiPAP in between for maintenance on address lysed high flow oxygen, sats on BiPAP last check was 90%, hemodynamic status stable, continued to be short of breath using necessary muscles cough is present intermittently dry and nonproductive, patient remains on therapy 05/30/2020, patient seen eval examined during the rounds labs reviewed irrigations reviewed, patient is overall in good spirits, however continued to require high flow oxygen with aerosolized oxygen and nonrebreather mask during eating otherwise patient has been on BiPAP, currently saturation is about 88-90% on 06/06 on 80% oxygen, sats on BiPAP however improved to 95%, chest x-ray performed earlier today revealed bilateral infiltrates consistent with covid 19 pneumonia 05/29/2020, patient seen eval examined during the rounds labs reviewed medications reviewed care plan discussed, patient remained short of breath currently now is on airvo high flow oxygen, 90% to 91%, Patient came into the hospital with about one week history of increased symptoms of sinus congestion cough, also has a chills fever and mild PI aches and fatigue and pain, history of prior lung problems does have a history hypertension hypertensive cardiovascular disease dyslipidemia and diabetes mellitus, on arrival his oxygen saturation is 90%, low-grade temperature 99.3 was present his steiner virus PCR came back positive, his oxygen requirement continued to go up currently he is on 100% nonrebreather mask with 15 L high flow oxygen, chest x- ray admitted show coarse interstitial changes consistent with interstitial pneumonia repeat chest x-ray did now show worsening ARDS-like Petrin, saturation is 98%, he is afebrile hemodynamic status, he is on Lovenox 40 every 12, on Medrol 60 every 6, Remdesivir IV, inflammatory parameters are consistent with severe inflammatory response d-dimer is 16.4, pH is 574, a reactive protein is 3 Objective - Vital Signs Vital signs: Vital Signs Temp 97.7 F 06/11/20 06:00 Pulse 105 H 06/11/20 09:00 Resp 20 06/11/20 09:00 BP 125/77 06/11/20 09:00 Pulse Ox 98 06/11/20 09:00 Intake & Output 06/10/20 06/11/20 06/11/20 18:59 06:59 18:59 Intake Total 900 1281 255 Output Total 425 550 Balance 475 731 255 Weight 72.5 kg 73 kg Intake: Intake, IV Titration 900 1281 255 Amount Fat Emulsion 20% 250 ml 126 In Empty Bag 1 bag @ 21 mls/hr IV DAILY@1200 [facility] Rx#:[id number] Mvi, Adult No.4 with Vit 330 30 K 10 ml Trace (Conc-1Ml/ Dose) 1 ml In Amino Acid 5%-D15w+Lytes*E* 1,000 ml @ 30 mls/hr IV .Q24H [facility] Rx#:[id number] Sodium Chloride 0.9% 1, 900 825 225 000 ml @ 75 mls/hr IV . [id number] [facility] Rx#:[id number] Output: Urine 425 550 Other: Voiding Method Urinal Urinal - Exam - Constitutional General appearance: average body habitus, disheveled, mild distress - EENT Eyes: EOMI, PERRLA Ears: bilateral: normal - Neck Neck: normal ROM Carotids: bilateral: upstroke normal Thyroid: bilateral: normal size - Respiratory Respiratory: bilateral: diminished - Cardiovascular Rhythm: regular Heart sounds: normal: S1, S2 - Gastrointestinal General gastrointestinal: soft - Integumentary Integumentary: decreased turgor - Neurologic Neurologic: CNII-XII intact - Musculoskeletal Musculoskeletal: gait normal, generalized weakness, strength equal bilaterally - Psychiatric Psychiatric: A&O x's 3, appropriate affect, intact judgment & insight - Labs CBC & Chem 7: 06/11/20 04:41 06/11/20 04:41 Labs: Abnormal Lab Results - Last 24 Hours (Table) 06/10/20 06/10/20 06/10/20 Range/Units 10:40 12:13 17:56 Plt Count (150-450) k/uL Neutrophils # (1.3-7.7) k/uL Lymphocytes # (1.0-4.8) k/uL Fibrinogen (200-500) mg/dL D-Dimer (<0.60) mg/L FEU Chloride (98-107) mmol/L Carbon Dioxide (22-30) mmol/L BUN (9-20) mg/dL Glucose (74-99) mg/dL POC Glucose (mg/dL) 175 H 235 H (75-99) mg/dL Calcium (8.4-10.2) mg/dL Ferritin (22.0-322.0) ng/mL Lactate Dehydrogenase (313-618) U/L Total Protein (6.3-8.2) g/dL Albumin (3.5-5.0) g/dL Triglycerides 251 H (<150) mg/dL 06/10/20 06/11/20 06/11/20 Range/Units 20:31 00:31 04:41 Plt Count 41 L (150-450) k/uL Neutrophils # 9.4 H (1.3-7.7) k/uL Lymphocytes # 0.1 L (1.0-4.8) k/uL Fibrinogen (200-500) mg/dL D-Dimer (<0.60) mg/L FEU Chloride (98-107) mmol/L Carbon Dioxide (22-30) mmol/L BUN (9-20) mg/dL Glucose (74-99) mg/dL POC Glucose (mg/dL) 293 H 177 H (75-99) mg/dL Calcium (8.4-10.2) mg/dL Ferritin (22.0-322.0) ng/mL Lactate Dehydrogenase (313-618) U/L Total Protein (6.3-8.2) g/dL Albumin (3.5-5.0) g/dL Triglycerides (<150) mg/dL 06/11/20 06/11/20 Range/Units 04:41 04:41 Plt Count (150-450) k/uL Neutrophils # (1.3-7.7) k/uL Lymphocytes # (1.0-4.8) k/uL Fibrinogen 199 L (200-500) mg/dL D-Dimer 4.50 H (<0.60) mg/L FEU Chloride 111 H (98-107) mmol/L Carbon Dioxide 33 H (22-30) mmol/L BUN 43 H (9-20) mg/dL Glucose 169 H (74-99) mg/dL POC Glucose (mg/dL) (75-99) mg/dL Calcium 8.3 L (8.4-10.2) mg/dL Ferritin 2155.9 H (22.0-322.0) ng/mL Lactate Dehydrogenase 1486 H (313-618) U/L Total Protein 5.0 L (6.3-8.2) g/dL Albumin 2.2 L (3.5-5.0) g/dL Triglycerides (<150) mg/dL Assessment and Plan Assessment: Acute hypoxic respiratory failure Acute covid 19 pneumonia cytokine is rayray ARDS likely related covid 19 pneumonia Volume depleted/dehydration status continue gentle rehydration Protein calorie malnourishment Dyslipidemia Hypertension hypertensive cardiovascular disease Diabetes mellitus Plan: Continue BiPAP increase setting 14/10 with oxygen to keep saturation of 90% or above each night and when necessary during the day, in between patient can be rested with aerosolized oxygen and facemask if possible Deep breathing exercise incentive spirometry Prone positioning as much as possible preferably 16 hours a day if not possible patient agree able for sleeping on the sides IV steroids Nystatin swish and swallow Status post IV Remdesivir for 5 days Status post 2 doses of Actemra for cytokine is rayray Continue Anticoagulation with Lovenox Sliding scale insulin, with maintenance insulin Observe closely in ICU Status post Convalescent plasma Time with Patient: Greater than 30
[2020-06-11 11:53] LABS: Glucose,Whole Blood 169 mg/dL (75-99)
[2020-06-11] MEDS: ASPIRIN 325 MG TAB PO SCH (12:12)
[2020-06-11] MEDS: CHOLECALCIFEROL 1,000 UNIT TAB PO SCH (12:12)
[2020-06-11] MEDS: ASCORBIC ACID 500 MG TAB PO SCH ×2 (12:12→19:31)
[2020-06-11] MEDS: NYSTATIN 100,000 UNIT/ML SUSP 500,000 UNIT/5 ML CUP PO SCH ×3 (12:13→19:46)
[2020-06-11] MEDS: NON FORMULARY DRUG (Lifitegrast [Xiidra] 1 EACH Droperette) BOTH EYES SCH ×2 (12:13→20:33)
[2020-06-11] MEDS: ZINC SULFATE 220 MG CAP PO SCH (12:13)
[2020-06-11] MEDS: FAT EMULSION 20% 250 ML in EMPTY BAG 1 BAG IV SCH (13:06)
[2020-06-11] MEDS: SODIUM CHLORIDE 0.9% 1,000 ML IV SCH (13:08)
[2020-06-11] MEDS: 1: MVI, ADULT NO.4 WITH VIT K 10 ML, TRACE (CONC-1ML/DOSE) 1 ML in AMINO ACID 5%-D15W+LY IV SCH ×3 (15:19)
[2020-06-11] MEDS: LORazepam 2 MG/ML INJ IV PRN ×2 (16:10→22:47)
[2020-06-11 17:15] LABS: Ferritin 3025.2 ng/mL (22.0-322.0)
[2020-06-11 17:21] LABS: Glucose,Whole Blood 284 mg/dL (75-99)
[2020-06-11] MEDS: TAMSULOSIN 0.4 MG CAP.ER.24H PO SCH (19:31)
[2020-06-11] MEDS: ATORVASTATIN 20 MG TAB PO SCH (19:31)
[2020-06-11] MEDS: LEVOFLOXACIN 750 MG TAB PO SCH (19:32)
[2020-06-11 20:10] LABS: Glucose,Whole Blood 357 mg/dL (75-99)
--- NOTE | 2020-06-11 22:28 | P.PN ---
Subjective This is a 74-year-old male who was recently admitted with generalized body aches, sinus congestion, fevers, shortness of breath with exertion and was also found to have Covid 19 pneumonia. Patient's respiratory status continues to deteriorate and was transferred to the ICU for close monitoring. Patient is currently on a BiPAP at 100% and saturating well although continues to be extremely short of breath and exhausted. Patient's blood sugars are being closely monitored as they have been variable with highs and lows and will continue a sliding scale at this time. Patient oral intake continues to be poor as he desats quickly off of the BiPAP. Discussion of a PICC line placement and enteral nutrition is being had. Dietitian has been consulted. White blood count continues to be elevated at 13.9 elbow possibly due to steroids. Hemoglo bin is stable at 15.9. D-dimer slightly improved at 7.53 although continues to be elevated. Current sodium is 141, potassium is 5.0, BUN is 49, and creatinine is 0.84. Repeat chest x-ray today shows worsening perihilar infiltrates. 06/11/2020 Patient remains in the ICU in critical condition he is BiPAP dependent. With BiPAP setting of 14/10 with FiO2 of 100% and his breathing rate at 16-24 and oxygen saturation of 93-99%. His BiPAP is managed by pulmonary team who following the patient closely. Because he is on BiPAP he cannot take oral medication or food so patient was placed on TPN Glucose is controlled with sliding scale. Vitals and labs look stable. D-dimer is trending down from 7.5 down to 4.5. His ferritin is significantly elevated but it is coming down from 3025 down to 2155. LDH is improving too 1486, and actually C reactive protein is down to normal today at 8.9 Chest x-ray from today showing stable appearance of lung opacification and infiltrates. He has patchy diffuse increased lung markings are in the periphery. Patient has a right side PICC line He is currently kept on bronchodilator, vitamin C, zinc, Lovenox 40 mg twice daily, dexamethasone 6 mg twice daily. VitaminD. Also he is on levofloxacin 750mg daily and nystatin.He is on Protonix twice a day Dr. Erickson will resume the care of the patient tomorrow Review of systems CONSTITUTIONAL: No fever, no malaise, no fatigue. HEENT: No recent visual problems or hearing problems. Denied any sore throat. CARDIOVASCULAR: No orthopnea, PND, no palpitations, no syncope. PULMONARY: No chest wall tenderness, no hemoptysis. GASTROINTESTINAL: No diarrhea, no nausea, no vomiting, no abdominal pain. Normoa ctive bowel sounds. NEUROLOGICAL: No headaches, no weakness, no numbness. Active Medications Generic Name Dose Route Start Last Admin Trade Name Freq PRN Reason Stop Dose Admin Acetaminophen 1,000 mg 05/22/20 18:37 Acetaminophen Tab 500 Mg Tab PO Q6HR PRN Fever>101 Albuterol Sulfate 2 puff 05/22/20 18:37 Albuterol Hfa Inhaler INHALATION RT-Q6H PRN Shortness Of Breath Or Wheezing Albuterol Sulfate 2 puff 06/03/20 08:00 06/11/20 20:54 Albuterol Hfa Inhaler INHALATION 2 puff RT-QID [facility] Administration Alprazolam 0.25 mg 06/08/20 21:25 06/10/20 09:51 Alprazolam 0.25 Mg Tab PO 0.25 mg TID PRN Administration Anxiety Ascorbic Acid 500 mg 05/22/20 21:00 06/11/20 19:31 Ascorbic Acid 500 Mg Tab PO Not Given BID NO[facility] Aspirin 325 mg 05/23/20 09:00 06/11/20 12:12 Aspirin 325 Mg Tab PO Not Given DAILY NO[facility] Atorvastatin Calcium 20 mg 05/23/20 21:00 06/11/20 19:31 Atorvastatin 20 Mg Tab PO Not Given HS [facility] Cholecalciferol 5,000 unit 05/22/20 20:30 06/11/20 12:12 Cholecalciferol 1,000 Unit Tab PO Not Given DAILY [facility] Dexamethasone Sodium Phosphate 6 mg 06/03/20 09:00 06/11/20 20:33 Dexamethasone Sod Phosphate 10 Mg/Ml 1 Ml Vial IV 6 mg Q12HR [facility] Administration Docusate Sodium 100 mg 06/03/20 17:08 06/04/20 09:14 Docusate 100 Mg Cap PO 100 mg DAILY PRN Administration Constipation Enoxaparin Sodium 40 mg 06/07/20 09:00 06/11/20 20:32 Enoxaparin 40 Mg/0.4 Ml Syringe SQ 40 mg Q12HR [facility] Administration Sodium Chloride 1,000 mls @ 20 mls/hr 06/06/20 11:00 06/11/20 13:08 Saline 0.9% IV 75 mls/hr .Q24H [facility] Administration Fat Emulsion Intravenous 250 250 mls @ 21 mls/hr 06/10/20 12:00 06/11/20 13:06 ml/ IV Solution IV 21 mls/hr DAILY@1200 [facility] Administration Parenteral Vitamin Supplement 1,011 mls @ 85 mls/hr 06/11/20 15:00 06/11/20 1 5:19 10 ml/ Chromium/Copper/ IV 85 mls/hr Manganese/Seleni/Zn 1 ml/ .BY DURATION [facility] Administration Amino Ac/Electrol/Dextrose/ Calcium Amino Ac/Electrol/Dextrose/Calcium 1,000 mls @ 85 mls/hr 06/11/20 15:00 Clinimix E 5%-D15% Solution IV .BY DURATION [facility] Levofloxacin 750 mg/ IV 150 mls @ 100 mls/hr 06/11/20 09:45 06/11/20 09:42 Solution IVPB 100 mls/hr Q24H [facility] Administration Insulin Aspart 0 unit 06/02/20 12:30 06/11/20 20:33 Insulin Aspart (Novolog) 100 Unit/Ml Vial SQ 8 unit ACHS [facility] Administration Protocol Lorazepam 0.5 mg 06/09/20 18:17 06/11/20 16:10 Lorazepam 2 Mg/Ml Inj IV 0.5 mg Q6HR PRN Administration Anxiety Morphine Sulfate 2 mg 06/01/20 07:02 06/11/20 20:32 Morphine Sulfate 2 Mg/Ml Syringe IVP 2 mg Q4H PRN Administration Pain/Discomfort Naloxone HCl 0.2 mg 05/22/20 20:16 Naloxone 0.4 Mg/Ml 1 Ml Vial IV Q2M PRN Opioid Reversal Non-Formulary Medication 1 dropper 05/23/20 09:00 06/11/20 20:33 Lifitegrast [Xiidra] BOTH EYES 1 dropper BID [facility] Administration Nystatin 500,000 unit 06/06/20 13:00 06/11/20 19:46 Nystatin 100,000 Unit/Ml Susp 500,000 Unit/5 Ml Cup PO Not Given QID [facility] Pantoprazole Sodium 40 mg 05/23/20 07:30 06/11/20 19:30 Pantoprazole 40 Mg Tablet PO Not Given AC-BID [facility] Sodium Chloride 10 ml 06/09/20 15:43 Sodium Chloride 0.9% Flush 10 Ml Syringe IV Q4HR PRN PICC Line Sodium Chloride 10 ml 06/16/20 09:00 Sodium Chloride 0.9% Flush 10 Ml Syringe IV WEEKLY [facility] Sodium Chloride 20 ml 06/09/20 15:43 Sodium Chloride 0.9% Flush 10 Ml Syringe IV Q4HR PRN PICC Line Tamsulosin HCl 0.4 mg 05/23/20 21:00 06/11/20 19:31 Tamsulosin 0.4 Mg Cap.Er.24h PO Not Given HS [facility] Zinc Sulfate 220 mg 05/22/20 20:30 06/11/20 12:13 Zinc Sulfate 220 Mg Cap PO Not Given DAILY [facility] Objective - Vital Signs Vital signs: Vital Signs Temp 97.7 F 06/11/20 06:00 Pulse 94 06/11/20 13:00 Resp 15 06/11/20 13:00 BP 123/74 06/11/20 13:00 Pulse Ox 98 06/11/20 13:00 Intake & Output 06/10/20 06/11/20 06/11/20 18:59 06:59 18:59 Intake Total 900 1281 650 Output Total 425 550 500 Balance 475 731 150 Weight 72.5 kg 73 kg Intake: Intake, IV Titration 900 1281 650 Amount Fat Emulsion 20% 250 ml 126 In Empty Bag 1 bag @ 21 mls/hr IV DAILY@1200 [facility] Rx#:[id number] Levofloxacin 750Mg-D5w 150 Pmx 750 mg In Dextrose/ Water 1 150ml.bag @ 100 mls/hr IVPB Q24H [facility] Rx#: [id number] Mvi, Adult No.4 with Vit 330 30 K 10 ml Trace (Conc-1Ml/ Dose) 1 ml In Amino Acid 5%-D15w+Lytes*E* 1,000 ml @ 30 mls/hr IV .Q24H [facility] Rx#:[id number] Sodium Chloride 0.9% 1, 900 825 470 000 ml @ 75 mls/hr IV . [id number] [facility] Rx#:[id number] Output: Urine 425 550 500 Other: Voiding Method Urinal Urinal - Exam -GENERAL: The patient is alert and oriented x3, slightly tachypneic on BiPAP HEENT: Pupils are round and equally reacting to light. EOMI. No scleral icterus. No conjunctival pallor. Normocephalic, atraumatic. No pharyngeal erythema. No thyromegaly. CARDIOVASCULAR: S1 and S2 present. No murmurs, rubs, or gallops. -PULMONARY: Chest is clear to auscultation, no. Bilateral crepitation with decreased breath sounds ABDOMEN: Soft, nontender, nondistended, normoactive bowel sounds. No palpable organomegaly. MUSCULOSKELETAL: No joint swelling or deformity. EXTREMITIES: No cyanosis, clubbing, or pedal edema. NEUROLOGICAL: Gross neurological examination did not reveal any focal deficits. SKIN: No rashes. no petechiae. - Labs CBC & Chem 7: 06/11/20 04:41 06/11/20 04:41 Labs: Abnormal Lab Results - Last 24 Hours (Table) 06/10/20 06/10/20 06/11/20 Range/Units 17:56 20:31 00:31 Plt Count (150-450) k/uL Neutrophils # (1.3-7.7) k/uL Lymphocytes # (1.0-4.8) k/uL Fibrinogen (200-500) mg/dL D-Dimer (<0.60) mg/L FEU Chloride (98-107) mmol/L Carbon Dioxide (22-30) mmol/L BUN (9-20) mg/dL Glucose (74-99) mg/dL POC Glucose (mg/dL) 235 H 293 H 177 H (75-99) mg/dL Calcium (8.4-10.2) mg/dL Ferritin (22.0-322.0) ng/mL Lactate Dehydrogenase (313-618) U/L Total Protein (6.3-8.2) g/dL Albumin (3.5-5.0) g/dL 06/11/20 06/11/20 06/11/20 Range/Units 04:41 04:41 04:41 Plt Count 41 L (150-450) k/uL Neutrophils # 9.4 H (1.3-7.7) k/uL Lymphocytes # 0.1 L (1.0-4.8) k/uL Fibrinogen 199 L (200-500) mg/dL D-Dimer 4.50 H (<0.60) mg/L FEU Chloride 111 H (98-107) mmol/L Carbon Dioxide 33 H (22-30) mmol/L BUN 43 H (9-20) mg/dL Glucose 169 H (74-99) mg/dL POC Glucose (mg/dL) (75-99) mg/dL Calcium 8.3 L (8.4-10.2) mg/dL Ferritin 2155.9 H (22.0-322.0) ng/mL Lactate Dehydrogenase 1486 H (313-618) U/L Total Protein 5.0 L (6.3-8.2) g/dL Albumin 2.2 L (3.5-5.0) g/dL 06/11/20 Range/Units 11:51 Plt Count (150-450) k/uL Neutrophils # (1.3-7.7) k/uL Lymphocytes # (1.0-4.8) k/uL Fibrinogen (200-500) mg/dL D-Dimer (<0.60) mg/L FEU Chloride (98-107) mmol/L Carbon Dioxide (22-30) mmol/L BUN (9-20) mg/dL Glucose (74-99) mg/dL POC Glucose (mg/dL) 169 H (75-99) mg/dL Calcium (8.4-10.2) mg/dL Ferritin (22.0-322.0) ng/mL Lactate Dehydrogenase (313-618) U/L Total Protein (6.3-8.2) g/dL Albumin (3.5-5.0) g/dL Assessment and Plan Assessment: -Acute hypoxic respiratory failure, currently on BiPAP -Acute covid- 19 pneumonia -Cytokine storm, improved inflammatory markers -Hyperlipidemia -Hypertension -Diabetes type 2 mellitus -DVT prophylaxis with the heparin -Full code Plan: This is a pleasant 74 years old male who presents with bilateral Covid pneumonia. Pulmonary team on the case. Continue with BiPAP, continue with TPN, continue with vitamin C and zinc, continue with dexamethasone, also he is on a Protonix. Follow-up recommendation by bone crusher and infectious disease teams Labs and medication were reviewed.. Continue same treatment. Continue with symptomatic treatment. Resume home medication. Monitor lytes and vitals. DVT and GI prophylaxis. Further recommendationsas per clinical course of the patient DVT prophylaxis: Subcutaneous Lovenox GI Prophylaxis: Ppi Prognosis is guarded
--- NOTE | 2020-06-12 00:33 | PN ---
PROGRESS NOTE DATE OF SERVICE: 06/11/2020 REASON FOR FOLLOWUP: COVID-19 infection. INTERVAL HISTORY: The patient is afebrile. The patient is hemodynamically stable, however, the patient remains to be BiPAP dependent. Denies having any chest pain. Minimal cough. No vomiting or any diarrhea reported. PHYSICAL EXAMINATION: Blood pressure 149/81, pulse 100, temperature 96.7. He is 98% on BiPAP. General description is an elderly male lying in bed in no distress. RESPIRATORY SYSTEM: Unlabored breathing with decreased intensity of breath sounds. No wheeze. HEART: S1, S2. Regular rate and rhythm. ABDOMEN: Soft, no tenderness. LABS: Hemoglobin 14.2, white count 10.1, BUN of 43, creatinine 0.67. DIAGNOSTIC IMPRESSION AND PLAN: Patient with acute respiratory failure which is multifactorial in this patient who did have COVID-19 infection. This patient completed remdesivir therapy , still remains to be BiPAP dependent. Chest x-ray with no worsening. To continue current treatment protocol and monitor clinical course closely. MMODL / IJN: [id number] /
[2020-06-12] MEDS: SODIUM CHLORIDE 0.9% 1,000 ML IV SCH ×2 (01:07→13:49)
[2020-06-12] MEDS: 1: MVI, ADULT NO.4 WITH VIT K 10 ML, TRACE (CONC-1ML/DOSE) 1 ML in AMINO ACID 5%-D15W+LY IV SCH ×9 (03:36→15:01)
[2020-06-12] MEDS: MORPHINE SULFATE 2 MG/ML SYRINGE IVP PRN ×3 (03:40→15:57)
[2020-06-12 04:17] LABS: Basophils % (A) 0 %; Eosinophils # (A) 0.1 k/uL (0-0.7); Eosinophils % (A) 1 %; HCT 43.7 % (39.0-53.0); HGB 14.2 gm/dL (13.0-17.5); Lymphocytes # (A) 0.1 k/uL (1.0-4.8); Lymphocytes % (A) 1 %; MCH 31.3 pg (25.0-35.0); MCHC 32.4 g/dL (31.0-37.0); MCV 96.5 fL (80.0-100.0); Mean Platelet Volume 9.3; Monocytes # (A) 0.5 k/uL (0-1.0); Monocytes % (A) 4 %; Neutrophils # (A) 9.3 k/uL (1.3-7.7); Neutrophils % (A) 93 %; RBC 4.53 m/uL (4.30-5.90)
[2020-06-12 04:28] LABS: Platelet Count 41 k/uL (150-450)
[2020-06-12 04:29] LABS: ALT 28 U/L (4-49); AST 31 U/L (17-59); African American GFR (CKD) >90 (>60 ml/min/1.73 sqM); Albumin 2.3 g/dL (3.5-5.0); Alkaline Phosphatase 131 U/L (38-126); Anion Gap -1 mmol/L; Blood Urea Nitrogen 42 mg/dL (9-20); C Reactive Protein 9.8 mg/L (<10.0); Calcium 8.5 mg/dL (8.4-10.2); Carbon Dioxide 34 mmol/L (22-30); Chloride 106 mmol/L (98-107); Glucose 326 mg/dL (74-99); LDH 2005 U/L (313-618); Magnesium 2.2 mg/dL (1.6-2.3); Non-African American GFR(CKD) >90 (>60 ml/min/1.73 sqM); Phosphorus 3.9 mg/dL (2.5-4.5); Potassium 4.9 mmol/L (3.5-5.1); Sodium 139 mmol/L (137-145); Total Bilirubin 0.7 mg/dL (0.2-1.3)
[2020-06-12] MEDS: PANTOPRAZOLE 40 MG TABLET PO SCH (05:11)
[2020-06-12 06:41] LABS: Glucose,Whole Blood 315 mg/dL (75-99)
[2020-06-12] MEDS: LORazepam 2 MG/ML INJ IV PRN ×3 (06:45→21:36)
[2020-06-12] MEDS: INSULIN ASPART (NovoLOG) 100 UNIT/ML VIAL SQ SCH ×3 (06:46→17:26)
--- NOTE | 2020-06-12 07:28 | XR ---
EXAMINATION TYPE: XR chest 1V portable DATE OF EXAM: 06/12/2020 HISTORY: Shortness of breath. COMPARISON: 06/11/2020 TECHNIQUE: Single view of the chest is submitted. FINDINGS: Demonstrated are scattered senescent parenchymal change. Bilateral airspace infiltrates persist with slight improvement suggested in the right lung. PICC line is unchanged. The heart is stable. Hilar and mediastinal structures are within normal limits. Degenerative changes are seen of the dorsal spine. IMPRESSION: 1. Bilateral airspace infiltrates persist with slight improvement suggested in the right lung.
[2020-06-12] MEDS: ALBUTEROL HFA INHALER INHALATION SCH ×4 (08:04→20:15)
[2020-06-12] MEDS: ENOXAPARIN 40 MG/0.4 ML SYRINGE SQ SCH ×2 (08:11→20:02)
[2020-06-12] MEDS: DEXAMETHASONE SOD PHOSPHATE 10 MG/ML 1 ML VIAL IV SCH ×2 (08:12→20:02)
[2020-06-12] MEDS: ASCORBIC ACID 500 MG TAB PO SCH (08:12)
[2020-06-12] MEDS: ZINC SULFATE 220 MG CAP PO SCH (08:12)
[2020-06-12] MEDS: NYSTATIN 100,000 UNIT/ML SUSP 500,000 UNIT/5 ML CUP PO SCH ×2 (08:12→11:44)
[2020-06-12] MEDS: ASPIRIN 325 MG TAB PO SCH (08:12)
[2020-06-12] MEDS: CHOLECALCIFEROL 1,000 UNIT TAB PO SCH (08:12)
[2020-06-12] MEDS: NON FORMULARY DRUG (Lifitegrast [Xiidra] 1 EACH Droperette) BOTH EYES SCH ×2 (09:31→19:55)
[2020-06-12] MEDS: LEVOFLOXACIN 750MG-D5W PMX 750 MG in DEXTROSE/WATER 1 150ML.BAG IVPB SCH (09:31)
[2020-06-12] MEDS: FAT EMULSION 20% 250 ML in EMPTY BAG 1 BAG IV SCH (11:44)
[2020-06-12 12:00] LABS: Glucose,Whole Blood 419 mg/dL (75-99)
[2020-06-12] MEDS: PANTOPRAZOLE 40 MG/10 ML VIAL IVP SCH ×2 (13:53→20:10)
--- NOTE | 2020-06-12 14:14 | P.PN ---
<Lisa Carnes - Last Filed: 06/12/20 13:41> Subjective Progress Note Date: 06/12/20 This is a 74-year-old male who was recently admitted with generalized body aches, sinus congestion, fevers, shortness of breath with exertion and was also found to have Covid 19 pneumonia. Patient's respiratory status continues to de teriorate and was transferred to the ICU for close monitoring. Patient is currently on a BiPAP at 100% and saturating well although continues to be extremely short of breath and exhausted. Patient's blood sugars are being closely monitored as they have been variable with highs and lows and will co ntinue a sliding scale at this time. Patient oral intake continues to be poor as he desats quickly off of the BiPAP. Discussion of a PICC line placement and enteral nutrition is being had. Dietitian has been consulted. White blood count continues to be elevated at 13.9 elbow possibly due to steroids. Hemoglobin is stable at 15.9. D-dimer slightly improved at 7.53 although continues to be elevated. Current sodium is 141, potassium is 5.0, BUN is 49, and creatinine is 0.84. Repeat chest x-ray today shows worsening perihilar infiltrates. 06/12/2020 Patient remains in the ICU in critical condition he is BiPAP dependent. With BiPAP setting of 14/10 with FiO2 of 100% and his breathing rate at 16-24 and oxygen saturation of 93-99%. His BiPAP is managed by pulmonary team who following the patient closely. Because he is on BiPAP he cannot take oral medication or food so patient was pl aced on TPN. Blood sugars have been slowly elevating due to TPN and will continue sliding scale and add Levemir 20 units daily and continue to monitor blood sugars closely Vitals and labs look stable. Chest x-ray from today showing bilateral airspace infiltrates persist with slight improvement suggested in the right lung. Patient has a right side PICC line He is currently kept on bronchodilator, Lovenox 40 mg twice daily, dexamethasone 6 mg twice daily. Patient is not taking anything by mouth due to this extreme inability to come off of oxygen or the BiPAP for any period of time and certain medications have been adjusted to IV. To continue with IV Levaquin and IV Protonix Dr. Plascencia will be resuming care on this patient on 06/13/2020 Review of systems CONSTITUTIONAL: No fever, no malaise, reports fatigue. HEENT: No recent visual problems or hearing problems. Denied any sore throat. CARDIOVASCULAR: No orthopnea, PND, no palpitations, no syncope. PULMONARY: No chest wall tenderness, no hemoptysis. Reports continued shortness of breath GASTROINTESTINAL: No diarrhea, no nausea, no vomiting, no abdominal pain. Normoactive bowel sounds. NEUROLOGICAL: No headaches, no weakness, no numbness. Objective - Vital Signs Vital signs: Vital Signs Temp 97.4 F L 06/12/20 08:00 Pulse 101 H 06/12/20 11:00 Resp 14 06/12/20 11:00 BP 107/80 06/12/20 11:00 Pulse Ox 96 06/12/20 11:00 Intake & Output 06/11/20 06/12/20 06/12/20 18:59 06:59 18:59 Intake Total 750 2312 525 Output Total 925 1200 Balance -175 1112 525 Weight 74.8 kg Intake: Intake, IV Titration 750 2312 525 Amount Amino Acid 5%-D15w+Lytes* 255 425 E* 1,000 ml @ 85 mls/hr IV .BY DURATION [facility] Rx#: [id number] Fat Emulsion 20% 250 ml 126 In Empty Bag 1 bag @ 21 mls/hr IV DAILY@1200 [facility] Rx#:[id number] Levofloxacin 750Mg-D5w 150 Pmx 750 mg In Dextrose/ Water 1 150ml.bag @ 100 mls/hr IVPB Q24H [facility] Rx#: [id number] Mvi, Adult No.4 with Vit 30 K 10 ml Trace (Conc-1Ml/ Dose) 1 ml In Amino Acid 5%-D15w+Lytes*E* 1,000 ml @ 30 mls/hr IV .Q24H [facility] Rx#:[id number] Mvi, Adult No.4 with Vit 1691 K 10 ml Trace (Conc-1Ml/ Dose) 1 ml In Amino Acid 5%-D15w+Lytes*E* 1,000 ml @ 85 mls/hr IV .BY DURATION [facility] Rx#: [id number] Sodium Chloride 0.9% 1, 570 240 100 000 ml @ 20 mls/hr IV . Q24H [facility] Rx#:[id number] Output: Urine 925 1200 Other: Voiding Method Urinal Urinal - Exam GENERAL: The patient is alert and oriented x3, lethargic although arousable, slightly tachypneic on BiPAP HEENT: Pupils are round and equally reacting to light. EOMI. No scleral icterus. No conjunctival pallor. Normocephalic, atraumatic. No pharyngeal erythema. No thyromegaly. CARDIOVASCULAR: S1 and S2 present. No murmurs, rubs, or gallops. PULMONARY: Bilateral crepitation with decreased breath sounds ABDOMEN: Soft, nontender, nondistended, normoactive bowel sounds. No palpable organomegaly. MUSCULOSKELETAL: No joint swelling or deformity. EXTREMITIES: No cyanosis, clubbing, or pedal edema. NEUROLOGICAL: Gross neurological examination did not reveal any focal deficits. SKIN: No rashes. no petechiae. - Labs CBC & Chem 7: 06/12/20 03:17 06/12/20 03:17 Labs: Abnormal Lab Results - Last 24 Hours (Table) 06/10/20 06/11/20 06/11/20 Range/Units 06:37 11:51 17:19 Plt Count (150-450) k/uL Neutrophils # (1.3-7.7) k/uL Lymphocytes # (1.0-4.8) k/uL Carbon Dioxide (22-30) mmol/L BUN (9-20) mg/dL Glucose (74-99) mg/dL POC Glucose (mg/dL) 169 H 284 H (75-99) mg/dL Ferritin 3025.2 H (22.0-322.0) ng/mL Alkaline Phosphatase (38-126) U/L Lactate Dehydrogenase (313-618) U/L Total Protein (6.3-8.2) g/dL Albumin (3.5-5.0) g/dL 06/11/20 06/12/20 06/12/20 Range/Units 20:08 03:17 03:17 Plt Count 41 L (150-450) k/uL Neutrophils # 9.3 H (1.3-7.7) k/uL Lymphocytes # 0.1 L (1.0-4.8) k/uL Carbon Dioxide 34 H (22-30) mmol/L BUN 42 H (9-20) mg/dL Glucose 326 H (74-99) mg/dL POC Glucose (mg/dL) 357 H (75-99) mg/dL Ferritin (22.0-322.0) ng/mL Alkaline Phosphatase 131 H (38-126) U/L Lactate Dehydrogenase 2005 H (313-618) U/L Total Protein 5.0 L (6.3-8.2) g/dL Albumin 2.3 L (3.5-5.0) g/dL 06/12/20 Range/Units 06:35 Plt Count (150-450) k/uL Neutrophils # (1.3-7.7) k/uL Lymphocytes # (1.0-4.8) k/uL Carbon Dioxide (22-30) mmol/L BUN (9-20) mg/dL Glucose (74-99) mg/dL POC Glucose (mg/dL) 315 H (75-99) mg/dL Ferritin (22.0-322.0) ng/mL Alkaline Phosphatase (38-126) U/L Lactate Dehydrogenase (313-618) U/L Total Protein (6.3-8.2) g/dL Albumin (3.5-5.0) g/dL Assessment and Plan Assessment: -Acute hypoxic respiratory failure, currently on BiPAP -Acute covid- 19 pneumonia -Cytokine storm, improved inflammatory markers -Hyperlipidemia -Hypertension -Diabetes type 2 mellitus -DVT prophylaxis with the heparin -Full code -DVT prophylaxis: Lovenox -GI prophylaxis: Protonix Plan: This is a pleasant 74 years old male who presents with bilateral Covid pneumonia . Pulmonary team on the case. Continue with BiPAP, continue with TPN, continue with dexamethasone, also he is on Protonix. Patient continues to be BiPAP dependent and extremely hypoxic is taken off for any period of time and medications have been adjusted to IV. Blood sugars have been elevated due to initiation of TPN and will continue sliding scale and will add long-acting and continue with before meals at bedtime and every 2 a.m. Accu-Cheks for close monitoring. Follow-up recommendation by maintenance team member and infectious disease teams Labs and medication were reviewed.. Continue same treatment. Continue with symptomatic treatment. Resume home medication. Monitor lytes and vitals. DVT and GI prophylaxis. Further recommendationsas per clinical course of the patient. CODE STATUS needs to be discussed with family. Dr. Plascencia to resume care on 06/13/2020 Prognosis is guarded <Sheet,Frandy E - Last Filed: 06/21/20 13:57> Objective - Vital Signs Vital signs: Vital Signs Temp 97.0 F L 06/13/20 00:00 Pulse 122 H 06/13/20 10:00 Resp 34 H 06/13/20 10:00 BP 108/58 06/13/20 10:00 Pulse Ox 70 L 06/13/20 10:00 - Labs CBC & Chem 7: 06/13/20 05:30 06/12/20 03:17 Assessment and Plan Assessment: I have discussed the plan and I have reviewed the notes with BERTA Gonzalez and I agree with it except was mentioned below Patient is seen and examined by me at bedside pt remains in critical condition in ICU , he is been followed closely by pulmonary and ID team prognosis is guarded
[2020-06-12 17:18] LABS: Glucose,Whole Blood 411 mg/dL (75-99)
[2020-06-12] MEDS ORDERED: MORPHINE SULFATE 2 MG/ML SYRINGE IVP PRN (17:24)
--- NOTE | 2020-06-12 17:39 | P.PN ---
Subjective Progress Note Date: 06/12/20 Principal diagnosis: covid, sequela of disease Bipap Objective - Vital Signs Vital signs: Vital Signs Temp 97.5 F L 06/12/20 16:00 Pulse 109 H 06/12/20 17:00 Resp 20 06/12/20 17:00 BP 116/83 06/12/20 17:00 Pulse Ox 94 L 06/12/20 17:00 Intake & Output 06/11/20 06/12/20 06/12/20 18:59 06:59 18:59 Intake Total 750 2312 2251.417 Output Total 925 1200 1325 Balance -175 1112 926.417 Weight 74.8 kg Intake: Intake, IV Titration 750 2312 2251.417 Amount Amino Acid 5%-D15w+Lytes* 255 680 E* 1,000 ml @ 85 mls/hr IV .BY DURATION [facility] Rx#: [id number] Fat Emulsion 20% 250 ml 126 126 In Empty Bag 1 bag @ 21 mls/hr IV DAILY@1200 [facility] Rx#:[id number] Levofloxacin 750Mg-D5w 150 Pmx 750 mg In Dextrose/ Water 1 150ml.bag @ 100 mls/hr IVPB Q24H [facility] Rx#: [id number] Mvi, Adult No.4 with Vit 30 K 10 ml Trace (Conc-1Ml/ Dose) 1 ml In Amino Acid 5%-D15w+Lytes*E* 1,000 ml @ 30 mls/hr IV .Q24H [facility] Rx#:[id number] Mvi, Adult No.4 with Vit 1691 970.417 K 10 ml Trace (Conc-1Ml/ Dose) 1 ml In Amino Acid 5%-D15w+Lytes*E* 1,000 ml @ 85 mls/hr IV .BY DURATION [facility] Rx#: [id number] Mvi, Adult No.4 with Vit 255 K 10 ml Trace (Conc-1Ml/ Dose) 1 ml In Amino Acid 5%-D15w+Lytes*E* 1,000 ml @ 85 mls/hr IV .BY DURATION [facility] Rx#: [id number] Sodium Chloride 0.9% 1, 570 240 220 000 ml @ 20 mls/hr IV . Q24H [facility] Rx#:[id number] Output: Urine 925 1200 1325 Other: Voiding Method Urinal Urinal - Constitutional General appearance: Present: average body habitus, no acute distress - Labs CBC & Chem 7: 06/12/20 03:17 06/12/20 03:17 Labs: Abnormal Lab Results - Last 24 Hours (Table) 06/11/20 06/12/20 06/12/20 Range/Units 20:08 03:17 03:17 Plt Count 41 L (150-450) k/uL Neutrophils # 9.3 H (1.3-7.7) k/uL Lymphocytes # 0.1 L (1.0-4.8) k/uL Carbon Dioxide 34 H (22-30) mmol/L BUN 42 H (9-20) mg/dL Glucose 326 H (74-99) mg/dL POC Glucose (mg/dL) 357 H (75-99) mg/dL Alkaline Phosphatase 131 H (38-126) U/L Lactate Dehydrogenase 2005 H (313-618) U/L Total Protein 5.0 L (6.3-8.2) g/dL Albumin 2.3 L (3.5-5.0) g/dL 06/12/20 06/12/20 06/12/20 Range/Units 06:35 11:59 17:17 Plt Count (150-450) k/uL Neutrophils # (1.3-7.7) k/uL Lymphocytes # (1.0-4.8) k/uL Carbon Dioxide (22-30) mmol/L BUN (9-20) mg/dL Glucose (74-99) mg/dL POC Glucose (mg/dL) 315 H 419 H 411 H (75-99) mg/dL Alkaline Phosphatase (38-126) U/L Lactate Dehydrogenase (313-618) U/L Total Protein (6.3-8.2) g/dL Albumin (3.5-5.0) g/dL Assessment and Plan (1) Elevated d-dimer Current Visit: Yes Status: Acute Priority: High Code(s): R79.89 - OTHER SPECIFIED ABNORMAL FINDINGS OF BLOOD CHEMISTRY SNOMED Code(s): 048181574 (2) Thrombocytopenia associated with COVID-19 Current Visit: Yes Status: Acute Priority: High Code(s): U07.1 - COVID-19; D69.59 - OTHER SECONDARY THROMBOCYTOPENIA SNOMED Code(s): 889159037 Plan: Above hematologic abnormalities are 2/2 covid infection. Plt 41,000 today. Case reviewed with Dr. Levin and Nursing. Aspirin was held. Cont on 40mg of lovenox BID. Cont lovenox BID until d-dimer<3, then reduce to daily prophylactic dose of lovenox. When Plt>50,000 resume aspirin.
[2020-06-12] MEDS ORDERED: INSULIN DETEMIR (LEVEMIR) 100 UNIT/ML SYR SQ SCH (21:00)
--- NOTE | 2020-06-12 23:33 | PN ---
PROGRESS NOTE DATE OF SERVICE: 06/12/2020 REASON FOR FOLLOWUP: COVID-19 infection. INTERVAL HISTORY: The patient is currently afebrile. The patient remains slightly sleepy and lethargic today. The remains on BiPAP 100%. Oral intake remains poor. No vomiting or any diarrhea or other changes reported by the nursing staff. PHYSICAL EXAMINATION: Blood pressure 122/81 with a pulse of 113, temperature of 96.7. He is 91% on 100% BiPAP. General description is an elderly male lying in bed in no distress. RESPIRATORY SYSTEM: Unlabored breathing with decreased intensity of breath sounds. No wheeze. HEART: S1, S2. Regular rate and rhythm. ABDOMEN: Soft. No tenderness. LABS: Hemoglobin is 14.2, white count 10, BUN of 42, creatinine 0.67. DIAGNOSTIC IMPRESSION AND PLAN: Patient with acute respiratory failure, likely secondary to acute COVID-19 with concern for cytokine storm in this patient who has received remdesivir, Actemra, currently dexamethasone to continue and monitor his clinical course closely. Prognosis remains guarded. MMODL / IJN: [id number] /
[2020-06-13 00:15] LABS: Glucose,Whole Blood 422 mg/dL (75-99)
[2020-06-13] MEDS: INSULIN ASPART (NovoLOG) 100 UNIT/ML VIAL SQ SCH ×2 (00:31→08:30)
[2020-06-13 00:58] VITALS: TEMP 97
[2020-06-13] MEDS: 1: MVI, ADULT NO.4 WITH VIT K 10 ML, TRACE (CONC-1ML/DOSE) 1 ML in AMINO ACID 5%-D15W+LY IV SCH ×3 (02:46)
[2020-06-13] MEDS ORDERED: 1: MVI, ADULT NO.4 WITH VIT K 10 ML, TRACE (CONC-1ML/DOSE) 1 ML in AMINO ACID 5%-D15W+LY IV SCH ×3 (03:00)
[2020-06-13 05:46] LABS: Basophils % (A) 0 %; Eosinophils % (A) 1 %; HCT 46.1 % (39.0-53.0); HGB 13.4 gm/dL (13.0-17.5); Hypochromasia Marked; Lymphocytes # (A) 0.1 k/uL (1.0-4.8); Lymphocytes % (A) 1 %; MCH 31.6 pg (25.0-35.0); MCHC 29.1 g/dL (31.0-37.0); Macrocytosis Moderate; Mean Platelet Volume 9.1; Monocytes # (A) 0.3 k/uL (0-1.0); Monocytes % (A) 4 %; Neutrophils # (A) 7.5 k/uL (1.3-7.7); Neutrophils % (A) 93 %; RBC 4.25 m/uL (4.30-5.90); RDW 13.1 % (11.5-15.5); WBC 8.1 k/uL (3.8-10.6)
[2020-06-13 05:52] LABS: MCV 108.3 fL (80.0-100.0)
[2020-06-13 06:10] LABS: Anisocytosis (M) Present; Platelet Count 46 k/uL (150-450)
[2020-06-13] MEDS ORDERED: INSULIN DETEMIR (LEVEMIR) 100 UNIT/ML SYR SQ SCH (07:00)
[2020-06-13] MEDS ORDERED: MORPHINE SULFATE 4 MG/ML SYRINGE ONE (07:36)
[2020-06-13] MEDS: ALBUTEROL HFA INHALER INHALATION SCH (07:40)
[2020-06-13] MEDS: LORazepam 2 MG/ML INJ IV PRN (07:49)
[2020-06-13] MEDS: PANTOPRAZOLE 40 MG/10 ML VIAL IVP SCH (08:09)
[2020-06-13] MEDS: LEVOFLOXACIN 750MG-D5W PMX 750 MG in DEXTROSE/WATER 1 150ML.BAG IVPB SCH (08:10)
[2020-06-13] MEDS: DEXAMETHASONE SOD PHOSPHATE 10 MG/ML 1 ML VIAL IV SCH (08:10)
[2020-06-13] MEDS: ASPIRIN 325 MG TAB PO SCH (08:10)
[2020-06-13] MEDS: ENOXAPARIN 40 MG/0.4 ML SYRINGE SQ SCH (08:10)
[2020-06-13 08:30] LABS: Glucose,Whole Blood 398 mg/dL (75-99)
[2020-06-13] MEDS ORDERED: MORPHINE SULFATE 4 MG/ML SYRINGE IVP STA (08:57)
[2020-06-13] MEDS: NON FORMULARY DRUG (Lifitegrast [Xiidra] 1 EACH Droperette) BOTH EYES SCH (09:08)
[2020-06-13] MEDS ORDERED: ONDANSETRON 4 MG/2 ML VIAL IVP PRN (09:24)
[2020-06-13] MEDS ORDERED: ATROPINE OPHTH SOLN 1% 5ML BTL SUBLINGUAL PRN (09:24)
[2020-06-13] MEDS ORDERED: SCOPOLAMINE 1.5MG/72HR PATCH TRANSDERM SCH (09:30)
[2020-06-13] MEDS ORDERED: LORazepam 2 MG/ML INJ IV PRN (09:38)
[2020-06-13] MEDS ORDERED: MORPHINE SULFATE (100 MG/2 ML) 100 MG in SODIUM CHLORIDE 0.9% 100 ML IV SCH (09:45)
--- NOTE | 2020-06-13 10:13 | XR ---
EXAMINATION TYPE: XR chest 1V portable DATE OF EXAM: 06/13/2020 COMPARISON: 06/12/2020 INDICATION: Shortness of breath TECHNIQUE: Single frontal view of the chest is obtained. FINDINGS: The heart size is normal. The pulmonary vasculature is normal. Patchy bilateral hilar infiltrates are present greater on the left than the right. There is interval development of a moderate right pneumothorax. PICC line enters on the right with the tip in the right atrium, unchanged in position. IMPRESSION: 1. Interval development of a right pneumothorax. This is estimated at approximately 20%, largely dennis g the lateral margin. Report was called to, the patient's nurseMariela by Dr. Stephens by telephone 10 09 hours 06/13/2020 A Red level critical message alert has been initiated for Anastacio Plascencia MD via the [employer] [facility] System on 06/13/2020 10:08 AM. This message alert has been sent to Daniel Tobias via the preferences provided by the clinician for the receipt of Radiology Critical Findings. [employer] ID [id number].
[2020-06-13 10:23] VITALS: BP 108/58; PULSE 122; RESP 34
--- NOTE | 2020-06-13 12:24 | P.PN ---
Subjective Progress Note Date: 06/12/20 Principal diagnosis: Acute hypoxic respiratory failure, BiPAP dependent Acute covid 19 pneumonia ARDS likely related covid 19 pneumonia Dyslipidemia Hypertension hypertensive cardiovascular disease Diabetes mellitus 06/12/2020, patient seen eval examined during the rounds labs reviewed medications reviewed care plan discussed, with the primary service and staff at length patient is BiPAP dependent, remains on 100% oxygen, BiPAP setting includes 14/10, respiratory rate in mid 20s to low 20s, oxygen saturation 90%, patient has been on TPN as well sugars are being adjusted with Levemir 06/11/2020, patient seen eval examined during the rounds labs reviewed medications reviewed, care plan discussed with the staff at length, patient remains on BiPAP BiPAP setting include % oxygen, saturation is 95-96% spontaneous tidal volume between 500-600 range, patient remains on TPN, poor appetite today, very weak, Levaquin has been started by infectious disease services, labs reviewed white cell count down to 10,000 with stable hemoglobin and hematocrit, however platelet count down to 41,000 which are stable for now, d-dimer slightly better today, prerenal azotemia is present, phlegm atrial marker remains very high but showing a slight downward trend indicative of ongoing cytokine rayray, chest x-ray overall not much changed, critical care time 35 minutes 06/10/2020, patient seen eval during the rounds labs reviewed medications reviewed care plan discussed, patient remains very weak, status post PICC line TPN is being started, currently patient is on BiPAP 06/06 oxygen saturation is 80%, earlier morning oxygen saturation were 91%, we will increase it to 14/10, remains on 100% oxygen, right cell count is up to 13,900 hemoglobin stable, inflammatory parameters continued to be on high and d-dimer is 7.53, LDH continue to go up late this was 2185, ferritin from today is pending, chest x- ray done today reviewed bilateral diffuse interstitial infiltrate are present more so on the left side compared to lites right side continued to progress stable PICC line 06/09/2020, patient seen eval examined during the rounds, patient remains on BiPAP alternating with high flow oxygen, saturations stable, patient is very weak but however start eating by mouth now as per discussion with RN, a PICC line is being placed for supplemental nutrition, would recommend to hold the tube for now labs reviewed medications reviewed radiographic studies reviewed as well 06/08/2020, patient seen eval examined during the rounds labs reviewed medications reviewed care plan discussed, patient is on high flow aerosolized oxygen, saturation is 95-96%, appetite slightly better patient able to eat some forte, have encouraged patient to lay prone or at least on the sides, currently off of BiPAP, patient remains on Decadron, status post IV REMdesivir convalescent plasma also received 2 doses of Actemra 06/07/2020, patient seen eval examined during the rounds labs reviewed medications reviewed care plan discussed, remains on 85% oxygen 12 and 10 of BiPAP, cough shortness of breath stable saturation is stable now, oxygen saturation is 94%, and 90% 60 L high flow oxygen is being used as well labs reviewed 06/06/2020, patient seen eval examined during the rounds labs reviewed medications reviewed patient does have problem with swallowing very dry mouth, however can take honey thick, suspect may be dryness or oral thrush present, we'll start treating with nystatin swish and swallow, hemodynamic status remained stable however oxygenation remains marginal but doing better on aerosolized oxygen saturation is mid 90s, with activity does desaturate, intermittently have been doing BiPAP as well with 90% oxygen, x-ray performed earlier today reviewed overall remains stable pneumonia not much change finding consistent with Covid pneumonia and early ARDS 06/05/2020, patient seen eval examined during the rounds labs reviewed medications reviewed care plan discussed, patient has intermittent episodes of desaturation throughout the day, however he remains stable on BiPAP currently on 1208 and 60% oxygen, improved 100%, labs from today reviewed inflammatory parameters remains high suggestive of ongoing cytokine strong, sugar also noted on the higher side, we will start sliding scale insulin if it remains elevated 06/04/2020, patient seen eval examined during the rounds labs reviewed medications reviewed, care plan discussed, remains on BiPAP 06/06 with 60% oxygen saturation is 98%, patient did desaturate on high flow address lysed oxygen, he has finished IV REMdesivir convalescent plasma remains on Decadron 06/03/2020, patient seen eval reexamined during the rounds labs reviewed medications reviewed, patient was desaturating or with aerosolized oxygen just has been placed on BiPAP 06/03 with 80% oxygen saturation improved to 100%, , patient is status post IV in remdesivir therapy, he has received convalescent plasma as well yesterday, chest x-ray reviewed diffuse patchy infiltrates bilaterally remains stable 06/02/2020, patient seen eval examined during the rounds labs reviewed medications reviewed, due to severe hypoxia and respiratory distress patient transferred from the medical floor to ICU, patient was off of BiPAP for extended period time, on high flow search dropped down to 60s and 70s, after bringing patient up in the ICU was continued on BiPAP, prone positioning have been encouraged, patient will be given convalescent plasma as well, and is status post therapy with IV REM doesn't wear remains on Decadron and Lovenox, she sent patient remains afebrile, tachypneic, hemodynamic status stable, on BiPAP 06/06, 80% oxygen saturation is 95-96%, 's x-ray continue show bilateral diffuse interstitial infiltrates, overall not much change compared to prior x-ray 06/01/2020, patient seen eval examined during the rounds labs reviewed medications reviewed patient has been prone with BiPAP, oxygen saturation significantly improved to 96-98%, remains on 80% oxygen with BiPAP of and , is still feel congested, short of breath, on supine posture however saturation to drop, remains on high flow oxygen with mask in between the BiPAP for meals and overall care, chest x-ray performed today shows diffuse bilateral interstitial and groundglass opacities predominantly in the perihilar area slightly improved on the left side though, noted mildly elevated troponin of 0.4 asymptomatic likely demand ischemia related 05/31/2020, patient seen, currently resting, remains on BiPAP in between for maintenance on address lysed high flow oxygen, sats on BiPAP last check was 90%, hemodynamic status stable, continued to be short of breath using necessary muscles cough is present intermittently dry and nonproductive, patient remains on therapy 05/30/2020, patient seen eval examined during the rounds labs reviewed irrigations reviewed, patient is overall in good spirits, however continued to require high flow oxygen with aerosolized oxygen and nonrebreather mask during eating otherwise patient has been on BiPAP, currently saturation is about 88-90% on 06/06 on 80% oxygen, sats on BiPAP however improved to 95%, chest x-ray per formed earlier today revealed bilateral infiltrates consistent with covid 19 pneumonia 05/29/2020, patient seen eval examined during the rounds labs reviewed medications reviewed care plan discussed, patient remained short of breath currently now is on airvo high flow oxygen, 90% to 91%, Patient came into the hospital with about one week history of increased symptoms of sinus congestion cough, also has a chills fever and mild PI aches and fatigue and pain, history of prior lung problems does have a history hypertension hypertensive cardiovascular disease dyslipidemia and diabetes mellitus, on arrival his oxygen saturation is 90%, low-grade temperature 99.3 was present his steiner virus PCR came back positive, his oxygen requirement continued to go up currently he is on 100% nonrebreather mask with 15 L high flow oxygen, chest x- ray admitted show coarse interstitial changes consistent with interstitial pneumonia repeat chest x-ray did now show worsening ARDS-like Petrin, saturation is 98%, he is afebrile hemodynamic status, he is on Lovenox 40 every 12, on Medrol 60 every 6, Remdesivir IV, inflammatory parameters are consistent with severe inflammatory response d-dimer is 16.4, pH is 574, a reactive protein is 3 Objective - Vital Signs Vital signs: Vital Signs Temp 97.5 F L 06/12/20 16:00 Pulse 109 H 06/12/20 16:00 Resp 19 06/12/20 16:00 BP 100/59 06/12/20 16:00 Pulse Ox 95 06/12/20 16:00 Intake & Output 06/11/20 06/12/20 06/12/20 18:59 06:59 18:59 Intake Total 750 2312 2125.417 Output Total 925 1200 1325 Balance -175 1112 800.417 Weight 74.8 kg Intake: Intake, IV Titration 750 2312 2125.417 Amount Amino Acid 5%-D15w+Lytes* 255 680 E* 1,000 ml @ 85 mls/hr IV .BY DURATION [facility] Rx#: [id number] Fat Emulsion 20% 250 ml 126 105 In Empty Bag 1 bag @ 21 mls/hr IV DAILY@1200 [facility] Rx#:[id number] Levofloxacin 750Mg-D5w 150 Pmx 750 mg In Dextrose/ Water 1 150ml.bag @ 100 mls/hr IVPB Q24H [facility] Rx#: [id number] Mvi, Adult No.4 with Vit 30 K 10 ml Trace (Conc-1Ml/ Dose) 1 ml In Amino Acid 5%-D15w+Lytes*E* 1,000 ml @ 30 mls/hr IV .Q24H [facility] Rx#:[id number] Mvi, Adult No.4 with Vit 1691 970.417 K 10 ml Trace (Conc-1Ml/ Dose) 1 ml In Amino Acid 5%-D15w+Lytes*E* 1,000 ml @ 85 mls/hr IV .BY DURATION [facility] Rx#: [id number] Mvi, Adult No.4 with Vit 170 K 10 ml Trace (Conc-1Ml/ Dose) 1 ml In Amino Acid 5%-D15w+Lytes*E* 1,000 ml @ 85 mls/hr IV .BY DURATION [facility] Rx#: [id number] Sodium Chloride 0.9% 1, 570 240 200 000 ml @ 20 mls/hr IV . Q24H [facility] Rx#:[id number] Output: Urine 925 1200 1325 Other: Voiding Method Urinal Urinal - Exam - Constitutional General appearance: average body habitus, disheveled, mild distress - EENT Eyes: EOMI, PERRLA Ears: bilateral: normal - Neck Neck: normal ROM Carotids: bilateral: upstroke normal Thyroid: bilateral: normal size - Respiratory Respiratory: bilateral: diminished - Cardiovascular Rhythm: regular Heart sounds: normal: S1, S2 - Gastrointestinal General gastrointestinal: soft - Integumentary Integumentary: decreased turgor - Neurologic Neurologic: CNII-XII intact - Musculoskeletal Musculoskeletal: gait normal, generalized weakness, strength equal bilaterally - Psychiatric Psychiatric: A&O x's 3, appropriate affect, intact judgment & insight - Labs CBC & Chem 7: 06/13/20 05:30 06/12/20 03:17 Labs: Abnormal Lab Results - Last 24 Hours (Table) 06/10/20 06/11/20 06/11/20 Range/Units 06:37 17:19 20:08 Plt Count (150-450) k/uL Neutrophils # (1.3-7.7) k/uL Lymphocytes # (1.0-4.8) k/uL Carbon Dioxide (22-30) mmol/L BUN (9-20) mg/dL Glucose (74-99) mg/dL POC Glucose (mg/dL) 284 H 357 H (75-99) mg/dL Ferritin 3025.2 H (22.0-322.0) ng/mL Alkaline Phosphatase (38-126) U/L Lactate Dehydrogenase (313-618) U/L Total Protein (6.3-8.2) g/dL Albumin (3.5-5.0) g/dL 06/12/20 06/12/20 06/12/20 Range/Units 03:17 03:17 06:35 Plt Count 41 L (150-450) k/uL Neutrophils # 9.3 H (1.3-7.7) k/uL Lymphocytes # 0.1 L (1.0-4.8) k/uL Carbon Dioxide 34 H (22-30) mmol/L BUN 42 H (9-20) mg/dL Glucose 326 H (74-99) mg/dL POC Glucose (mg/dL) 315 H (75-99) mg/dL Ferritin (22.0-322.0) ng/mL Alkaline Phosphatase 131 H (38-126) U/L Lactate Dehydrogenase 2005 H (313-618) U/L Total Protein 5.0 L (6.3-8.2) g/dL Albumin 2.3 L (3.5-5.0) g/dL 06/12/20 Range/Units 11:59 Plt Count (150-450) k/uL Neutrophils # (1.3-7.7) k/uL Lymphocytes # (1.0-4.8) k/uL Carbon Dioxide (22-30) mmol/L BUN (9-20) mg/dL Glucose (74-99) mg/dL POC Glucose (mg/dL) 419 H (75-99) mg/dL Ferritin (22.0-322.0) ng/mL Alkaline Phosphatase (38-126) U/L Lactate Dehydrogenase (313-618) U/L Total Protein (6.3-8.2) g/dL Albumin (3.5-5.0) g/dL Assessment and Plan Assessment: Acute hypoxic respiratory failure Acute covid 19 pneumonia cytokine is rayray ARDS likely related covid 19 pneumonia Volume depleted/dehydration status continue gentle rehydration Protein calorie malnourishment Dyslipidemia Hypertension hypertensive cardiovascular disease Diabetes mellitus Prognosis guarded Plan: Continue BiPAP, 12/04 with oxygen to keep saturation of 90% or above each night and when necessary during the day, in between patient can be rested with aerosolized oxygen and facemask if possible lately however patient has been requiring 24 hours of BiPAP support Deep breathing exercise incentive spirometry Prone positioning as much as possible preferably 16 hours a day if not possible patient agree able for sleeping on the sides IV steroids Nystatin swish and swallow Status post IV Remdesivir for 5 days Status post 2 doses of Actemra for cytokine is rayray Continue Anticoagulation with Lovenox Sliding scale insulin, with maintenance insulin Observe closely in ICU Status post Convalescent plasma Time with Patient: Greater than 30
--- NOTE | 2020-06-13 18:08 | P.DS ---
Providers Date of admission: 05/22/20 20:16 Expected date of discharge: 06/13/20 ( at 1058) Attending physician: Anastacio Plascencia Consults: 05/28/20 09:52 Consult Physician Urgent Consulting Provider: Dewayne Lance Consult Reason/Comments: COVID Do you want consulting provider notified?: Yes Primary care physician: Anastacio Plascencia - Discharge Diagnosis(es) (1) COVID-19 acute hypoxic respiratory failure Acute covid-19 pneumonia cytokine storm secondary to severe covid-19 Status: Acute Hospital Course: 74-year-old male who is admitted to the hospital with generalized body aches, sinus congestion, fevers, shortness of breath with exertionwas found to have Covid 19 pneumonia. Patient had a lengthy stay which his respiratory status continued to deteriorate, patient required supplemental oxygen initially with 2-4 L via nasal cannula as patient's respiratory status continued to deterioratepatient was placed on high flow oxygen,patient continued to require more aggressive supplemental oxygen via BiPAPpatient became dependent on BiPAP. During the patient's course of stay patient received REMDSIVIR, DECADRON, ZINC, VITAMIN C FOR ACUTE COVID PNEUMONIA.DURING THE HOSPITAL COURSE, PATIENT DEVELOPED CYTOKINE STORM-WAS ADMINISTERED 2 DOSES OF ACTEMRA. PATIENT'S INFLAMMATORY MARKERS HAD A DOWNWARD TREND. attempted to keep patient prone for 16 hours a day due to development of ARDS. Over the last 24 hours of hospital staypatient was unable to tolerate prone position, dependent on BiPAP, developed moderate to severe respiratory distress. In-depth and lengthy conversation with family regarding patient's prognosis and severity of illness, patient's family decision to place patient on comfort care measures. Patient at 1058 Assessment: acute hypoxic respiratory failure Acute covid-19 pneumonia CYTOKINE STORM hYPERLIPIDEMIA hYPERTENSION dIABETES Health Concerns: NONE NOTED Pertinent Studies: SERIAL CHEST X-RAYS ECHOCARDIOGRAM Procedures: picc LINE PLACEMENT Patient Condition at Discharge: Undetermined Plan - Discharge Summary Discharge Rx Participant: No New Discharge Prescriptions: Discontinued Omeprazole [PriLOSEC] 20 mg PO AC-BID Lisinopril-Hctz 20-12.5 mg [Zestoretic 20-12.5] 1 tab PO DAILY Aspirin 325 mg PO DAILY Fish Oil/Dha/Epa [Fish Oil 1,200 mg Fish Oil] 1,000 mg PO BID Cholecalciferol [Vitamin D3] 1,000 unit PO DAILY Ubidecarenone [Co Q-10] 100 mg PO DAILY Insulin Lispro Protamin/Lispro [humaLOG Mix 75-25 Kwikpen] 40 unit SQ BID Tamsulosin HCl [Flomax] 0.4 mg PO HS Simvastatin [Zocor] 20 mg PO HS Lifitegrast [Xiidra] 1 dropper BOTH EYES BID Discharge Disposition: - Preliminary Cause of Preliminary Cause of : COVID-19
--- NOTE | 2020-06-16 08:29 | CDI ---
Documentation Clarification Form Date: 06/16/2020 08:02:13 AM From: Radha Umana RN, CCDS Admit Date: 05/22/2020 08:16:00 PM Patient Name: Jan Blanc Visit Number: [id number] Discharge Date: 06/13/2020 12:20:00 PM ATTENTION: The Clinical Documentation Specialists (CDI) and [facility] Coding Staff appreciate your assistance in clarifying documentation. Please respond to the clarification below the line at the bottom and electronically sign. The CDI & [facility] Coding staff will review the response and follow-up if needed. Please note: Queries are made part of the Legal Health Record. If you have any questions, please contact the author of this message via ITS. Dr. Dewayne Lance 06/10 -06/12 Your documentation includes "protein calorie malnourishment". This diagnosis requires further specificity. History/Risk Factors: DM, GERD, HTN, COVID with ARDS on BIPAP Clinical Indicators: 06/09 Attending Progress Note (Temo): "Patient states poor intake, due to low nutritional intake PICC line placed and ordered with TPN. Awaiting recommendations from dietitian for paternal TPN." 06/11 Attending Progress Notes: (Sheet):"Because he is on BiPAP he cannot take oral medication or food so patient was placed on TPN Glucose is controlled with sliding scale." 05/22-06/12 Labs: Albumin: 3.7/3.1/3/2.8/2.3/2.3 Total Protein: 7.1/5.4/5.3/5 Current BMI: 23 Insufficient energy intake: pt. cannot tolerate removal of BiPap, also has difficulty chewing Weight Loss: none documented Loss of subcutaneous fat: Stage 2 pressure ulcer to right buttock Decreased hand financial underwriter strength: equal bilaterally Treatment: Dietary Consult: Completed 05/29/2020 Supplements: [place] Breakfast TID TPN: initiated 06/10 Lab monitoring: AM Daily In your professional opinion, can you please clarify if these findings signify one of the following conditions? Moderate Protein-Calorie Malnutrition MTDD
--- NOTE | 2020-06-16 09:11 | CDI ---
Documentation Clarification Form Date: 06/16/2020 09:02:00 AM From: Radha Umana RN, CCDS Admit Date: 05/22/2020 08:16:00 PM Patient Name: Jan Blanc Visit Number: [id number] Discharge Date: 06/13/2020 12:20:00 PM ATTENTION: The Clinical Documentation Specialists (CDI) and [facility] Coding Staff appreciate your assistance in clarifying documentation. Please respond to the clarification below the line at the bottom and electronically sign. The CDI & [facility] Coding staff will review the response and follow-up if needed. Please note: Queries are made part of the Legal Health Record. If you have any questions, please contact the author of this message via ITS. Dr. Anastacio Plascencia Demand ischemia due to Covid is documented in the progress notes and requires further specificity. Patient History/Risk Factors: Covid 19 Pneumonia, with ARDS and cytokine storm, DM2, HTN Clinical Indicators: 06/01 Cardiology Consult: "EKG reveals sinus rhythm with no signs of acute ischemia. Abnormal troponin secondary to Covid 19. No need to obtain further troponin levels. Echo obtained and reviewed with no evidence of cardiomyopathy. No further intervention from a cardiac standpoint 06/01 Pulmonary Progress note: Elevated troponin may be related to drawn and demand ischemia and perfusion mismatch will defer cardiovascular evaluation to the primary service." 06/02-06/12 Pulmonary Progress notes: "noted mildly elevated troponin of 0.4 asymptomatic likely demand ischemia related." 06/01 Troponin: .405 EKG Results: NSR Treatment: Consult: Cardiology- see above No Cardiac meds or treatment ordered. For accurate documentation please indicate further specificity of demand ischemia due to Covid 19. Unable to determine (Last Revision: June 2019) MTDD
--- NOTE | 2020-06-16 09:31 | CDI ---
Documentation Clarification Form Date: 06/16/2020 09:17:44 AM From: Radha Umana RN, CCDS Admit Date: 05/22/2020 08:16:00 PM Patient Name: Jan Blanc Visit Number: [id number] Discharge Date: 06/13/2020 12:20:00 PM ATTENTION: The Clinical Documentation Specialists (CDI) and [facility] Coding Staff appreciate your assistance in clarifying documentation. Please respond to the clarification below the line at the bottom and electronically sign. The CDI & [facility] Coding staff will review the response and follow-up if needed. Please note: Queries are made part of the Legal Health Record. If you have any questions, please contact the author of this message via ITS. Dr. Anastacio Plascencia A Stage 2 pressure ulcer to right buttock was documented in the Nursing Assessments beginning 06/06 and requires MD acknowledgment and documentation to accurately reflect the patient's SOI/ROM. History/Risk Factors: Malnutrition with TPN, Covid 19 pneumonia with ARDS, DM, HTN Clinical Indicators: Location: Right buttock Wound description: stage 2- (nursing did not provide further elaboration in assessments) Treatment: Hydrocolloid dressing Elements for accurate and compliant documentation of an ulcer: *The location/laterality of the ulcer *Etiology (decubitus/pressure, diabetic, PVD) *Stage I-IV, Unstageable, Suspected Deep Tissue Injury (To the deepest stage) *If the ulcer was present at admission (POA) or occurred after admission hospital aquired (HAC): Unable to determine (Last Revision: March 2017) MTDD
--- NOTE | 2020-06-16 10:52 | CDI ---
Documentation Clarification Form Date: 06/16/2020 10:06:58 AM From: Radha Umana RN, CCDS Admit Date: 05/22/2020 08:16:00 PM Patient Name: Jan Blanc Visit Number: [id number] Discharge Date: 06/13/2020 12:20:00 PM ATTENTION: The Clinical Documentation Specialists (CDI) and [facility] Coding Staff appreciate your assistance in clarifying documentation. Please respond to the clarification below the line at the bottom and electronically sign. The CDI & [facility] Coding staff will review the response and follow-up if needed. Please note: Queries are made part of the Legal Health Record. If you have any questions, please contact the author of this message via ITS. Dr. Anastacio Plascencia History/Risk Factors: Covid 19 pneumonia w Ards, JIMBO, DM, HTN Clinical Indicators: 06/02 Attending Progress Note (Temo): "Awaiting approval for Tocilizumab-due to clinical and diagnostic impression of cytokine storm 06/02-06/10 Pulmonary progress note: "Acute covid 19 pneumonia cytokine is strong." 06/11 Pulmonary progress note: "Acute covid 19 pneumonia cytokine is storm Plan: Status post 2 doses of Actemra for cytokine is storm." 06/11 -06/12 Attending Progress note (Annemarie):"Cytokine storm, improved inflammatory markers." Lab findings: 05/22 CXR: "Coarse interstitial pulmonary density increased compared to old exam and consistent with pulmonary fibrosis. Acute interstitial pneumonia is possible. No heart failure seen." Labs 06/01-06/02: WBC 11.5/13, platelets 94/64, Ferritin 3030.08/2921.7, LDH 806/1850, Troponin .405, CRP 5.6/73.3 06/02 0800 Vital Signs: Temp 98.1, HR 56, RR 19, B/P 132/73, Spo2 94% on 80% FIO2 BiPap Treatment: Consults: pulmonary, ID 2 doses of Actemra for cytokine storm In your professional opinion, if known, can you please clarify the stage of the cytokine storm? Stage 5 (Last Revision: September 2017) MTDD
== END 2020-06-13 12:20 | disposition expired | DRG 177 ==
LOC: EC 18:09 → 6NMEDSUR 20:16 → 2SICU 06-01 22:09
PROVIDERS: ADMIT Family Medicine; ATTEND Family Medicine
PROC: 5A09557 Assistance with Respiratory Ventilation, Greater than 96 Consecutive Hours, Continuous Positive Airway Pressure (ICD-10-PCS; principal; 2020-05-30)
PROC: 5A12012 Performance of Cardiac Output, Single, Manual (ICD-10-PCS; 2020-06-01)
PROC: XW033E5 Introduction of Remdesivir Anti-infective into Peripheral Vein, Percutaneous Approach, New Technology Group 5 (ICD-10-PCS; 2020-06-01)
PROC: XW13325 Transfusion of Convalescent Plasma (Nonautologous) into Peripheral Vein, Percutaneous Approach, New Technology Group 5 (ICD-10-PCS; 2020-06-01)
PROC: 02HV33Z Insertion of Infusion Device into Superior Vena Cava, Percutaneous Approach (ICD-10-PCS; 2020-06-09)
PROC: XW033H5 Introduction of Tocilizumab into Peripheral Vein, Percutaneous Approach, New Technology Group 5 (ICD-10-PCS; 2020-06-11)
PROC: 3E0436Z Introduction of Nutritional Substance into Central Vein, Percutaneous Approach (ICD-10-PCS; 2020-06-12)
DX: U07.1 COVID-19 (principal); J80 Acute respiratory distress syndrome; J12.89 Other viral pneumonia; N17.9 Acute kidney failure, unspecified; E87.1 Hypo-osmolality and hyponatremia; B37.0 Candidal stomatitis; E44.0 Moderate protein-calorie malnutrition; D89.835 Cytokine release syndrome, grade 5; E86.0 Dehydration; Z51.5 Encounter for palliative care; M19.90 Unspecified osteoarthritis, unspecified site; E78.5 Hyperlipidemia, unspecified; I13.10 Hypertensive heart and chronic kidney disease without heart failure, with stage 1 through stage 4 chronic kidney disease, or unspecified chronic kidney disease; E11.22 Type 2 diabetes mellitus with diabetic chronic kidney disease; N18.30 Chronic kidney disease, stage 3 unspecified; E86.1 Hypovolemia; E11.65 Type 2 diabetes mellitus with hyperglycemia; I25.10 Atherosclerotic heart disease of native coronary artery without angina pectoris; K21.9 Gastro-esophageal reflux disease without esophagitis; T50.2X5A Adverse effect of carbonic-anhydrase inhibitors, benzothiadiazides and other diuretics, initial encounter; R19.7 Diarrhea, unspecified; D69.59 Other secondary thrombocytopenia; Z79.4 Long term (current) use of insulin; Z79.82 Long term (current) use of aspirin; Z79.899 Other long term (current) drug therapy; Z88.1 Allergy status to other antibiotic agents; Z90.49 Acquired absence of other specified parts of digestive tract; Z98.890 Other specified postprocedural states; Z98.42 Cataract extraction status, left eye; Z87.891 Personal history of nicotine dependence; Z68.23 Body mass index [BMI] 23.0-23.9, adult
CPT/HCPCS: 36415; 36573; 36600; 71045; 80048; 80053; 82330; 82550; 82553; 82728; 82805; 83036; 83605; 83615; 83735; 83880; 84100; 84145; 84478; 84484; 85025; 85027; 85379; 85384; 85610; 85730; 86140; 86850; 86900; 86901; 87040; 87502; 87635; 93005; 93306; 94640; 94660; 94760; 96360; 96372; 99285